=== PATIENT | male | born 1975 | race Caucasian/White ===

== ENCOUNTER 2017-09-22 12:47 | Emergency (ER) | payer OTHER ==
[2017-09-22] MEDS ORDERED: MEPERIDINE HCL 50 MG/ML AMP ONE (13:57)
[2017-09-22] MEDS ORDERED: ONDANSETRON 4 MG (ODT) TAB ONE (13:57)
--- NOTE | 2017-09-22 14:25 | RAD REPORT ---
EXAM DESCRIPTION: CT - Head C Spine Mpr Wo Con - 09/22/2017 1:52 pm CLINICAL HISTORY: Head and neck injury status post fall. Head and neck pain right arm numbness COMPARISON: 2015 TECHNIQUE: Computed axial tomography of the head and cervical spine was obtained. Sagittal and coronal reconstruction was performed. All CT scans are performed using dose optimization technique as appropriate and may include automated exposure control or mA/KV adjustment according to patient size. FINDINGS: An intracranial bleed is not seen. The ventricles are normal in caliber. An extra-axial fl uid collection is not noted.Fluid within the visualized sinuses and mastoids is not seen. Chronic opa cification right maxillary sinus is noted. A cervical fracture is not visualized. No dislocation is noted. Anterior fusion involves C3 and C4. The superior anterior screw lies mostly within the C3-4 disc. The tip enters the inferior cortex of the C3 vertebral body. The inferior screw is well anchored within the C4 vertebral body. A bone plug has been placed. Anterior fusion involves C5 through C7 by anterior plate, screws and bone plugs. The alignment of the cervical spine is satisfactory. IMPRESSION: No acute intracranial abnormality is seen. A cervical fracture is not visualized. Anterior fusion of the cervical spine as described above. If the patient continues to have symptoms to suggest intracranial /spinal cord /spinal canal patholog y then MRI would be recommended
--- NOTE | 2017-09-22 14:40 | ER ---
Nurse's Notes [facility] Name: Lino Samuel Age: 42 yrs Sex: Male : 1975 Arrival Date: 09/22/2017 Time: 12:49 Bed 26 Private MD: out of town, doctor Diagnosis: Neck pain;Headache Presentation: 09/22 13:16 Presenting complaint: Patient states: i took a tumble yesterday evening, tripped and hj fell and hurt my back of the neck, hx of disc replacement; pain /10; reports tingling on my R arm; taking tylenol and lyrica [employer]UT[employer];. Transition of care: patient was not received from another setting of care. Onset of symptoms was September 22, 2017. Risk Assessment: Do you want to hurt yourself or someone else? Patient reports no desire to harm self or others. Initial Sepsis Screen: Does the patient meet any 2 criteria? No. Patient's initial sepsis screen is negative. Does the patient have a suspected source of infection? No. Patient's initial sepsis screen is negative. Care prior to arrival: None. 13:16 Method Of Arrival: Ambulatory 13:16 Acuity: ERICA 4 hj Triage Assessment: 13:19 General: Appears in no apparent distress. uncomfortable, Behavior is calm, cooperative, hj appropriate for age. Pain: Complains of pain in neck. Historical: - Allergies: 13:18 Imitrex (Throat Swelling, Chest Pain); hj 13:18 Ketorolac (Severe Gastritis); hj 13:18 tramadol (Gastritis, Diaphoresis); hj - PMHx: 13:18 GERD; Hypertension; Migraines; hj - PSHx: 13:18 cervical fusion; Cholecystectomy; hj - Immunization history:: Adult Immunizations up to date. - Social history:: Smoking status: Patient uses tobacco products, Patient/guardian denies using alcohol. - Ebola Screening: : Patient negative for fever greater than or equal to 101.5 degrees Fahrenheit, and additional compatible Ebola Virus Disease symptoms Patient denies exposure to infectious person Patient denies travel to an Ebola-affected area in the 21 days before illness onset. Screenin:19 Abuse screen: Denies threats or abuse. Denies injuries from another. Nutritional hj screening: No deficits noted. Tuberculosis screening: No symptoms or risk factors identified. Fall Risk None identified. Assessment: 13:19 Neuro: Level of Consciousness is awake, alert, obeys commands, Oriented to person, hj place, time, situation, Appropriate for age. 13:45 General: Appears uncomfortable, slender, well groomed, well developed, well nourished, tl3 Behavior is calm, cooperative, appropriate for age. Pain: Complains of pain in neck, right shoulder. Neuro: Level of Consciousness is awake, alert, obeys commands, Oriented to person, place, time, situation, Appropriate for age. Cardiovascular: Patient's skin is warm and dry. Respiratory: Airway is patent Respiratory effort is even, unlabored, Respiratory pattern is regular, symmetrical. GI: No signs and/or symptoms were reported involving the gastrointestinal system. : No signs and/or symptoms were reported regarding the genitourinary system. EENT: No signs and/or symptoms were reported regarding the EENT system. Derm: No signs and/or symptoms reported regarding the dermatologic system. Musculoskeletal: Reports pain in neck and right shoulder. Injury Description: was walking his dog when the dog jolted one way and he went falling after him. 15:20 Reassessment: Patient appears in no apparent distress at this time. No changes from tl3 previously documented assessment. Patient and/or family updated on plan of care and expected duration. Pain level reassessed. Patient is alert, oriented x 3, equal unlabored respirations, skin warm/dry/pink. Vital Signs: 13:19 BP 123 / 86; Pulse 65; Resp 18; Temp 97.9(O); Pulse Ox 100% on R/A; Weight 108.86 kg; Height 6 ft. 4 in. (193.04 cm); Pain 9/10; 13:45 BP 111 / 78; Pulse 57; Resp 18; Pulse Ox 97% ; tl3 15:20 BP 130 / 97; Pulse 56; Resp 18; Pulse Ox 100% on R/A; tl3 13:19 Body Mass Index 29.21 (108.86 kg, 193.04 cm) ED Course: 12:49 Patient arrived in ED. mr 12:49 out of town, doctor is Private Physician. mr 13:18 Triage completed. 13:19 Arm band placed on right wrist. 13:19 Patient has correct armband on for positive identification. Bed in low position. Call light in reach. Side rails up X 1. 13:31 Kaden Forman NP is PHCP. pm1 13:31 Petros Aguilera MD is Attending Physician. pm1 13:38 Angela Wilson, LUIS F is Primary Nurse. tl3 13:50 CT completed. Patient tolerated procedure well. Patient moved to CT via stretcher. Patient moved back from CT. 13:53 CT Head C Spine In Process Unspecified. EDMS 15:20 No provider procedures requiring assistance completed. Patient did not have IV access tl3 during this emergency room visit. Administered Medications: 14:14 Drug: Zofran 4 mg Route: PO; tl3 15:21 Follow up: Response: No adverse reaction tl3 14:14 Drug: Demerol 50 mg Route: IM; Site: left gluteus; tl3 15:21 Follow up: Response: No adverse reaction; Pain is decreased tl3 Outcome: 14:39 Discharge ordered by MD. pm1 15:20 Discharged to home ambulatory. tl3 15:20 Condition: stable 15:20 Discharge instructions given to patient, Instructed on discharge instructions, follow up and referral plans. Demonstrated understanding of instructions, follow-up care. 15:22 Patient left the ED. tl3 Signatures: Dispatcher [employer] EDND Magali Zayas Roxanne Cuevas Elder Patterson RN RN hj Marinas, Patrick, NP REPORTING DEVELOPER pm1 Angela Wilson, LUIS F RN tl3
--- NOTE | 2017-09-22 14:40 | EDPHYS ---
Physician Documentation [facility] Name: Lino Samuel Age: 42 yrs Sex: Male : 1975 Arrival Date: 09/22/2017 Time: 12:49 Bed 26 Private MD: out of town, doctor ED Physician Petros Aguilera HPI: 09/22 14:00 This 42 yrs old Male presents to ER via Ambulatory with complaints of Neck pm1 Problem. 14:00 The patient or guardian complains of pain. The symptoms are located at the cervical pm1 spine. Onset: The symptoms/episode began/occurred yesterday. Context: The problem was sustained outdoors, The neck injury/problem resulted from a fall. Associated signs and symptoms: Pertinent positives: headache, Pertinent negatives: fever, numbness, tingling. The pain does not radiate. Modifying factors: The symptoms are alleviated by nothing. the symptoms are aggravated by nothing. The patient has experienced similar episodes in the past, chronically. The patient has not recently seen a physician. Patient was walking his dog and tripped over him. Somersaulted and landed on his neck and shoulders. Patient with headache at the back of his head and neck pain.. Historical: - Allergies: 13:18 Imitrex (Throat Swelling, Chest Pain); hj 13:18 Ketorolac (Severe Gastritis); hj 13:18 tramadol (Gastritis, Diaphoresis); hj - PMHx: 13:18 GERD; Hypertension; Migraines; hj - PSHx: 13:18 cervical fusion; Cholecystectomy; hj - Immunization history:: Adult Immunizations up to date. - Social history:: Smoking status: Patient uses tobacco products, Patient/guardian denies using alcohol. - Ebola Screening: : Patient negative for fever greater than or equal to 101.5 degrees Fahrenheit, and additional compatible Ebola Virus Disease symptoms Patient denies exposure to infectious person Patient denies travel to an Ebola-affected area in the 21 days before illness onset. ROS: 14:00 Constitutional: Negative for fever, chills, and weight loss, Eyes: Negative for injury, pm1 pain, redness, and discharge, ENT: Negative for injury, pain, and discharge, Cardiovascular: Negative for chest pain, palpitations, and edema, Respiratory: Negative for shortness of breath, cough, wheezing, and pleuritic chest pain, Abdomen/GI: Negative for abdominal pain, nausea, vomiting, diarrhea, and constipation, Back: Negative for injury and pain. 14:00 : Negative for injury, bleeding, discharge, and swelling, MS/Extremity: Negative for injury and deformity, Skin: Negative for injury, rash, and discoloration. 14:00 Neck: Positive for of the cervical spine, pain. 14:00 Neuro: Positive for headache, Negative for numbness, seizure activity, tingling. Exam: 14:00 Constitutional: This is a well developed, well nourished patient who is awake, alert, pm1 and in no acute distress. Head/Face: Normocephalic, atraumatic. Eyes: Pupils equal round and reactive to light, extra-ocular motions intact. Lids and lashes normal. Conjunctiva and sclera are non-icteric and not injected. Cornea within normal limits. Periorbital areas with no swelling, redness, or edema. ENT: Nares patent. No nasal discharge, no septal abnormalities noted. Tympanic membranes are normal and external auditory canals are clear. Oropharynx with no redness, swelling, or masses, exudates, or evidence of obstruction, uvula midline. Mucous membranes moist. Chest/axilla: Normal chest wall appearance and motion. Nontender with no deformity. No lesions are appreciated. Cardiovascular: Regular rate and rhythm with a normal S1 and S2. No gallops, murmurs, or rubs. Normal PMI, no JVD. No pulse deficits. Respiratory: Lungs have equal breath sounds bilaterally, clear to auscultation and percussion. No rales, rhonchi or wheezes noted. No increased work of breathing, no retractions or nasal flaring. 14:00 Abdomen/GI: Soft, non-tender, with normal bowel sounds. No distension or tympany. No guarding or rebound. No evidence of tenderness throughout. Back: No spinal tenderness. No costovertebral tenderness. Full range of motion. Skin: Warm, dry with normal turgor. Normal color with no rashes, no lesions, and no evidence of cellulitis. MS/ Extremity: Pulses equal, no cyanosis. Neurovascular intact. Full, normal range of motion. 14:00 Neck: External neck: is normal, C-spine: C-collar placed in ED, vertebral tenderness, that is mild, appreciated at C6 and C7. 14:00 Neuro: Orientation: is normal, Motor: moves all fours, Sensation: is normal, no obvious gross deficits, Gait: is steady, at a normal pace, without difficulty. Vital Signs: 13:19 BP 123 / 86; Pulse 65; Resp 18; Temp 97.9(O); Pulse Ox 100% on R/A; Weight 108.86 kg; hj Height 6 ft. 4 in. (193.04 cm); Pain 9/10; 13:45 BP 111 / 78; Pulse 57; Resp 18; Pulse Ox 97% ; tl3 15:20 BP 130 / 97; Pulse 56; Resp 18; Pulse Ox 100% on R/A; tl3 13:19 Body Mass Index 29.21 (108.86 kg, 193.04 cm) hj MDM: 13:31 Patient medically screened. pm1 14:37 Data reviewed: vital signs. Data interpreted: Pulse oximetry: on room air is 100 %. pm1 Interpretation: normal. 09/22 13:36 Order name: CT Head C Spine; Complete Time: 14:31 pm1 Administered Medications: 14:14 Drug: Zofran 4 mg Route: PO; tl3 15:21 Follow up: Response: No adverse reaction tl3 14:14 Drug: Demerol 50 mg Route: IM; Site: left gluteus; tl3 15:21 Follow up: Response: No adverse reaction; Pain is decreased tl3 Disposition: 17:36 Co-signature as Attending Physician, Petros Aguilera MD. rn Disposition: 09/22/17 14:39 Discharged to Home. Impression: Neck pain, Headache. - Condition is Stable. - Discharge Instructions: Head Injury, Adult, Soft Tissue Injury of the Neck. - Medication Reconciliation Form, Thank You Letter, Prescription Opioid Use form. - Follow up: Emergency Department; When: As needed; Reason: Worsening of condition. Follow up: Private Physician; When: As needed; Reason: Recheck today's complaints, Continuance of care, Re-evaluation by your physician. - Problem is new. - Symptoms have improved. Signatures: Dispatcher [employer] EDMS Petros Aguilera MD MD rn Joaquin, Henry, RN RN hj Marinas, Patrick, [employer] pm1 Angela Wilson RN RN tl3 Corrections: (The following items were deleted from the chart) 14:40 14:39 09/22/2017 14:39 Discharged to Home. Impression: Neck pain. Condition is Stable. pm1 Forms are Medication Reconciliation Form, Thank You Letter, Antibiotic Education, Prescription Opioid Use. Follow up: Emergency Department; When: As needed; Reason: Worsening of condition. Follow up: Private Physician; When: As needed; Reason: Recheck today's complaints, Continuance of care, Re-evaluation by your physician. Problem is new. Symptoms have improved. pm1 15:22 14:40 09/22/2017 14:39 Discharged to Home. Impression: Neck pain; Headache. Condition tl3 is Stable. Forms are Medication Reconciliation Form, Thank You Letter, Antibiotic Education, Prescription Opioid Use. Follow up: Emergency Department; When: As needed; Reason: Worsening of condition. Follow up: Private Physician; When: As needed; Reason: Recheck today's complaints, Continuance of care, Re-evaluation by your physician. Problem is new. Symptoms have improved. pm1
== END 2017-09-22 15:22 | disposition home or self-care (01) ==
LOC: ER 12:47
DX: R51 Headache (principal); W18.09XA Striking against other object with subsequent fall, initial encounter; Y93.K1 Activity, walking an animal; Y92.9 Unspecified place or not applicable; I10 Essential (primary) hypertension; Z88.6 Allergy status to analgesic agent; Z88.8 Allergy status to other drugs, medicaments and biological substances; Z72.0 Tobacco use
CPT/HCPCS: 70450; 72125; 96372; 99284; J2175

== ENCOUNTER 2018-07-22 18:40 | Emergency (ER) | payer OTHER ==
[2018-07-22] MEDS ORDERED: METOCLOPRAMIDE 10 MG/2mL INJ ONE (20:44)
[2018-07-22] MEDS ORDERED: DEXAMETHASONE 10 MG/ML VIAL ONE (20:44)
[2018-07-22] MEDS ORDERED: ONDANSETRON 4 MG/2 ML VIAL ONE (20:45)
[2018-07-22] MEDS ORDERED: DIPHENHYDRAMINE 50 MG/ML VIAL ONE (20:45)
[2018-07-22] MEDS ORDERED: NA CHLORIDE 0.9% 1,000 ML ONE (20:45)
[2018-07-22] MEDS ORDERED: HYDROCODONE/APAP 10/325 TAB ONE (21:47)
--- NOTE | 2018-07-22 22:05 | ER ---
Nurse's Notes [facility] Name: Lino Samuel Age: 43 yrs Sex: Male : 1975 Arrival Date: 07/22/2018 Time: 18:43 Bed 26 Private MD: Diagnosis: Nausea and vomiting;Headache;Chronic neck pain Presentation: 07/22 18:52 Presenting complaint: Patient states: i have severe migraines, and my neck has been tw2 hurting the last 4 days, i have taken my medication i have at the house and i throw it up, i am nauseaous. Transition of care: patient was not received from another setting of care. Onset of symptoms was July 22, 2018. Risk Assessment: Do you want to hurt yourself or someone else? Patient reports no desire to harm self or others. Initial Sepsis Screen: Does the patient meet any 2 criteria? No. Patient's initial sepsis screen is negative. Does the patient have a suspected source of infection? No. Patient's initial sepsis screen is negative. Care prior to arrival: None. 18:52 Method Of Arrival: Ambulatory tw2 18:52 Acuity: ERICA 2 tw2 Triage Assessment: 18:55 Headache History: The patient has had previous headaches and this one is similar to tw2 previous episodes. General: Appears uncomfortable, Behavior is calm, cooperative, appropriate for age. Pain: Complains of pain in base of neck and migraine on the temples and the front of my head. Pain: Pain currently is 8 out of 10 on a pain scale. Pain began 2-3 days ago. Also complains of nausea, photophobia. Neuro: Reports headache. Historical: - Allergies: 18:55 Imitrex (Throat Swelling, Chest Pain); tw2 18:55 Ketorolac (Severe Gastritis); tw2 18:55 tramadol (Gastritis, Diaphoresis); tw2 - Home Meds: 18:55 Percocet 10-650 mg Oral tab 1 tab every 6 hours [Active]; valsartan Oral 1 tab once tw2 daily [Active]; Topamax 50 mg Oral tab 1 tab daily [Active]; Phenergan 25MG Oral 1 tab as needed [Active]; omeprazole 40 mg Oral cpDR 1 cap once daily [Active]; metoprolol tartrate 50 mg Oral tab 1 tab 2 times per day [Active]; Dexilant 60 mg Oral CpDB 1 cap once daily [Active]; amlodipine 10 mg tab 1 tab once daily [Active]; - PMHx: 18:55 GERD; Hypertension; Migraines; tw2 - PSHx: 18:55 cervical fusion; Cholecystectomy; tw2 - Immunization history:: Adult Immunizations Adult Immunizations up to date. - Social history:: Smoking status: Patient uses tobacco products, smokes one-half pack cigarettes per day. - Ebola Screening: : Patient denies travel to an Ebola-affected area in the 21 days before illness onset. Screenin:18 Abuse screen: Denies threats or abuse. Denies injuries from another. Nutritional ca1 screening: No deficits noted. Tuberculosis screening: No symptoms or risk factors identified. Fall Risk None identified. Assessment: 19:14 General: Appears in no apparent distress. comfortable, Behavior is calm, cooperative, ca1 appropriate for age. Pain: Complains of pain in face, scalp and neck Pain currently is 8 out of 10 on a pain scale. Quality of pain is described as throbbing, Pain began 4 days ago Is continuous. Neuro: Level of Consciousness is awake, alert, obeys commands, Oriented to person, place, time, situation, Reports headache in entire since 4 days ago. Pt has Hx of migraines. Cardiovascular: Heart tones S1 S2 present Capillary refill < 3 seconds Patient's skin is warm and dry. Respiratory: Airway is patent Respiratory effort is even, unlabored, Respiratory pattern is regular, symmetrical, Breath sounds are clear bilaterally. GI: Abdomen is round non-distended, Bowel sounds present X 4 quads. Abd is soft and non tender X 4 quads. Reports nausea, vomiting. : No deficits noted. No signs and/or symptoms were reported regarding the genitourinary system. EENT: No deficits noted. No signs and/or symptoms were reported regarding the EENT system. Derm: Skin is intact, is healthy with good turgor, Skin is pink, warm \T\ dry. Musculoskeletal: Circulation, motion, and sensation intact. Capillary refill < 3 seconds, Range of motion: intact in all extremities. 20:15 Reassessment: Patient appears in no apparent distress at this time. Patient and/or ca1 family updated on plan of care and expected duration. Pain level reassessed. Patient is alert, oriented x 3, equal unlabored respirations, skin warm/dry/pink. 21:45 Reassessment: Patient appears in no apparent distress at this time. Patient is alert, ca1 oriented x 3, equal unlabored respirations, skin warm/dry/pink. Patient states feeling better. Vital Signs: 18:53 BP 162 / 102; Pulse 95; Resp 18; Temp 98.0(O); Pulse Ox 100% on R/A; Weight 111.13 kg tw2 (R); Height 6 ft. 4 in. (193.04 cm) (R); Pain 8/10; 20:05 BP 132 / 81; Pulse 67; Resp 17 S; Temp 98.2(O); Pulse Ox 100% on R/A; ca1 21:27 BP 124 / 74; Pulse 62; Resp 18; Temp 98; Pulse Ox 100% on R/A; mg2 22:10 BP 113 / 77; Pulse 67; Resp 17 S; Temp 98(O); Pulse Ox 100% on R/A; ca1 18:53 Body Mass Index 29.82 (111.13 kg, 193.04 cm) tw2 ED Course: 18:43 Patient arrived in ED. mr 18:53 Triage completed. tw2 18:55 Arm band placed on. tw2 19:06 Maria Eugenia Holley, RN is Primary Nurse. ca1 19:18 Patient has correct armband on for positive identification. Placed in gown. Bed in low ca1 position. Call light in reach. Side rails up X 1. Pulse ox on. NIBP on. Warm blanket given. 20:07 Calrence Hairston PA is PHCP. cp 20:07 Clarence Amos MD is Attending Physician. cp 20:20 Inserted saline lock: 20 gauge in right antecubital area, using aseptic technique. mg2 Blood collected. 22:15 No provider procedures requiring assistance completed. IV discontinued, intact, ca1 bleeding controlled, No redness/swelling at site. Pressure dressing applied. Administered Medications: 20:20 Drug: NS 0.9% 1000 ml Route: IV; Rate: 1 bolus; Site: right antecubital; mg2 20:21 Drug: Zofran 4 mg Route: IVP; Site: right antecubital; mg2 20:25 Drug: Benadryl 25 mg Route: IVP; Site: right antecubital; mg2 20:30 Drug: Decadron - Dexamethasone 10 mg Route: IVP; Site: right antecubital; mg2 21:36 Follow up: Response: No adverse reaction mg2 20:35 Drug: Reglan 10 mg Route: IVP; Site: right antecubital; mg2 21:36 Drug: HYDROcodone-acetaminophen 10 mg-325 mg 1 tabs Route: PO; mg2 Outcome: 22:04 Discharge ordered by . cp 22:15 Discharged to home ambulatory. ca1 22:15 Condition: stable 22:15 Discharge instructions given to patient, Instructed on discharge instructions, follow up and referral plans. medication usage, Demonstrated understanding of instructions, follow-up care, medications, Prescriptions given X 2. 22:18 Patient left the ED. ca1 Signatures: Zayas, Heidy mr Clarence Hairston PA PA cp Wise, Tara, RN RN tw2 Davie Tobar RN RN mg2 Maria Eugenia Holley RN RN ca1 Corrections: (The following items were deleted from the chart) 22:18 22:00 BP 113 / 77; Pulse 67bpm; Resp 17bpm; Spontaneous; Pulse Ox 100% RA; Temp 98F ca1 Oral; ca1
--- NOTE | 2018-07-22 22:05 | EDPHYS ---
Physician Documentation [facility] Name: Lino Samuel Age: 43 yrs Sex: Male : 1975 Arrival Date: 07/22/2018 Time: 18:43 Bed 26 Private MD: ED Physician Clarence Amos HPI: 07/22 20:15 This 43 yrs old Male presents to ER via Ambulatory with complaints of cp Headache, Vomiting, Neck Problem. 20:15 The patient complains of pain to the forehead and back of head and base of skull. cp Onset: The symptoms/episode began/occurred 4 day(s) ago. 20:15 Associated signs and symptoms: Pertinent positives: nausea, vomiting, chronic neck pain.cp 20:15 Severity of symptoms: in the emergency department the pain a " 8" out of "10". cp 20:15 Headache History: The patient has had previous headaches and this one is similar to cp previous episodes. 20:15 Patient reports he has been unable to take prescribed Percocet due to nausea and cp vomiting. Historical: - Allergies: 18:55 Imitrex (Throat Swelling, Chest Pain); tw2 18:55 Ketorolac (Severe Gastritis); tw2 18:55 tramadol (Gastritis, Diaphoresis); tw2 - Home Meds: 18:55 Percocet 10-650 mg Oral tab 1 tab every 6 hours [Active]; valsartan Oral 1 tab once tw2 daily [Active]; Topamax 50 mg Oral tab 1 tab daily [Active]; Phenergan 25MG Oral 1 tab as needed [Active]; omeprazole 40 mg Oral cpDR 1 cap once daily [Active]; metoprolol tartrate 50 mg Oral tab 1 tab 2 times per day [Active]; Dexilant 60 mg Oral CpDB 1 cap once daily [Active]; amlodipine 10 mg tab 1 tab once daily [Active]; - PMHx: 18:55 GERD; Hypertension; Migraines; tw2 - PSHx: 18:55 cervical fusion; Cholecystectomy; tw2 - Immunization history:: Adult Immunizations Adult Immunizations up to date. - Social history:: Smoking status: Patient uses tobacco products, smokes one-half pack cigarettes per day. - Ebola Screening: : Patient denies travel to an Ebola-affected area in the 21 days before illness onset. ROS: 20:25 Constitutional: Negative for body aches, chills, fever, poor PO intake. cp 20:25 Eyes: Positive for photophobia, Negative for discharge, redness. cp 20:25 ENT: Negative for drainage from ear(s), ear pain, difficulty swallowing, difficulty handling secretions. 20:25 Neck: Positive for pain with movement, pain at rest. 20:25 Cardiovascular: Negative for chest pain, palpitations. 20:25 Respiratory: Negative for cough, shortness of breath, wheezing. 20:25 Abdomen/GI: Positive for nausea, vomiting, Negative for abdominal pain, diarrhea, constipation. 20:25 : Negative for urinary symptoms. 20:25 Skin: Negative for rash. 20:25 Neuro: Positive for headache, Negative for altered mental status, dizziness, weakness. 20:25 All other systems are negative. Exam: 20:30 Constitutional: The patient appears in no acute distress, alert, awake, cp non-diaphoretic, non-toxic, well developed, well nourished. 20:30 Head/Face: Normocephalic, atraumatic. Eyes: Pupils equal round and reactive to light, cp extra-ocular motions intact. Lids and lashes normal. Conjunctiva and sclera are non-icteric and not injected. Cornea within normal limits. Periorbital areas with no swelling, redness, or edema. ENT: Nares patent. No nasal discharge, no septal abnormalities noted. Tympanic membranes are normal and external auditory canals are clear. Oropharynx with no redness, swelling, or masses, exudates, or evidence of obstruction, uvula midline. Mucous membranes moist. 20:30 Neck: ROM/movement: pain, that is moderate, with any movement, limited range of motion, is not appreciated, nuchal rigidity, is not appreciated. 20:30 Chest/axilla: Inspection: normal, Palpation: is normal, no crepitus, no tenderness. 20:30 Cardiovascular: Rate: normal, Rhythm: regular. 20:30 Respiratory: the patient does not display signs of respiratory distress, Respirations: normal, no use of accessory muscles, no retractions, no splinting, no tachypnea, labored breathing, is not present, Breath sounds: are clear throughout, no decreased breath sounds, no stridor, no wheezing. 20:30 Abdomen/GI: Inspection: abdomen appears normal, Palpation: abdomen is soft and non-tender, in all quadrants. 20:30 Back: pain, is absent, ROM is normal. 20:30 Musculoskeletal/extremity: Exam is negative for decreased range of motion, deformity, injury. 20:30 Skin: no rash present. 20:30 Neuro: Orientation: to person, place \\T\\ time. Mentation: is normal, Cerebellar function: is grossly normal, Motor: moves all fours, strength is normal, Sensation: is normal. Vital Signs: 18:53 BP 162 / 102; Pulse 95; Resp 18; Temp 98.0(O); Pulse Ox 100% on R/A; Weight 111.13 kg tw2 (R); Height 6 ft. 4 in. (193.04 cm) (R); Pain 8/10; 20:05 BP 132 / 81; Pulse 67; Resp 17 S; Temp 98.2(O); Pulse Ox 100% on R/A; ca1 21:27 BP 124 / 74; Pulse 62; Resp 18; Temp 98; Pulse Ox 100% on R/A; mg2 22:10 BP 113 / 77; Pulse 67; Resp 17 S; Temp 98(O); Pulse Ox 100% on R/A; ca1 18:53 Body Mass Index 29.82 (111.13 kg, 193.04 cm) tw2 MDM: 20:07 Patient medically screened. cp 20:30 Differential diagnosis: cluster headache, intracerebral hemorrhage, migraine, cp sinusitis, subarachnoid bleed, subdural hematoma, tension headache. 22:02 ED course: VSS. Patient reports nausea and pain improved. Will discharge to home for cp continued monitoring. 22:03 Data reviewed: vital signs, nurses notes, and as a result, I will discharge patient. cp 22:03 Counseling: I had a detailed discussion with the patient and/or guardian regarding: the cp historical points, exam findings, and any diagnostic results supporting the discharge/admit diagnosis, to return to the emergency department if symptoms worsen or persist or if there are any questions or concerns that arise at home. Response to treatment: the patient's symptoms have markedly improved after treatment. 07/22 20:15 Order name: IV; Complete Time: 20:42 cp 07/22 21:26 Order name: PO challenge; Complete Time: 21:35 cp Administered Medications: 20:20 Drug: NS 0.9% 1000 ml Route: IV; Rate: 1 bolus; Site: right antecubital; mg2 20:21 Drug: Zofran 4 mg Route: IVP; Site: right antecubital; mg2 20:25 Drug: Benadryl 25 mg Route: IVP; Site: right antecubital; mg2 20:30 Drug: Decadron - Dexamethasone 10 mg Route: IVP; Site: right antecubital; mg2 21:36 Follow up: Response: No adverse reaction mg2 20:35 Drug: Reglan 10 mg Route: IVP; Site: right antecubital; mg2 21:36 Drug: HYDROcodone-acetaminophen 10 mg-325 mg 1 tabs Route: PO; mg2 Disposition: 22:30 Chart complete. cp Disposition: 07/22/18 22:04 Discharged to Home. Impression: Nausea and vomiting, Headache, Chronic neck pain. - Condition is Stable. - Discharge Instructions: Chronic Pain, Migraine Headache, Nausea and Vomiting, Adult, Form - Excuse from Work, School, or Physical Activity. - Prescriptions for Zofran 4 mg Oral Tablet - take 1 tablet by ORAL route every 12 hours As needed; 20 tablet. Phenergan 25 mg Rectal Suppository - insert 1 suppository by RECTAL route every 6 hours As needed; 12 suppository. - Medication Reconciliation Form, Thank You Letter, Antibiotic Education, Prescription Opioid Use, Work release form form. - Follow up: Private Physician; When: 2 - 3 days; Reason: Recheck today's complaints. - Problem is chronic. - Symptoms have improved. Addendum: 07/25/2018 09:13 Co-signature as Attending Physician, Clarence Amos MD I agree with the assessment and c cadet plan of care. Signatures: Clarence Amos MD MD cha Page, Corey, PA PA cp Sandhya Whatley RN RN tw2 Davie Tobar RN RN mg2 Maria Eugenia Holley RN RN ca1 Corrections: (The following items were deleted from the chart) 07/22 22:18 22:04 07/22/2018 22:04 Discharged to Home. Impression: Nausea and vomiting; Headache; ca1 Chronic neck pain. Condition is Stable. Forms are Medication Reconciliation Form, Thank You Letter, Antibiotic Education, Prescription Opioid Use. Follow up: Private Physician; When: 2 - 3 days; Reason: Recheck today's complaints. Problem is chronic. Symptoms have improved. cp
== END 2018-07-22 22:18 | disposition home or self-care (01) ==
LOC: ER 18:40
DX: R51 Headache (principal); R11.2 Nausea with vomiting, unspecified; M54.2 Cervicalgia; G89.29 Other chronic pain; K21.9 Gastro-esophageal reflux disease without esophagitis; I10 Essential (primary) hypertension; F17.210 Nicotine dependence, cigarettes, uncomplicated
CPT/HCPCS: 96374; 96375; 99284; J1100; J2405; J2765; J7030

== ENCOUNTER 2018-08-21 22:56 | Emergency (ER) | payer OTHER ==
--- OUTSIDE RECORDS SUMMARY | 2018-08-21 22:59 | XMS REPORT ---
:1975 [facility] Address [address] [place] [address] [address] [place] [address] Care Team Providers Name Role Phone Unavailable Unavailable Unavailable Problems This patient has no known problems. Allergies, Adverse Reactions, Alerts This patient has no known allergies or adverse reactions. Medications This patient has no known medications.
[2018-08-21] MEDS ORDERED: DIAZEPAM 10 MG/2 ML INJ SYRINGE ONE (23:57)
[2018-08-22] MEDS ORDERED: MORPHINE 4 MG/ML SYR ONE (00:01)
--- NOTE | 2018-08-22 01:09 | ER ---
Nurse's Notes [facility] Name: Lino Samuel Age: 43 yrs Sex: Male : 1975 Arrival Date: 08/21/2018 Time: 23:00 Bed 20 Private MD: Diagnosis: Acute on chronic neck pain Presentation: 08/21 23:04 Presenting complaint: Patient states: chronic neck pain that radiates to right arm. 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 Pt states that he has an appointment on September 06 to have stimulator placed. Transition of care: patient was not received from another setting of care. Onset of symptoms was August 21, 2018. Risk Assessment: Do you want to hurt yourself or someone else? Patient reports no desire to harm self or others. Initial Sepsis Screen: Does the patient meet any 2 criteria? No. Patient's initial sepsis screen is negative. Does the patient have a suspected source of infection? No. Patient's initial sepsis screen is negative. Care prior to arrival: None. 23:04 Method Of Arrival: Ambulatory tl2 23:04 Acuity: ERICA 4 tl2 Triage Assessment: 23:09 General: Appears in no apparent distress. uncomfortable, Behavior is calm, cooperative, tl2 appropriate for age. Pain: Complains of pain in neck Pain radiates to right arm. Neuro: Level of Consciousness is awake, alert, obeys commands, Oriented to person, place, time, situation. Historical: - Allergies: 23:09 Imitrex (Throat Swelling, Chest Pain); tl2 23:09 Ketorolac (Severe Gastritis); tl2 23:09 tramadol (Gastritis, Diaphoresis); tl2 - Home Meds: 23:09 metoprolol tartrate 50 mg Oral tab 1 tab 2 times per day [Active]; tl2 damwortkgp-eaaeehygu-ilrwpyrkcwwjmlyacqa oral oral [Active]; Percocet 10-650 mg Oral tab 1 tab every 6 hours [Active]; omeprazole 40 mg Oral cpDR 1 cap once daily [Active]; Dexilant 60 mg Oral CpDB 1 cap once daily [Active]; - PMHx: 23:09 GERD; Hypertension; Migraines; chronic neck pain; tl2 - PSHx: 23:09 neck surgery; Cholecystectomy; Vasectomy; tl2 - Immunization history:: Adult Immunizations up to date. - Social history:: Smoking status: Patient uses tobacco products, smokes one-half pack cigarettes per day. - Ebola Screening: : No symptoms or risks identified at this time. - Family history:: not pertinent. - Hospitalizations: : No recent hospitalization is reported. Screenin:10 Abuse screen: Denies threats or abuse. Nutritional screening: No deficits noted. tl2 Tuberculosis screening: No symptoms or risk factors identified. Fall Risk None identified. Assessment: 08/22 00:19 General: Appears in no apparent distress. uncomfortable, Behavior is calm, cooperative, tl1 appropriate for age. Pain: Complains of pain in neck and C7 and C6 and right arm Pain radiates to right arm Pain currently is 7 out of 10 on a pain scale. Quality of pain is described as burning. Neuro: Level of Consciousness is awake, alert, obeys commands, Oriented to person, place, time, situation. Cardiovascular: Denies chest pain. Respiratory: Airway is patent Trachea midline Respiratory effort is even, unlabored, Breath sounds are clear bilaterally. GI: Abdomen is non-distended, Bowel sounds present X 4 quads. Abd is soft and non tender X 4 quads. : No signs and/or symptoms were reported regarding the genitourinary system. EENT: No signs and/or symptoms were reported regarding the EENT system. Musculoskeletal: Reports pain in neck and right arm. 01:10 Reassessment: Patient and/or family updated on plan of care and expected duration. Pain tl1 level reassessed. Patient is alert, oriented x 3, equal unlabored respirations, skin warm/dry/pink. Patient states feeling better. Patient states symptoms have improved. 01:14 Reassessment: Patient appears in no apparent distress at this time. Patient and/or tl2 family updated on plan of care and expected duration. Pain level reassessed. Patient is alert, oriented x 3, equal unlabored respirations, skin warm/dry/pink. pt verbalized understanding of discharge instructions, need for follow up and prescription usage Patient states feeling better. Vital Signs: 08/21 23:09 BP 170 / 100; Pulse 98; Resp 18; Temp 98.2(O); Pulse Ox 98% on R/A; Weight 111.13 kg; tl2 Height 6 ft. 4 in. (193.04 cm); Pain 7/10; 08/22 00:19 BP 155 / 93; Pulse 73; Resp 17; Pulse Ox 97% on R/A; Pain 5/10; tl1 00:57 BP 146 / 85; Pulse 73; Resp 17; Pulse Ox 97% on R/A; tl1 08/21 23:09 Body Mass Index 29.82 (111.13 kg, 193.04 cm) tl2 ED Course: 08/21 23:00 Patient arrived in ED. ag3 23:07 Triage completed. tl2 23:09 Arm band placed on right wrist. tl2 23:10 Patient has correct armband on for positive identification. Bed in low position. Call tl2 light in reach. Side rails up X 1. 23:11 Stalin Purdy MD is Attending Physician. ny 23:37 Johanny Ferguson, LUIS F is Primary Nurse. tl1 08/22 00:30 CT C Spine In Process Unspecified. EDMS 00:58 No provider procedures requiring assistance completed. Patient did not have IV access tl1 during this emergency room visit. 01:06 Mina Little MD is Referral Physician. wa Administered Medications: 08/21 23:47 CANCELLED (unavailable): morphine 5 mg IM once tl2 23:48 Drug: Valium 5 mg Route: IM; Site: right gluteus; tl2 08/22 00:55 Follow up: Response: No adverse reaction; Marked relief of symptoms; Other; nerve pain tl1 is decreased 08/21 23:48 CANCELLED (wrong route): morphine 4 mg IVP once tl2 23:48 Drug: morphine 4 mg Route: IM; Site: right gluteus; tl2 08/22 00:55 Follow up: Response: No adverse reaction; Pain is unchanged, physician notified tl1 00:56 CANCELLED (Physician Discretion): morphine 4 mg IM once ny 01:01 Drug: [place] (7.5 mg-325 mg) 1 tabs Route: PO; tl1 01:11 Follow up: Response: No adverse reaction; No change in condition; Medication tl1 administered at discharge. Outcome: 01:08 Discharge ordered by . ny 01:14 Discharged to home ambulatory. tl2 01:14 Condition: stable 01:14 Discharge instructions given to patient, Instructed on discharge instructions, follow up and referral plans. medication usage, Demonstrated understanding of instructions, follow-up care, medications, Prescriptions given X 1. 01:15 Patient left the ED. tl2 Signatures: Dispatcher [employer] EDMS Johanny Ferguson RN RN tl1 Angelica Goldsmith RN RN tl2 Stalin Purdy MD MD wa Gomez, Alice ag3
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
[2018-08-22] MEDS ORDERED: HYDROCODONE/APAP 7.5/325 MG TAB ONE (01:15)
--- NOTE | 2018-08-22 10:29 | RAD REPORT ---
EXAM DESCRIPTION: CT - C Spine Wo Con - 08/22/2018 6:15 am CLINICAL HISTORY: Neck pain. radiate R arm COMPARISON: None. TECHNIQUE: CT CERVICAL SPINE WITHOUT IV CONTRAST on 08/21/2018 11:36 PM CDT This exam was performed according to our departmental dose-optimization program, which includes autom ated exposure control, adjustment of the mA and/or kV according to patient size and/or use of iterati ve reconstruction technique. FINDINGS: There is no acute fracture. There is straightening of normal cervical lordosis. Anterior f usion of C3 and C4 as well as C5-C7 was performed. Vertebral body heights are preserved. Soft tissues are unremarkable. IMPRESSION: No acute fracture or subluxation. Electronically signed by: Braden Engle MD 08/22/2018 12:44 AM CDT Due to temporary technical issues with the PACS/Fluency reporting system, reports are being signed by the in house radiologist as a courtesy to ensure prompt reporting. The interpreting radiologist is f ully responsible for the content of the report.
== END 2018-08-22 01:15 | disposition home or self-care (01) ==
LOC: ER 22:56
DX: M54.2 Cervicalgia (principal); I10 Essential (primary) hypertension; K21.9 Gastro-esophageal reflux disease without esophagitis; G43.909 Migraine, unspecified, not intractable, without status migrainosus; Z88.6 Allergy status to analgesic agent; Z88.8 Allergy status to other drugs, medicaments and biological substances
CPT/HCPCS: 72125; 96372; 99283; J3360

== ENCOUNTER 2018-12-22 11:19 | Emergency (ER) | payer OTHER ==
--- NOTE | 2018-12-22 13:03 | ER ---
Nurse's Notes [facility] Name: Lino Samuel Age: 43 yrs Sex: Male : 1975 Arrival Date: 12/22/2018 Time: 11:21 Bed 20 Private MD: Diagnosis: Pain in right shoulder Presentation: 12/22 11:33 Presenting complaint: Patient states: neck pain for years. last night was burning and ch worse. My insurance wont get me a pain simulator. my dr is out of town and they told me to come here. 11:33 Method Of Arrival: Ambulatory 11:35 Transition of care: patient was not received from another setting of care. Onset of ch symptoms was 2014. Risk Assessment: Do you want to hurt yourself or someone else? Patient reports no desire to harm self or others. Initial Sepsis Screen: Does the patient meet any 2 criteria? No. Patient's initial sepsis screen is negative. Does the patient have a suspected source of infection? No. Patient's initial sepsis screen is negative. Care prior to arrival: None. 11:35 Acuity: ERICA 5 ch Triage Assessment: 11:34 General: Appears in no apparent distress. uncomfortable, Behavior is calm, cooperative, ch appropriate for age. Pain: Complains of pain in back of neck and right arm. Historical: - Allergies: 11:34 Imitrex (Throat Swelling, Chest Pain); ch 11:34 Ketorolac (Severe Gastritis); ch 11:34 tramadol (Gastritis, Diaphoresis); ch - PMHx: 11:34 chronic neck pain; GERD; Hypertension; Migraines; ch - PSHx: 11:34 neck surgery; Cholecystectomy; Vasectomy; ch - Immunization history:: Adult Immunizations up to date. - Social history:: Smoking status: Patient/guardian denies using tobacco. - Ebola Screening: : Patient negative for fever greater than or equal to 101.5 degrees Fahrenheit, and additional compatible Ebola Virus Disease symptoms Patient denies exposure to infectious person Patient denies travel to an Ebola-affected area in the 21 days before illness onset No symptoms or risks identified at this time. Screenin:54 Abuse screen: Denies threats or abuse. Denies injuries from another. Nutritional sv screening: No deficits noted. Tuberculosis screening: No symptoms or risk factors identified. Fall Risk None identified. Assessment: 13:17 Reassessment: Patient appears in no apparent distress at this time. Patient is alert, rb1 oriented x 3, equal unlabored respirations, skin warm/dry/pink. Vital Signs: 11:34 BP 123 / 89; Pulse 91; Resp 16; Temp 97.5; Pulse Ox 99% on R/A; Weight 111.13 kg; ch Height 6 ft. 4 in. (193.04 cm); Pain 9/10; 11:34 Body Mass Index 29.82 (111.13 kg, 193.04 cm) ED Course: 11:21 Patient arrived in ED. as 11:34 Arm band placed on left wrist. Patient placed in waiting room. ch 11:36 Triage completed. 12:33 Christina Whaley FNP-C is [facility]. snw 12:33 Barrie Rosado MD is Attending Physician. snw 12:33 Jes Keating, RN is Primary Nurse. sv 12:53 Awaiting ED provider evaluation. sv 12:54 Patient has correct armband on for positive identification. Bed in low position. Call sv light in reach. Administered Medications: 13:17 Drug: predniSONE 40 mg Route: PO; rb1 13:27 Follow up: Response: No adverse reaction sv Outcome: 13:02 Discharge ordered by . snw 13:27 Patient left the ED. kj1 Signatures: Kathleen Willard, RN RN Jes Keating, LUIS F RN Christina Whaley FNP-C FNP-Francisca Quiroz Rebecca, RN RN rb1 Ninoska Lopez kj1
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
[2018-12-22] MEDS ORDERED: predniSONE 20 MG TAB ONE (13:15)
[2018-12-22 13:35] VITALS: BP 123/89; TEMP 97.5; O2SAT 99
== END 2018-12-22 13:27 | disposition home or self-care (01) ==
LOC: ER 11:19
DX: M25.511 Pain in right shoulder (principal); M54.2 Cervicalgia; I10 Essential (primary) hypertension; Z88.5 Allergy status to narcotic agent; Z88.8 Allergy status to other drugs, medicaments and biological substances
CPT/HCPCS: 99282; J7512

== ENCOUNTER 2019-09-03 18:20 | Emergency (ER) | payer OTHER ==
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
--- OUTSIDE RECORDS SUMMARY | 2019-09-03 18:23 | XMS REPORT | Continuity of Care Document ---
:1975 Author Organization [facility] t Address [address] [place] [address] Care Team Providers Name Role Phone Noel Hernandez Attending Clinician Karon Wheat Attending Clinician Problems This patient has no known problems. Allergies, Adverse Reactions, Alerts This patient has no known allergies or adverse reactions. Medications This patient has no known medications. Procedures This patient has no known procedures. Encounters Start End Encounter Admission Attending Care Care Encounter Source Date/Time Date/Time Type Type Clinicians Facility Department ID 2019-08-29 2019-08-29 Emergency Daviskeelycliff [facility] [id number] 18:05:24 19:48:00 Qi Chirinos [id number] [place] [id number] [place] [id number] 2019-04-20 2019-04-20 Emergency Teodoro [facility] [id number] 21:28:16 22:19:00 Alley Chirinos [id number] [place] [id number] [place] [id number] Results This patient has no known results.
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
--- NOTE | 2019-09-03 20:59 | EDPHYS ---
Physician Documentation [facility] Name: Lino Samuel Age: 44 yrs Sex: Male : 1975 Arrival Date: 09/03/2019 Time: 18:24 Bed 10 Private MD: ED Physician Clarence Amos HPI: 09/02 20:51 This 44 yrs old Male presents to ER via Ambulatory with complaints of Arm iram Injury. 20:51 The patient or guardian complains of contusion. The complaints affect the dorsal aspect iram of left forearm and palmar aspect of left forearm. Context: The problem was sustained. Onset: The symptoms/episode began/occurred 5 day(s) ago. Treatment prior to arrival includes: no previous treatment. Modifying factors: The symptoms are alleviated by remaining still, the symptoms are aggravated by movement. Associated signs and symptoms: The patient has no apparent associated signs or symptoms. Severity of symptoms: At their worst the symptoms were mild, in the emergency department the symptoms are unchanged. The patient has not experienced similar symptoms in the past. Historical: - Allergies: 18:37 Imitrex (Throat Swelling, Chest Pain); ss 18:37 Ketorolac (Severe Gastritis); ss 18:37 tramadol (Gastritis, Diaphoresis); ss - PMHx: 18:37 chronic neck pain; GERD; Hypertension; Migraines; ss - PSHx: 18:37 neck surgery; Vasectomy; Cholecystectomy; ss - Immunization history:: Adult Immunizations up to date. - Social history:: Smoking status: Patient reports the use of cigarette tobacco products, smokes one-half pack cigarettes per day, Patient/guardian denies using alcohol, street drugs. - Family history:: not pertinent. ROS: 20:51 Constitutional: Negative for fever, chills, and weight loss, Eyes: Negative for injury, iram pain, redness, and discharge, ENT: Negative for injury, pain, and discharge, Neck: Negative for injury, pain, and swelling, Cardiovascular: Negative for chest pain, palpitations, and edema, Respiratory: Negative for shortness of breath, cough, wheezing, and pleuritic chest pain, Abdomen/GI: Negative for abdominal pain, nausea, vomiting, diarrhea, and constipation, Back: Negative for injury and pain, : Negative for injury, bleeding, discharge, and swelling, Skin: Negative for injury, rash, and discoloration, Neuro: Negative for headache, weakness, numbness, tingling, and seizure, Psych: Negative for depression, anxiety, suicide ideation, homicidal ideation, and hallucinations, Allergy/Immunology: Negative for hives, rash, and allergies, Endocrine: Negative for neck swelling, polydipsia, polyuria, polyphagia, and marked weight changes, Hematologic/Lymphatic: Negative for swollen nodes, abnormal bleeding, and unusual bruising. 20:51 MS/extremity: Positive for decreased range of motion, pain, tenderness. Exam: 20:51 Constitutional: This is a well developed, well nourished patient who is awake, alert, iram and in no acute distress. Head/Face: Normocephalic, atraumatic. Eyes: Pupils equal round and reactive to light, extra-ocular motions intact. Lids and lashes normal. Conjunctiva and sclera are non-icteric and not injected. Cornea within normal limits. Periorbital areas with no swelling, redness, or edema. ENT: Nares patent. No nasal discharge, no septal abnormalities noted. Tympanic membranes are normal and external auditory canals are clear. Oropharynx with no redness, swelling, or masses, exudates, or evidence of obstruction, uvula midline. Mucous membranes moist. Neck: Trachea midline, no thyromegaly or masses palpated, and no cervical lymphadenopathy. Supple, full range of motion without nuchal rigidity, or vertebral point tenderness. No Meningismus. Chest/axilla: Normal chest wall appearance and motion. Nontender with no deformity. No lesions are appreciated. Cardiovascular: Regular rate and rhythm with a normal S1 and S2. No gallops, murmurs, or rubs. Normal PMI, no JVD. No pulse deficits. Respiratory: Lungs have equal breath sounds bilaterally, clear to auscultation and percussion. No rales, rhonchi or wheezes noted. No increased work of breathing, no retractions or nasal flaring. Abdomen/GI: Soft, non-tender, with normal bowel sounds. No distension or tympany. No guarding or rebound. No evidence of tenderness throughout. Back: No spinal tenderness. No costovertebral tenderness. Full range of motion. Male : Normal genitalia with no discharge or lesions. Skin: Warm, dry with normal turgor. Normal color with no rashes, no lesions, and no evidence of cellulitis. Neuro: Awake and alert, GCS 15, oriented to person, place, time, and situation. Cranial nerves II-XII grossly intact. Motor strength 5/5 in all extremities. Sensory grossly intact. Cerebellar exam normal. Normal gait. Psych: Awake, alert, with orientation to person, place and time. Behavior, mood, and affect are within normal limits. 20:51 Musculoskeletal/extremity: Extremities: all appear grossly normal, with no appreciated pain with palpation, ROM: no acute changes, Circulation is intact in all extremities. Sensation intact. Compartment Syndrome exam of affected extremity: is normal. DVT Exam: negative Homans' sign noted on exam, no appreciated bluish discoloration, no erythema, no increased warmth, pain, swelling, tenderness. Vital Signs: 18:35 BP 155 / 108; Pulse 100; Resp 18; Temp 98.8; Pulse Ox 100% ; Pain 8/10; 21:08 BP 148 / 90; Pulse 90; Resp 17; ll1 MDM: 20:26 Patient medically screened. [facility] 20:51 Data reviewed: vital signs, nurses notes, radiologic studies, plain films. [facility] 09/02 18:41 Order name: Forearm Left XRAY snw Administered Medications: No medications were administered Disposition: 09/03/19 20:59 Discharged to Home. Impression: Contusion of left forearm. - Condition is Stable. - Discharge Instructions: Contusion, Contusion, [id number]. - Prescriptions for Ibuprofen 600 mg Oral Tablet - take 1 tablet by ORAL route every 8 hours As needed take with food; 21 tablet. - Work release form, Medication Reconciliation Form, Thank You Letter, Antibiotic Education, Prescription Opioid Use form. - Follow up: Private Physician; When: 2 - 3 days; Reason: Recheck today's complaints, Continuance of care, Re-evaluation by your physician. - Problem is new. - Symptoms have improved. Signatures: Dispatcher [employer] EDClarence Tellez MD MD cha Smirch, Shelby, RN RN Kiana Triplett RN RN ll1 Corrections: (The following items were deleted from the chart) 21:08 20:59 09/03/2019 20:59 Discharged to Home. Impression: Contusion of left forearm. ll1 Condition is Stable. Forms are Medication Reconciliation Form, Thank You Letter, Antibiotic Education, Prescription Opioid Use. Follow up: Private Physician; When: 2 - 3 days; Reason: Recheck today's complaints, Continuance of care, Re-evaluation by your physician. Problem is new. Symptoms have improved. iram
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
[2019-09-03 21:24] VITALS: BP 148/90
[2019-09-03 22:05] VITALS: TEMP 98.8; O2SAT 100
== END 2019-09-03 21:08 | disposition home or self-care (01) ==
LOC: ER 18:20
DX: S50.12XA Contusion of left forearm, initial encounter (principal); W21.03XA Struck by baseball, initial encounter; Y93.9 Activity, unspecified; Y92.9 Unspecified place or not applicable; Z88.5 Allergy status to narcotic agent; Z88.8 Allergy status to other drugs, medicaments and biological substances; F17.210 Nicotine dependence, cigarettes, uncomplicated; I10 Essential (primary) hypertension
CPT/HCPCS: 99283

== ENCOUNTER 2020-03-20 22:07 | Emergency (ER) | payer OTHER ==
--- OUTSIDE RECORDS SUMMARY | 2020-03-20 22:09 | XMS REPORT | Continuity of Care Document ---
:[address] [facility] t Address [address] [place] [address] Care Team Providers Name Role Phone Lamberto Quintero Attending Clinician Doctor Unassigned, Name Attending Clinician Unavailable Lubna DICK, S Attending Clinician Yessenia Esquivel Attending Clinician Rohan QIU, G Attending Clinician Dean DICK Attending Clinician Cordell HERNÁNDEZ Attending Clinician Jason Toribio DO Attending Clinician Noel Hernandez Attending Clinician Karon Wheat Attending Clinician Problems This patient has no known problems. Allergies, Adverse Reactions, Alerts This patient has no known allergies or adverse reactions. Medications This patient has no known medications. Procedures This patient has no known procedures. Encounters Start End Encounter Admission Attending Care Care Encounter Source Date/Time Date/Time Type Type Clinicians Facility Department ID 2020-03-09 2020-03-09 Emergency Bonnie [facility] [id number] 20:23:00 22:51:00 Lynette Chirinos [id number] [place] [id number] [place] [address] [id number] 2020-03-09 2020-03-09 Orders Doctor JESICA [id number] 00:00:00 00:00:00 Only Unassigned, LEYLA [id number] [facility] [id number] 2020-02-14 2020-02-15 Emergency [facility] [id number] 23:22:00 00:54:00 Milena Lamberto Candis [id number] [place] [id number] [place] [id number] 2020-01-28 2020-01-28 Emergency Maegan [facility] [id number] 17:47:00 21:50:00 Yessenia Candis [id number] [place] [id number] [place] [id number] 082020-01-22 2020-01-22 Emergency [facility] [id number] 19:22:00 22:47:00 Amaris G Candis [id number] [place] [id number] [place] [id number] 2020-01-20 2020-01-21 Emergency [facility] [id number] 23:26:00 02:01:00 Elkin Candis [id number] [place] [id number] [place] [id number] 2019-12-30 2019-12-30 Emergency Maegan [facility] [id number] 11:45:00 14:25:00 Yessenia Candis [id number] [place] [id number] [place] [id number] 2019-12-22 2019-12-22 Emergency [facility] [id number] 13:48:00 16:20:00 Elkin Candis [id number] [place] [id number] [place] [id number] 2019-12-22 2019-12-22 Orders Doctor JESICA [id number] 00:00:00 00:00:00 Only Unassigned, LEYLA [id number] [facility] [id number] 2019-11-29 2019-11-29 Emergency Nicole, [facility] [id number] 15:09:00 17:41:00 Lynette Orantes [place] [id number] [place] [id number] [place] [id number] 2019-11-12 2019-11-12 Emergency Landa, [facility] [id number] 20:27:00 23:35:00 Yannaestelle Chirinos [id number] [place] [id number] [place] [id number] [id number] 2019-10-20 2019-10-21 Emergency Catarino, [facility] [id number] 21:49:00 00:48:00 Zena Chirinos [id number] [place] [id number] [place] [id number] 2019-10-20 2019-10-20 Orders Doctor MOONEY [id number] 00:00:00 00:00:00 Only Unassigned, LEYLA [id number] [facility] [id number] 2019-08-29 2019-08-29 Emergency Maria Eugenia, [facility] [id number] 18:05:24 19:48:00 Qi Chirinos [id number] [place] [id number] [place] [id number] 2019-04-20 2019-04-20 Emergency Teodoro, [facility] [id number] 21:28:16 22:19:00 Alley Rendoncali Chirinos [id number] [place] [id number] [place] [id number] [id number] Results This patient has no known results.
--- OUTSIDE RECORDS SUMMARY | 2020-03-20 22:10 | XMS REPORT | Summary of Care ---
:1975 Author Organization [facility] - [facility] Address [address] [place] [address] Care Team Providers Name Role Phone Robert Mendoza Primary Care Provider Reason for Visit Reason Comments Headache migraine x 3 days Auth/Cert Status Reason Specialty Diagnoses / Referred By Referred To Procedures Contact Contact Emergency Medicine Adc Em ergency Dept 132 [facility] [place] [address] Fax: Encounter Details Date Type Department Care Team Description 12/22/2019 Emergency ADC-Emergency Elkin Shelley MD Other chronic pain (Primary Dx); Department 301 [facility] Nonintractable headache, unspecified chr onicity pattern, unspecified headache type 132 [facility] [address] [place], [place] [id number] [place] [address] [phone] Allergies Active Allergy Reactions Severity Noted Date Comments Sumatriptan Succinate Other - See comments 11/13/2014 Chest pain , syncope Ketorolac Tromethamine Other - See comments 11/13/2014 "stabbing pains in the stomach" Tramadol Other - See comments 11/13/2014 Cold sw eats documented as of this encounter (statuses as of 12/22/2019) Medications Medication Sig Dispensed Refills Start Date End Date Status metoprolol succinate XL Take 100 mg by 0 Active 100 mg 24 hr tablet mouth daily. valsartan 40 mg tablet Take 40 mg by 0 Active mouth daily. amLODIPine 10 mg tablet Take 10 mg by 0 Active mouth daily. acetaminophen-codeine Take 1 tablet 20 tablet 0 09/09/2016 Active (TYLENOL-CODEINE #3) by mouth every 300-30 mg tablet 4 (four) hours as needed for Pain (scale 7-10). DEXLANSOPRAZOLE (DEXILANT Take by mouth. 0 Active ORAL) acetaminophen-codeine TK 1 T PO BID 1 06/29/2017 Active 300-60 mg tablet PRN P butalbital-acetaminophen- TK 1 T PO TWICE 0 06/12/19 18 Active caff 50-325-40 mg tablet A DAY PRF MCCANN HYDROcodone-acetaminophen 0 05/25/2017 Active 7.5-325 mg per tablet proMETHazine 25 mg tablet TK 1 T PO Q 6 H 1 06/03/19 18 Active PRF NAUSEA OR VOMITING. LYRICA 150 mg capsule 0 06/09/2017 Active cyclobenzaprine 5 mg Take 1 tablet 9 tablet 0 08/20/2018 Active tabletIndications: Neck by mouth 3 pain, chronic (three) times daily. oxyCODONE-acetaminophen Take 1 tablet 0 Active (PERCOCET) 10-325 mg per by mouth every tablet 6 (six) hours as needed for Pain. diazePAM (VALIUM) 5 mg Take 1 tablet 15 tablet 0 03/06/2019 Active tabletIndications: by mouth 3 Cervicalgia (three) times daily. naproxen 500 mg Take 1 tablet 14 tablet 0 08/29/2019 Active tabletIndications: Pain by mouth every of left forearm 8 (eight) hours as needed for Pain (scale 4-6). documented as of this encounter (statuses as of 12/22/2019) Active Problems No known active problemsdocumented as of this encounter (statuses as of 12/22/2019) Social History Tobacco Use Types Packs/Day Years Used Date Current Every Day Smoker Cigarettes 0.5 18 Smokeless Tobacco: Never Used Alcohol Use Drinks/Week oz/Week Comments No Sex Assigned at Date Recorded Not on file COVID-19 Exposure Response Date Recorded In the last month, have you been in contact with No / Unsure 12/22/2019 1:42 PM CDT someone who was confirmed or suspected to have Coronavirus / COVID-19? 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 Other chronic pain G89.29 338.29 2. Nonintractable headache, unspecified chronicity pattern, unspecified headache type R51.9 784.0 NO LIFE-THREATENING FINDINGS ON TODAY'S EXAM. YOUR PRESCRIPTIONS : Check out [employer] for medication discounts Medication List ASK your doctor about these medications * acetaminophen-codeine 300-30 mg tablet Commonly known as: Tylenol-Codeine #3 Take 1 tablet by mouth every 4 (four) hours as needed for Pain (scale 7-10). * acetaminophen-codeine 300-60 mg tablet Commonly known as: TYLENOL #4 amLODIPine 10 mg tablet Commonly known as: NORVASC mfmxnwuwza-furtazfudjscz-kpxf 50-325-40 mg tablet Commonly known as: ESGIC cyclobenzaprine 5 mg tablet Commonly known as: FLEXERIL Take 1 tablet by mouth 3 (three) times daily. DEXILANT ORAL diazePAM 5 mg tablet Commonly known as: Valium Take 1 tablet by mouth 3 (three) times daily. HYDROcodone-acetaminophen 7.5-325 mg per tablet Commonly known as: NORCO Lyrica 150 mg capsule Generic drug: pregabalin metoprolol succinate XL 100 mg 24 hr tablet Commonly known as: TOPROL XL naproxen 500 mg tablet Commonly known as: NAPROSYN Take 1 tablet by mouth every 8 (eight) hours as needed for Pain (scale 4-6). Percocet 10-325 mg per tablet Generic drug: oxyCODONE-acetaminophen [...] es normal, confusion, baja or pierdas conciencia. MAY FOLLOW-UP WITH A PROVIDER OF YOUR CHOICE, SUCH : 1. A PHYSICIAN OF YOUR CHOICE 2. [facility], . LOCATIONS IN [facility] 3. [facility], [address] [place] [address]; [phone] OR, IF YOU WISH TO FOLLOW-UP WITHIN THE [facility], MAY TRY THESE OPTIONS (CLINIC APPOINTMENTS AVAILABLE ON [id number] BASIS): 1. SCHEDULE AN APPOINTMENT ONLINE AT WWW.[facility] 2. OR CALL THE [facility] ACCESS CENTER AT OR 3. OR CALL YOUR [facility] PHYSICIAN'S OFFICE DIRECTLY IF YOU ARE ALREADY AN ESTABLISHED [facility] PATIENT. [facility] RETURN TO WORK / SCHOOL EXCUSE Lino Samuel WAS SEEN IN THE ER AND DISCHARGED 12/22/2019 TODAY, 4:08 PM & May return to Work / School / Incarceration on X with activity as tolerated indicated below. ___The following limitations apply until pt is seen by Physician and cleared to return to normal activity. _X_ Off for two days and return to activity as tolerated at work or school ___ No Sports ___ No work ___ Do not return until fever free for 24 hours. ___ No school ELKIN SHELLEY Jr., MD [facility] EMERGENCY DEPRTMENT [address] [place] [address] [place] [address] ### The patient may have been given Narcotic pain medications during their stay in the ED that may show up on a Drug Screen. The hospital discharge paper work will identify these medications. AttachmentsThe following attachments cannot be sent through Care Everywhere. Chronic Pain (Latvian)Headache, Unspecified (Latvian)documented in this encounter ED Notes Davie Gomez RN - 12/22/2019 1:46 PM CDTArrives to ED for migraine x 3 days. Reports source of pain comes from neck. 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 Associated symptoms: no abdominal pain, no cough, no dizziness, no fatigue, no fever, no nausea and no vomiting Past Medical History / Immunizations Past Medical History: Diagnosis Date GERD (gastroesophageal reflux disease) HTN (hypertension) Migraine Tetanus received in last 5 years: Unknown Childhood immunizations: Up-to-date Past Surgical History Past Surgical History: Procedure Laterality Date ANTERIOR CERVICAL FUSION Allergies Allergies Allergen Reactions Imitrex [Sumatriptan Succinate] Other - See comments Chest pain , syncope Toradol [Ketorolac Tromethamine] Other - See comments "stabbing pains in the stomach" Tramadol Other - See comments Cold sweats Social History Tobacco Use Current Every Day Smoker; Smoked an average of 0.5 packs/day for 18 years; Smoked: Cigarettes. Smokeless Tobacco: Never used smokeless tobacco. Alcohol Use No. Drug Use No. Review of Systems Review of Systems Constitutional: Negative. Negative for chills, fatigue, fever and unexpected weight change. HENT: Negative. Eyes: Negative. Negative for discharge and itching. Respiratory: Negative. Negative for cough, chest tightness, shortness of breath and wheezing. Cardiovascular: Negative. Negative for chest pain and palpitations. Gastrointestinal: Negative. Negative for abdominal distention, abdominal pain, nausea and vomiting. Genitourinary: Negative. Negative for dysuria, urgency, frequency and flank pain. Musculoskeletal: Negative. Skin: Negative. Negative for color change, pallor and wound. Neurological: Positive for headaches. Negative for dizziness, syncope and light-headedness. Psychiatric/Behavioral: Negative. Negative for agitation and behavioral problems. All other systems reviewed and are negative. Endocrine: Endocrine negative Physical Exam BP (!) 141/104 | Pulse 59 | Temp 37.3 C (99.1 F) (Oral) | Resp 18 | Wt 106.6 kg (235 lb) | SpO2 95% | BMI 28.61 kg/m Physical Exam Vitals signs reviewed. Constitutional: Appearance: He is well-developed. HENT: Head: Normocephalic and atraumatic. Nose: Nose normal. Eyes: Conjunctiva/sclera: Conjunctivae normal. Neck: Musculoskeletal: Normal range of motion and neck supple. Trachea: No tracheal deviation. Cardiovascular: Rate and Rhythm: Normal rate and regular rhythm. Heart sounds: Normal heart sounds. No murmur. No friction rub. Pulmonary: Effort: Pulmonary effort is normal. No respiratory distress. Breath sounds: Normal breath sounds. No stridor. No wheezing or rales. Abdominal: General: Bowel sounds are normal. There is no distension. Palpations: Abdomen is soft. Tenderness: There is no abdominal tenderness. There is no guarding or rebound. Musculoskeletal: Normal range of motion. Skin: General: Skin is warm and dry. Neurological: Mental Status: He is alert and oriented to person, place, and time. Cranial Nerves: No cranial nerve deficit. Sensory: No sensory deficit. Psychiatric: Behavior: Behavior normal. Labs No results found for this or any previous visit (from the past 24 hour(s)). Imaging No results found for this visit on 12/22/19. Orders and Treatments No orders of the defined types were placed in this encounter. Orders Placed This Encounter Medications butorphanol (STADOL) injection 1 mg proMETHazine (PHENERGAN) 12.5 mg in NaCl 0.9% (NS) 50 mL piggyback Procedures See ED Procedure Note Notes & MDM Patient was evaluated for an emergency medical condition related to Headache (migraine x 3 days ) . Differential diagnoses considered by presenting complaints but not limited to: Chronic pain Assessment: Pt given Stadol and Phenergan. Has chronic pain. No acute problems at this time. Will DC to follow up. History, physical exam findings, results of visit, differential diagnosis, medication regimens and plan of future care have been considered. Additional MDM may be found in the ED course. Differential diagnosis considered and final disposition made based on information gathered during evaluation and may not be completely ruled out or specifically listed. Vital signs were rechecked before final disposition. Diagnosis ICD-10-CM ICD-9-CM 1. Other chronic pain G89.29 338.29 2. Nonintractable headache, unspecified chronicity pattern, unspecified headache type R51.9 784.0 Disposition & Follow Up ED Disposition ED Disposition Condition Comment Disch - Home Stable Patient's Medications START taking these medications No medications on file CONTINUE taking these medications which have NOT CHANGED ACETAMINOPHEN-CODEINE (TYLENOL-CODEINE #3) 300-30 MG TABLET Take 1 tablet by mouth every 4 (four) hours as needed for Pain (scale 7-10). ACETAMINOPHEN-CODEINE 300-60 MG TABLET TK 1 T PO BID PRN P AMLODIPINE 10 MG TABLET Take 10 mg by mouth daily. ZBMRHEWPWF-VUHBKPWZLMORI-FOGB 50-325-40 MG TABLET TK 1 T PO TWICE A DAY PRF MCCANN CYCLOBENZAPRINE 5 MG TABLET Take 1 tablet by mouth 3 (three) times daily. DEXLANSOPRAZOLE (DEXILANT ORAL) Take by mouth. DIAZEPAM (VALIUM) 5 MG TABLET Take 1 tablet by mouth 3 (three) times daily. HYDROCODONE-ACETAMINOPHEN 7.5-325 MG PER TABLET LYRICA 150 MG CAPSULE METOPROLOL SUCCINATE XL 100 MG 24 HR TABLET Take 100 mg by mouth daily. NAPROXEN 500 MG TABLET Take 1 tablet by mouth every 8 (eight) hours as needed for Pain (scale 4-6). OXYCODONE-ACETAMINOPHEN (PERCOCET) 10-325 MG PER TABLET Take 1 tablet by mouth every 6 (six) hours as needed for Pain. PROMETHAZINE 25 MG TABLET TK 1 T PO Q 6 H PRF NAUSEA OR VOMITING. VALSARTAN 40 MG TABLET Take 40 mg by mouth daily. START taking Modified Medications as Prescribed No medications on file STOP taking these medications No medications on file Elkin Shelley Jr., MD Clinical Health And Human Performance Professor [facility] Emergency Department documented in this encounter Miscellaneous Notes ED Nurse Note - Angela Daniel RN - 12/22/2019 4:18 PM CDTPt given printed and verbal discharge instructions regarding chronic pain, encouraged hydration, 0 Prescriptions provided Pt verbalized understanding of instructions, pt awake alert oriented, resp reg unlabored, skin w/d, color appropriate for race, moves all ext well,pt encouraged to follow up with PCP. Advised to seek medical attention for new/prolonged/worsening of symptoms, Symptoms improved No adverse reaction to meds given in ER noted upon discharge PIV d'cd, dressing to site, catheter in tact. Awake, alert oriented, resp reg unlabored, skin w/d, pt leaving amb with steady gait, in no apparent distress. documented in this encounter Plan of Treatment Health Maintenance Due Date Last Done Comments PNEUMOCOCCAL 0-64 YEARS COMBINED 1981 SERIES (1 of 3 - PCV13) Depression Screening 1987 DTaP,Tdap,and Td Vaccines (1 - Tdap) 1994 INFLUENZA VACCINE (#1) 2019 05/09/2019, 01/31/2018, 11/27/2008 documented as of this encounter Results Not on filedocumented in this encounter Visit Diagnoses Diagnosis Other chronic pain - Primary Nonintractable headache, unspecified chr onicity pattern, unspecified headache type documented in this encounter Administered Medications Medication Order MAR Action Action Date Dose Rate Site butorphanol (STADOL) injection 1 mg Given 12/22/2019 2:21 PM CDT 1 mg 1 mg, Intravenous, ONCE, 1 dose, Wed12/22/19 at 1515, TUAN proMETHazine (PHENERGAN) 12.5 mg in NaCl Given 12/22/2019 4:45 PM CDT 12.5 mg 0.9% (NS) 50 mL piggyback 12.5 mg, IV Piggyback, ONCE, 1 dose, Wed12/22/19 at 1645, 50 mL documented in this encounter [phone] (Work) documented as of this encounter
--- OUTSIDE RECORDS SUMMARY | 2020-03-20 22:10 | XMS REPORT | Summary of Care ---
:1975 Author Organization [facility] - [facility] Address [address] [place] [address] Care Team Providers Name Role Phone Robert Mendoza Primary Care Provider Reason for Visit Reason Comments MIGRAINE Auth/Cert Status Reason Specialty Diagnoses / Referred By Referred To Procedures Contact Contact Emergency Medicine Adc Em ergency Dept [address] [place] [address] Fax: Encounter Details Date Type Department Care Team Description 12/30/2019 Emergency ADC-Emergency Chayo Issa PAC Intractable migraine Department [address] [facility] [address] without status 132 [place], [place] [address] [address], Drive [phone] unspecified migraine [place] [id number] type (Primary Dx) [phone] Allergies Active Allergy Reactions Severity Noted Date Comments Sumatriptan Succinate Other - See comments 11/13/2014 Chest pain , syncope Ketorolac Tromethamine Other - See comments 11/13/2014 "stabbing pains in the stomach" Tramadol Other - See comments 11/13/2014 Cold sw eats documented as of this encounter (statuses as of 12/30/2019) Medications Medication Sig Dispensed Refills Start Date [...] as of this encounter (statuses as of 12/30/2019) Active Problems No known active problemsdocumented as of this encounter (statuses as of 12/30/2019) Social History Tobacco Use Types Packs/Day Years Used Date Current Every Day Smoker Cigarettes 0.5 18 Smokeless Tobacco: Never Used Alcohol Use Drinks/Week oz/Week Comments No Sex Assigned at Date Recorded Not on file COVID-19 Exposure Response Date Recorded In the last month, have you been in contact with No / Unsure 12/30/2019 11:42 AM CDT someone who was confirmed or suspected to have Coronavirus / COVID-19? documented as of this encounter Last Filed Vital Signs Vital Sign Reading Time Taken Comments Blood Pressure 150/96 12/30/2019 2:00 PM CDT Pulse 53 12/30/2019 2:00 PM CDT Temperature 36.6 C (97.9 F) 12/30/2019 11:48 AM CDT Respiratory Rate 18 12/30/2019 2:00 PM CDT Oxygen Saturation 98% 12/30/2019 2:00 PM CDT Inhaled Oxygen Concentration - - Weight 104.3 kg (230 lb) 12/30/2019 11:48 AM CDT Height 193 cm (6' 4") 12/30/2019 11:48 AM CDT Body Mass Index 28 12/30/2019 11:48 AM CDT documented in this encounter Discharge Instructions AttachmentsThe following attachments cannot be sent through Care Everywhere. Headache, Migraine: Stages and Treatment (Sao Tomean)documented in this encounter ED Notes Angela Daniel RN - 12/30/2019 11:46 AM CDTPatient states he is having a migraine that started Wednesday morning; states his dr started him on an injection for the migraines that is not helping; patient sees his dr on Wednesday and will be having surgery Wednesday for an implant to help with the migraines. documented in this encounter Miscellaneous Notes ED Nurse Note - Angela Daniel RN - 12/30/2019 2:24 PM CDTPt given printed and verbal discharge instructions regarding migraine, encouraged hydration. 0 Prescriptions provided Discussed ibuprofen and to take with food to avoid GI distress. Pt verbalized understanding of instructions, pt awake alert oriented, resp reg unlabored, skin w/d, color appropriate for race, moves all ext well,pt encouraged to follow up with PCP. Advised to seek medical attention for new/prolonged/worsening of symptoms, Symptoms resolved No adverse reaction to meds given in ER noted upon discharge PIV d'cd, dressing to site, catheter in tact. Awake, alert oriented, resp reg unlabored, skin w/d, pt leaving amb with steady gait, in no apparent distress. documented in this encounter Plan of Treatment Health Maintenance Due Date Last Done Comments PNEUMOCOCCAL 0-64 YEARS COMBINED SERIES (1 1981 of 3 - PCV13) Depression Screening 1987 DTaP,Tdap,and Td Vaccines (1 - Tdap) 1994 INFLUENZA VACCINE (#1) 2019 05/09/2019, 11/27/2008 documented as of this encounter Procedures Procedure Name Priority Date/Time Associated Diagnosis Comme nts CONSENT/REFUSAL FOR Routine 12/30/2019 11:41 AM CDT DIAGNOSIS AND TREATMENT documented in this encounter Results Not on filedocumented in this encounter Visit Diagnoses Diagnosis Intractable migraine without status migr ainosus, unspecified migraine type - Primary documented in this encounter Administered Medications Medication Order MAR Action Action Date Dose Rate Site butorphanol (STADOL) injection 1 mg Given 12/30/2019 12:40 PM CDT 1 mg 1 mg, Intravenous, Q3HPRN, Starting 12/30/19 at 1210, Until Discontinued, Routine, Pain Medication Order MAR Action Action Date Dose Rate Site NaCl 0.9% (NS) bolus New Bag 12/30/2019 12:40 PM CDT 1,000 mL 99 9 mL/hr infusion 1,000 mL at 999 mL/hr, 1,000 mL, IV Infusion, ONCE, 1 dose, 12/30/19 at 1315, STAT proMETHazine (PHENERGAN) 12.5 mg in NaCl Given 12/30/2019 12:42 PM CDT 12.5 mg 0.9% (NS) 50 mL piggyback 12.5 mg, IV Piggyback, ONCE, 1 dose, 12/30/19 at 1315, 50 mL documented in this encounter (Work) documented as of this encounter
--- OUTSIDE RECORDS SUMMARY | 2020-03-20 22:10 | XMS REPORT | Summary of Care ---
:[address] [facility] - Health Address [address] [place] [address] Care Team Providers Name Role Phone Robert Mendoza Primary Care Provider Encounter Details Date Type Department Care Team Description 12/22/[address] [facility] Doctor Unassigned, No [address] [facility] [place] [address] [address] [place] [address] Allergies Active Allergy Reactions Severity Noted Date [...] been in contact with No / Unsure 11/29/2019 2:59 PM CDT someone who was confirmed or suspected to have Coronavirus / COVID-19? documented as of this encounter Last Filed Vital Signs Not on filedocumented in this encounter Plan of Treatment Health Maintenance Due Date Last Done Comments PNEUMOCOCCAL 0-64 YEARS COMBINED 1981 SERIES (1 of 3 - PCV13) Depression Screening 1987 DTaP,Tdap,and Td Vaccines (1 - Tdap) 1994 INFLUENZA VACCINE (#1) 2019 05/09/2019, 01/31/2018, 11/27/2008 documented as of this encounter Procedures Procedure Name Priority Date/Time Associated Diagnosis Comme nts CONSENT/REFUSAL FOR Routine 12/22/2019 1:42 PM CDT DIAGNOSIS AND TREATMENT documented in this encounter Results Not on filedocumented in this encounter Insurance Payer Benefit Plan / Group Subscriber ID Effective Dates Phone Address Type [facility] [id number] 2011-Present [facility] [id number] 2018-Present documented as of this encounter
--- OUTSIDE RECORDS SUMMARY | 2020-03-20 22:10 | XMS REPORT | Summary of Care ---
:1975 Author Organization [facility] - Health Address [address] [place] [address] Care Team Providers Name Role Phone Robert Mendoza Primary Care Provider Reason for Visit Reason Comments Headache migraine Auth/Cert Status Reason Specialty Diagnoses / Referred By Referred To Procedures Contact Contact Emergency Medicine Adc Em ergency Dept [address] [facility] [place] [address] Fax: Encounter Details Date Type Department Care Team Description 01/20/2020 - Emergency ADC-Emergency Elkin Shelley MD Migraine without 01/21/[address] [place] [address] status migrainosus, 132 [facility] [address] not intractable, [place] [address] [place] [address] type (Primary Dx) [phone] Allergies Active Allergy Reactions Severity Noted Date Comments Sumatriptan Succinate Other - See comments 11/13/2014 Chest pain , syncope Ketorolac Tromethamine Other - See comments 11/13/2014 "stabbing pains in the stomach" Tramadol Other - See comments 11/13/2014 Cold sw eats documented as of this encounter (statuses as of 01/21/2020) Medications Medication Sig Dispensed Refills Start Date [...] as of this encounter (statuses as of 01/21/2020) Active Problems No known active problemsdocumented as of this encounter (statuses as of 01/21/2020) Social History Tobacco Use Types Packs/Day Years Used Date Current Every Day Smoker Cigarettes 0.5 18 Smokeless Tobacco: Never Used Alcohol Use Drinks/Week oz/Week Comments No Sex Assigned at Date Recorded Not on file COVID-19 Exposure Response Date Recorded In the last month, have you been in contact with No / Unsure 01/20/2020 11:20 PM ASSEMBLER TRACTOR someone who was confirmed or suspected to have Coronavirus / COVID-19? documented as of this encounter Last Filed Vital Signs Vital Sign Reading Time Taken Comments Blood Pressure 154/95 01/21/2020 1:59 AM ASSEMBLER TRACTOR Pulse 68 01/21/2020 1:59 AM ASSEMBLER TRACTOR Temperature 36.9 C (98.5 F) 01/20/2020 11:24 PM ASSEMBLER TRACTOR Respiratory Rate 14 01/21/2020 1:59 AM ASSEMBLER TRACTOR Oxygen Saturation 98% 01/21/2020 1:59 AM ASSEMBLER TRACTOR Inhaled Oxygen Concentration - - Weight 104.3 kg (230 lb) 01/20/2020 11:24 PM ASSEMBLER TRACTOR Height 193 cm (6' 4") 01/20/2020 11:24 PM ASSEMBLER TRACTOR Body Mass Index 28 01/20/2020 11:24 PM ASSEMBLER TRACTOR documented in this encounter Discharge Instructions InstructionsNeElkin gomez MD - 01/21/2020 RETURN FOR ANY QUESTIONS OR CONCERNS Today you were seen by Elkin Shelley Jr., MD You were seen today for Chief Complaint Patient presents with Headache migraine Your ER diagnosis was ICD-10-CM ICD-9-CM 1. Migraine without status migrainosus, not intractable, unspecified migraine type G43.909 346.90 NO LIFE-THREATENING FINDINGS ON TODAY'S EXAM. YOUR PRESCRIPTIONS : Check out [employer] for medication discounts Medication List ASK your doctor about these medications * acetaminophen-codeine 300-30 mg tablet Commonly known as: Tylenol-Codeine #3 Take 1 tablet by mouth every 4 (four) hours as needed for Pain (scale 7-10). * acetaminophen-codeine 300-60 mg tablet Commonly known as: TYLENOL #4 amLODIPine 10 mg tablet Commonly known as: NORVASC ymtzojgtxt-ldagennpdaqcm-ixqo 50-325-40 mg tablet Commonly known as: ESGIC [...] 1. A PHYSICIAN OF YOUR CHOICE 2. [facility], . LOCATIONS IN [facility] 3. [facility], [address] [place] [address]; [phone] OR, IF YOU WISH TO FOLLOW-UP WITHIN THE [facility], MAY TRY THESE OPTIONS (CLINIC APPOINTMENTS AVAILABLE ON BAXE-XS-EWHD BASIS): 1. SCHEDULE AN APPOINTMENT ONLINE AT [email or web address] 2. OR CALL THE [facility] AT OR 3. OR CALL YOUR [facility] PHYSICIAN'S OFFICE DIRECTLY IF YOU ARE ALREADY AN ESTABLISHED [facility] PATIENT. [facility] RETURN TO WORK / SCHOOL EXCUSE Lino Samuel WAS SEEN IN THE ER AND DISCHARGED 01/21/2020 TODAY, 1:27 AM & May return to Work / School [...] ___ No school ELKIN SHELLEY Jr., MD [facility] EMERGENCY DEPRTMENT [address] [place] [address] DR. ENIO TREVINO [id number] ### The patient may have been given Narcotic pain medications during their stay in the ED that may show up on a Drug Screen. The hospital discharge paper work will identify these medications. documented in this encounter ED Notes Kristina Garcias RN - 01/20/2020 11:21 PM CSTCC: Migraine since yesterday, started after physical therapy. Has been having them after therapy each time. 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 PSH:nerve stimulator, fusion, wei, vasectomy, bone graft from right index finger MEDS:Metoprolol, amlodipine, Hydrochlorothiazide, percocet, zofran LMP: na Tetanus: utd Awake, alert, oriented, resp reg unlabored, skin warm & dry, color appropriate for race, moves all ext without difficulty, amb with out assist Appears in no distress MBLER TRACTOR Elkin Shelley MD - 01/20/2020 11:15 PM CST EMERGENCY DEPARTMENT ENCOUNTER [facility] Patient Name: Lino Samuel Date of : 1975 44 year old Exam Room:TR8/TR8 Primary Care Physician: Trent Mendoza Pre- Hospital Patient Escorted by: Family [5] Mode of Arrival: Personal means [1] EMS Treatment Prior to ED Arrival: OPTICAL 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 He states he usually gets career technical counselor on a routine basis. He says yesterday he went in for treatment and approximately 2 hours after his treatment he developed a bitemporal headache. This is his usual headache. He does admit to nausea and vomiting. He presents for evaluation. History provided by: Patient Headache Pain location: R temporal and L temporal Pain severity now: severe. Onset quality: Gradual Duration: 1 day Timing: Constant Progression: Worsening Chronicity: Chronic Similar to prior headaches: yes Context: activity, bright light and loud noise Relieved by: Nothing Worsened by: Nothing Associated symptoms: no abdominal pain, no cough, no dizziness, no fatigue, no fever, no nausea, no neck pain, no numbness, no paresthesias, no seizures, no syncope and no vomiting Past Medical History / Immunizations Past Medical History: Diagnosis Date GERD (gastroesophageal reflux disease) HTN (hypertension) Migraine Tetanus received in last 5 years: Yes Childhood immunizations: Up-to-date Past Surgical History Past [...] and wheezing. Cardiovascular: Negative. Negative for chest pain, palpitations and syncope. Gastrointestinal: Negative. Negative for abdominal distention, abdominal pain, nausea and vomiting. Genitourinary: Negative. Negative for dysuria, urgency, frequency and flank pain. Musculoskeletal: Negative. Negative for neck pain. Skin: Negative. Negative for color change, pallor and wound. Neurological: Positive for headaches. Negative for dizziness, seizures, syncope, light-headedness, numbness and paresthesias. Psychiatric/Behavioral: Negative. Negative for agitation and behavioral problems. All other systems reviewed and are negative. Endocrine: Endocrine negative Physical Exam BP (!) 167/100 | Pulse 73 | Temp 36.9 C (98.5 F) (Oral) | Resp 18 | Ht 1.93 m (6' 4") | Wt 104.3 kg (230 lb) | SpO2 96% | BMI 28.00 kg/m Physical Exam Vitals signs reviewed. Constitutional: [...] No results found for this visit on 01/20/20. Orders and Treatments No orders of the defined types were placed in this encounter. Orders Placed This Encounter Medications proMETHazine (PHENERGAN) 25 mg in NaCl 0.9% (NS) 50 mL piggyback butorphanol (STADOL) injection 1 mg NaCl 0.9% (NS) bolus infusion 1,000 mL butorphanol (STADOL) injection 1 mg Procedures See ED Procedure Note Notes & MDM Patient was evaluated for an emergency medical condition related to Headache (migraine) . Differential diagnoses considered by presenting complaints but not limited to: Migraine Assessment: The patient improved with IVF, Stadol, and Phenergan. Will DC to follow up. History, physical [...] before final disposition. Diagnosis ICD-10-CM ICD-9-CM 1. Migraine without status migrainosus, not intractable, unspecified migraine type G43.909 346.90 Disposition & Follow Up ED Disposition ED [...] TABLET Take 10 mg by mouth daily. [id number]-DIVX 50-325-40 MG TABLET TK 1 T PO [...] on file Elkin Shelley Jr., MD Clinical Refund Clerk [facility] Emergency Department MBLER TRACTOR documented in this encounter Miscellaneous Notes ED Nurse Note - Sandy Balderas RN - 01/21/2020 2:00 AM CSTPt given printed and verbal discharge instructions regarding migraines, encouraged hydration. Pt verbalized understanding of instructions, pt awake alert oriented, resp reg unlabored, skin w/d, color appropriate for race, moves all ext well, pt encouraged to follow up with PCP. Advised to seek medical attention for new/prolonged/worsening of symptoms. Symptoms addressed. No adverse reaction to meds given in ER noted upon discharge. PIV d'cd, dressing to site, catheter intact. Pt leaving amb with steady gait, in no apparent distress. documented in this encounter Plan of Treatment Health Maintenance Due Date Last Done Comments PNEUMOCOCCAL 0-64 YEARS COMBINED SERIES (1 1981 of 3 - PCV13) Depression Screening 1987 DTaP,Tdap,and Td Vaccines (1 - Tdap) 1994 INFLUENZA VACCINE (#1) 2019 05/09/2019, 11/27/2008 documented as of this encounter Results Not on filedocumented in this encounter Visit Diagnoses Diagnosis Migraine without status migrainosus, not intractable, unspecified migraine type - Primary documented in this encounter Administered Medications Medication Order MAR Action Action Date Dose Rate Site butorphanol (STADOL) injection 1 mg Given 01/21/2020 12:45 AM ASSEMBLER TRACTOR 1 mg 1 mg, Intravenous, ONCE, 1 dose, 01/21/20 at 0045, TUAN butorphanol (STADOL) injection 1 mg Given 01/21/2020 2:00 AM ASSEMBLER TRACTOR 1 mg 1 mg, Intravenous, ONCE, 1 dose, 01/21/20 at 0200, TUAN NaCl 0.9% (NS) bolus infusion New Bag 01/21/2020 12:14 AM ASSEMBLER TRACTOR 1,000 mL 999 mL/hr 1,000 mL at 999 mL/hr, 1,000 mL, IV Infusion, ONCE, 1 dose, 01/21/20 at 0045, STAT proMETHazine (PHENERGAN) 25 mg in NaCl 0.9% Given 01/21/2020 12:45 AM ASSEMBLER TRACTOR 25 mg (NS) 50 mL piggyback 25 mg, IV Piggyback, ONCE, 1 dose, 01/21/20 at 0045, 50 mL documented in this encounter (Work) documented as of this encounter
--- OUTSIDE RECORDS SUMMARY | 2020-03-20 22:11 | XMS REPORT | Summary of Care ---
:1975 Author Organization [facility] - Health Address [address] [place] [address] Care Team Providers Name Role Phone Robert Mendoza Primary Care Provider Reason for Visit Reason Comments MIGRAINE Auth/Cert Status Reason Specialty Diagnoses / Referred By Referred To Procedures Contact Contact Emergency Medicine Adc Em ergency Dept [address] [place] [address] Fax: Encounter Details Date Type Department Care Team Description 01/28/2020 Emergency ADC-Emergency Chayo Issa PAC Acute intractable Department 132 [facility] headache, unspecified [address] [place], [place] [address] headache type ([address] [phone] [place]) [place] [address] [phone] Allergies Active Allergy Reactions Severity Noted Date Comments Sumatriptan Succinate Other - See comments 11/13/2014 Chest pain , syncope Ketorolac Tromethamine Other - See comments 11/13/2014 "stabbing pains in the stomach" Tramadol Other - See comments 11/13/2014 Cold sw eats documented as of this encounter (statuses as of 01/28/2020) Medications Medication Sig Dispensed Refills Start End Status Date Date metoprolol Take 100 mg by 0 Acti ve succinate XL 100 mg mouth daily. 24 hr tablet valsartan 40 mg Take 40 mg by 0 Active tablet mouth daily. amLODIPine 10 mg Take 10 mg by 0 Active tablet mouth daily. acetaminophen-codei Take 1 tablet 20 tablet 0 09/10/19 Active ne (TYLENOL-CODEINE by mouth every 17 #3) 300-30 mg 4 (four) hours tablet as needed for Pain (scale 7-10). DEXLANSOPRAZOLE Take by mouth. 0 Active (DEXILANT ORAL) acetaminophen-codei TK 1 T PO BID 1 06/30/19 Active ne 300-60 mg tablet PRN P 18 butalbital-acetamin TK 1 T PO TWICE 0 06/12/19 Active ophen-caff A DAY PRF MCCANN 18 50-325-40 mg tablet HYDROcodone-acetami 0 05/26/19 Active nophen 7.5-325 mg 18 per tablet LYRICA 150 mg 0 06/10/19 Active capsule 18 cyclobenzaprine 5 Take 1 tablet 9 tablet 0 08/21/19 Active mg by mouth 3 19 tabletIndications: (three) times Neck pain, chronic daily. oxyCODONE-acetamino Take 1 tablet 0 Active phen (PERCOCET) by mouth every 10-325 mg per 6 (six) hours tablet as needed for Pain. diazePAM (VALIUM) 5 Take 1 tablet 15 tablet 0 03/06/20 Active mg by mouth 3 19 tabletIndications: (three) times Cervicalgia daily. naproxen 500 mg Take 1 tablet 14 tablet 0 08/29/19 Active tabletIndications: by mouth every 20 Pain of left 8 (eight) hours forearm as needed for Pain (scale 4-6). proMETHazine Insert 1 24 Suppository 0 01/28/20 Ac tive (PHENERGAN) 25 mg Suppository 20 suppositoryIndicati into rectum ons: Acute every 4 (four) intractable hours as needed headache, for Nausea and unspecified Vomiting (N/V). headache type proMETHazine 25 mg TK 1 T PO Q 6 H 1 06/03/1901/27 Discontinued tablet PRF NAUSEA OR 18 020 VOMITING. 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 documented as of this encounter Last Filed Vital Signs Vital Sign Reading Time Taken Comments Blood Pressure 141/96 01/28/2020 9:03 PM DRIVER UTILITY WORKER Pulse 77 01/28/2020 9:03 PM DRIVER UTILITY WORKER Temperature 36.8 C (98.2 F) 01/28/2020 5:50 PM DRIVER UTILITY WORKER Respiratory Rate 18 01/28/2020 9:03 PM DRIVER UTILITY WORKER Oxygen Saturation 98% 01/28/2020 9:03 PM DRIVER UTILITY WORKER Inhaled Oxygen Concentration - - Weight 104.3 kg (230 lb) 01/28/2020 5:50 PM DRIVER UTILITY WORKER Height - - Body Mass Index 30.34 01/22/2020 7:13 PM DRIVER UTILITY WORKER documented in this encounter Discharge Instructions AttachmentsThe following attachments cannot be sent through Care Everywhere. Headache, Migraine, Classic (Argentine)Headache, Rebound (Argentine)documented in this encounter ED Notes Madhuri Huddleston RN - 01/28/2020 5:48 PM CSTPatient reports nausea, vomiting, severe headache, and blurred vision starting Wednesday morning thathas progressively gotten worse. Patient reports he is unable to keep any of his medications down documented in this encounter Miscellaneous Notes ED Nurse Note - Sam Bernal RN - 01/28/2020 9:48 PM CSTPt given printed and verbal discharge instructions regarding headache and visit findings , encouraged hydration, prescriptions escribed and discussed with patient Discussed Tylenol and ibuprofen use for pain/fever. Discussed ibuprofen and to take with food to avoid GI distress. Discussed phenergan side effects and to avoid driving/operating machinery/or engaging in activitiesrequiring alertness while taking. Pt encouraged to follow up with pcp Advised to seek medical attention for new/prolonged/worsening of symptoms. No adverse reaction to meds given in ER noted upon discharge. PIV d'cd, dressing to site, catheter in tact. Pt verbalized understanding of instructions, awake alert oriented, resp reg unlabored, skin w/d, color appropriate for race, moves all ext well, pt leaving amb with steady gait, in no apparent distress, patient driving patient home. ursing Note - Madhuri Huddleston RN - 01/28/2020 6:50 PM CSTReport given to Sari KERNS ER UTILITY WORKER documented in this encounter Plan of Treatment Health Maintenance Due Date Last Done Comments PNEUMOCOCCAL 0-64 YEARS COMBINED SERIES (1 1981 of 3 - PCV13) Depression Screening 1987 DTaP,Tdap,and Td Vaccines (1 - Tdap) 1994 INFLUENZA VACCINE (#1) 2019 05/09/2019, 11/27/2008 documented as of this encounter Procedures Procedure Name Priority Date/Time Associated Diagnosis Comme nts CBC WITH DIFF STAT 01/28/2020 6:23 PM Acute intractable Re sults for this DRIVER UTILITY WORKER headache, procedure are i n unspecified headache the res ults type section. COMP. METABOLIC STAT 01/28/2020 6:23 PM Acute intractable Results for this PANEL (32047) DRIVER UTILITY WORKER headache, procedure are in unspecified headache the res ults type section. MAGNESIUM STAT 01/28/2020 6:23 PM Acute intractable Res ults for this DRIVER UTILITY WORKER headache, procedure are i n unspecified headache the res ults type section. CONSENT/REFUSAL FOR Routine 01/28/2020 5:23 PM DIAGNOSIS AND DRIVER UTILITY WORKER TREATMENT documented in this encounter Results MAGNESIUM (01/28/2020 6:23 PM DRIVER UTILITY WORKER) Pathologist Sig nature MAGNESIUM 2.1 1.7 - 2.4 mg/dL [facility] Specimen Blood - VENOUS Performing Organization Address City/State/Zipcode Phone Number [facility] CLIA: [id number] [place], [place] [id number] LABORATORY [address] COMP. METABOLIC PANEL (72367) (01/28/2020 6:23 PM DRIVER UTILITY WORKER) Pathologist Sig nature NA 139 135 - 145 [facility] mmol/L [facility] K 3.4 (L) 3.5 - 5.0 [facility] mmol/L [facility] CL 103 98 - 108 mmol/L [facility] CO2 TOTAL 25 23 - 31 mmol/L [facility] AGAP 11 2 - 16 [facility] BUN 19 7 - 23 mg/dL [facility] GLUCOSE 127 (H) 70 - 110 mg/dL [facility] CREATININE 0.98 0.60 - 1.25 [facility] mg/dL [facility] TOTAL BILI 0.4 0.1 - 1.1 mg/dL [facility] CALCIUM 9.8 8.6 - 10.6 [facility] mg/dL [facility] T PROTEIN 7.5 6.3 - 8.2 g/dL [facility] ALBUMIN 4.3 3.5 - 5.0 g/dL [facility] ALK PHOS 78 34 - 122 U/L [facility] ALTv 15 5 - 50 U/L [facility] AST(SGOT) 20 13 - 40 U/L [facility] eGFR Calculation 83.1 mL/min/1.73m2 [facility] [place] eGFR Calculation 100.7 mL/min/1.73m2 [facility] ([facility]) [facility] Specimen Blood - VENOUS Narrative Performed At [facility] ([facility] and Staging of Kidney Disease* + + +- + | GFR (mL/min/1.73 m2) | With Kidney Damage | Without Kidney Damage + + +- + | >90 | Stage one | Normal + + +- + | 60-89 | Stage two | Decreased GFR + + +- + | 30-59 | Stage three | Stage three + + +- + | 15-29 | Stage four | Stage four + + +- + | <15 (or dialysis) | Stage five | Stage five + + +- + *Each stage assumes the associated GFR level has been in effect for at least three months. Stages 1 to 5, with or without kidney disease, indicate chronic kidney disease. Notes: Determination of stages one and two (with eGFR >59mL/min/1.73 m2) requires estimation of kidney damage for at least three months as defined by structural or functional abnormalities of the kidney, manifested by either: Pathological abnormalities or Markers of kidney damage (including abnormalities in the composition of the blood or urine or abnormalities in imaging tests). Performing Organization Address City/State/Zipcode Phone Number [facility] CLIA: [id number] [place] [address] CBC WITH DIFF (01/28/2020 6:23 PM DRIVER UTILITY WORKER) [facility] WBC 9.85 4.20 - 10.70 [facility] 10*3/L [facility] RBC 4.88 4.26 - 5.52 [facility] 10*6/L [facility] HGB 14.3 12.2 - 16.4 g/dL [facility] HCT 43.6 38.4 - 49.3 % [facility] MCV 89.3 81.7 - 95.6 fL [facility] MCH 29.3 26.1 - 32.7 pg [facility] MCHC 32.8 31.2 - 35.0 g/dL [facility] RDW-SD 42.4 38.5 - 51.6 fL [facility] RDW-CV 13.0 12.1 - 15.4 % [facility] PLT 326 150 - 328 [facility] 10*3/L [facility] MPV 10.6 9.8 - 13.0 fL [facility] NRBC/100 WBC 0.0 0.0 - 10.0 /100 [facility] WBCs [facility] NRBC x10^3 <0.01 10*3/L [facility] GRAN MAT (NEUT) % 55.6 % [facility] IMM GRAN % 0.40 % [facility] LYMPH % 32.5 % [facility] MONO % 8.5 % [facility] EOS % 2.7 % [facility] BASO % 0.3 % [facility] GRAN MAT x10^3(ANC) 5.47 1.99 - 6.95 [facility] 10*3/uL HOSPITAL LABORATORY IMM GRAN x10^3 0.04 0.00 - 0.06 [facility] 10*3/uL HOSPITAL LABORATORY LYMPH x10^3 3.20 1.09 - 3.23 [facility] 10*3/uL HOSPITAL LABORATORY MONO x10^3 0.84 0.36 - 1.02 [facility] 10*3/uL HOSPITAL LABORATORY EOS x10^3 0.27 0.06 - 0.53 [facility] 10*3/uL [facility] BASO x10^3 0.03 0.01 - 0.09 [facility] 10*3/[facility] LABORATORY Specimen Blood - VENOUS Performing Organization Address City/State/Zipcode Phone Number [facility] CLIA: [id number] [place] [address] documented in this encounter Visit Diagnoses Diagnosis Acute intractable headache, unspecified headache type - Primary documented in this encounter Administered Medications Medication Order MAR Action Action Date Dose Rate Site butorphanol (STADOL) injection 1 mg Given 01/28/2020 9:14 PM DRIVER UTILITY WORKER 1 mg 1 mg, Intravenous, Q3HPRN, Starting 01/28/20 at 2105, Until Discontinued, Routine, Pain Medication Order MAR Action Action Date Dose Rate Site butorphanol (STADOL) injection 1 mg Given 01/28/2020 6:24 PM DRIVER UTILITY WORKER 1 mg 1 mg, Intravenous, ONCE, 1 dose, 01/28/20 at 1930, Routine diphenhydrAMINE (BENADRYL) injection 25 mg Given 01/28/2020 6:24 PM DRIVER UTILITY WORKER 25 mg 25 mg, Slow IV Push, ONCE, 1 dose, 01/28/20 at 1915, STAT KCL (KLOR-CON M20) tablet 40 mEq Given 01/28/2020 8:04 PM DRIVER UTILITY WORKER 40 mEq 40 mEq, Oral, ONCE, 1 dose, 01/28/20 at 2100, Routine magnesium sulfate 4 mEq/mL (50 %) injection 8 Given 9:00 PM DRIVER UTILITY WORKER 8 mEq mEq 8 mEq (1 g), IV Piggyback, ONCE, 1 dose, 01/28/20 at 2100, STAT metoclopramide HCl (REGLAN) injection 10 mg Given 01/28/2020 6:24 PM DRIVER UTILITY WORKER 10 mg 10 mg, Slow IV Push, ONCE, 1 dose, 01/28/20 at 1915, TUAN NaCl 0.9% (NS) bolus infusion New Bag 01/28/2020 6:24 PM DRIVER UTILITY WORKER 1,000 mL 999 mL/hr 1,000 mL at 999 mL/hr, 1,000 mL, IV Infusion, ONCE, 1 dose, 01/28/20 at 1915, STAT proMETHazine (PHENERGAN) 12.5 mg in NaCl Given 01/28/2020 7:50 PM DRIVER UTILITY WORKER 12.5 mg 0.9% (NS) 50 mL piggyback 12.5 mg, IV Piggyback, ONCE, 1 dose, 01/28/20 at 2100, 50 mL documented in this encounter [phone] [id number] (Work) documented as of this encounter
--- OUTSIDE RECORDS SUMMARY | 2020-03-20 22:11 | XMS REPORT | Summary of Care ---
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 Nausea; [address] [facility] [address] [facility] Chronic pa in syndrome; Drive [id number] Neuropathy; [place] [address] [place], [place] 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; [phone] Elevated blood pressure reading in offic e with diagnosis of hypertension [phone] Allergies Active Allergy Reactions Severity Noted Date Comments Sumatriptan Succinate Other - See comments 11/13/2014 Chest pain , syncope Ketorolac Tromethamine Other - See comments 11/13/2014 "stabbing pains in the stomach" Tramadol Other - See comments 11/13/2014 Cold sw eats documented as of this encounter (statuses as of 01/22/2020) Medications Medication Sig Dispensed Refills Start Date [...] as of this encounter (statuses as of 01/22/2020) Active Problems No known active problemsdocumented as of this encounter (statuses as of 01/22/2020) Social History Tobacco Use Types Packs/Day Years Used Date Current Every Day Smoker Cigarettes 0.5 18 Smokeless Tobacco: Never Used Alcohol Use Drinks/Week oz/Week Comments No Sex Assigned at Date Recorded Not on file COVID-19 Exposure Response Date Recorded In the last month, have you been in contact with No / Unsure 01/22/2020 7:08 PM MINE EXPERT someone who was confirmed or suspected to have Coronavirus / COVID-19? documented as of this encounter Last Filed Vital Signs Vital Sign Reading Time Taken Comments Blood Pressure 154/96 01/22/2020 10:00 PM MINE EXPERT Pulse 48 01/22/2020 10:00 PM MINE EXPERT Temperature 36.8 C (98.2 F) 01/22/2020 7:13 PM MINE EXPERT Respiratory Rate 18 01/22/2020 10:00 PM MINE EXPERT Oxygen Saturation 99% 01/22/2020 10:00 PM MINE EXPERT Inhaled Oxygen Concentration - - Weight 104.3 kg (230 lb) 01/22/2020 7:13 PM MINE EXPERT Height 185.4 cm (6' 1") 01/22/2020 7:13 PM MINE EXPERT Body Mass Index 30.34 01/22/2020 7:13 PM MINE EXPERT documented in this encounter Discharge Instructions Amaris Dempsey NP - 01/22/2020Diagnosis Chronic pain Cephalgia Hypertension Prescription for zofran ODT Talk to your physician regarding the discontinuance or change to the PT to abolish the trigger for your headache documented in this encounter ED Notes Kalina Donnelly RN - 01/22/2020 7:11 PM CSTPatient seen in this ED for headache 2 days ago. States after his stay headache was tolerable. Yesterday the pain progressively Became worse. He has been compliant with prescriptions provided. documented in this encounter Miscellaneous Notes ED Nurse Note - Audra Bloom RN - 01/22/2020 10:45 PM CSTPt given printed and verbal discharge instructions regarding headache, nausea, and elevated blood pressure reading in office with diagnosis of HTN, encouraged hydration, Prescriptions e-scribed to the pharmacy on file. Pt verbalized understanding of instructions, pt awake alert oriented, resp reg unlabored, skin w/d, color appropriate for race, moves all ext well,pt encouraged to follow up with pcp Advised to seek medical attention for new/prolonged/worsening of symptoms, Symptoms were addressed. No adverse reaction to meds given in ER noted upon discharge PIV d'cd, dressing to site, catheter in tact. Awake, alert oriented, resp reg unlabored, skin w/d, pt leaving amb with steady gait, in no apparent distress, EXPERT documented in this encounter Plan of Treatment Health Maintenance Due Date Last Done Comments PNEUMOCOCCAL 0-64 YEARS COMBINED SERIES (1 1981 of 3 - PCV13) Depression Screening 1987 DTaP,Tdap,and Td Vaccines (1 - Tdap) 1994 INFLUENZA VACCINE (#1) 2019 05/09/2019, 11/27/2008 documented as of this encounter Procedures Procedure Name Priority Date/Time Associated Diagnosis Comme nts NOTICE OF PRIVACY Routine 01/22/2020 7:10 PM MINE EXPERT PRACTICES CONSENT/REFUSAL FOR Routine 01/22/2020 7:09 PM MINE EXPERT DIAGNOSIS AND TREATMENT documented in this encounter Results Not on filedocumented in this encounter Visit Diagnoses Diagnosis Other complicated headache syndrome - Pr imary Nausea Nausea alone Chronic pain syndrome Neuropathy Mononeuritis of unspecified site 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 project 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 prescription opiate use Elevated blood pressure reading in offic e with diagnosis of hypertension documented in this encounter Administered Medications Medication Order MAR Action Action Date Dose Rate Site butorphanol (STADOL) injection 1 mg Given 01/22/2020 10:10 PM MINE EXPERT 1 mg 1 mg, Intravenous, Q3HPRN, Starting 01/22/20 at 1929, Until Discontinued, Routine, Pain Given 01/22/2020 7:45 PM MINE EXPERT 1 mg butorphanol (STADOL) injection 1 mg 1 mg, Intravenous, ONCE, 1 dose, Wed01/22/20 at 2315, Routine Medication Order MAR Action Action Date Dose Rate Site NaCl 0.9% (NS) IV infusion New Bag 01/22/2020 7:48 PM MINE EXPERT 1,000 m L 500 mL/hr 1,000 mL at 500 mL/hr, Intravenous, ONCE, 1 dose, 01/22/20 at 2030, TUAN proMETHazine (PHENERGAN) 25 mg in NaCl 0.9% Given 01/22/2020 8:30 PM MINE EXPERT 25 mg (NS) 50 mL piggyback 25 mg, IV Piggyback, ONCE, 1 dose, 01/22/20 at 2030, 50 mL documented in this encounter [id number] (Home) URIEL MCLEOD [phone] (Work) documented as of this encounter
--- OUTSIDE RECORDS SUMMARY | 2020-03-20 22:12 | XMS REPORT | Summary of Care ---
:1975 Author Organization [facility] - Health Address [address] [place] [address] Care Team Providers Name Role Phone Robert Mendoza Primary Care Provider Encounter Details Date Type Department Care Team Description 03/09/2020 Orders Only [facility] Doctor Unassigned, No [address] [facility] [place] [address] [address] [place] [address] Allergies Active Allergy Reactions Severity Noted Date Comments Sumatriptan Succinate Other - See comments 11/13/2014 Chest pain , syncope Ketorolac Tromethamine Other - See comments 11/13/2014 "stabbing pains in the stomach" Tramadol Other - See comments 11/13/2014 Cold sw eats documented as of this encounter (statuses as of 03/09/2020) Medications Medication Sig Dispensed Refills Start Date End Date Status metoprolol succinate Take 100 mg by 0 Active XL 100 mg 24 hr mouth daily. tablet valsartan 40 mg Take 40 mg by 0 Active tablet mouth daily. amLODIPine 10 mg Take 10 mg by 0 Active tablet mouth daily. acetaminophen-codein Take 1 tablet by 20 tablet 0 09/09/2016 Active e (TYLENOL-CODEINE mouth every 4 #3) 300-30 mg tablet (four) hours as needed for Pain (scale 7-10). DEXLANSOPRAZOLE Take by mouth. 0 Active (DEXILANT ORAL) acetaminophen-codein TK 1 T PO BID PRN 1 06/29/2017 Active e 300-60 mg tablet P butalbital-acetamino TK 1 T PO TWICE A 0 06/11/2017 Active phen-caff 50-325-40 DAY PRF MCCANN mg tablet HYDROcodone-acetamin 0 05/25/2017 Active ophen 7.5-325 mg per tablet LYRICA 150 mg 0 06/09/2017 Activ e capsule cyclobenzaprine 5 mg Take 1 tablet by 9 tablet 0 08/20/2018 Active tabletIndications: mouth 3 (three) Neck pain, chronic times daily. oxyCODONE-acetaminop Take 1 tablet by 0 Active hen (PERCOCET) mouth every 6 10-325 mg per tablet (six) hours as needed for Pain. diazePAM (VALIUM) 5 Take 1 tablet by 15 tablet 0 03/06/2019 Active mg mouth 3 (three) tabletIndications: times daily. Cervicalgia naproxen 500 mg Take 1 tablet by 14 tablet 0 08/29/2019 Active tabletIndications: mouth every 8 Pain of left forearm (eight) hours as needed for Pain (scale 4-6). proMETHazine Insert 1 24 Suppository 0 01/28/2020 A ctive (PHENERGAN) 25 mg Suppository into suppositoryIndicatio rectum every 4 ns: Acute (four) hours as intractable needed for Nausea headache, and Vomiting unspecified headache (N/V). type proMETHazine Insert 1 20 Suppository 0 02/15/2020 A ctive (PHENERGAN) 25 mg Suppository into suppositoryIndicatio rectum every 6 ns: Nausea (six) hours as needed for Nausea and Vomiting (N/V), N/V unresponsive to Ondansetron or N/V unresponsive to oral antiemetics. documented as of this encounter (statuses as of 03/09/2020) Active Problems No known active problemsdocumented as of this encounter (statuses as of 03/09/2020) Social History Tobacco Use Types Packs/Day Years Used Date Current Every Day Smoker Cigarettes 0.5 18 Smokeless Tobacco: Never Used Alcohol Use Drinks/Week oz/Week Comments No Sex Assigned at Date Recorded Not on file COVID-19 Exposure Response Date Recorded In the last month, have you been in contact with No / Unsure 02/14/2020 11:16 PM DIGITAL MARKETING APPRENTICE someone who was confirmed or suspected to [...] Associated Diagnosis Comme nts CONSENT/REFUSAL FOR Routine 03/09/2020 6:37 PM DIGITAL MARKETING APPRENTICE DIAGNOSIS AND TREATMENT documented in this encounter Results Not on filedocumented in this encounter Insurance Payer Benefit Plan / Group Subscriber ID Effective Dates Phone Address Type [place] [id number] 2011-Present [place] [id number] 2018-Present documented as of this encounter
--- OUTSIDE RECORDS SUMMARY | 2020-03-20 22:12 | XMS REPORT | Summary of Care ---
:1975 Author Organization [facility] - Health Address [address] [place] [address] Care Team Providers Name Role Phone Robert Mendoza Primary Care Provider Reason for Visit Reason Comments MIGRAINE Auth/Cert Status Reason Specialty Diagnoses / Referred By Referred To Procedures Contact Contact Emergency Medicine Adc Em ergency Dept [address] [place] [address] Fax: Encounter Details Date Type Department Care Team Description 03/09/2020 Emergency ADC-Emergency Lynette Nicole PAC Migraine without Department [address] status migrainosus, [address] [place], [place] [address] [address]ractable, Drive [phone] unspecified migraine [place] [id number] type (Primary Dx) [phone] Allergies Active Allergy Reactions Severity Noted Date [...] Ondansetron or N/V unresponsive to oral antiemetics. proMETHazine 25 mg Insert 1 20 Suppository 0 03/09/2020 Active suppositoryIndicatio Suppository into ns: Migraine without rectum every 4 status migrainosus, (four) hours as not intractable, needed for Nausea unspecified migraine and Vomiting type (N/V). documented as of this encounter (statuses as [...] been in contact with No / Unsure 03/09/2020 6:49 PM MANAGER VIDEO someone who was confirmed or suspected to have Coronavirus / COVID-19? documented as of this encounter Last Filed Vital Signs Vital Sign Reading Time Taken Comments Blood Pressure 157/104 03/09/2020 10:00 PM MANAGER VIDEO Pulse 56 03/09/2020 10:00 PM MANAGER VIDEO Temperature 36.8 C (98.3 F) 03/09/2020 6:51 PM MANAGER VIDEO Respiratory Rate 20 03/09/2020 10:00 PM MANAGER VIDEO Oxygen Saturation 97% 03/09/2020 10:00 PM MANAGER VIDEO Inhaled Oxygen Concentration - - Weight 106.6 kg (235 lb) 03/09/2020 6:51 PM MANAGER VIDEO Height - - Body Mass Index 28.61 02/14/2020 11:20 PM MANAGER VIDEO documented in this encounter Discharge Instructions InstructionsLynette Nicole, PAC - 03/09/2020DIAGNOSIS 1. Migraine headache NO LIFE-THREATENING FINDINGS ON TODAY'S EXAM. PROCEDURES IN THE ER TODAY: none MEDICATIONS ADMINISTERED IN THE ER TODAY: Stadol 1mg IV Zofran 4mg IV IV fluids YOUR PRESCRIPTIONS AND DNOL-[id number] MEDICATION RECOMMENDATIONS: Promethazine suppositories SPECIAL CARE INSTRUCTIONS: Take medicine as instructed by your specialist to manage your migraines. Use suppositories for nausea as needed. Stay hydrated as much as possible. Follow up with your specialist for further management of your symptoms. Return to the ER if you develop symptoms that are not normal such as fever greater than 100.4, visual loss, weakness to your extremities that is not normal, slurred speech or if you start vomiting again and cannot control it with your medication. FOLLOW-UP RECOMMENDATIONS: RECOMMEND FOLLOW-UP WITH A PRIMARY CARE PROVIDER OR SPECIALIST IN 2-5 DAYS, ESPECIALLY IF NO IMPROVEMENT IN SYMPTOMS. TO FOLLOW-UP WITHIN THE [facility], TRY THESE OPTIONS (CLINIC APPOINTMENTS AVAILABLE ON [id number] BASIS): 1. SCHEDULE AN APPOINTMENT ONLINE AT [email or web address] 2. OR CALL THE [facility] AT OR 3. OR CALL YOUR [facility] PHYSICIAN'S OFFICE DIRECTLY IF YOU ARE ALREADY AN ESTABLISHED [facility] PATIENT. OR, YOU MAY FOLLOW-UP WITH A PROVIDER OF YOUR CHOICE, SUCH : 1. A PHYSICIAN OF YOUR CHOICE 2. [facility], . LOCATIONS IN [facility] 3. [facility], [address], [place]; [phone] RETURN TO ER FOR WORSENING OF SYMPTOMS. AttachmentsThe following attachments cannot be sent through Care Everywhere. Headaches,Migraines and Cluster ([place])documented in this encounter ED Notes Madhuri Huddleston RN - 03/09/2020 6:49 PM CSTPatient report to the ER for c/o of migraines for three days with vomiting. Patient reports that he has a history of migraines but has not been able to keep his prescribed medications down. GER VIDEO documented in this encounter Miscellaneous Notes ED Nurse Note - Kristina Garcias RN - 03/09/2020 10:49 PM CSTPt given printed and verbal discharge instructions regarding migraine, encouraged hydration, Prescriptions provided: Phenergan suppository Discussed ibuprofen and to take with food to avoid GI distress. Discussed phenergan side affects and to avoid driving/operating machinery/or engaging in activities requiring alertness while taking. Pt verbalized understanding of instructions, pt awake [...] with steady gait, in no apparent distress, GER VIDEO documented in this encounter Plan of Treatment [...] Site butorphanol (STADOL) injection 1 mg Given 03/09/2020 9:13 PM MANAGER VIDEO 1 mg 1 mg, IV Push, ONCE, 1 dose, 03/09/20 at 2200, Routine NaCl 0.9% (NS) bolus infusion New Bag 03/09/2020 9:13 PM MANAGER VIDEO 1,000 mL 999 mL/hr 1,000 mL at 999 mL/hr, 1,000 mL, IV Infusion, ONCE, 1 dose, 03/09/20 at 2200, STAT ondansetron (ZOFRAN (PF)) injection 4 mg Given 03/09/2020 9:13 PM MANAGER VIDEO 4 mg 4 mg, Slow IV Push, ONCE, 1 dose, 03/09/20 at 2200, TUAN documented in this encounter [phone] (Work) documented as of this encounter
--- OUTSIDE RECORDS SUMMARY | 2020-03-20 22:12 | XMS REPORT | Summary of Care ---
:[address] [facility] - [facility] Address [address] [place] [id number] Care Team Providers Name Role Phone Robert Mendoza Primary Care Provider Reason for Referral Radiology Services (STAT) Status Reason Specialty Diagnoses / Referred By Referred To Procedures Contact Contact New Request Diagnostic Diagnoses Headache disorder Milena Calvo Radiology Procedures XR CHEST 1 IRMA Orantes MD [address] [phone] Reason for Visit Reason Comments Headache chronic Rib Pain Auth/Cert Status Reason Specialty Diagnoses / Referred By Referred To Procedures Contact Contact Emergency Medicine [facility] [address] [place] [address] Fax: Encounter Details Date Type Department Care Team Description 02/14/2020 - Emergency [facility]-Emergency Milena Calvo, Headache disorder (Primary Dx); 02/15/2020 Department Injury of chest wall, initial encounter; [address] [place] [address] [address] [phone] Allergies Active Allergy Reactions Severity Noted Date Comments Sumatriptan Succinate Other - See comments 11/13/2014 Chest pain , syncope Ketorolac Tromethamine Other - See comments 11/13/2014 "stabbing pains in the stomach" Tramadol Other - See comments 11/13/2014 Cold sw eats documented as of this encounter (statuses as of 02/15/2020) Medications Medication Sig Dispensed Refills Start Date [...] as of this encounter (statuses as of 02/15/2020) Active Problems No known active problemsdocumented as of this encounter (statuses as of 02/15/2020) Social History Tobacco Use Types Packs/Day Years Used Date Current Every Day Smoker Cigarettes 0.5 18 Smokeless Tobacco: Never Used Alcohol Use Drinks/Week oz/Week Comments No Sex Assigned at Date Recorded Not on file COVID-19 Exposure Response Date Recorded In the last month, have you been in contact with No / Unsure 02/14/2020 11:16 PM SOFTWARE ANALYST someone who was confirmed or suspected to have Coronavirus / COVID-19? documented as of this encounter Last Filed Vital Signs Vital Sign Reading Time Taken Comments Blood Pressure 145/98 02/14/2020 11:20 PM SOFTWARE ANALYST Pulse 80 02/14/2020 11:20 PM SOFTWARE ANALYST Temperature 36.7 C (98.1 F) 02/14/2020 11:20 PM SOFTWARE ANALYST Respiratory Rate 16 02/14/2020 11:20 PM SOFTWARE ANALYST Oxygen Saturation 98% 02/14/2020 11:20 PM SOFTWARE ANALYST Inhaled Oxygen Concentration - - Weight 104.3 kg (230 lb) 02/14/2020 11:20 PM SOFTWARE ANALYST Height 193 cm (6' 4") 02/14/2020 11:20 PM SOFTWARE ANALYST Body Mass Index 28 02/14/2020 11:20 PM SOFTWARE ANALYST documented in this encounter Discharge Instructions Milena Chang MD - 02/15/2020 DIAGNOSIS Diagnoses that have been ruled out: None Diagnoses that are still under consideration: None Final diagnoses: Headache disorder Injury of chest wall, initial encounter NO LIFE-THREATENING FINDINGS ON TODAY'S EXAM. PROCEDURES IN THE ER TODAY: Orders Placed This Encounter Procedures XR CHEST 1 VW MEDICATIONS ADMINISTERED IN THE ER TODAY AND DISCHARGE MEDICATIONS: Orders Placed This Encounter Medications proMETHazine (PHENERGAN) injection 25 mg uabdzmlvfc-lttnjaepsznjn-mmil (ESGIC) 50-325-40 mg tablet 2 tablet FOLLOW-UP RECOMMENDATIONS: RECOMMEND FOLLOW-UP WITH YOUR PRIMARY CARE PROVIDER OR WITH DR METCALF, NEUROLOGY SPECIALIST [facility] TO FURTHER MANAGE YOUR HEADACHE DISORDER, ESPECIALLY IF NO IMPROVEMENT IN SYMPTOMS. MAY FOLLOW-UP WITH A PROVIDER OF YOUR CHOICE, SUCH : 1. A PHYSICIAN OF YOUR CHOICE 2. [facility], . LOCATIONS IN [facility] 3. [facility], [address], [place]; [phone] OR, IF YOU WISH TO FOLLOW-UP WITHIN THE [facility], MAY TRY THESE OPTIONS (CLINIC APPOINTMENTS AVAILABLE ON [id number]-[id number] BASIS): 1. SCHEDULE AN APPOINTMENT ONLINE AT [facility] 2. OR CALL THE [facility] ACCESS CENTER AT OR 3. OR CALL YOUR [facility] PHYSICIAN'S OFFICE DIRECTLY IF YOU ARE ALREADY AN ESTABLISHED [facility] PATIENT. RETURN TO ER FOR WORSENING OF SYMPTOMS documented in this encounter ED Notes Odette Shoemaker RN - 02/14/2020 11:16 PM CSTCC: Patient has chronic migraines, started 2 days ago, he is out of phenergan suppositories that hetakes prior to taking his regular migraine meds. He also states he was playing with his son on and felt a pop in his left rib, it is painful with range of motion and deep breaths. PMHx: Migraines, GERD, spondylitis, HTN PSH: stimulator implant, cervical spine fusions MEDS: metoprolol, amalodapine, HCTZ, Dexilant, phenergan, zofran, Awake, alert, oriented, resp reg unlabored, skin warm and dry, color appropriate for race, moves allext without difficulty, amb with no assistance Appears in no distress Milena Hayward MD - 02/14/2020 11:[address] 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 MAINTAINER treatment: None TELEGRAPH EQUIPMENT MAINTAINER treatment comments: vomited zofran Travel and Exposure Screening: Symptoms Does patient have any of these symptoms?: (not recorded) Exposure Screening Has patient had contact with someone with a communicable disease in the last month?: (not recorded) Diseases exposed to:: (not recorded) Is Patient ?: (not recorded) Exposure Date: (not recorded) Chief Complaint: Chief Complaint Patient presents with Headache chronic Rib Pain History of Present Illness: Lino Samuel is a 44 year old male who presented to the ED for evaluation of MCCANN X 2 days. Pt reports N/V associated with the MCCANN. Pt report that Zofran ODT not effective to control the nausea and patient ran out of rectal suppositories. Pt reports that he may have sustained left rib injury during play with is son 6 days ago. Pt has pain with deep breathing. Current MCCANN same in quality and character as his usual migrainous episodes. Pt usually takes Percocet 10 mg at home for his MCCANN written by Dr Riggs. Also reports Demerol usually workds better for his Headache. Pt had a nerve stimulator inserted last month for pain control (chronic neck pain). Pt reports photophobia, phonophobia with his MCCANN, which is characteristic of his migraine History provided by: Patient and medical records manager copy used: No Headache Pain location: Generalized Radiates to: Does not radiate Onset quality: Gradual Duration: 2 days Timing: Constant Progression: Unchanged Chronicity: Recurrent Similar to prior headaches: yes Context: bright light and loud noise Relieved by: Nothing Worsened by: Sound Ineffective treatments: Acetaminophen and resting in a darkened room Associated symptoms: nausea, photophobia and vomiting Associated symptoms: no back pain, no congestion, no cough, no dizziness, no focal weakness, no lossof balance, no myalgias, no near-syncope, no neck stiffness, no numbness, no paresthesias, no seizures, no sinus pressure, no sore throat, no swollen glands, no syncope, no tingling, no URI, no visual change and no weakness Past Medical History/Immunizations: Past Medical History: Diagnosis Date GERD (gastroesophageal reflux disease) HTN (hypertension) Migraine Tetanus received in last 5 years: Yes Childhood immunizations: Up-to-date Allergies: Allergies Allergen Reactions Imitrex [Sumatriptan Succinate] Other - See comments Chest pain , syncope Toradol [Ketorolac Tromethamine] Other - See comments "stabbing pains in the stomach" Tramadol Other - See comments Cold sweats Past Social History: Tobacco Use Current Every Day Smoker; Smoked an average of 0.5 packs/day for 18 years; Smoked: Cigarettes. Smokeless Tobacco: Never used smokeless tobacco. Alcohol Use No. Drug Use No. Past Surgical History: Past Surgical History: Procedure Laterality Date ANTERIOR CERVICAL FUSION 2016 2016:C3&C4, 2017:C5-C7 NERVE STIMULATOR INSERTION Review of Systems: Review of Systems Constitutional: Negative. Negative for activity change, appetite change, chills and diaphoresis. HENT: Negative. Negative for congestion, sinus pressure and sore throat. Eyes: Positive for photophobia. Respiratory: Negative. Negative for cough. Breasts: Negative. Cardiovascular: Negative. Negative for syncope and near-syncope. Gastrointestinal: Positive for nausea and vomiting. Genitourinary: Negative. Musculoskeletal: Negative. Negative for back pain, myalgias and neck stiffness. Skin: Negative. Neurological: Positive for headaches. Negative for dizziness, focal weakness, seizures, weakness, numbness, paresthesias and loss of balance. Psychiatric/Behavioral: Negative. Endocrine: Endocrine negative Physical Exam: ED Triage Vitals [02/14/20 2320] Weight 104.3 kg (230 lb) Actual or estimated Estimated by patient/family report Height 1.93 m (6' 4") BP (!) 145/98 Pulse 80 Resp 16 Temp 36.7 C (98.1 F) Temp source Oral SpO2 98 % Measured on Room air Physical Exam Vitals signs and nursing note reviewed. Constitutional: General: He is not in acute distress. Appearance: Normal appearance. He is well-developed. He is not ill-appearing, toxic-appearing or diaphoretic. HENT: Head: Normocephalic and atraumatic. Nose: Nose normal. No congestion or rhinorrhea. Mouth/Throat: Mouth: Mucous membranes are moist. Pharynx: No oropharyngeal exudate or posterior oropharyngeal erythema. Eyes: General: No scleral icterus. Right eye: No discharge. Left eye: No discharge. Conjunctiva/sclera: Conjunctivae normal. Pupils: Pupils are equal, round, and reactive to light. Neck: Musculoskeletal: Normal range of motion and neck supple. No neck rigidity or muscular tenderness. Cardiovascular: Rate and Rhythm: Normal rate and regular rhythm. Pulses: Normal pulses. Heart sounds: Normal heart sounds. No murmur. Pulmonary: Effort: Pulmonary effort is normal. No respiratory distress. Breath sounds: Normal breath sounds. No stridor. No wheezing, rhonchi or rales. Chest: Chest wall: No tenderness. Abdominal: General: Bowel sounds are normal. There is no distension. Palpations: Abdomen is soft. There is no mass. Tenderness: There is no abdominal tenderness. There is no right CVA tenderness, left CVA tenderness, guarding or rebound. Hernia: No hernia is present. Musculoskeletal: Normal range of motion. General: No swelling, tenderness, deformity or signs of injury. Right lower leg: No edema. Left lower leg: No edema. Skin: General: Skin is warm and dry. Capillary Refill: Capillary refill takes less than 2 seconds. Coloration: Skin is not jaundiced or pale. Findings: No bruising, erythema or lesion. Neurological: General: No focal deficit present. Mental Status: He is alert and oriented to person, place, and time. Cranial Nerves: No cranial nerve deficit. Sensory: No sensory deficit. Motor: No weakness. Coordination: Coordination normal. Gait: Gait normal. Deep Tendon Reflexes: Reflexes normal. Psychiatric: Mood and Affect: Mood normal. Behavior: Behavior normal. Thought Content: Thought content normal. Judgment: Judgment normal. Radiology: Hospital Encounter on 02/14/20 XR CHEST 1 VW Narrative EXAM: XR CHEST 1 VW HISTORY: "Chest all Pain ith ?? Rib Fx" TECHNIQUE: AP view of the chest COMPARISON: 11/29/2019 FINDINGS: The lungs are clear without focal consolidation. A linear catheter tubing over the left hemithorax is external to patient. No pleural effusion or pneumothorax is identified. The heart size is normal. No acute bony abnormality. A lower ACDF is partly visualized. Impression No rib fracture identified within the limitations of a one view chest radiograph. Follow-up with a dedicated rib series can be obtained if clinical concerns persists. No acute cardiopulmonary process. Preliminary Report Dictated by Resident: Raul Robertson Lab Results (24h): No results found for this or any previous visit (from the past 24 hour(s)). Orders and Treatments: Orders Placed This Encounter Procedures XR CHEST 1 VW Orders Placed This Encounter Medications proMETHazine (PHENERGAN) injection 25 mg iitsjkcguw-fmavidknffanr-criy (ESGIC) 50-325-40 mg tablet 2 tablet proMETHazine (PHENERGAN) 25 mg suppository ED COURSE MDM: Coding Scoring Tools: No data recorded Diagnosis/Impression: ICD-10-CM ICD-9-CM 1. Headache disorder R51.9 784.0 2. Injury of chest wall, initial encounter S29.9XXA 959.11 3. Nausea R11.0 787.02 Disposition/Condition: ED Disposition ED Disposition Condition Comment Disch - Home Stable Discharge Medications: Patient's Medications START taking these medications PROMETHAZINE (PHENERGAN) 25 MG SUPPOSITORY Insert 1 Suppository into rectum every 6 (six) hours as needed for Nausea and Vomiting (N/V), N/V unresponsive to Ondansetron or N/V unresponsive to oral antiemetics. CONTINUE taking these medications which have NOT CHANGED ACETAMINOPHEN-CODEINE (TYLENOL-CODEINE #3) 300-30 MG TABLET Take 1 tablet by mouth every 4 (four) hours as needed for Pain (scale 7-10). ACETAMINOPHEN-CODEINE 300-60 MG TABLET TK 1 T PO BID PRN P AMLODIPINE 10 MG TABLET Take 10 mg by mouth daily. CJZUHYUFTS-RYUPSCDLLBWUQ-IRFC 50-325-40 MG TABLET TK 1 T PO [...] (six) hours as needed for Pain. PROMETHAZINE (PHENERGAN) 25 MG SUPPOSITORY Insert 1 Suppository into rectum every 4 (four) hoursas needed for Nausea and Vomiting (N/V). VALSARTAN 40 MG TABLET Take 40 mg by mouth daily. START taking Modified Medications as Prescribed No medications on file STOP taking these medications No medications on file Follow-up: Contact information for follow-up Trent Mendoza Specialty: FM-FAMILY MEDICINE Relationship: PCP - General Gene[address] [facility] [id number] Electronically signed by: Milena Calvo MD 02/14/2020 11:34 PM WARE ANALYST documented in this encounter Miscellaneous Notes ED Nurse Note - Odette Shoemaker RN - 02/15/2020 12:53 AM CSTPt given printed and verbal discharge instructions regarding headache disorder, rib pain, encouragedhydration, Prescriptions provided phenergan Discussed ibuprofen and to take with food to avoid GI distress. Pt verbalized understanding of instructions, pt awake alert oriented, resp reg unlabored, skin w/d, color appropriate for race, moves all ext well,pt encouraged to follow up with pcp and or neurologist Advised to seek medical attention for new/prolonged/worsening of symptoms, Symptoms imporved No adverse reaction to meds given in ER noted upon discharge Awake, alert oriented, resp reg unlabored, skin w/d, pt leaving amb with steady gait, in no apparent distress, WARE ANALYST documented in this encounter Plan of Treatment Name Type Priority Associated Diagnoses Date/Ti me XR CHEST 1 VW IMAGING STAT Headache disorder 0 12:04 AM SOFTWARE ANALYST Health Maintenance Due Date Last Done Comments PNEUMOCOCCAL 0-64 YEARS COMBINED SERIES (1 1981 of 3 - PCV13) Depression Screening 1987 DTaP,Tdap,and Td Vaccines (1 - Tdap) 1994 INFLUENZA VACCINE (#1) 2019 05/09/2019, 11/27/2008 documented as of this encounter Procedures Procedure Name Priority Date/Time Associated Diagnosis Comme nts XR CHEST 1 VW STAT 02/15/2020 12:04 AM SOFTWARE ANALYST Headache disorde r Procedure Note - [facility], Radia nt Results Inft User - 02/15/2020 12:32 AM SOFTWARE ANALYST EXAM: XR CHEST 1 VW HISTORY: "Chest all Pain ith ?? Rib Fx" TECHNIQUE: AP view of the ch est COMPARISON: 11/29/2019 FINDINGS: The lungs are clear without focal consolidation. A linear catheter tubing over the left hemithorax is external to patient. No pleural effusion or pneum othorax is identified. The heart size is normal. No acute bony abnormality. A lower ACDF is partly visualized. IMPRESSION No rib fracture identified w ithin the limitations of a one view chest radiograph. Follow-up with a dedicated rib series can be obtained if clinical concerns persists. No acute cardiopulmonary pro cess. Preliminary Report Dictated by Resident: Raul Robertson CONSENT/REFUSAL FOR DIAGNOSIS AND TREATMENT Routine 02/14/2020 11:09 PM SOFTWARE ANALYST documented in this encounter Results Not on filedocumented in this encounter Visit Diagnoses Diagnosis Headache disorder - Primary Headache Injury of chest wall, initial encounter Nausea Nausea alone documented in this encounter Administered Medications Medication Order MAR Action Action Date Dose Rate Site swrmsdtlbx-svebrpaehqjvs-dcka Given 02/15/2020 12:14 AM SOFTWARE ANALYST 2 ta blets (ESGIC) 50-325-40 mg tablet 2 tablet 2 tablet, Oral, ONCE, 1 dose, Delores 02/15/20 at 0100, Routine proMETHazine (PHENERGAN) Given 02/15/2020 12:14 AM SOFTWARE ANALYST 25 mg Right Deltoid-IM injection 25 mg 25 mg, Intramuscular, ONCE, 1 dose, Delores 02/15/20 at 0100, TUAN documented in this encounter [phone] (Work) documented as of this encounter
[2020-03-20] MEDS ORDERED: DIAZEPAM 10 MG/2 ML INJ SYRINGE ONE (23:28)
[2020-03-20] MEDS ORDERED: MEPERIDINE HCL 25 MG/ML SYR ONE (23:28)
[2020-03-20] MEDS ORDERED: ONDANSETRON 4 MG/2 ML VIAL ONE (23:28)
[2020-03-20] MEDS ORDERED: NA CHLORIDE 0.9% 1,000 ML ONE (23:28)
--- NOTE | 2020-03-21 00:51 | ER ---
Nurse's Notes [facility] Name: Lino Samuel Age: 44 yrs Sex: Male : 1975 Arrival Date: 03/20/2020 Time: 22:11 Bed 16 Private MD: Diagnosis: Headache;Cervicalgia-chronic Presentation: 03/20 22:16 Acuity: ERICA 3 sg 22:48 Chief complaint: Patient states: My neck is sore and causing me some discomfort, Im sg also having a migraine. Coronavirus screen: Client denies travel out of the [place] in the last 14 days. headache, Client presents with at least one sign or symptom that may indicate coronavirus-19. Standard/surgical mask placed on the client. Provider contacted for isolation considerations. Ebola Screen: Patient negative for fever greater than or equal to 101.5 degrees Fahrenheit, and additional compatible Ebola Virus Disease symptoms Patient denies exposure to infectious person. Patient denies travel to an Ebola-affected area in the 21 days before illness onset. No symptoms or risks identified at this time. Acute neurological deficit: none identified. Initial Sepsis Screen: Does the patient meet any 2 criteria? No. Patient's initial sepsis screen is negative. Does the patient have a suspected source of infection? No. Patient's initial sepsis screen is negative. Risk Assessment: Do you want to hurt yourself or someone else? Patient reports no desire to harm self or others. Onset of symptoms was March 19, 2020. Care prior to arrival: None. Transition of care: patient was not received from another setting of care. 22:48 Method Of Arrival: Ambulatory sg 22:49 Note please note the patient states a history of chronic neck pain as well as having sg Migraines. Historical: - Allergies: 22:16 Imitrex (Throat Swelling, Chest Pain); sg 22:16 tramadol (Gastritis, Diaphoresis); sg 22:16 Ketorolac (Severe Gastritis); sg - Home Meds: 23:15 amlodipine 10 mg tab 1 tab once daily [Active]; rr5 ucrrjojjcl-ulfixsbnz-fcdzmrgdqoyhkngozus Oral [Active]; Dexilant 60 mg Oral CpDB 1 cap once daily [Active]; metoprolol tartrate 50 mg Oral tab 1 tab 2 times per day [Active]; omeprazole 40 mg Oral cpDR 1 cap once daily [Active]; Percocet 10-650 mg Oral tab 1 tab every 6 hours [Active]; - PMHx: 22:16 chronic neck pain; GERD; Hypertension; Migraines; sg - PSHx: 22:16 neck surgery; Vasectomy; Cholecystectomy; sg - Immunization history:: Adult Immunizations not up to date. - Social history:: Smoking status: Patient reports the use of cigarette tobacco products. Screenin:20 Abuse screen: Denies threats or abuse. Denies injuries from another. Nutritional rr5 screening: No deficits noted. Tuberculosis screening: No symptoms or risk factors identified. Fall Risk IV access (20 points). Total Marquis Fall Scale indicates No Risk (0-24 pts). Assessment: 23:00 General: Appears in no apparent distress. uncomfortable, Behavior is calm, cooperative, rr5 appropriate for age. 23:00 Pain: Complains of pain in head Pain radiates to scalp and neck Pain currently is 9 out rr5 of 10 on a pain scale. Quality of pain is described as aching, Pain began gradually, Is intermittent. Neuro: Level of Consciousness is awake, alert, obeys commands, Oriented to person, place, time, situation, Reports headache. Cardiovascular: Capillary refill < 3 seconds Patient's skin is warm and dry. Respiratory: Airway is patent Respiratory effort is even, unlabored, Respiratory pattern is regular, symmetrical. GI: Reports nausea, vomiting. : No signs and/or symptoms were reported regarding the genitourinary system. EENT: No signs and/or symptoms were reported regarding the EENT system. Derm: Skin is intact, is healthy with good turgor, Skin temperature is warm. Musculoskeletal: 03/21 00:00 Reassessment: Patient appears in no apparent distress at this time. Patient is alert, rr5 oriented x 3, equal unlabored respirations, skin warm/dry/pink. Patient states symptoms have improved. 01:15 Reassessment: Patient appears in no apparent distress at this time. Patient is alert, rr5 oriented x 3, equal unlabored respirations, skin warm/dry/pink. discharge instruction given and explained without complaints Patient states feeling better. Patient states symptoms have improved. Vital Signs: 03/20 22:48 BP 192 / 119; Pulse 80; Resp 17; Temp 98.2; Pulse Ox 100% ; Weight 106.59 kg; Height 6 rr5 ft. 4 in. (193.04 cm); Pain 9/10; 23:30 BP 165 / 106; Pulse 75; Resp 19; Pulse Ox 99% ; rr5 03/21 00:30 BP 169 / 101; Pulse 77; Resp 15; Pulse Ox 98% ; Pain 8/10; rr5 01:10 BP 150 / 95; Pulse 70; Resp 16; Pulse Ox 98% ; Pain 6/10; rr5 03/20 22:48 Body Mass Index 28.60 (106.59 kg, 193.04 cm) rr5 ED Course: 03/20 22:11 Patient arrived in ED. cl3 22:15 Arm band placed on. sg 22:16 Triage completed. sg 22:44 Clarence Hairston PA is PHCP. cp 22:44 Clarence Amos MD is Attending Physician. cp 22:48 Luis Figueredo RN is Primary Nurse. rr5 23:15 Inserted saline lock: 20 gauge in left antecubital area, using aseptic technique. rr5 23:30 Patient has correct armband on for positive identification. Bed in low position. Call rr5 light in reach. Side rails up X2. Pulse ox on. NIBP on. 23:42 Door closed. Lights dimmed. Warm blanket given. rr5 03/21 00:12 No provider procedures requiring assistance completed. rr5 01:19 IV discontinued, intact, bleeding controlled, No redness/swelling at site. Pressure rr5 dressing applied. Administered Medications: 03/20 23:15 Drug: NS 0.9% 1000 ml Route: IV; Rate: 1 bolus; Site: left antecubital; rr5 03/21 01:33 Follow up: Response: No adverse reaction; IV Status: Completed infusion; IV Intake: rr5 1000ml 03/20 23:15 Drug: Zofran (Ondansetron) 4 mg Route: IVP; Site: left antecubital; rr5 03/21 00:15 Follow up: Response: No adverse reaction; Nausea is decreased rr5 03/20 23:17 Drug: Demerol 25 mg {Note: rass 0.} Route: IVP; Site: left antecubital; rr5 03/21 00:15 Follow up: Response: No adverse reaction; Pain is decreased; RASS: Alert and Calm (0) rr5 03/20 23:20 Drug: Diazepam 2 mg Route: IVP; Site: left antecubital; rr5 03/21 00:15 Follow up: Response: No adverse reaction; Pain is decreased; RASS: Alert and Calm (0) rr5 00:40 Drug: Hydrocodone-Acetaminophen (7.5 mg-325 mg) 1 tabs {Note: rass 0.} Route: PO; rr5 01:15 Follow up: Response: No adverse reaction; Pain is decreased; RASS: Alert and Calm (0) rr5 00:41 Drug: Reglan 10 mg Route: IVP; Site: left antecubital; rr5 01:15 Follow up: Response: No adverse reaction; Pain is decreased; Nausea is decreased rr5 00:43 Drug: Dexamethasone 10 mg Route: IVP; Site: left antecubital; rr5 01:15 Follow up: Response: No adverse reaction rr5 Intake: 01:33 IV: 1000ml; Total: 1000ml. rr5 Outcome: 00:50 Discharge ordered by MD. cp 01:19 Discharged to home ambulatory. rr5 01:19 Condition: stable rr5 01:19 Discharge instructions given to patient, Instructed on discharge instructions, follow up and referral plans. medication usage, Demonstrated understanding of instructions, follow-up care, medications, Prescriptions given X 1. 01:20 Patient left the ED. rr5 Signatures: Tj Buckley, RN RN sg Clarence Hairston PA PA cp Roque, Raymond, RN RN rr5 Alexander Sanchez cl3
--- NOTE | 2020-03-21 00:51 | EDPHYS ---
Physician Documentation [facility] Name: Lino Samuel Age: 44 yrs Sex: Male : 1975 Arrival Date: 03/20/2020 Time: 22:11 Bed 16 Private MD: Clarence Franz HPI: 03/20 23:10 This 44 yrs old Male presents to ER via Ambulatory with complaints of cp Migraine, Neck Problem. 23:10 The patient or guardian complains of pain, that is chronic, tenderness, stiffness. The cp patient complains of pain to the left side of the back of head, left occipital area, left base of the skull, right side of the back of head, right occipital area and right base of the skull. Associated signs and symptoms: Pertinent positives: nausea, neck stiffness, Pertinent negatives: fever, vomiting, weakness. Headache History: The patient has had previous headaches and this one is similar to previous episodes. Historical: - Allergies: 22:16 Imitrex (Throat Swelling, Chest Pain); sg 22:16 tramadol (Gastritis, Diaphoresis); sg 22:16 Ketorolac (Severe Gastritis); sg - Home Meds: 23:15 amlodipine 10 mg tab 1 tab once daily [Active]; rr5 tcidgygdud-hoicvsqeq-reoamrgojnetslhhlub Oral [Active]; Dexilant 60 mg Oral CpDB 1 cap once daily [Active]; metoprolol tartrate 50 mg Oral tab 1 tab 2 times per day [Active]; omeprazole 40 mg Oral cpDR 1 cap once daily [Active]; Percocet 10-650 mg Oral tab 1 tab every 6 hours [Active]; - PMHx: 22:16 chronic neck pain; GERD; Hypertension; Migraines; sg - PSHx: 22:16 neck surgery; Vasectomy; Cholecystectomy; sg - Immunization history:: Adult Immunizations not up to date. - Social history:: Smoking status: Patient reports the use of cigarette tobacco products. ROS: 23:15 Constitutional: Negative for body aches, chills, fever, poor PO intake. cp 23:15 Eyes: Negative for injury, pain, redness, and discharge. cp Exam: 23:27 Constitutional: The patient appears in no acute distress, alert, awake, cp non-diaphoretic, non-toxic, well developed, well nourished, uncomfortable. 23:27 Head/Face: Normocephalic, atraumatic. cp 23:27 Eyes: Periorbital structures: appear normal, Pupils: equal, round, and reactive to light and accomodation, Extraocular movements: intact throughout, Conjunctiva: normal, no exudate, no injection, Sclera: no appreciated abnormality, Lids and lashes: appear normal, bilaterally. 23:27 ENT: External ear(s): are unremarkable, Nose: is normal, Posterior pharynx: Airway: no evidence of obstruction, patent. 23:27 Neck: ROM/movement: pain, that is moderate, with extension, with flexion, limited range of motion, is not appreciated, nuchal rigidity, is not appreciated. 23:27 Chest/axilla: Inspection: normal, Palpation: is normal, no crepitus, no tenderness. 23:27 Cardiovascular: Rate: normal, Rhythm: regular. 23:27 Respiratory: the patient does not display signs of respiratory distress, Respirations: normal, no use of accessory muscles, no retractions, labored breathing, is not present, Breath sounds: are clear throughout, no decreased breath sounds. 23:27 Abdomen/GI: Inspection: abdomen appears normal, Palpation: abdomen is soft and non-tender, in all quadrants. 23:27 Neuro: Orientation: to person, place \T\ time. Mentation: is normal, Cerebellar function: is grossly normal, Motor: moves all fours, strength is normal, Sensation: is normal. Vital Signs: 22:48 BP 192 / 119; Pulse 80; Resp 17; Temp 98.2; Pulse Ox 100% ; Weight 106.59 kg; Height 6 rr5 ft. 4 in. (193.04 cm); Pain 9/10; 23:30 BP 165 / 106; Pulse 75; Resp 19; Pulse Ox 99% ; rr5 03/21 00:30 BP 169 / 101; Pulse 77; Resp 15; Pulse Ox 98% ; Pain 8/10; rr5 01:10 BP 150 / 95; Pulse 70; Resp 16; Pulse Ox 98% ; Pain 6/10; rr5 03/20 22:48 Body Mass Index 28.60 (106.59 kg, 193.04 cm) rr5 MDM: 03/20 22:45 Patient medically screened. cp 23:41 ED course: Review of [place] prescription monitor website shows narcotic score of 522, cp sedative score of 370 and overdose risk score of 580. 03/21 00:50 Data reviewed: vital signs, nurses notes, and as a result, I will discharge patient. 00:50 Counseling: I had a detailed discussion with the patient and/or guardian regarding: the cp historical points, exam findings, and any diagnostic results supporting the discharge/admit diagnosis, the need for outpatient follow up, for definitive care, a painter mirror, to return to the emergency department if symptoms worsen or persist or if there are any questions or concerns that arise at home. Response to treatment: the patient's symptoms have markedly improved after treatment, and as a result, I will discharge patient. 03/20 23:02 Order name: IV; Complete Time: 23:40 cp Administered Medications: 03/20 23:15 Drug: NS 0.9% 1000 ml Route: IV; Rate: 1 bolus; Site: left antecubital; rr5 03/21 01:33 Follow up: Response: No adverse reaction; IV Status: Completed infusion; IV Intake: rr5 1000ml 03/20 23:15 Drug: Zofran (Ondansetron) 4 mg Route: IVP; Site: left antecubital; rr5 03/21 00:15 Follow up: Response: No adverse reaction; Nausea is decreased rr5 03/20 23:17 Drug: Demerol 25 mg {Note: rass 0.} Route: IVP; Site: left antecubital; rr5 03/21 00:15 Follow up: Response: No adverse reaction; Pain is decreased; RASS: Alert and Calm (0) rr5 03/20 23:20 Drug: Diazepam 2 mg Route: IVP; Site: left antecubital; rr5 03/21 00:15 Follow up: Response: No adverse reaction; Pain is decreased; RASS: Alert and Calm (0) rr5 00:40 Drug: Hydrocodone-Acetaminophen (7.5 mg-325 mg) 1 tabs {Note: rass 0.} Route: PO; rr5 01:15 Follow up: Response: No adverse reaction; Pain is decreased; RASS: Alert and Calm (0) rr5 00:41 Drug: Reglan 10 mg Route: IVP; Site: left antecubital; rr5 01:15 Follow up: Response: No adverse reaction; Pain is decreased; Nausea is decreased rr5 00:43 Drug: Dexamethasone 10 mg Route: IVP; Site: left antecubital; rr5 01:15 Follow up: Response: No adverse reaction rr5 Disposition: 05:38 Co-signature as Attending Physician, Clarence Amos MD I agree with the assessment and [facility] plan of care. Disposition: 03/21/20 00:50 Discharged to Home. Impression: Headache, Cervicalgia - chronic. - Condition is Stable. - Discharge Instructions: Migraine Headache. - Prescriptions for Cyclobenzaprine 10 mg Oral Tablet - take 1 tablet by ORAL route every 8 hours As needed; 15 tablet. - Medication Reconciliation Form, Thank You Letter, Antibiotic Education, Prescription Opioid Use form. - Follow up: Private Physician; When: 1 - 2 days; Reason: Recheck today's complaints. - Problem is chronic. - Symptoms have improved. Signatures: Tj Buckley RN Clarence Perez MD MD cha Page, Corey, PA PA cp Roque, Raymond RN RN rr5 Corrections: (The following items were deleted from the chart) 01:20 00:50 03/21/2020 00:50 Discharged to Home. Impression: Headache; Cervicalgia - chronic. rr5 Condition is Stable. Forms are Medication Reconciliation Form, Thank You Letter, Antibiotic Education, Prescription Opioid Use. Follow up: Private Physician; When: 1 - 2 days; Reason: Recheck today's complaints. Problem is chronic. Symptoms have improved. cp
[2020-03-21] MEDS ORDERED: HYDROCODONE/APAP 7.5/325 MG TAB ONE (00:55)
[2020-03-21] MEDS ORDERED: METOCLOPRAMIDE 10 MG/2mL INJ ONE (00:55)
[2020-03-21] MEDS ORDERED: dexAMETHasone 10 MG/ML VIAL ONE (00:55)
[2020-03-21 02:01] VITALS: TEMP 98.2
[2020-03-21 02:02] VITALS: BP 165/106; O2SAT 99
== END 2020-03-21 01:20 | disposition home or self-care (01) ==
LOC: ER 22:07
DX: R51.9 Headache, unspecified (principal); I10 Essential (primary) hypertension; K21.9 Gastro-esophageal reflux disease without esophagitis; Z72.0 Tobacco use; Z88.5 Allergy status to narcotic agent; Z88.8 Allergy status to other drugs, medicaments and biological substances
CPT/HCPCS: 96361; 96375; 96374; 99284; J2765; J3360; J1100; J2175; J7030; J2405

== ENCOUNTER 2020-05-17 00:46 | Emergency (ER) | payer OTHER ==
--- OUTSIDE RECORDS SUMMARY | 2020-05-17 00:48 | XMS REPORT | Continuity of Care Document ---
:1975 Author Organization [facility] t Address [address] [place] [address] Care Team Providers Name Role Phone Peng HERNÁNDEZ, B Attending Clinician Yessenia Esquivel Attending Clinician Bonnie PAC, S Attending Clinician Doctor Unassigned, Name Attending Clinician Unavailable Lubna DICK, S Attending Clinician Rohan QIU, G Attending Clinician Dean DICK Attending Clinician Cordell HERNÁNDEZ Attending Clinician Catarino JACOBS J Attending Clinician Maria Eugenia HRENÁNDEZ, Noel Attending Clinician Karon Wheat Attending Clinician Problems This patient has no known problems. Allergies, Adverse Reactions, Alerts This patient has no known allergies or adverse reactions. Medications This patient has no known medications. Procedures This patient has no known procedures. Encounters Start End Encounter Admission Attending Care Care Encounter Source Date/Time Date/Time Type Type Clinicians Facility Department ID 2020-05-08 2020-05-08 Emergency Peng [facility] [[email or web address]] [id number] 20:57:00 21:46:00 Maged Chirinos [id number] [place] [id number] [place] [id number] 2020-04-16 2020 Emergency Chayo Issa [facility] [[email or web address]] [id number] 21:21:00 01:05:00 Yessenia Chirinos [id number] [place] [id number] [place] [id number] 2020-03-09 2020-03-[address] [facility] [id number] 20:23:00 22:51:00 Lynetteyamileth Chirinos [id number] [place] [id number] [place] [id number] 2020-03-09 2020-03-09 Orders Doctor JESICA [id number] 00:00:00 00:00:00 Only Unassigned, LEYLA [id number] [place] [facility] [id number] 2020-02-14 2020-02-15 Emergency [facility] [id number] 23:22:00 00:54:00 Milena Chirinos [id number] [place] [id number] [place] [id number] 2020-01-28 2020-01-28 Emergency Chayo Issa [facility] [[email or web address]] [id number] 17:47:00 21:50:00 Yessenia Chirinos [id number] [place] [id number] [place] [id number] 2020-01-22 2020-01-22 Emergency [facility] [id number] 19:22:00 22:47:00 Amaris Chirinos [id number] [place] [id number] [place] [id number] 2020-01-20 2020-01-21 Emergency Moran, [facility] [[email or web address]] [id number] 23:26:00 02:01:00 Elkin Chirinos [id number] [place] [id number] [place] [id number] 2019-12-30 2019-12-30 Emergency Chayo Issa [facility] [[email or web address]] [id number] 11:45:00 14:25:00 Yessenia Chirinos [id number] [place] [id number] [place] [id number] 2019-12-22 2019-12-22 Emergency Moran, [facility] [[email or web address]] [id number] 13:48:00 16:20:00 Elkin [place] [id number] [place] [id number] [place] [id number] 2019-12-22 2019-12-22 Orders Doctor MOONEY [id number] 00:00:00 00:00:00 Only Unassigned, LEYLA [id number] [place] [facility] [id number] 2019-11-29 2019-11-29 Emergency Nicole, [facility] [[email or web address]] [id number] 15:09:00 17:41:00 Lynette [place] [id number] [place] [id number] [place] [id number] 2019-11-12 2019-11-12 Emergency Landa, [facility] [[email or web address]] [id number] 20:27:00 23:35:00 Yanna [place] [id number] [place] [id number] [place] [id number] 2019-10-20 2019-10-21 Emergency Catarino, [facility] [[email or web address]] [id number] 21:49:00 00:48:00 Zena Chirinos [id number] [place] [id number] [place] [id number] [id number] 2019-10-20 2019-10-20 Orders Doctor MOONEY [id number] 00:00:00 00:00:00 Only Unassigned, LEYLA [id number] [place] [facility] [id number] [id number] 2019-08-29 2019-08-29 Emergency Maria Eugenia, [facility] [email or web address]] [id number] 18:05:24 19:48:00 Qi Chirinos [id number] [place] [id number] [place] [id number] 2019-04-20 2019-04-20 Emergency Teodoro, [facility] [[email or web address]] [id number] 21:28:16 22:19:00 Alley Chirinos [id number] [place] [id number] [place] [id number] [id number] Results This patient has no known results.
[2020-05-17] MEDS ORDERED: DIAZEPAM 5 MG TABLET ONE (02:05)
[2020-05-17] MEDS ORDERED: HYDROMORPHONE HCL 1 MG/ML INJ ONE ×2 (02:06→03:16)
[2020-05-17] MEDS ORDERED: dexAMETHasone 10 MG/ML VIAL ONE (02:06)
[2020-05-17] MEDS ORDERED: ONDANSETRON 4 MG/2 ML VIAL ONE (02:06)
[2020-05-17 02:15] LABS: Absolute Lymphocytes (CBC) 3.6 K/uL (0.7-4.9); Basophils % 0.6 % (0-1.3); Hematocrit 43.8 % (39.6-49.0); Lymphocytes % 32.5 % (15.3-44.8); MPV 8.7 fL (7.6-11.3)
[2020-05-17 02:34] LABS: Albumin 3.7 g/dL (3.4-5.0); Bilirubin Total 0.2 mg/dL (0.2-1.0); Potassium 3.2 mmol/L (3.5-5.1); Protein, Total 7.5 g/dL (6.4-8.2)
--- NOTE | 2020-05-17 03:01 | ER ---
Nurse's Notes [facility] Name: Lino Samuel Age: 45 yrs Sex: Male : 1975 Arrival Date: 05/17/2020 Time: 00:50 Bed 2 Private MD: Diagnosis: Other chronic pain-neck;Hypokalemia Presentation: 05/17 01:17 Chief complaint: Patient states: he has had a severe migraine and neck pain x 3 days pt bb has had multiple surgeries to neck for ruptured discs ran out of pain medicine and is not able to sleep has appt with provider tomorrow. Coronavirus screen: At this time, the client does not indicate any symptoms associated with coronavirus-19. Ebola Screen: No symptoms or risks identified at this time. Initial Sepsis Screen: Does the patient meet any 2 criteria? No. Patient's initial sepsis screen is negative. Does the patient have a suspected source of infection? No. Patient's initial sepsis screen is negative. Risk Assessment: Do you want to hurt yourself or someone else? Patient reports no desire to harm self or others. Onset of symptoms was May 13, 2020. 01:17 Method Of Arrival: Ambulatory 01:17 Acuity: ERICA 3 bb Triage Assessment: 01:22 General: Appears uncomfortable, Behavior is cooperative. Pain: Complains of pain in bb head and neck Pain currently is 8 out of 10 on a pain scale. Neuro: Level of Consciousness is awake, alert, obeys commands, Oriented to person, place, time, situation. Cardiovascular: No deficits noted. Respiratory: Respiratory effort is even, unlabored, Respiratory pattern is regular. GI: Reports nausea. Derm: Skin is pink, warm \T\ dry. Musculoskeletal: Circulation, motion, and sensation intact. Reports pain in neck and head. Historical: - Allergies: 01:22 Imitrex (Throat Swelling, Chest Pain); bb :22 Ketorolac (Severe Gastritis); bb :22 tramadol (Gastritis, Diaphoresis); bb - Home Meds: 01:22 Percocet 5-325 mg oral tab 1 tab every 4-6 hours [Active]; metoprolol tartrate 50 mg bb Oral tab 1 tab 2 times per day [Active]; amlodipine 10 mg tab 1 tab once daily [Active]; hydrochlorothiazide 25 mg Oral tab 1 tab once daily [Active]; Dexilant 60 mg Oral CpDB 1 cap once daily [Active]; Xtampza ER 9 mg oral CSpT 1 cap every 12 hours [Active]; - PMHx: 01:22 chronic neck pain; GERD; Hypertension; Migraines; bb - PSHx: 01:22 neck surgery; Vasectomy; Cholecystectomy; bone graft to right arm; bb 01:25 nerve stimulator; bb - Immunization history:: Adult Immunizations up to date. - Social history:: Smoking status: Patient reports the use of cigarette tobacco products, smokes one-half pack cigarettes per day, Patient/guardian denies using alcohol, street drugs. - Family history:: not pertinent. Screenin:39 Abuse screen: Denies threats or abuse. Denies injuries from another. Nutritional mg2 screening: No deficits noted. Tuberculosis screening: No symptoms or risk factors identified. Fall Risk IV access (20 points). Assessment: 01:38 General: Appears in no apparent distress. comfortable, Behavior is calm, cooperative. mg2 Pain: Complains of pain in head and right shoulder and neck. Neuro: Level of Consciousness is awake, alert, obeys commands, Oriented to person, place, time, situation. Neuro: Reports headache. Cardiovascular: Capillary refill < 3 seconds Patient's skin is warm and dry. Respiratory: Airway is patent Respiratory effort is even, unlabored, Respiratory pattern is regular, symmetrical. GI: No signs and/or symptoms were reported involving the gastrointestinal system. : No signs and/or symptoms were reported regarding the genitourinary system. EENT: No signs and/or symptoms were reported regarding the EENT system. Derm: Skin is intact, is healthy with good turgor, Skin is pink, warm \T\ dry. normal. Musculoskeletal: Circulation, motion, and sensation intact. Capillary refill < 3 seconds. 03:28 Reassessment: Patient appears in no apparent distress at this time. Patient and/or mg2 family updated on plan of care and expected duration. Pain level reassessed. Patient is alert, oriented x 3, equal unlabored respirations, skin warm/dry/pink. 03:33 Reassessment: Patient states feeling better. Patient states symptoms have improved. mg2 Vital Signs: 01:17 BP 130 / 105; Pulse 105; Resp 18 S; Temp 98.5(O); Pulse Ox 97% on R/A; Weight 106.59 kg bb (R); Height 6 ft. 4 in. (193.04 cm) (R); Pain 8/10; 03:27 BP 122 / 83; Pulse 90; Resp 18; Pulse Ox 100% on R/A; mg2 01:17 Body Mass Index 28.60 (106.59 kg, 193.04 cm) bb ED Course: 00:50 Patient arrived in ED. cl3 01:20 Triage completed. bb 01:22 Arm band placed on Patient placed in an exam room, on a stretcher, on pulse oximetry. bb 01:30 Davie Tobar, LUIS F is Primary Nurse. mg2 01:35 Clarence Amos MD is Attending Physician. iram 01:38 No provider procedures requiring assistance completed. Inserted saline lock: 20 gauge mg2 in left antecubital area, using aseptic technique. Blood collected. 01:39 Patient has correct armband on for positive identification. mg2 03:33 IV discontinued, intact, bleeding controlled, No redness/swelling at site. Pressure mg2 dressing applied. Administered Medications: 01:49 Drug: Valium 5 mg Route: PO; wh 03:28 Follow up: Response: No adverse reaction mg2 01:51 Drug: Dilaudid 1 mg Route: IVP; Site: left antecubital; wh 03:28 Follow up: Response: No adverse reaction mg2 01:53 Drug: Zofran (Ondansetron) 4 mg Route: IVP; Site: left antecubital; wh 03:28 Follow up: Response: No adverse reaction mg2 01:55 Drug: Decadron - Dexamethasone 10 mg Route: IVP; Site: left antecubital; wh 03:28 Follow up: Response: No adverse reaction mg2 03:03 Drug: NS 0.9% 500 ml Route: IV; Rate: bolus; Site: left antecubital; mg2 03:34 Follow up: IV Status: Completed infusion; IV Intake: 500ml mg2 03:05 Drug: Dilaudid 1 mg Route: IVP; Site: left antecubital; mg2 03:34 Follow up: Response: No adverse reaction mg2 03:27 Drug: Potassium Effervescent Tablet 25 mEq Route: PO; mg2 03:28 Follow up: Response: No adverse reaction; Medication administered at discharge. mg2 Intake: 03:34 IV: 500ml; Total: 500ml. mg2 Outcome: 03:00 Discharge ordered by . iram 03:33 Discharged to home ambulatory. mg2 03:33 Condition: stable 03:33 Discharge instructions given to patient, Instructed on discharge instructions, follow up and referral plans. medication usage, Demonstrated understanding of instructions, follow-up care, medications, Prescriptions given X 3. 03:34 Patient left the ED. mg2 Signatures: Clarence Amos MD MD cha Ballard, Brenda, RN RN Jono Parrish RN RN Davie Tobar RN RN mg2 Alexander Sanchez cl3
--- NOTE | 2020-05-17 03:01 | EDPHYS ---
Physician Documentation [facility] Name: Lino Samuel Age: 45 yrs Sex: Male : 1975 Arrival Date: 05/17/2020 Time: 00:50 Bed 2 Private MD: MELISSA Physician Clarence Amos HPI: 05/17 01:43 This 45 yrs old Male presents to ER via Ambulatory with complaints of Neck iram Problem, Migraine. 01:43 The patient or guardian complains of decreased range of motion. The symptoms are iram located on the back of neck. Onset: The symptoms/episode began/occurred 3 day(s) ago. Context: The problem was sustained at home, The neck injury/problem resulted from from unknown cause. Associated signs and symptoms: The patient has no apparent associated signs or symptoms. The pain does not radiate. Modifying factors: The symptoms are alleviated by remaining still. Severity of symptoms: At their worst the symptoms were mild, moderate, in the emergency department the symptoms are unchanged. The patient has not experienced similar symptoms in the past. Historical: - Allergies: 01:22 Imitrex (Throat Swelling, Chest Pain); bb 01:22 Ketorolac (Severe Gastritis); bb 01:22 tramadol (Gastritis, Diaphoresis); bb - Home Meds: 01:22 Percocet 5-325 mg oral tab 1 tab every 4-6 hours [Active]; metoprolol tartrate 50 mg bb Oral tab 1 tab 2 times per day [Active]; amlodipine 10 mg tab 1 tab once daily [Active]; hydrochlorothiazide 25 mg Oral tab 1 tab once daily [Active]; Dexilant 60 mg Oral CpDB 1 cap once daily [Active]; Xtampza ER 9 mg oral CSpT 1 cap every 12 hours [Active]; - PMHx: 01:22 chronic neck pain; GERD; Hypertension; Migraines; bb - PSHx: 01:22 neck surgery; Vasectomy; Cholecystectomy; bone graft to right arm; bb 01:25 nerve stimulator; bb - Immunization history:: Adult Immunizations up to date. - Social history:: Smoking status: Patient reports the use of cigarette tobacco products, smokes one-half pack cigarettes per day, Patient/guardian denies using alcohol, street drugs. - Family history:: not pertinent. ROS: 01:43 Constitutional: Negative for fever, chills, and weight loss, Eyes: Negative for injury, iram pain, redness, and discharge, ENT: Negative for injury, pain, and discharge, Cardiovascular: Negative for chest pain, palpitations, and edema, Respiratory: Negative for shortness of breath, cough, wheezing, and pleuritic chest pain, Abdomen/GI: Negative for abdominal pain, nausea, vomiting, diarrhea, and constipation, Back: Negative for injury and pain, : Negative for injury, bleeding, discharge, and swelling, MS/Extremity: Negative for injury and deformity, Skin: Negative for injury, rash, and discoloration, Neuro: Negative for headache, weakness, numbness, tingling, and seizure, Psych: Negative for depression, anxiety, suicide ideation, homicidal ideation, and hallucinations, Allergy/Immunology: Negative for hives, rash, and allergies, Endocrine: Negative for neck swelling, polydipsia, polyuria, polyphagia, and marked weight changes, Hematologic/Lymphatic: Negative for swollen nodes, abnormal bleeding, and unusual bruising. 01:43 Neck: Positive for pain at rest, tenderness. Exam: 01:43 Constitutional: This is a well developed, well nourished patient who is awake, alert, iram and in no acute distress. Head/Face: Normocephalic, atraumatic. Eyes: Pupils equal round and reactive to light, extra-ocular motions intact. Lids and lashes normal. Conjunctiva and sclera are non-icteric and not injected. Cornea within normal limits. Periorbital areas with no swelling, redness, or edema. ENT: Nares patent. No nasal discharge, no septal abnormalities noted. Tympanic membranes are normal and external auditory canals are clear. Oropharynx with no redness, swelling, or masses, exudates, or evidence of obstruction, uvula midline. Mucous membranes moist. Chest/axilla: Normal chest wall appearance and motion. Nontender with no deformity. No lesions are appreciated. Cardiovascular: Regular rate and rhythm with a normal S1 and S2. No gallops, murmurs, or rubs. Normal PMI, no JVD. No pulse deficits. Respiratory: Lungs have equal breath sounds bilaterally, clear to auscultation and percussion. No rales, rhonchi or wheezes noted. No increased work of breathing, no retractions or nasal flaring. Abdomen/GI: Soft, non-tender, with normal bowel sounds. No distension or tympany. No guarding or rebound. No evidence of tenderness throughout. Back: No spinal tenderness. No costovertebral tenderness. Full range of motion. Male : Normal genitalia with no discharge or lesions. Skin: Warm, dry with normal turgor. Normal color with no rashes, no lesions, and no evidence of cellulitis. MS/ Extremity: Pulses equal, no cyanosis. Neurovascular intact. Full, normal range of motion. Neuro: Awake and alert, GCS 15, oriented to person, place, time, and situation. Cranial nerves II-XII grossly intact. Motor strength 5/5 in all extremities. Sensory grossly intact. Cerebellar exam normal. Normal gait. Psych: Awake, alert, with orientation to person, place and time. Behavior, mood, and affect are within normal limits. 01:43 Neck: External neck: is normal, C-spine: no acute changes, Thyroid: appears normal, Trachea: is midline with no obvious abnormalities, ROM/movement: is normal, no acute changes, limited range of motion, that is mild. Vital Signs: 01:17 BP 130 / 105; Pulse 105; Resp 18 S; Temp 98.5(O); Pulse Ox 97% on R/A; Weight 106.59 kg bb (R); Height 6 ft. 4 in. (193.04 cm) (R); Pain 8/10; 03:27 BP 122 / 83; Pulse 90; Resp 18; Pulse Ox 100% on R/A; mg2 01:17 Body Mass Index 28.60 (106.59 kg, 193.04 cm) bb MDM: 01:35 Patient medically screened. iram 01:43 Differential diagnosis: Cervical Disc Herniation cervical strain, Degenerative Disc iram Disease. Data reviewed: vital signs, nurses notes, lab test result(s). Data interpreted: lunchroom monitor: not applicable for this patient encounter. rate is 105 beats/min, rhythm is regular, Pulse oximetry: on 105L(s) per nasal canula. Counseling: I had a detailed discussion with the patient and/or guardian regarding: the historical points, exam findings, and any diagnostic results supporting the discharge/admit diagnosis, lab results, the need for outpatient follow up, for definitive care, a painter barrel. 05/17 01:43 Order name: CBC with Diff; Complete Time: 02:55 iram 05/17 01:43 Order name: Comprehensive Metabolic Panel; Complete Time: :55 iram Administered Medications: 01:49 Drug: Valium 5 mg Route: PO; 03:28 Follow up: Response: No adverse reaction mg2 01:51 Drug: Dilaudid 1 mg Route: IVP; Site: left antecubital; wh 03:28 Follow up: Response: No adverse reaction mg2 01:53 Drug: Zofran (Ondansetron) 4 mg Route: IVP; Site: left antecubital; wh 03:28 Follow up: Response: No adverse reaction mg2 01:55 Drug: Decadron - Dexamethasone 10 mg Route: IVP; Site: left antecubital; wh 03:28 Follow up: Response: No adverse reaction mg2 03:03 Drug: NS 0.9% 500 ml Route: IV; Rate: bolus; Site: left antecubital; mg2 03:34 Follow up: IV Status: Completed infusion; IV Intake: 500ml mg2 03:05 Drug: Dilaudid 1 mg Route: IVP; Site: left antecubital; mg2 03:34 Follow up: Response: No adverse reaction mg2 03:27 Drug: Potassium Effervescent Tablet 25 mEq Route: PO; mg2 03:28 Follow up: Response: No adverse reaction; Medication administered at discharge. mg2 Disposition: 05/17/20 03:00 Discharged to Home. Impression: Other chronic pain - neck, Hypokalemia. - Condition is Stable. - Discharge Instructions: Chronic Pain, Potassium Content of Foods, Pain Medicine Instructions, Pain Medicine Instructions, [id number], Hypokalemia. - Prescriptions for Tylenol- Codeine #3 300-30 mg Oral Tablet - take 2 tablets by ORAL route every 4-6 hours As needed; 15 tablet. Medrol (Pro) 4 mg Oral Tablets, Dose Pack - take 1 tablet by ORAL route as directed - follow package instructions; 1 packet. Valium 5 mg Oral Tablet - take 1 tablet by ORAL route every 8 hours As needed; 6 tablet. - Medication Reconciliation Form, Thank You Letter, Antibiotic Education, Prescription Opioid Use form. - Follow up: Private Physician; When: Today; Reason: Recheck today's complaints, Continuance of care, Re-evaluation by your physician. - Problem is new. - Symptoms have improved. Signatures: Dispatcher [employer] [facility] Clarence Amos MD MD cha Ballard, Brenda, RN RN bb Jono White, LUIS F RN Davie Tobar RN RN mg2 Corrections: (The following items were deleted from the chart) 03:34 03:00 05/17/2020 03:00 Discharged to Home. Impression: Other chronic pain - neck; mg2 Hypokalemia. Condition is Stable. Discharge Instructions: Chronic Pain, Pain Medicine Instructions, Pain Medicine Instructions, [id number], Potassium Content of Foods, Hypokalemia. Prescriptions for Tylenol-Codeine #3 300-30 mg Oral Tablet - take 2 tablets by ORAL route every 4-6 hours As needed; 15 tablet, Medrol (Pro) 4 mg Oral Tablets, Dose Pack - take 1 tablet by ORAL route as directed - follow package instructions; 1 packet, Valium 5 mg Oral Tablet - take 1 tablet by ORAL route every 8 hours As needed; 6 tablet. and Forms are Medication Reconciliation Form, Thank You Letter, Antibiotic Education, Prescription Opioid Use. Follow up: Private Physician; When: Today; Reason: Recheck today's complaints, Continuance of care, Re-evaluation by your physician. Problem is new. Symptoms have improved. iram
[2020-05-17] MEDS ORDERED: NA CHLORIDE 0.9% 500 ML ONE (03:16)
[2020-05-17] MEDS ORDERED: POTASSIUM 25 MEQ EFFERV TAB ONE (03:42)
[2020-05-17 04:14] VITALS: TEMP 98.5
[2020-05-17 04:15] VITALS: BP 122/83; O2SAT 100
== END 2020-05-17 03:34 | disposition home or self-care (01) ==
LOC: ER 00:46
DX: G89.29 Other chronic pain (principal); E87.6 Hypokalemia; I10 Essential (primary) hypertension; F17.210 Nicotine dependence, cigarettes, uncomplicated; Z88.5 Allergy status to narcotic agent; Z88.6 Allergy status to analgesic agent; Z88.8 Allergy status to other drugs, medicaments and biological substances
CPT/HCPCS: 96361; 85025; 36415; 80053; 96375; 96374; 99284; J1100; J1170 ×2; J7040; J2405

== ENCOUNTER 2020-06-08 20:42 | Emergency (ER) | payer OTHER ==
--- OUTSIDE RECORDS SUMMARY | 2020-06-08 20:45 | XMS REPORT | Continuity of Care Document ---
:1975 Author Organization [facility] t Address [address] [place] [address] Care Team Providers Name Role Phone Peng HERNÁNDEZ, B Attending Clinician Yessenia Esquivel Attending Clinician Bonnie PAC, S Attending Clinician Doctor Unassigned, Name Attending Clinician Unavailable Lubna DICK, S Attending Clinician Rohan QIU, G Attending Clinician Dean DICK Attending Clinician Cordell HERNÁNDEZ Attending Clinician Catarino JACOBS J Attending Clinician Maria Eugenia HERNÁNDEZ, Noel Attending Clinician Karon Wheat Attending Clinician Problems This patient has no known problems. Allergies, Adverse Reactions, Alerts This patient has no known allergies or adverse reactions. Medications This patient has no known medications. Procedures This patient has no known procedures. Encounters Start End Encounter Admission Attending Care Care Encounter Source Date/Time Date/Time Type Type Clinicians Facility Department ID 2020-05-08 2020-05-08 Emergency Peng [facility] [id number] 20:57:00 21:46:00 Maged Chirinos [id number] [place] [id number] [place] [id number] 2020-04-16 2020 Emergency Chayo Issa [facility] [id number] 21:21:00 01:05:00 Yessenia Chirinos [id number] [place] [id number] [place] [id number] 2020-03-09 2020-03-09 Emergency [facility] [id number] 20:23:00 22:51:00 Lynetteyamileth Chirinos [id number] [place] [id number] [place] [id number] 2020-03-09 2020-03-09 Orders Doctor JESICA [id number] 00:00:00 00:00:00 Only Unassigned, LEYLA [id number] [place] [facility] [id number] 2020-02-14 2020-02-15 Emergency [facility] [id number] 23:22:00 00:54:00 Milena Chirinos [id number] [place] [id number] [place] [id number] 2020-01-28 2020-01-28 Emergency Chayo Issa [facility] [id number] 17:47:00 21:50:00 Yessenia Chirinos [id number] [place] [id number] [place] [id number] [id number] 2020-01-22 2020-01-22 Emergency [facility] [id number] 19:22:00 22:47:00 Amaris Chirinos [id number] [place] [id number] [place] [id number] 2020-01-20 2020-01-21 Emergency Moran, [facility] [id number] 23:26:00 02:01:00 Elkin Chirinos [id number] [place] [id number] [place] [id number] 2019-12-30 2019-12-30 Emergency Chayo Issa [facility] [id number] 11:45:00 14:25:00 Yessenia Chirinos [id number] [place] [id number] [place] [id number] [id number] 2019-12-22 2019-12-22 Emergency Moran, [facility] [id number] 13:48:00 16:20:00 Elkin [place] [id number] [place] [id number] [place] [id number] [id number] 2019-12-22 2019-12-22 Orders Doctor MOONEY [id number] 00:00:00 00:00:00 Only Unassigned, LEYLA [id number] [place] [facility] [id number] [id number] 2019-11-29 2019-11-29 Emergency Nicole, [facility] [id number] 15:09:00 17:41:00 Lynette [place] [id number] [place] [id number] [place] [id number] [id number] 2019-11-12 2019-11-12 Emergency Landa, [facility] [id number] 20:27:00 23:35:00 Yanna [place] [id number] [place] [id number] [place] [id number] [id number] 2019-10-20 2019-10-21 Emergency Catarino, [facility] [id number] 21:49:00 00:48:00 Zena Chirinos [id number] [place] [id number] [place] [id number] 2019-10-20 2019-10-20 Orders Doctor MOONEY [id number] 00:00:00 00:00:00 Only Unassigned, LEYLA [id number] [place] [facility] [id number] [id number] 2019-08-29 2019-08-29 Emergency Maria Eugenia, [facility] [id number] 18:05:24 19:48:00 Qi Chirinos [id number] [place] [id number] [place] [id number] 2019-04-20 2019-04-20 Emergency Teodoro, [facility] [id number] 21:28:16 22:19:00 Alley Chirinos [id number] [place] [id number] [place] [id number] [id number] Results This patient has no known results.
[2020-06-08] MEDS ORDERED: METOCLOPRAMIDE 10 MG/2mL INJ ONE (22:33)
[2020-06-08] MEDS ORDERED: HYDROMORPHONE HCL 1 MG/ML INJ ONE (22:33)
[2020-06-08] MEDS ORDERED: dexAMETHasone 10 MG/ML VIAL ONE (22:33)
[2020-06-08] MEDS ORDERED: DIPHENHYDRAMINE 50 MG/ML VIAL ONE (22:33)
[2020-06-08] MEDS ORDERED: NA CHLORIDE 0.9% 1,000 ML ONE (22:34)
[2020-06-09] MEDS ORDERED: HYDROMORPHONE HCL 1 MG/ML INJ ONE (00:49)
[2020-06-09] MEDS ORDERED: NA CHLORIDE 0.9% 1,000 ML ONE (00:57)
--- NOTE | 2020-06-09 01:47 | EDPHYS ---
Physician Documentation [facility] Name: Lino Samuel Age: 45 yrs Sex: Male : 1975 Arrival Date: 06/08/2020 Time: 20:43 Bed 25 Private MD: ED Physician Pablo Eugene HPI: 06/08 22:45 This 45 yrs old Male presents to ER via Ambulatory with complaints of mh7 Nausea/Vomiting, Neck Problem. 22:46 The patient complains of pain to the forehead. The patient describes the headache as mh7 throbbing. Onset: The symptoms/episode began/occurred yesterday. Associated signs and symptoms: Pertinent positives: nausea, Photophobia vomiting, neck pain, states chronic, Pertinent negatives: altered mental status, dizziness, fever, malaise, neck stiffness, paresthesias, rash, sinus congestion, sinus tenderness, vision changes, vision loss, weakness, vertigo. Severity of symptoms: At its worst the pain was moderate, last night, in the emergency department the pain is unchanged. Headache History: The patient has had previous headaches and this one is similar to previous episodes. The symptoms are alleviated by nothing. the symptoms are aggravated by lights, noise, stress. The patient has experienced similar episodes in the past, multiple times, 3-5 times/week. Historical: - Allergies: 20:51 tramadol (Gastritis, Diaphoresis); ll1 20:51 Ketorolac (Severe Gastritis); ll1 20:51 Imitrex (Throat Swelling, Chest Pain); ll1 - PMHx: 20:51 chronic neck pain; GERD; Hypertension; Migraines; ll1 - PSHx: 20:51 nerve stimulator; bone graft to right arm; neck surgery; Vasectomy; Cholecystectomy; ll1 - Immunization history:: Flu vaccine is up to date. - Social history:: Smoking status: Patient reports the use of cigarette tobacco products, smokes one-half pack cigarettes per day. ROS: 23:00 Constitutional: Negative for fever, chills, and weight loss, Eyes: Negative for injury, mh7 pain, redness, and discharge, ENT: Negative for injury, pain, and discharge, Cardiovascular: Negative for chest pain, palpitations, and edema, Respiratory: Negative for shortness of breath, cough, wheezing, and pleuritic chest pain, Abdomen/GI: Negative for abdominal pain, nausea, vomiting, diarrhea, and constipation, Back: Negative for injury and pain, : Negative for injury, bleeding, discharge, and swelling, MS/Extremity: Negative for injury and deformity, Skin: Negative for injury, rash, and discoloration. 23:00 Psych: Negative for depression, anxiety, suicide ideation, homicidal ideation, and hallucinations, Allergy/Immunology: Negative for hives, rash, and allergies, Endocrine: Negative for neck swelling, polydipsia, polyuria, polyphagia, and marked weight changes, Hematologic/Lymphatic: Negative for swollen nodes, abnormal bleeding, and unusual bruising. 23:00 Neuro: Negative for altered mental status, dizziness, gait disturbance, hearing loss, loss of consciousness, numbness, seizure activity, speech changes, syncope, near syncope, tingling, tinnitus, tremor, visual changes, weakness. Exam: 23:00 Constitutional: This is a well developed, well nourished patient who is awake, alert, mh7 and in no acute distress. Head/Face: Normocephalic, atraumatic. Eyes: Pupils equal round and reactive to light, extra-ocular motions intact. Lids and lashes normal. Conjunctiva and sclera are non-icteric and not injected. Cornea within normal limits. Periorbital areas with no swelling, redness, or edema. ENT: Nares patent. No nasal discharge, no septal abnormalities noted. Tympanic membranes are normal and external auditory canals are clear. Oropharynx with no redness, swelling, or masses, exudates, or evidence of obstruction, uvula midline. Mucous membranes moist. 23:00 Chest/axilla: Normal chest wall appearance and motion. Nontender with no deformity. No lesions are appreciated. Cardiovascular: Regular rate and rhythm with a normal S1 and S2. No gallops, murmurs, or rubs. Normal PMI, no JVD. No pulse deficits. Respiratory: Lungs have equal breath sounds bilaterally, clear to auscultation and percussion. No rales, rhonchi or wheezes noted. No increased work of breathing, no retractions or nasal flaring. Abdomen/GI: Soft, non-tender, with normal bowel sounds. No distension or tympany. No guarding or rebound. No evidence of tenderness throughout. Back: No spinal tenderness. No costovertebral tenderness. Full range of motion. Skin: Warm, dry with normal turgor. Normal color with no rashes, no lesions, and no evidence of cellulitis. MS/ Extremity: Pulses equal, no cyanosis. Neurovascular intact. Full, normal range of motion. Neuro: Awake and alert, GCS 15, oriented to person, place, time, and situation. Cranial nerves II-XII grossly intact. Motor strength 5/5 in all extremities. Sensory grossly intact. Cerebellar exam normal. Normal gait. Psych: Awake, alert, with orientation to person, place and time. Behavior, mood, and affect are within normal limits. 23:00 Neck: External neck: tenderness, that is mild, of the left trapezius, C-spine: appears grossly normal, no vertebral tenderness, no crepitus, Thyroid: appears normal, Trachea: is midline with no obvious abnormalities, ROM/movement: is normal, is supple, Lymph nodes: no appreciated lymphadenopathy. Vital Signs: 20:49 BP 157 / 108; Pulse 96; Resp 18; Temp 98.9; Pulse Ox 96% ; Weight 106.59 kg; Height 6 ll1 ft. 4 in. (193.04 cm); Pain 8/10; 22:00 BP 150 / 96; Pulse 62; Resp 14 S; Pulse Ox 94% on R/A; bb 22:59 BP 141 / 97; Pulse 84; Resp 14 S; Pulse Ox 93% on R/A; bb 23:52 BP 137 / 101; Pulse 78; Resp 14 S; Pulse Ox 94% on R/A; Pain 6/10; bb 06/09 00:46 BP 159 / 106; Pulse 59; Resp 14 S; Temp 98.7(O); Pulse Ox 96% on R/A; Pain 4/10; bb 02:06 BP 147 / 93; Pulse 63; Resp 16 S; Temp 98.6(O); Pulse Ox 94% on R/A; Pain 2/10; bb 06/08 20:49 Body Mass Index 28.60 (106.59 kg, 193.04 cm) ll1 [place] Coma Score: 01:44 Eye Response: spontaneous(4). Verbal Response: oriented(5). Motor Response: obeys [facility] commands(6). Total: 15. MDM: 01:44 Differential diagnosis: cluster headache, migraine, tension headache. Data reviewed: mh7 vital signs, nurses notes, old medical records. Data interpreted: Pulse oximetry: on room air is 96 %. Interpretation: normal. Counseling: I had a detailed discussion with the patient and/or guardian regarding: the historical points, exam findings, and any diagnostic results supporting the discharge/admit diagnosis, the presence of at least one elevated blood pressure reading (>120/80) during this emergency department visit, the need for outpatient follow up, a neurologist, to return to the emergency department if symptoms worsen or persist or if there are any questions or concerns that arise at home. Response to treatment: the patient's symptoms have resolved after treatment, the patient's blood pressure is in an acceptable range, mental status has returned to baseline, the patient no longer shows bradycardia, the patient is not short of breath, the patient is not tachycardic, the patient's pain is gone, the patient's temperature has normalized, the patient is now symptom free, patient is well hydrated. 01:46 Patient medically screened. [facility] 01:47 ED course: B/P 135/94, well appearing, NAD, VSS, no focal neurological deficits. mh7 Tolerating PO intake. States that he is ready to go home.. Administered Medications: 06/08 22:20 Drug: NS 0.9% 1000 ml Route: IV; Rate: 1000 ml; Site: left antecubital; bb 23:11 Follow up: IV Status: Completed infusion; IV Intake: 1000ml bb 22:20 Drug: Reglan 10 mg Route: IVP; Site: left antecubital; bb 23:11 Follow up: Response: Nausea is decreased bb 22:22 Drug: Dilaudid (HYDROmorphone) 1 mg Route: IVP; Site: left antecubital; bb 23:11 Follow up: Response: No adverse reaction; No change in condition; RASS: Drowsy (-1) bb 22:25 Drug: Decadron - Dexamethasone 10 mg Route: IVP; Site: left antecubital; bb 23:11 Follow up: Response: No adverse reaction bb 22:26 Drug: Benadryl (diphenhydrAMINE) 50 mg Route: IVP; Site: left antecubital; bb 23:11 Follow up: Response: No adverse reaction 06/09 00:37 Drug: NS 0.9% 1000 ml Route: IV; Rate: 1000 ml; Site: left antecubital; bb 01:38 Follow up: IV Status: Completed infusion; IV Intake: 1000ml bb 00:37 Drug: Dilaudid (HYDROmorphone) 1 mg {Note: RASS 0.} Route: IVP; Site: left antecubital; bb 00:47 Follow up: Response: Pain is decreased bb 00:47 Follow up: Response: RASS: Drowsy (-1) bb Disposition: 06/09/20 01:46 Discharged to Home. Impression: Migraine. - Condition is Stable. - Discharge Instructions: Migraine Headache, Xyqb-yc-Cnez. - Prescriptions for Zofran ODT 4 mg Oral tablet,disintegrating - place 1 tablet by TRANSLINGUAL route every 8 hours As needed; 6 tablet. - Medication Reconciliation Form, Thank You Letter, Antibiotic Education, Prescription Opioid Use form. - Follow up: Private Physician; When: 1 - 2 days; Reason: Worsening of condition, Recheck today's complaints, Continuance of care, Re-evaluation by your physician. Follow up: Mina Little MD; When: 1 - 2 days; Reason: Worsening of condition, Recheck today's complaints. - Problem is an acute exacerbation. - Symptoms have improved. Signatures: Emily Preciado RN RN Kiana Wilson RN RN ll1 Pablo Eugene MD MD mh7 Corrections: (The following items were deleted from the chart) 02:07 01:46 06/09/2020 01:46 Discharged to Home. Impression: Migraine. Condition is Stable. bb Forms are Medication Reconciliation Form, Thank You Letter, Antibiotic Education, Prescription Opioid Use. Follow up: Private Physician; When: 1 - 2 days; Reason: Worsening of condition, Recheck today's complaints, Continuance of care, Re-evaluation by your physician. Follow up: Mina Little; When: 1 - 2 days; Reason: Worsening of condition, Recheck today's complaints. Problem is an acute exacerbation. Symptoms have improved. mh7
--- NOTE | 2020-06-09 01:47 | ER ---
Nurse's Notes [facility] Name: Lino Samuel Age: 45 yrs Sex: Male : 1975 Arrival Date: 06/08/2020 Time: 20:43 Bed 25 Private MD: Diagnosis: Migraine Presentation: 06/08 20:49 Chief complaint: Patient states: MCCANN and neck pain for 1 days. + N/V. Can't keep his ll1 migraine med down today. No fever. Coronavirus screen: Client denies travel out of the [place] in the last 14 days. At this time, the client does not indicate any symptoms associated with coronavirus-19. Ebola Screen: Patient denies travel to an Ebola-affected area in the 21 days before illness onset. Initial Sepsis Screen: Does the patient meet any 2 criteria? HR > 90 bpm. No. Patient's initial sepsis screen is negative. Does the patient have a suspected source of infection? Yes: S/S of meningitis or endocarditis. Risk Assessment: Do you want to hurt yourself or someone else? Patient reports no desire to harm self or others. Onset of symptoms was June 08, 2020. 20:49 Method Of Arrival: Ambulatory ll1 20:49 Acuity: ERICA 3 ll1 Historical: - Allergies: 20:51 tramadol (Gastritis, Diaphoresis); ll1 20:51 Ketorolac (Severe Gastritis); ll1 20:51 Imitrex (Throat Swelling, Chest Pain); ll1 - PMHx: 20:51 chronic neck pain; GERD; Hypertension; Migraines; ll1 - PSHx: 20:51 nerve stimulator; bone graft to right arm; neck surgery; Vasectomy; Cholecystectomy; ll1 - Immunization history:: Flu vaccine is up to date. - Social history:: Smoking status: Patient reports the use of cigarette tobacco products, smokes one-half pack cigarettes per day. Screenin:24 Abuse screen: Denies threats or abuse. Nutritional screening: No deficits noted. bb Tuberculosis screening: No symptoms or risk factors identified. Fall Risk None identified. Assessment: 21:24 General: Appears in no apparent distress. uncomfortable, Behavior is calm, cooperative. bb Pain: Complains of pain in head radiating into neck Pain currently is 8 out of 10 on a pain scale. Neuro: Level of Consciousness is awake, alert, obeys commands, Oriented to person, place, time, situation. Cardiovascular: No deficits noted. Respiratory: Respiratory effort is even, unlabored, Respiratory pattern is regular, Breath sounds are clear bilaterally. GI: Abdomen is non-distended, Bowel sounds present X 4 quads. Abd is soft and non tender X 4 quads. Reports vomiting. Derm: Skin is pink, warm \T\ dry. Musculoskeletal: Circulation, motion, and sensation intact. 22:30 Reassessment: Patient is alert, oriented x 3, equal unlabored respirations, skin bb warm/dry/pink. room darkened and pt given blanket for comfort. 23:10 Reassessment: Patient and/or family updated on plan of care and expected duration. Pain bb level reassessed. pt states nausea is improving but headache is still there. 23:52 Reassessment: Patient and/or family updated on plan of care and expected duration. Pain bb level reassessed. Patient is alert, oriented x 3, equal unlabored respirations, skin warm/dry/pink. pt states nausea is gone and pain has improved now 08/22. 06/09 00:45 Reassessment: Patient is alert, oriented x 3, equal unlabored respirations, skin bb warm/dry/pink. Patient states feeling better. Patient states symptoms have improved. 02:05 Reassessment: Patient is alert, oriented x 3, equal unlabored respirations, skin bb warm/dry/pink. pt verbalized understanding of and agrees to plan of care discharge instructions given pt ambulated with steady gait to exit Patient states feeling better. Patient states symptoms have improved. Vital Signs: 06/08 20:49 BP 157 / 108; Pulse 96; Resp 18; Temp 98.9; Pulse Ox 96% ; Weight 106.59 kg; Height 6 ll1 ft. 4 in. (193.04 cm); Pain 8/10; 22:00 BP 150 / 96; Pulse 62; Resp 14 S; Pulse Ox 94% on R/A; bb 22:59 BP 141 / 97; Pulse 84; Resp 14 S; Pulse Ox 93% on R/A; bb 23:52 BP 137 / 101; Pulse 78; Resp 14 S; Pulse Ox 94% on R/A; Pain 6/10; bb 06/09 00:46 BP 159 / 106; Pulse 59; Resp 14 S; Temp 98.7(O); Pulse Ox 96% on R/A; Pain 4/10; bb 02:06 BP 147 / 93; Pulse 63; Resp 16 S; Temp 98.6(O); Pulse Ox 94% on R/A; Pain 2/10; bb 06/08 20:49 Body Mass Index 28.60 (106.59 kg, 193.04 cm) ll1 [place] Coma Score: 01:44 Eye Response: spontaneous(4). Verbal Response: oriented(5). Motor Response: obeys 7 commands(6). Total: 15. ED Course: 06/08 20:43 Patient arrived in ED. cl3 20:50 Triage completed. ll1 20:52 Arm band placed on. ll1 21:24 Patient has correct armband on for positive identification. Call light in reach. Side bb rails up X 1. 21:26 Pablo Eugene MD is Attending Physician. 7 22:15 Inserted saline lock: 20 gauge in left antecubital area, using aseptic technique. bb 22:54 Emily Preciado, LUIS F is Primary Nurse. bb 06/09 01:45 Mina Little MD is Referral Physician. [facility] 02:06 No provider procedures requiring assistance completed. IV discontinued, intact, bb bleeding controlled, No redness/swelling at site. Pressure dressing applied. Administered Medications: 06/08 22:20 Drug: NS 0.9% 1000 ml Route: IV; Rate: 1000 ml; Site: left antecubital; bb 23:11 Follow up: IV Status: Completed infusion; IV Intake: 1000ml bb 22:20 Drug: Reglan 10 mg Route: IVP; Site: left antecubital; bb 23:11 Follow up: Response: Nausea is decreased bb 22:22 Drug: Dilaudid (HYDROmorphone) 1 mg Route: IVP; Site: left antecubital; bb 23:11 Follow up: Response: No adverse reaction; No change in condition; RASS: Drowsy (-1) bb 22:25 Drug: Decadron - Dexamethasone 10 mg Route: IVP; Site: left antecubital; bb 23:11 Follow up: Response: No adverse reaction bb 22:26 Drug: Benadryl (diphenhydrAMINE) 50 mg Route: IVP; Site: left antecubital; bb 23:11 Follow up: Response: No adverse reaction bb 06/09 00:37 Drug: NS 0.9% 1000 ml Route: IV; Rate: 1000 ml; Site: left antecubital; bb 01:38 Follow up: IV Status: Completed infusion; IV Intake: 1000ml bb 00:37 Drug: Dilaudid (HYDROmorphone) 1 mg {Note: RASS 0.} Route: IVP; Site: left antecubital; bb 00:47 Follow up: Response: Pain is decreased bb 00:47 Follow up: Response: RASS: Drowsy (-1) bb Intake: 06/08 23:11 IV: 1000ml; Total: 1000ml. bb 06/09 01:38 IV: 1000ml; Total: 2000ml. bb Outcome: 01:46 Discharge ordered by MD. becerril 02:06 Discharged to home ambulatory. bb 02:06 Condition: stable 02:06 Discharge instructions given to patient, Instructed on discharge instructions, follow up and referral plans. medication usage, Demonstrated understanding of instructions, follow-up care, medications, Prescriptions given X 1. 02:07 Patient left the ED. bb Signatures: Emily Preciado RN RN Alexander Wilson cl3 Kiana Sanchez RN RN ll1 Pablo Eugene MD MD mh7
[2020-06-09 05:59] VITALS: BP 147/93; TEMP 98.6; O2SAT 94
== END 2020-06-09 02:07 | disposition home or self-care (01) ==
LOC: ER 20:42
DX: G43.909 Migraine, unspecified, not intractable, without status migrainosus (principal); I10 Essential (primary) hypertension; F17.210 Nicotine dependence, cigarettes, uncomplicated; Z88.5 Allergy status to narcotic agent; Z88.8 Allergy status to other drugs, medicaments and biological substances
CPT/HCPCS: 96361; 96375; 96374; 99283; J2765; J1200; J1100; J1170 ×2; J7030 ×2

== ENCOUNTER 2020-07-09 04:54 | Emergency (ER) | payer OTHER ==
--- OUTSIDE RECORDS SUMMARY | 2020-07-09 04:57 | XMS REPORT | Continuity of Care Document ---
:1975 Author Organization [facility] t Address [address] [place] [address] Care Team Providers Name Role Phone Singer JACOBS Attending Clinician Lubna DICK S Attending Clinician Peng HERNÁNDEZ B Attending Clinician Yessenia Esquivel Attending Clinician Bonnie BAHENA, S Attending Clinician Doctor Unassigned, Name Attending Clinician Unavailable Jaycee Mardigal NP Attending Clinician Dean DICK Attending Clinician Cordell [...] Date/Time Type Type Clinicians Facility Department ID 2020-07-02 2020-07-02 Emergency , [facility] [id number] 19:35:00 22:12:00 Lisandro Chirinos [id number] [place] [id number] [place] [id number] [id number] 2020-06-10 2020-06-10 Emergency Pending sale to [facility] [id number] 01:29:00 03:55:00 Milena [place] [id number] [place] [id number] [place] [id number] 2020-05-08 2020-05-08 Emergency Peng, [facility] [id number] 20:57:00 21:46:00 Maged [place] [id number] [place] [id number] [place] [id number] 2020-04-[address] [facility] [id number] 21:21:00 01:05:00 Yessenia [place] [id number] [place] [id number] [place] [id number] [id number] 2020-03-09 2020-03-09 [id number] 20:23:00 22:51:00 Lynette Chirinos [id number] [place] [id number] [place] [address] [id number] 2020-03-09 2020-03-09 Orders Doctor JESICA [id number] 00:00:00 00:00:00 Only Unassigned, LEYLA [id number] [place] [facility] [id number] 2020-02-14 2020-02-15 Emergency Pending sale to [facility] [id number] 23:22:00 00:54:00 Milena Chirinos [id number] [place] [id number] [place] [address] [id number] 2020-01-28 2020-01-[address] [facility] [id number] 17:47:00 21:50:00 Yessenia Chirinos [id number] [place] [id number] [place] [id number] 2020-01-22 2020-01-22 Emergency Rohan, [facility] [id number] 19:22:00 22:47:00 Amaris [place] [id number] [place] [id number] [place] [id number] 2020-01-20 2020-01-21 Emergency Dean, [facility] [id number] 23:26:00 02:01:00 Elkin Chirinos [id number] [place] [id number] [place] [id number] 2019-12-30 2019-12-[address] [facility] [id number] 11:45:00 14:25:00 Yessenia Chirinos [id number] [place] [id number] [place] [id number] [id number] 2019-12-22 2019-12-22 Emergency Dean, [facility] [id number] 13:48:00 16:20:00 Elkin Chirinos [id number] [place] [id number] [place] [id number] [id number] 2019-12-22 2019-12-22 Orders Doctor JESICA [id number] 00:00:00 00:00:00 Only Unassigned, LEYLA [id number] [place] [facility] [id number] 2019-11-29 2019-11-[address] [facility] [id number] 15:09:00 17:41:00 Lynette [place] [id number] [place] [id number] [place] [id number] [id number] 2019-11-12 2019-11-12 Emergency Landa, [facility] [id number] 20:27:00 23:35:00 Yanna Chirinos [id number] [place] [id number] [place] [id number] [id number] 2019-10-20 2019-10-21 Emergency Catarino, [facility] [id number] 21:49:00 00:48:00 Zena Gomez Candis [id number] [place] [id number] [place] [id number] [id number] 2019-10-20 2019-10-20 Orders Doctor JESICA [id number] 00:00:00 00:00:00 Only Unassigned, LEYLA [id number] [place] [facility] [id number] [id number] 2019-08-29 2019-08-29 Emergency Maria Eugenia, [facility] [id number] 18:05:24 19:48:00 Qi Chirinos [id number] [place] [id number] [place] [id number] [id number] 2019-04-20 2019-04-20 Emergency Teodoro, [facility] [id number] 21:28:16 22:19:00 Alley Brantley [place] [id number] [place] [id number] [place] [id number] [id number] Results This patient has no known results.
[2020-07-09] MEDS ORDERED: NA CHLORIDE 0.9% 1,000 ML ONE (05:36)
[2020-07-09] MEDS ORDERED: MEPERIDINE HCL 50 MG/ML ONE ×2 (05:36→06:53)
[2020-07-09] MEDS ORDERED: dexAMETHasone 10 MG/ML VIAL ONE (05:36)
[2020-07-09] MEDS ORDERED: PROMETHAZINE INJ 25 MG/ML AMP ONE (05:36)
[2020-07-09] MEDS ORDERED: HYDROMORPHONE HCL 1 MG/ML INJ ONE (06:18)
--- NOTE | 2020-07-09 06:21 | ER ---
Nurse's Notes [facility] Name: Lino Samuel Age: 45 yrs Sex: Male : 1975 Arrival Date: 07/09/2020 Time: 04:57 Bed 20 Private MD: Diagnosis: Migraine Presentation: 07/09 05:08 Chief complaint: Patient states: migraine for 2 days unable to sleep and I threw up rr5 everything. denies fever, cough, colds. Coronavirus screen: Client denies travel out of the [place] in the last 14 days. At this time, the client does not indicate any symptoms associated with coronavirus-19. Ebola Screen: Patient negative for fever greater than or equal to 101.5 degrees Fahrenheit, and additional compatible Ebola Virus Disease symptoms Patient denies exposure to infectious person. Patient denies travel to an Ebola-affected area in the 21 days before illness onset. Initial Sepsis Screen: Does the patient meet any 2 criteria? No. Patient's initial sepsis screen is negative. Does the patient have a suspected source of infection? No. Patient's initial sepsis screen is negative. Risk Assessment: Do you want to hurt yourself or someone else? Patient reports no desire to harm self or others. Onset of symptoms was July 09, 2020. 05:08 Method Of Arrival: Ambulatory rr5 05:08 Acuity: ERICA 3 rr5 Triage Assessment: 05:08 Pain: Also complains of nausea. rr5 05:08 Headache History: The patient has had previous headaches and this one is more severe rr5 than previous episodes. Historical: - Allergies: 05:13 Imitrex (Throat Swelling, Chest Pain); rr5 05:13 Ketorolac (Severe Gastritis); rr5 05:13 tramadol (Gastritis, Diaphoresis); rr5 - Home Meds: 05:13 amlodipine 10 mg tab 1 tab once daily [Active]; Dexilant 60 mg Oral CpDB 1 cap once rr5 daily [Active]; hydrochlorothiazide 25 mg Oral tab 1 tab once daily [Active]; metoprolol tartrate 50 mg Oral tab 1 tab 2 times per day [Active]; Percocet 5-325 mg Oral tab 1 tab every 4-6 hours [Active]; Xtampza ER 9 mg Oral CSpT 1 cap every 12 hours [Active]; - PMHx: 05:13 chronic neck pain; GERD; Hypertension; Migraines; rr5 - PSHx: 05:13 Cholecystectomy; spine surgery; Vasectomy; nerve stimulator implant; rr5 - Immunization history:: Adult Immunizations up to date. - Social history:: Smoking status: Patient reports the use of cigarette tobacco products, smokes one-half pack cigarettes per day, Patient/guardian denies using alcohol, street drugs. - Family history:: not pertinent. - Hospitalizations: : No recent hospitalization is reported. Screenin:13 Abuse screen: Denies threats or abuse. Denies injuries from another. Nutritional rr5 screening: No deficits noted. Tuberculosis screening: No symptoms or risk factors identified. Fall Risk IV access (20 points). Total Marquis Fall Scale indicates No Risk (0-24 pts). Assessment: 05:14 General: Appears in no apparent distress. uncomfortable, Behavior is calm, cooperative, rr5 appropriate for age. Pain: Complains of pain in right yazdanism and left yazdanism Pain radiates to top of head, left frontal area, left side of the back of head, left occipital area, left base of the skull, right frontal area, right side of the back of head, right occipital area and right base of the skull Pain currently is 8 out of 10 on a pain scale. Quality of pain is described as aching, Pain began gradually, Is intermittent. Neuro: Level of Consciousness is awake, alert, obeys commands, Oriented to person, place, time, situation, Reports headache. Cardiovascular: Capillary refill < 3 seconds Patient's skin is warm and dry. Respiratory: Airway is patent Respiratory effort is even, unlabored, Respiratory pattern is regular, symmetrical. GI: Reports nausea, vomiting. : No signs and/or symptoms were reported regarding the genitourinary system. EENT: No signs and/or symptoms were reported regarding the EENT system. Derm: Skin temperature is warm. Musculoskeletal: Capillary refill < 3 seconds. 06:00 Reassessment: Patient appears in no apparent distress at this time. nausea improved but rr5 for the pain it is still hurting as stated by the patient, ED provider aware with order made and carried out. 06:50 Reassessment: Patient appears in no apparent distress at this time. Patient is alert, rr5 oriented x 3, equal unlabored respirations, skin warm/dry/pink. discharge instruction given and explained without complaints made Patient states symptoms have improved. Vital Signs: 05:08 BP 141 / 97; Pulse 81; Resp 17; Temp 98.1; Pulse Ox 100% ; Weight 106.59 kg; Height 6 rr5 ft. 4 in. (193.04 cm); Pain 8/10; 06:00 BP 139 / 98; Pulse 75; Resp 19; Pulse Ox 99% ; Pain 8/10; rr5 06:50 BP 131 / 70; Pulse 70; Resp 16; Pulse Ox 98% ; rr5 05:08 Body Mass Index 28.60 (106.59 kg, 193.04 cm) rr5 [place] Coma Score: 06:15 Eye Response: spontaneous(4). Verbal Response: oriented(5). Motor Response: obeys rn commands(6). Total: 15. ED Course: 04:57 Patient arrived in ED. ag3 05:01 Luis Figueredo, RN is Primary Nurse. rr5 05:01 Petros Aguilera MD is Attending Physician. rn 05:11 Triage completed. rr5 05:13 Arm band placed on right wrist. rr5 05:13 Patient has correct armband on for positive identification. Bed in low position. Call rr5 light in reach. Pulse ox on. NIBP on. 05:22 Inserted saline lock: 20 gauge in right antecubital area, using aseptic technique. ds4 06:51 No provider procedures requiring assistance completed. IV discontinued, intact, rr5 bleeding controlled, No redness/swelling at site. Pressure dressing applied. Administered Medications: 05:20 Drug: Phenergan (promethazine) 25 mg Route: IVP; Site: right antecubital; rr5 06:20 Follow up: Response: No adverse reaction; Nausea is decreased rr5 05:20 Drug: NS 0.9% 1000 ml Route: IV; Rate: 1000 ml; Site: right antecubital; rr5 06:25 Follow up: Response: No adverse reaction; IV Status: Completed infusion; IV Intake: rr5 1000ml 05:22 Drug: Decadron - Dexamethasone 10 mg Route: IVP; Site: right antecubital; rr5 06:20 Follow up: Response: No adverse reaction rr5 05:24 Drug: Demerol (meperidine) 50 mg {Note: rass 0.} Route: IVP; Site: right antecubital; rr5 06:20 Follow up: Response: No adverse reaction; Pain is unchanged, physician notified rr5 06:02 Drug: Dilaudid (HYDROmorphone) 1 mg {Note: rass 0.} Route: IVP; Site: right antecubital;rr5 06:35 Follow up: Response: No adverse reaction; Pain is unchanged, physician notified; RASS: rr5 Alert and Calm (0) 06:35 Drug: Demerol (meperidine) 50 mg {Note: rass 0.} Route: IVP; Site: right antecubital; rr5 06:49 Follow up: Response: Medication administered at discharge. rr5 06:49 Follow up: Response: RASS: Alert and Calm (0) rr5 Intake: 06:25 IV: 1000ml; Total: 1000ml. rr5 Outcome: 06:21 Discharge ordered by MD. rn 06:51 Discharged to home ambulatory. rr5 06:51 Condition: stable 06:51 Discharge instructions given to patient, Instructed on discharge instructions, follow up and referral plans. medication usage, Demonstrated understanding of instructions, follow-up care, medications, Prescriptions given X 1. 06:51 Patient left the ED. rr5 Signatures: Petros Aguilera MD MD rn Swanson, Donovan ds4 Carolina Campo3 Luis Figueredo RN RN rr5
--- NOTE | 2020-07-09 06:21 | EDPHYS ---
Physician Documentation [facility] Name: Lino Samuel Age: 45 yrs Sex: Male : 1975 Arrival Date: 07/09/2020 Time: 04:57 Bed 20 Private MD: ED Physician Petros Aguilera HPI: 07/09 05:14 This 45 yrs old Male presents to ER via Ambulatory with complaints of rn Headache. 05:14 The patient complains of pain to the top of head and forehead. The patient describes rn the headache as aching. Onset: The symptoms/episode began/occurred 2 day(s) ago. Associated signs and symptoms: Pertinent positives: nausea, vomiting, Pertinent negatives: altered mental status, fever, neck stiffness, vision loss, vertigo. Severity of symptoms: At its worst the pain was moderate, "similar to past headaches". Headache History: The patient has had previous headaches and this one is similar to previous episodes. The symptoms are alleviated by nothing. the symptoms are aggravated by lights. The patient has experienced similar episodes in the past. The patient has not recently seen a physician. Reports identical to previous migraines, no new symptoms, reports ran out of phenergan suppositories. No fever. . Historical: - Allergies: 05:13 Imitrex (Throat Swelling, Chest Pain); rr5 05:13 Ketorolac (Severe Gastritis); rr5 05:13 tramadol (Gastritis, Diaphoresis); rr5 - Home Meds: 05:13 amlodipine 10 mg tab 1 tab once daily [Active]; Dexilant 60 mg Oral CpDB 1 cap once rr5 daily [Active]; hydrochlorothiazide 25 mg Oral tab 1 tab once daily [Active]; metoprolol tartrate 50 mg Oral tab 1 tab 2 times per day [Active]; Percocet 5-325 mg Oral tab 1 tab every 4-6 hours [Active]; Xtampza ER 9 mg Oral CSpT 1 cap every 12 hours [Active]; - PMHx: 05:13 chronic neck pain; GERD; Hypertension; Migraines; rr5 - PSHx: 05:13 Cholecystectomy; spine surgery; Vasectomy; nerve stimulator implant; rr5 - Immunization history:: Adult Immunizations up to date. - Social history:: Smoking status: Patient reports the use of cigarette tobacco products, smokes one-half pack cigarettes per day, Patient/guardian denies using alcohol, street drugs. - Family history:: not pertinent. - Hospitalizations: : No recent hospitalization is reported. ROS: 05:14 Constitutional: Negative for fever, chills, and weight loss, Eyes: Negative for injury, rn pain, redness, and discharge, Neck: Negative for injury, pain, and swelling, Cardiovascular: Negative for chest pain, palpitations, and edema, Respiratory: Negative for shortness of breath, cough, wheezing, and pleuritic chest pain, Abdomen/GI: Negative for abdominal pain, diarrhea, and constipation, Back: Negative for injury and pain, MS/Extremity: Negative for injury and deformity, Skin: Negative for injury, rash, and discoloration, Neuro: Negative for weakness, numbness, tingling, and seizure Exam: 05:14 Constitutional: This is a well developed, well nourished patient who is awake, alert, rn and in no acute distress. Ambulatory to room without difficulty. Head/Face: Normocephalic, atraumatic. Eyes: Periorbital areas with no swelling, redness, or edema. Cardiovascular: Regular rate and rhythm. No pulse deficits. Respiratory: No increased work of breathing, no retractions or nasal flaring. Abdomen/GI: Soft, non-tender Skin: Warm, dry MS/ Extremity: Pulses equal, no cyanosis. Neuro: Awake and alert, GCS 15, oriented to person, place, time, and situation. Cranial nerves II-XII grossly intact. Motor strength 5/5 in all extremities. Sensory grossly intact. Cerebellar exam normal. Normal gait. Vital Signs: 05:08 BP 141 / 97; Pulse 81; Resp 17; Temp 98.1; Pulse Ox 100% ; Weight 106.59 kg; Height 6 rr5 ft. 4 in. (193.04 cm); Pain 8/10; 06:00 BP 139 / 98; Pulse 75; Resp 19; Pulse Ox 99% ; Pain 8/10; rr5 06:50 BP 131 / 70; Pulse 70; Resp 16; Pulse Ox 98% ; rr5 05:08 Body Mass Index 28.60 (106.59 kg, 193.04 cm) rr5 [place] Coma Score: 06:15 Eye Response: spontaneous(4). Verbal Response: oriented(5). Motor Response: obeys rn commands(6). Total: 15. MDM: 05:01 Patient medically screened. rn 06:15 Differential diagnosis: migraine. Data reviewed: vital signs, nurses notes, old medical rn records, and as a result, I will discharge patient. Counseling: I had a detailed discussion with the patient and/or guardian regarding: the historical points, exam findings, and any diagnostic results supporting the discharge/admit diagnosis, the need for outpatient follow up, to return to the emergency department if symptoms worsen or persist or if there are any questions or concerns that arise at home. Special discussion: I discussed with the patient/guardian in detail that at this point there is no indication for admission to the hospital. It is understood, however, that if the symptoms persist or worsen the patient needs to return immediately for re-evaluation. 07/09 05:12 Order name: IV Start; Complete Time: 05:22 rn Administered Medications: 05:20 Drug: Phenergan (promethazine) 25 mg Route: IVP; Site: right antecubital; rr5 06:20 Follow up: Response: No adverse reaction; Nausea is decreased rr5 05:20 Drug: NS 0.9% 1000 ml Route: IV; Rate: 1000 ml; Site: right antecubital; rr5 06:25 Follow up: Response: No adverse reaction; IV Status: Completed infusion; IV Intake: rr5 1000ml 05:22 Drug: Decadron - Dexamethasone 10 mg Route: IVP; Site: right antecubital; rr5 06:20 Follow up: Response: No adverse reaction rr5 05:24 Drug: Demerol (meperidine) 50 mg {Note: rass 0.} Route: IVP; Site: right antecubital; rr5 06:20 Follow up: Response: No adverse reaction; Pain is unchanged, physician notified rr5 06:02 Drug: Dilaudid (HYDROmorphone) 1 mg {Note: rass 0.} Route: IVP; Site: right antecubital;rr5 06:35 Follow up: Response: No adverse reaction; Pain is unchanged, physician notified; RASS: rr5 Alert and Calm (0) 06:35 Drug: Demerol (meperidine) 50 mg {Note: rass 0.} Route: IVP; Site: right antecubital; rr5 06:49 Follow up: Response: Medication administered at discharge. rr5 06:49 Follow up: Response: RASS: Alert and Calm (0) rr5 Disposition: 07/09/20 06:21 Discharged to Home. Impression: Migraine. - Condition is Stable. - Discharge Instructions: Migraine Headache. - Prescriptions for Phenergan 25 mg Rectal Suppository - insert 1 suppository by RECTAL route every 6 hours As needed; 12 suppository. - Medication Reconciliation Form, Thank You Letter, Antibiotic Education, Prescription Opioid Use form. - Follow up: Private Physician; When: As needed; Reason: Recheck today's complaints, Re-evaluation by your physician. - Problem is new. - Symptoms have improved. Signatures: Petros Aguilera MD MD rn Roque, Raymond, RN RN rr5 Corrections: (The following items were deleted from the chart) 06:51 06:21 07/09/2020 06:21 Discharged to Home. Impression: Migraine. Condition is Stable. rr5 Discharge Instructions: Migraine Headache. Prescriptions for Phenergan 25 mg Rectal Suppository - insert 1 suppository by RECTAL route every 6 hours As needed; 12 suppository. and Forms are Medication Reconciliation Form, Thank You Letter, Antibiotic Education, Prescription Opioid Use. Follow up: Private Physician; When: As needed; Reason: Recheck today's complaints, Re-evaluation by your physician. Problem is new. Symptoms have improved. rn
[2020-07-09 07:06] VITALS: TEMP 98.1
[2020-07-09 07:07] VITALS: BP 131/70; O2SAT 98
== END 2020-07-09 06:51 | disposition home or self-care (01) ==
LOC: ER 04:54
DX: G43.909 Migraine, unspecified, not intractable, without status migrainosus (principal); F17.210 Nicotine dependence, cigarettes, uncomplicated; K21.9 Gastro-esophageal reflux disease without esophagitis; I10 Essential (primary) hypertension; G89.29 Other chronic pain; M54.2 Cervicalgia
CPT/HCPCS: 96361; 96375; 96374; 99284; J2550; J1100; J2175 ×2; J1170; J7030

== ENCOUNTER 2020-07-20 19:50 | Emergency (ER) | payer OTHER ==
--- OUTSIDE RECORDS SUMMARY | 2020-07-20 19:53 | XMS REPORT | Continuity of Care Document ---
:1975 Author Organization [facility] t Address [address] [place] [address] Care Team Providers Name Role Phone Bonnie BAHENA S Attending Clinician Singer JACOBS Attending Clinician Lubna DICK S Attending Clinician López Stovall Attending Clinician Yessenia Esquivel Attending Clinician Doctor Unassigned, Name Attending Clinician Unavailable Rohan QIU, G Attending Clinician Dean DICK [...] Date/Time Type Type Clinicians Facility Department ID 2020-07-17 2020-07-18 Emergency Bonnie, [facility] [id number] 22:52:00 00:59:00 Lynette Chirinos [id number] [place] [id number] [place] [id number] [id number] 2020-07-02 2020-07-02 Emergency , [facility] [id number] 19:35:00 22:12:00 Lisandro Chirinos [id number] [place] [id number] [place] [id number] [id number] 2020-06-10 2020-06-10 Emergency Yaimaniia, [facility] [id number] 01:29:00 03:55:00 Milena Chirinos [id number] [place] [id number] [place] [id number] [id number] 2020-05-08 2020-05-08 [facility] [id number] 20:57:00 21:46:00 Magedtristan [place] [id number] [place] [id number] [place] [id number] [id number] 2020-04-16 2020 Emergency Chayo Issa [facility] [id number] 21:21:00 01:05:00 Yessenia Chirinos [id number] [place] [id number] [place] [id number] [id number] 2020-03-09 2020-03-09 [facility] [id number] 20:23:00 22:51:00 Lynette Chirinos [id number] [place] [id number] [place] [id number] [id number] 2020-03-09 2020-03-09 Orders Doctor MOONEY [id number] 00:00:00 00:00:00 Only Unassigned, [place]YLA [id number] [place] [facility] [id number] 2020-02-14 2020-02-15 Emergency Yariia, [facility] [id number] 23:22:00 00:54:00 Milena Chirinos [id number] [place] [id number] [place] [id number] [id number] 2020-01-28 2020-01-28 Emergency Chayo Issa [facility] [id number] 17:47:00 21:50:00 Yessenia Chirinos [id number] [place] [id number] [place] [id number] [id number] 2020-01-22 2020-01-22 [facility] [id number] 19:22:00 22:47:00 Amaris Chirinos [id number] [place] [id number] [place] [id number] [id number] 2020-01-20 2020-01-21 [facility] [id number] 23:26:00 02:01:00 Elkin Chirinos [id number] [place] [id number] [place] [id number] [id number] 2019-12-30 2019-12-30 Emergency Chayo Issa [facility] [id number] 11:45:00 14:25:00 Yessenia Chirinos [id number] [place] [id number] [place] [id number] [id number] 2019-12-22 2019-12-22 [facility] [id number] 13:48:00 16:20:00 Elkin Chirinos [id number] [place] [id number] [place] [id number] [id number] 2019-12-22 2019-12-22 Orders Doctor JESICA [id number] 00:00:00 00:00:00 Only Unassigned, LEYLA [id number] [place] [facility] [id number] [id number] 2019-11-29 2019-11-29 [facility] [id number] 15:09:00 17:41:00 Lynette Chirinos [id number] [place] [id number] [place] [id number] [id number] 2019-11-12 2019-11-12 Emergency Landa, [facility] [id number] 20:27:00 23:35:00 Yanna Chirinos [id number] [place] [id number] [place] [id number] [id number] 2019-10-20 2019-10-21 Emergency Catarino, [facility] [id number] 21:49:00 00:48:00 Zena Gomez Candis [id number] [place] [id number] [place] [id number] [id number] 2019-10-20 2019-10-20 Orders Doctor JESICA [id number] 00:00:00 00:00:00 Only Unassigned, [place]YLA [id number] [place] [facility] [id number] [id number] 2019-08-29 2019-08-29 Emergency Ibkeelyunle, [facility] [id number] 18:05:24 19:48:00 Qi Chirinos [id number] [place] [id number] [place] [id number] [id number] 2019-04-20 2019-04-20 Emergency Teodoro, [facility] [id number] 21:28:16 22:19:00 Alley Chirinos [id number] [place] [id number] [place] [id number] 084 Results This patient has no known results.
[2020-07-20] MEDS ORDERED: METOCLOPRAMIDE 10 MG/2mL INJ ONE ×2 (22:21→22:23)
[2020-07-20] MEDS ORDERED: dexAMETHasone 10 MG/ML VIAL ONE (22:22)
[2020-07-20] MEDS ORDERED: MEPERIDINE HCL 25 MG/ML SYR ONE ×2 (22:22→23:17)
[2020-07-20] MEDS ORDERED: NA CHLORIDE 0.9% 1,000 ML ONE (22:22)
[2020-07-20] MEDS ORDERED: DIPHENHYDRAMINE 50 MG/ML VIAL ONE (22:23)
--- NOTE | 2020-07-20 23:16 | EDPHYS ---
Physician Documentation [facility] Name: Lino Samuel Age: 45 yrs Sex: Male : 1975 Arrival Date: 07/20/2020 Time: 19:53 Bed 16 Private MD: ED Physician Ethan Johnson HPI: 07/20 23:15 This 45 yrs old Male presents to ER via Ambulatory with complaints of kb Headache, Vomiting, Neck Pain, >24Hrs Old. 23:15 The patient complains of pain to the top of head. The patient describes the headache as kb constant, throbbing. Onset: The symptoms/episode began/occurred 3 day(s) ago. Associated signs and symptoms: Pertinent positives: nausea, Photophobia vomiting. Severity of symptoms: At its worst the pain was moderate, in the emergency department the pain is unchanged. Headache History: The patient has had previous headaches and this one is similar to previous episodes. The symptoms are alleviated by nothing. the symptoms are aggravated by lights, noise. The patient has experienced similar episodes in the past. The patient has not recently seen a physician. Pt states he started having this migraine 3 days ago. States he has been unable to tolerate his normal medication. Historical: - Allergies: 21:02 Imitrex (Throat Swelling, Chest Pain); lp1 21:02 Ketorolac (Severe Gastritis); lp1 21:02 tramadol (Gastritis, Diaphoresis); lp1 - Home Meds: 21:02 amlodipine 10 mg tab 1 tab once daily [Active]; Dexilant 60 mg Oral CpDB 1 cap once lp1 daily [Active]; hydrochlorothiazide 25 mg Oral tab 1 tab once daily [Active]; metoprolol tartrate 50 mg Oral tab 1 tab 2 times per day [Active]; Xtampza ER 9 mg Oral CSpT 1 cap every 12 hours [Active]; Percocet 5-325 mg Oral tab 1 tab every 4-6 hours [Active]; - PMHx: 21:02 chronic neck pain; GERD; Hypertension; Migraines; lp1 - Immunization history:: Adult Immunizations up to date. - Social history:: Smoking status: Patient reports the use of cigarette tobacco products, smokes one-half pack cigarettes per day. ROS: 23:14 Constitutional: Negative for fever, chills, and weight loss. kb 23:14 Abdomen/GI: Positive for nausea and vomiting, Negative for abdominal pain. 23:14 Neuro: Positive for headache. 23:14 All other systems are negative. Exam: 23:14 Constitutional: This is a well developed, well nourished patient who is awake, alert, kb and in no acute distress. Head/Face: Normocephalic, atraumatic. Eyes: Pupils equal round and reactive to light, extra-ocular motions intact. Lids and lashes normal. Conjunctiva and sclera are non-icteric and not injected. Cornea within normal limits. Periorbital areas with no swelling, redness, or edema. Cardiovascular: Regular rate and rhythm with a normal S1 and S2. No gallops, murmurs, or rubs. No pulse deficits. Respiratory: Respirations even and unlabored. No increased work of breathing, no retractions or nasal flaring. Abdomen/GI: Soft, non-tender. No distention Skin: Warm, dry with normal turgor. Normal color. MS/ Extremity: Pulses equal, no cyanosis. Neurovascular intact. Full, normal range of motion. Neuro: Awake and alert, GCS 15, oriented to person, place, time, and situation. Moves all extremities. Normal gait. Psych: Awake, alert, with orientation to person, place and time. Behavior, mood, and affect are within normal limits. Vital Signs: 21:02 BP 123 / 82; Pulse 64; Resp 18; Temp 97.9(TE); Pulse Ox 99% on R/A; Weight 104.33 kg lp1 (R); Height 6 ft. 4 in. (193.04 cm); Pain 9/10; 23:00 BP 111 / 78; Pulse 58; Resp 16; Pulse Ox 97% on R/A; Pain 6/10; lp1 21:02 Body Mass Index 28.00 (104.33 kg, 193.04 cm) lp1 Chase Coma Score: 23:13 Eye Response: spontaneous(4). Verbal Response: oriented(5). Motor Response: obeys kb commands(6). Total: 15. MDM: 21:31 Patient medically screened. kb 23:13 Data reviewed: vital signs, nurses notes. Data interpreted: Pulse oximetry: on room air kb is 97 %. Interpretation: normal. Counseling: I had a detailed discussion with the patient and/or guardian regarding: the historical points, exam findings, and any diagnostic results supporting the discharge/admit diagnosis, the need for outpatient follow up, a neurologist, to return to the emergency department if symptoms worsen or persist or if there are any questions or concerns that arise at home. Administered Medications: 21:00 Drug: Reglan (metoCLOPramide) 20 mg Route: IVP; Site: right antecubital; bb 23:03 Follow up: Response: Marked relief of symptoms lp1 22:06 Drug: NS 0.9% 1000 ml Route: IV; Rate: 1000 ml; Site: right antecubital; bb 23:02 Follow up: IV Status: Completed infusion; IV Intake: 1000ml lp1 22:10 Drug: Decadron - Dexamethasone 10 mg Route: IVP; Site: right antecubital; bb 23:03 Follow up: Response: No adverse reaction lp1 22:15 Drug: Benadryl (diphenhydrAMINE) 12.5 mg Route: IVP; Site: right antecubital; bb 23:03 Follow up: Response: No adverse reaction lp1 22:15 Drug: Demerol (meperidine) 25 mg {Note: RASS 0.} Route: IVP; Site: right antecubital; bb 23:04 Follow up: Response: Pain is decreased lp1 23:03 Drug: Demerol (meperidine) 25 mg Route: IVP; Site: right antecubital; lp1 23:30 Follow up: Response: Marked relief of symptoms; Pain is decreased lp1 Disposition: 07/20/20 23:16 Discharged to Home. Impression: Migraine. - Condition is Stable. - Discharge Instructions: Migraine Headache, [id number]. - Medication Reconciliation Form, Thank You Letter, Antibiotic Education, Prescription Opioid Use form. - Follow up: Emergency Department; When: As needed; Reason: Worsening of condition. Follow up: Private Physician; When: 2 - 3 days; Reason: Recheck today's complaints, Continuance of care, Re-evaluation by your physician. Addendum: 08/06/2020 05:11 Co-signature as Attending Physician, Ethan Johnson MD I agree with the assessment and t w4 plan of care. Signatures: Mildred Lopez, MACHINE SIZER-C MACHINE SIZER-Jetb Emily Preciado, RN RN bb Amber Whitley RN RN lp1 Ethan Johnson MD MD tw4 Corrections: (The following items were deleted from the chart) 07/20 23:37 23:16 07/20/2020 23:16 Discharged to Home. Impression: Migraine. Condition is Stable. lp1 Forms are Medication Reconciliation Form, Thank You Letter, Antibiotic Education, Prescription Opioid Use. Follow up: Emergency Department; When: As needed; Reason: Worsening of condition. Follow up: Private Physician; When: 2 - 3 days; Reason: Recheck today's complaints, Continuance of care, Re-evaluation by your physician. kb
--- NOTE | 2020-07-20 23:16 | ER ---
Nurse's Notes [facility] Name: Lino Samuel Age: 45 yrs Sex: Male : 1975 Arrival Date: 07/20/2020 Time: 19:53 Bed 16 Private MD: Diagnosis: Migraine Presentation: 07/20 21:00 Chief complaint: Patient states: Severe migraine, reports nausea x 3 days, unable to lp1 take home meds to help with migraines; reports similar symptom with previous migraines; light sensitivity, sound sensitivity, unable to tolerate PO meds. Coronavirus screen: Client denies travel out of the [place] in the last 14 days. At this time, the client does not indicate any symptoms associated with coronavirus-19. Ebola Screen: No symptoms or risks identified at this time. Risk Assessment: Do you want to hurt yourself or someone else? Patient reports no desire to harm self or others. Onset of symptoms was July 17, 2020. 21:00 Method Of Arrival: Ambulatory lp1 21:00 Acuity: ERICA 3 lp1 21:02 Initial Sepsis Screen: Does the patient meet any 2 criteria? No. Patient's initial lp1 sepsis screen is negative. Does the patient have a suspected source of infection? No. Patient's initial sepsis screen is negative. Historical: - Allergies: 21:02 Imitrex (Throat Swelling, Chest Pain); lp1 21:02 Ketorolac (Severe Gastritis); lp1 21:02 tramadol (Gastritis, Diaphoresis); lp1 - Home Meds: 21:02 amlodipine 10 mg tab 1 tab once daily [Active]; Dexilant 60 mg Oral CpDB 1 cap once lp1 daily [Active]; hydrochlorothiazide 25 mg Oral tab 1 tab once daily [Active]; metoprolol tartrate 50 mg Oral tab 1 tab 2 times per day [Active]; Xtampza ER 9 mg Oral CSpT 1 cap every 12 hours [Active]; Percocet 5-325 mg Oral tab 1 tab every 4-6 hours [Active]; - PMHx: 21:02 chronic neck pain; GERD; Hypertension; Migraines; lp1 - Immunization history:: Adult Immunizations up to date. - Social history:: Smoking status: Patient reports the use of cigarette tobacco products, smokes one-half pack cigarettes per day. Screenin:44 Abuse screen: Denies threats or abuse. Nutritional screening: No deficits noted. bb Tuberculosis screening: No symptoms or risk factors identified. Fall Risk None identified. Assessment: 21:44 General: Appears in no apparent distress. uncomfortable, Behavior is calm, cooperative. bb Pain: Complains of pain in headache Pain currently is 9 out of 10 on a pain scale. Neuro: Level of Consciousness is awake, alert, obeys commands, Oriented to person, place, time, situation. Cardiovascular: Capillary refill < 3 seconds Patient's skin is warm and dry. Respiratory: Airway is patent Respiratory effort is even, unlabored, Respiratory pattern is regular. GI: Reports vomiting. Derm: Skin is pink, warm \T\ dry. Musculoskeletal: Circulation, motion, and sensation intact. 22:50 Reassessment: Provider verbal order for Demerol 25mg IV now; Patient reports head pain lp1 decreased 6/10 on pain scale; nausea resolved Patient states feeling better. 23:30 Reassessment: Patient is alert, oriented x 3, equal unlabored respirations, skin lp1 warm/dry/pink. Patient states feeling better. Patient states symptoms have improved. Vital Signs: 21:02 BP 123 / 82; Pulse 64; Resp 18; Temp 97.9(TE); Pulse Ox 99% on R/A; Weight 104.33 kg lp1 (R); Height 6 ft. 4 in. (193.04 cm); Pain 9/10; 23:00 BP 111 / 78; Pulse 58; Resp 16; Pulse Ox 97% on R/A; Pain 6/10; lp1 21:02 Body Mass Index 28.00 (104.33 kg, 193.04 cm) lp1 Chase Coma Score: 23:13 Eye Response: spontaneous(4). Verbal Response: oriented(5). Motor Response: obeys kb commands(6). Total: 15. ED Course: 19:53 Patient arrived in ED. cf2 21:01 Triage completed. lp1 21:01 Arm band placed on right wrist. lp1 21:19 Mildred [facility]C [facility]. kb 21:19 Ethan Johnson MD is Attending Physician. kb 21:44 Patient has correct armband on for positive identification. Bed in low position. Call bb light in reach. Side rails up X 1. Pulse ox on. NIBP on. Warm blanket given. 21:44 Inserted saline lock: 20 gauge in right antecubital area, using aseptic technique. bb 22:09 Amber Whitley, RN is Primary Nurse. lp1 23:30 No provider procedures requiring assistance completed. IV discontinued, No lp1 redness/swelling at site. Pressure dressing applied. Administered Medications: 21:00 Drug: Reglan (metoCLOPramide) 20 mg Route: IVP; Site: right antecubital; bb 23:03 Follow up: Response: Marked relief of symptoms lp1 22:06 Drug: NS 0.9% 1000 ml Route: IV; Rate: 1000 ml; Site: right antecubital; bb 23:02 Follow up: IV Status: Completed infusion; IV Intake: 1000ml lp1 22:10 Drug: Decadron - Dexamethasone 10 mg Route: IVP; Site: right antecubital; bb 23:03 Follow up: Response: No adverse reaction lp1 22:15 Drug: Benadryl (diphenhydrAMINE) 12.5 mg Route: IVP; Site: right antecubital; bb 23:03 Follow up: Response: No adverse reaction lp1 22:15 Drug: Demerol (meperidine) 25 mg {Note: RASS 0.} Route: IVP; Site: right antecubital; bb 23:04 Follow up: Response: Pain is decreased lp1 23:03 Drug: Demerol (meperidine) 25 mg Route: IVP; Site: right antecubital; lp1 23:30 Follow up: Response: Marked relief of symptoms; Pain is decreased lp1 Intake: 23:02 IV: 1000ml; Total: 1000ml. lp1 Outcome: 23:16 Discharge ordered by MD. vidal 23:30 Discharged to home ambulatory, with friend. lp1 23:30 Condition: good 23:30 Discharge instructions given to patient, Instructed on discharge instructions, follow up and referral plans. Demonstrated understanding of instructions, follow-up care. 23:37 Patient left the ED. lp1 Signatures: Mildred Lopez, THANHC BETTY-Emily Brandt RN RN bb Amber Whitley, LUISF RN lp1 Christiano Gonzalez cf2 Corrections: (The following items were deleted from the chart) 21:05 21:00 Chief complaint: Patient states: Severe migraine, reports nausea x 3 days, unable lp1 to take home meds to help with migraines; reports similar symptom with previous migraines lp1 23:58 No provider procedures requiring assistance completed. lp1 lp1 23:58 IV discontinued, No redness/swelling at site. Pressure dressing applied, lp1 lp1
[2020-07-21 03:46] VITALS: TEMP 97.9
[2020-07-21 03:47] VITALS: BP 111/78; O2SAT 97
== END 2020-07-20 23:37 | disposition home or self-care (01) ==
LOC: ER 19:50
DX: G43.909 Migraine, unspecified, not intractable, without status migrainosus (principal); F17.210 Nicotine dependence, cigarettes, uncomplicated; K21.9 Gastro-esophageal reflux disease without esophagitis; I10 Essential (primary) hypertension; M54.2 Cervicalgia; G89.29 Other chronic pain
CPT/HCPCS: 96361; 96375; 96374; 99283; J2765 ×2; J1200; J1100; J2175 ×2; J7030

== ENCOUNTER 2020-07-25 01:35 | Emergency (ER) | payer OTHER ==
--- OUTSIDE RECORDS SUMMARY | 2020-07-25 01:37 | XMS REPORT | Continuity of Care Document ---
:1975 Author Organization [facility] t Address [address] [place] [address] Care Team Providers Name Role Phone Lubna DICK, S Attending Clinician Bonnie BAHENA, S Attending Clinician Singer JACOBS Attending Clinician López Stovall Attending Clinician Yessenia [...] Date/Time Type Type Clinicians Facility Department ID 2020-07-21 2020-07-22 Emergency Yarimo, [facility] [id number] 23:32:00 02:30:00 Milena [place] [id number] [place] [id number] [place] [id number] 2020-07-17 2020-07-18 Emergency Nicole, [facility] [id number] 22:52:00 00:59:00 Lynette Orantes [place] [id number] [place] [id number] [place] [id number] 2020-07-02 2020-07-02 Emergency Jim, [facility] [id number] 19:35:00 22:12:00 Lisandro [place] [id number] [place] [id number] [place] [id number] 2020-06-10 2020-06-10 Emergency [facility] [id number] 01:29:00 03:55:00 Milena [place] [id number] [place] [id number] [place] [id number] 2020-05-08 2020-05-08 Emergency Peng, [facility] [id number] 20:57:00 21:46:00 Magedtristan [place] [id number] [place] [id number] [place] [id number] 2020-04-16 2020 Emergency Maegan, Chayo [facility] [id number] 21:21:00 01:05:00 Yessenia [place] [id number] [place] [id number] [place] [id number] 2020-03-09 2020-03-09 Emergency Bonnie, [facility] [id number] 20:23:00 22:51:00 Lynette Orantes [place] [id number] [place] [id number] [place] [address] [id number] 2020-03-09 2020-03-09 Orders Doctor JESICA [id number] 00:00:00 00:00:00 Only Unassigned, LEYLA [id number] [place] [facility] 4.2.7.2.686 [id number] 2020-02-14 2020-02-15 Emergency [facility] [id number] 23:22:00 00:54:00 Milena Chirinos [id number] [place] [id number] [place] [address] [id number] 2020-01-28 2020-01-28 Emergency Chayo Issa [facility] [id number] 17:47:00 21:50:00 Yessenia Candis [id number] [place] [id number] [place] [address] [id number] 2020-01-22 2020-01-22 Emergency [facility] [id number] 19:22:00 22:47:00 Amaris G [place] [id number] [place] [id number] [place] [address] [id number] 2020-01-20 2020-01-21 [facility] [id number] 23:26:00 02:01:00 Eklin [place] [id number] [place] [id number] [place] [address] [id number] 2019-12-30 2019-12-30 Emergency Maegan Chayo [facility] [id number] 11:45:00 14:25:00 Yessenia [place] [id number] [place] [id number] [place] [address] [id number] 2019-12-22 2019-12-22 [facility] [id number] 13:48:00 16:20:00 Elkin [place] [id number] [place] [id number] [place] [address] [id number] 2019-12-22 2019-12-22 Orders Doctor JESICA [id number] 00:00:00 00:00:00 Only Unassigned, LEYLA 350.1.13.10 [place] [facility] 4.2.7.2.686 [id number] 2019-11-29 2019-11-29 Emergency Nicole, [facility] [id number] 15:09:00 17:41:00 Lynette Orantes [place] [id number] [place] [id number] [place] [id number] 2019-11-12 2019-11-12 Emergency Landa, [facility] [id number] 20:27:00 23:35:00 Yanna [place] [id number] [place] [id number] [place] [id number] [id number] 2019-10-20 2019-10-21 Emergency Catarino, [facility] [id number] 21:49:00 00:48:00 Zena Chirinos 350.1.13.10 [place] [id number] [place] [id number] 2019-10-20 2019-10-20 Orders Doctor MOONEY [id number] 00:00:00 00:00:00 Only Unassigned, LEYLA 350.1.13.10 [place] [facility] 4.2.7.2.686 [id number] 2019-08-29 2019-08-29 Emergency Luis Felipeunearline, [facility] [id number] 18:05:24 19:48:00 Qi Chirinos [id number] [place] [id number] [place] [id number] [id number] 2019-04-20 2019-04-20 Emergency Teodoro, [facility] [id number] 21:28:16 22:19:00 Alley Brantley [place] [id number] [place] [id number] [place] [phone] [id number] Results This patient has no known results.
[2020-07-25] MEDS ORDERED: PROMETHAZINE INJ 25 MG/ML AMP ONE (02:37)
[2020-07-25] MEDS ORDERED: NA CHLORIDE 0.9% 1,000 ML ONE (02:37)
[2020-07-25] MEDS ORDERED: dexAMETHasone 10 MG/ML VIAL ONE (02:37)
[2020-07-25] MEDS ORDERED: MEPERIDINE HCL 50 MG/ML ONE ×2 (02:37→03:22)
--- NOTE | 2020-07-25 03:16 | ER ---
Nurse's Notes [facility] Name: Lino Samuel Age: 45 yrs Sex: Male : 1975 Arrival Date: 07/25/2020 Time: 01:38 Bed 30 Private MD: Diagnosis: Migraine Presentation: 07/25 02:11 Chief complaint: Patient states: he is having an ongoing migraine for 7 days now was bb seen here during that time period and felt better but then it came back again he is unable to hold down his medication because of vomiting. Coronavirus screen: At this time, the client does not indicate any symptoms associated with coronavirus-19. Ebola Screen: No symptoms or risks identified at this time. Initial Sepsis Screen: Does the patient meet any 2 criteria? No. Patient's initial sepsis screen is negative. Does the patient have a suspected source of infection? No. Patient's initial sepsis screen is negative. Risk Assessment: Do you want to hurt yourself or someone else? Patient reports no desire to harm self or others. Onset of symptoms is unknown. 02:11 Method Of Arrival: Ambulatory bb 02:11 Acuity: ERICA 4 bb Triage Assessment: 02:14 Headache History: The patient has had previous headaches. bb 02:32 General: Appears in no apparent distress. Behavior is calm, cooperative. Pain: Pain ak2 currently is 6 out of 10 on a pain scale. Pain: Pain began 1 day ago. Also complains of nausea. Neuro: No deficits noted. Historical: - Allergies: 02:14 Imitrex (Throat Swelling, Chest Pain); bb 02:14 Ketorolac (Severe Gastritis); bb 02:14 tramadol (Gastritis, Diaphoresis); bb - Home Meds: 02:14 amlodipine 10 mg tab 1 tab once daily [Active]; hydrochlorothiazide 25 mg Oral tab 1 bb tab once daily [Active]; metoprolol tartrate 50 mg Oral tab 1 tab 2 times per day [Active]; Percocet 5-325 mg Oral tab 1 tab every 4-6 hours [Active]; Xtampza ER 9 mg Oral CSpT 1 cap every 12 hours [Active]; Dexilant 60 mg Oral CpDB 1 cap once daily [Active]; - PMHx: 02:14 chronic neck pain; GERD; Hypertension; Migraines; bb - Immunization history:: Adult Immunizations up to date. - Social history:: Smoking status: Patient reports the use of cigarette tobacco products, smokes one-half pack cigarettes per day, Patient/guardian denies using alcohol, street drugs. - Family history:: not pertinent. - Hospitalizations: : No recent hospitalization is reported. Screenin:31 Abuse screen: Denies threats or abuse. Denies injuries from another. Nutritional ak2 screening: No deficits noted. Tuberculosis screening: No symptoms or risk factors identified. Fall Risk None identified. Assessment: 03:31 Reassessment: Patient is alert, oriented x 3, equal unlabored respirations, skin bb warm/dry/pink. pt verbalized understanding of and agrees to plan of care discharge instructions given pt ambulated with steady gait to exit Patient states feeling better. Vital Signs: 02:11 BP 115 / 91; Pulse 91; Resp 18 S; Temp 98.2(O); Pulse Ox 98% on R/A; Weight 104.33 kg bb (R); Height 6 ft. 4 in. (193.04 cm) (R); Pain 9/10; 02:54 BP 125 / 82; Pulse 85; Resp 18; Pulse Ox 97% ; ak2 02:11 Body Mass Index 28.00 (104.33 kg, 193.04 cm) bb [place] Coma Score: 02:58 Eye Response: spontaneous(4). Verbal Response: oriented(5). Motor Response: obeys rn commands(6). Total: 15. ED Course: 01:38 Patient arrived in ED. bp1 01:41 Petros Aguilera MD is Attending Physician. rn 02:13 Triage completed. bb 02:14 Arm band placed on Patient placed in an exam room, on a stretcher, on pulse oximetry. bb 02:15 Donis Mendez is Primary Nurse. ak2 02:31 No apparent distress. ak2 02:31 Patient has correct armband on for positive identification. ak2 02:31 No provider procedures requiring assistance completed. Inserted saline lock: 20 gauge. ak2 03:15 Ephraim Saeed MD is Referral Physician. rn 03:34 IV discontinued, intact, bleeding controlled, No redness/swelling at site. Pressure bb dressing applied. Administered Medications: 02:24 Drug: Demerol (meperidine) 50 mg Route: IVP; Site: right antecubital; ak2 03:33 Follow up: Response: No adverse reaction; RASS: Alert and Calm (0) bb 02:24 Drug: Phenergan (promethazine) 25 mg Route: IVP; Site: right antecubital; ak2 03:33 Follow up: Response: No adverse reaction bb 02:25 Drug: NS 0.9% 1000 ml Route: IV; Rate: 1000 ml; Site: right antecubital; ak2 03:32 Follow up: IV Status: Completed infusion; IV Intake: 1000ml bb 02:25 Drug: Decadron - Dexamethasone 10 mg Route: IVP; Site: right antecubital; ak2 03:32 Follow up: Response: No adverse reaction bb 03:06 Drug: Demerol (meperidine) 50 mg Route: IVP; Site: right antecubital; ak2 03:33 Follow up: Response: No adverse reaction; RASS: Alert and Calm (0) bb Intake: 03:32 IV: 1000ml; Total: 1000ml. bb Outcome: 03:15 Discharge ordered by . rn 03:33 Discharged to home ambulatory. bb 03:33 Condition: stable 03:33 Discharge instructions given to patient, Instructed on discharge instructions, follow up and referral plans. medication usage, Demonstrated understanding of instructions, follow-up care, medications, Prescriptions given X 1. 03:34 Patient left the ED. bb Signatures: Emily Preciado RN RN bb Nieto, Roman, MD MD rn [place], Brittany bp1 [place], Anthony ak2
--- NOTE | 2020-07-25 03:16 | EDPHYS ---
Physician Documentation [facility] Name: Lino Samuel Age: 45 yrs Sex: Male : 1975 Arrival Date: 07/25/2020 Time: 01:38 Bed 30 Private MD: ED Physician Petros Aguilera HPI: 07/25 02:06 This 45 yrs old Male presents to ER via Unassigned with complaints of rn Headache, Nausea/Vomiting. 02:06 The patient complains of pain to the top of head and forehead. The patient describes rn the headache as aching. Onset: The symptoms/episode began/occurred at an unknown time. Associated signs and symptoms: Pertinent negatives: altered mental status, fever, neck stiffness, vision loss, vertigo. Severity of symptoms: At its worst the pain was moderate, "similar to past headaches", in the emergency department the pain is unchanged. Headache History: The patient has had previous headaches and this one is similar to previous episodes. The symptoms are alleviated by nothing. the symptoms are aggravated by lights, noise. The patient has experienced similar episodes in the past. The patient has been recently seen at the [facility] Emergency Department. Reports "another bad migraine". Meds not helping at home, no change from previous migraines, + nausea, no focal weakness/numbness. No syncope. No trauma.. Historical: - Allergies: 02:14 Imitrex (Throat Swelling, Chest Pain); bb 02:14 Ketorolac (Severe Gastritis); bb 02:14 tramadol (Gastritis, Diaphoresis); bb - Home Meds: 02:14 amlodipine 10 mg tab 1 tab once daily [Active]; hydrochlorothiazide 25 mg Oral tab 1 bb tab once daily [Active]; metoprolol tartrate 50 mg Oral tab 1 tab 2 times per day [Active]; Percocet 5-325 mg Oral tab 1 tab every 4-6 hours [Active]; Xtampza ER 9 mg Oral CSpT 1 cap every 12 hours [Active]; Dexilant 60 mg Oral CpDB 1 cap once daily [Active]; - PMHx: 02:14 chronic neck pain; GERD; Hypertension; Migraines; bb - Immunization history:: Adult Immunizations up to date. - Social history:: Smoking status: Patient reports the use of cigarette tobacco products, smokes one-half pack cigarettes per day, Patient/guardian denies using alcohol, street drugs. - Family history:: not pertinent. - Hospitalizations: : No recent hospitalization is reported. ROS: 02:06 Constitutional: Negative for fever, chills, and weight loss, Eyes: Negative for injury, rn pain, redness, and discharge, Neck: Negative for injury, pain, and swelling, Cardiovascular: Negative for chest pain, palpitations, and edema, Respiratory: Negative for shortness of breath, cough, wheezing, and pleuritic chest pain, Abdomen/GI: Negative for abdominal pain, diarrhea, and constipation, Back: Negative for injury and pain, MS/Extremity: Negative for injury and deformity, Skin: Negative for injury, rash, and discoloration, Neuro: Negative for weakness, numbness, tingling, and seizure. Exam: 02:06 Constitutional: This is a well developed, well nourished patient who is awake, alert, rn and in no acute distress. Ambulatory to room without difficulty or assistance. Head/Face: Normocephalic, atraumatic. Eyes: Pupils equal round and reactive to light, extra-ocular motions intact. Neck: No Meningismus. Cardiovascular: Regular rate and rhythm. No pulse deficits. Respiratory: No increased work of breathing, no retractions or nasal flaring. Abdomen/GI: soft, non-tender Skin: Warm, dry MS/ Extremity: Pulses equal, no cyanosis. Neuro: Awake and alert, GCS 15, oriented to person, place, time, and situation. Cranial nerves II-XII grossly intact. Motor strength 5/5 in all extremities. Sensory grossly intact. Cerebellar exam normal. Normal gait. Vital Signs: 02:11 BP 115 / 91; Pulse 91; Resp 18 S; Temp 98.2(O); Pulse Ox 98% on R/A; Weight 104.33 kg bb (R); Height 6 ft. 4 in. (193.04 cm) (R); Pain 9/10; 02:54 BP 125 / 82; Pulse 85; Resp 18; Pulse Ox 97% ; ak2 02:11 Body Mass Index 28.00 (104.33 kg, 193.04 cm) bb Chase Coma Score: 02:58 Eye Response: spontaneous(4). Verbal Response: oriented(5). Motor Response: obeys rn commands(6). Total: 15. MDM: 01:41 Patient medically screened. rn 02:58 Differential diagnosis: hypertensive headache, migraine, tension headache, vasomotor rn headache. Data reviewed: vital signs, nurses notes, old medical records, and as a result, I will discharge patient. Counseling: I had a detailed discussion with the patient and/or guardian regarding: the historical points, exam findings, and any diagnostic results supporting the discharge/admit diagnosis, the need for outpatient follow up, to return to the emergency department if symptoms worsen or persist or if there are any questions or concerns that arise at home. Response to treatment: the patient's symptoms have mildly improved after treatment. ED course: Pt states mildly improved pain, nausea has greatly improved, will medicate for pain again. Urged to f/u with neurology given increase in migraines and requiring more frequent visits to ER for migraine treatment. . 07/25 02:12 Order name: IV Start; Complete Time: 02:25 rn Administered Medications: 02:24 Drug: Demerol (meperidine) 50 mg Route: IVP; Site: right antecubital; ak2 03:33 Follow up: Response: No adverse reaction; RASS: Alert and Calm (0) bb 02:24 Drug: Phenergan (promethazine) 25 mg Route: IVP; Site: right antecubital; ak2 03:33 Follow up: Response: No adverse reaction bb 02:25 Drug: NS 0.9% 1000 ml Route: IV; Rate: 1000 ml; Site: right antecubital; ak2 03:32 Follow up: IV Status: Completed infusion; IV Intake: 1000ml bb 02:25 Drug: Decadron - Dexamethasone 10 mg Route: IVP; Site: right antecubital; ak2 03:32 Follow up: Response: No adverse reaction bb 03:06 Drug: Demerol (meperidine) 50 mg Route: IVP; Site: right antecubital; ak2 03:33 Follow up: Response: No adverse reaction; RASS: Alert and Calm (0) bb Disposition: 07/25/20 03:15 Discharged to Home. Impression: Migraine. - Condition is Stable. - Discharge Instructions: Migraine Headache. - Prescriptions for Phenergan 25 mg Rectal Suppository - insert 1 suppository by RECTAL route every 6 hours As needed; 12 suppository. - Medication Reconciliation Form, Thank You Letter, Antibiotic Education, Prescription Opioid Use form. - Follow up: Ephraim Saeed MD; When: As needed; Reason: Recheck today's complaints, Re-evaluation by your physician. - Problem is an acute exacerbation. - Symptoms have improved. Signatures: Emily Preciado RN RN Petros Chawla MD MD rn [place], Anthony ak2 Corrections: (The following items were deleted from the chart) 02:12 02:06 Constitutional: This is a well developed, well nourished patient who is awake, rn alert, and in no acute distress. Ambulatory to room without difficulty or assistance. Head/Face: Normocephalic, atraumatic. Eyes: Pupils equal round and reactive to light, extra-ocular motions intact. Neck: No Meningismus. Cardiovascular: Regular rate and rhythm. No pulse deficits. Respiratory: No increased work of breathing, no retractions or nasal flaring. Abdomen/GI: soft, non-tender Skin: Warm, dry MS/ Extremity: Pulses equal, no cyanosis. Neuro: Awake and alert, GCS 15, oriented to person, place, time, and situation. Cranial nerves II-XII grossly intact. Motor strength 5/5 in all extremities. Sensory grossly intact. Cerebellar exam normal. Normal gait. rn 03:34 03:15 07/25/2020 03:15 Discharged to Home. Impression: Migraine. Condition is Stable. bb Forms are Medication Reconciliation Form, Thank You Letter, Antibiotic Education, Prescription Opioid Use. Follow up: Ephraim Saeed; When: As needed; Reason: Recheck today's complaints, Re-evaluation by your physician. Problem is an acute exacerbation. Symptoms have improved. rn
[2020-07-25 03:48] VITALS: BP 125/82; O2SAT 97
[2020-07-25 03:49] VITALS: TEMP 98.2
== END 2020-07-25 03:34 | disposition home or self-care (01) ==
LOC: ER 01:35
DX: G43.909 Migraine, unspecified, not intractable, without status migrainosus (principal); I10 Essential (primary) hypertension; K21.9 Gastro-esophageal reflux disease without esophagitis; Z88.5 Allergy status to narcotic agent; Z88.6 Allergy status to analgesic agent; Z88.8 Allergy status to other drugs, medicaments and biological substances
CPT/HCPCS: 96361; 96375; 96374; 99284; J2550; J1100; J2175 ×2; J7030

== ENCOUNTER 2020-07-27 21:56 | Emergency (ER) | payer OTHER ==
--- OUTSIDE RECORDS SUMMARY | 2020-07-27 21:59 | XMS REPORT | Continuity of Care Document ---
:1975 Author Organization [facility] t Address [address] [place] [address] Care Team Providers Name Role Phone Jason Toribio DO Attending Clinician Lubna DICK, S Attending Clinician Bonnie BAHENA, S Attending Clinician Singer JACOBS Attending Clinician López Stovall Attending Clinician Yessenia Esquivel Attending Clinician Doctor Unassigned, Name Attending Clinician Unavailable Rohan QIU, G Attending Clinician Dean DICK Attending Clinician Cordell HERNÁNDEZ Attending Clinician Noel Hernandez Attending Clinician Karon Wheat Attending Clinician Problems This patient has no known problems. Allergies, Adverse Reactions, Alerts This patient has no known allergies or adverse reactions. Medications This patient has no known medications. Procedures This patient has no known procedures. Encounters Start End Encounter Admission Attending Care Care Encounter Source Date/Time Date/Time Type Type Clinicians Facility Department ID 2020-07-25 2020-07-25 Emergency Catarino, [facility] [id number] 20:26:00 23:14:00 Zena Jason Chirinos [id number] [place] [id number] [place] [id number] 2020-07-21 2020-07-22 Emergency [facility], [facility] [id number] 23:32:00 02:30:00 Chevymorenita Chirinos [id number] [place] [id number] [place] [id number] 2020-07-17 2020-07-18 Emergency Nicole, [facility] [id number] 22:52:00 00:59:00 Lynette [place] [id number] [place] [id number] [place] [id number] 2020-07-02 2020-07-02 Emergency , [facility] [id number] 19:35:00 22:12:00 Lisandro Chirinos [id number] [place] [id number] [place] [id number] [id number] 2020-06-10 2020-06-10 Emergency [facility], [facility] [id number] 01:29:00 03:55:00 Milena Chirinos [id number] [place] [id number] [place] [id number] 2020-05-08 2020-05-08 Emergency Peng, [facility] [id number] 20:57:00 21:46:00 Maged Chirinos [id number] [place] [id number] [place] [id number] 2020-04-16 2020 Emergency Chayo Issa [facility] [id number] 21:21:00 01:05:00 Yessenia Chirinos [id number] [place] [id number] [place] [id number] [id number] 2020-03-09 2020-03-09 Emergency Nicole, [facility] [id number] 20:23:00 22:51:00 Lynette Orantes Candis [id number] [place] [id number] [place] [id number] 2020-03-09 2020-03-09 Orders Doctor JESICA [id number] 00:00:00 00:00:00 Only Unassigned, LEYLA [id number] [place] [facility] 4.2.7.2.686 [id number] 2020-02-14 2020-02-15 Emergency [facility], [facility] [id number] 23:22:00 00:54:00 Chevymarissavalentín Lamberto [place] [id number] [place] [id number] [place] [id number] 2020-01-28 2020-01-28 Emergency Chayo Issa [facility] [id number] 17:47:00 21:50:00 Yessenia Chirinos [id number] [place] [id number] [place] [id number] 2020-01-22 2020-01-22 [facility] [id number] 19:22:00 22:47:00 Amaris Champion [place] [id number] [place] [id number] [place] [id number] 2020-01-20 2020-01-[address] [facility] [id number] 23:26:00 02:01:00 Elkin Chirinos [id number] [place] [id number] [place] [id number] 2019-12-30 2019-12-30 Emergency Chayo Issa [facility] [id number] 11:45:00 14:25:00 Yessenia Chirinos [id number] [place] [id number] [place] [id number] [id number] 2019-12-22 2019-12-22 Emergency Moran, [facility] [id number] 13:48:00 16:20:00 Elkinarmani Chirinos [id number] [place] [id number] [place] [address] [id number] 2019-12-22 2019-12-22 Orders Doctor MOONEY [id number] 00:00:00 00:00:00 Only Unassigned, LEYLA [id number] [facility] 4.2.7.2.686 [id number] 2019-11-29 2019-11-29 Emergency Bonnie, [facility] [id number] 15:09:00 17:41:00 Lynette Lamberto Chirinos [id number] [place] [id number] [place] [id number] 2019-11-12 2019-11-12 Emergency Cordell, [facility] [id number] 20:27:00 23:35:00 Yanna Chirinos [id number] [place] [id number] [place] [id number] 2019-10-20 2019-10-21 Emergency Catarino, [facility] [id number] 21:49:00 00:48:00 Zena Chirinos [id number] [place] [id number] [place] [id number] 2019-10-20 2019-10-20 Orders Doctor MOONEY [id number] 00:00:00 00:00:00 Only Unassigned, LEYLA [id number] [facility] 4.2.7.2.686 [id number] 2019-08-29 2019-08-29 Emergency Luis Felipeunearline, [facility] [id number] 18:05:24 19:48:00 Qi Chirinos [id number] [place] [id number] [place] [id number] 2019-04-20 2019-04-20 Emergency Teodoro, [facility] [id number] 21:28:16 22:19:00 Alley Chirinos [id number] [place] [id number] [place] [id number] [id number] Results This patient has no known results.
[2020-07-27] MEDS ORDERED: METOCLOPRAMIDE 10 MG/2mL INJ ONE (23:58)
[2020-07-27] MEDS ORDERED: DIPHENHYDRAMINE 50 MG/ML VIAL ONE (23:58)
[2020-07-27] MEDS ORDERED: dexAMETHasone 10 MG/ML VIAL ONE (23:59)
[2020-07-27] MEDS ORDERED: NA CHLORIDE 0.9% 1,000 ML ONE (23:59)
[2020-07-27] MEDS ORDERED: HYDROMORPHONE HCL 1 MG/ML INJ ONE (23:59)
[2020-07-28] MEDS ORDERED: NA CHLORIDE 0.9% 1,000 ML ONE (01:11)
[2020-07-28] MEDS ORDERED: HYDROMORPHONE HCL 1 MG/ML INJ ONE (01:11)
--- NOTE | 2020-07-28 01:18 | ER ---
Nurse's Notes [facility] Name: Lino Samuel Age: 45 yrs Sex: Male : 1975 Arrival Date: 07/27/2020 Time: 22:33 Bed 23 Private MD: Diagnosis: Headache Presentation: 07/27 23:23 Coronavirus screen: At this time, the client does not indicate any symptoms associated iw with coronavirus-19. Ebola Screen: Patient negative for fever greater than or equal to 101.5 degrees Fahrenheit, and additional compatible Ebola Virus Disease symptoms Patient denies exposure to infectious person. Patient denies travel to an Ebola-affected area in the 21 days before illness onset. No symptoms or risks identified at this time. Initial Sepsis Screen: Does the patient meet any 2 criteria? No. Patient's initial sepsis screen is negative. Does the patient have a suspected source of infection? No. Patient's initial sepsis screen is negative. Risk Assessment: Do you want to hurt yourself or someone else? Patient reports no desire to harm self or others. Onset of symptoms was July 23, 2020. 23:23 Method Of Arrival: Ambulatory iw 23:23 Acuity: ERICA 3 iw 07/28 01:41 Chief complaint: Patient states: pt reports migraine with N/V x3 days, sympoms seem to bb3 be getting worse. pt also reports blurry vision and seeing "auras". 01:41 Method Of Arrival: Ambulatory bb3 Historical: - Immunization history:: Adult Immunizations up to date, Client reports having NOT received the Covid vaccine. - Social history:: Smoking status: Patient reports the use of cigarette tobacco products, smokes one-half pack cigarettes per day, Patient uses caffeine, Patient/guardian denies using alcohol, street drugs, IV drugs. Screenin:31 Nutritional screening: No deficits noted. Tuberculosis screening: No symptoms or risk bb3 factors identified. Fall Risk None identified. 01:41 Abuse screen: Denies threats or abuse. bb3 Assessment: 07/27 23:00 General: Appears distressed, uncomfortable, well groomed, Behavior is calm, bb3 cooperative, appropriate for age, Smells of Reports blurry vision and "auras", "sounds like a freight train rumbling in my ears" Denies fever. Pain: Complains of pain in base of the skull, left yazidism and right yazidism Pain currently is 9 out of 10 on a pain scale. Quality of pain is described as sharp, throbbing, Pain began 2-3 days ago. Neuro: Level of Consciousness is awake, alert, obeys commands, Oriented to person, place, time, Appropriate for age Gait is steady, Speech is normal. Respiratory: Airway is patent Respiratory effort is even, unlabored, Respiratory pattern is regular, symmetrical. GI: Abdomen is flat, non-distended, Reports nausea, vomiting. EENT: Derm: Skin is intact, is healthy with good turgor, Skin is dry, Skin is pink, warm \\T\\ dry. normal, Skin temperature is warm. 23:09 EENT: Reports blurred vision in outer aspect of conjuctiva of right eye, iris of right bb3 eye, inner aspect of conjuctiva of right eye, outer aspect of conjuctiva of left eye, iris of left eye and inner aspect of conjunctiva of left eye since 3 days Denies nasal congestion, nasal discharge, difficulty swallowing. 07/28 00:45 Reassessment: Patient appears in no apparent distress at this time. Patient and/or bb3 family updated on plan of care and expected duration. Pain level reassessed. Patient is alert, oriented x 3, equal unlabored respirations, skin warm/dry/pink. Patient states feeling better. Patient states symptoms have improved. 00:50 Reassessment: Verbal order from Provider for Dilaudid 1mg IV now, NS 1L bolus IV now. lp1 Vital Signs: 07/27 23:08 BP 135 / 89; Pulse 56; Resp 19; Temp 98.4; Pulse Ox 100% ; Weight 104.33 kg; Pain 9/10; bb3 23:08 Height 6 ft. 4 in. (193.04 cm); bb3 07/28 00:44 BP 122 / 82; Pulse 49; Resp 17; Pulse Ox 98% ; Pain 7/10; bb3 01:31 BP 130 / 90; Pulse 56; Resp 18; Pulse Ox 100% ; Pain 2/10; bb3 Nahma Coma Score: 01:16 Eye Response: spontaneous(4). Verbal Response: oriented(5). Motor Response: obeys mh7 commands(6). Total: 15. ED Course: 07/27 22:33 Patient arrived in ED. es 22:57 Pablo Eugene MD is Attending Physician. 7 23:23 Triage completed. iw 23:23 Arm band placed on. iw 23:53 Inserted saline lock: 20 gauge in right antecubital area, using aseptic technique. bb3 23:57 Bed in low position. Call light in reach. Noise minimized. Lights dimmed. bb3 07/28 01:17 Ephraim Saeed MD is Referral Physician. mh7 01:31 No apparent distress. Resting quietly. bb3 01:31 IV discontinued, intact, bleeding controlled, Pressure dressing applied. bb3 01:41 No provider procedures requiring assistance completed. bb3 Administered Medications: Discontinued: NS 0.9% 1000 ml IV at 1000 ml once 07/27 23:45 Drug: NS 0.9% 1000 ml Route: IV; Rate: 1000 ml; Site: right antecubital; 3 07/28 00:43 Follow up: IV Status: Completed infusion; IV Intake: 1000ml [facility] 07/27 23:45 Drug: Benadryl (diphenhydrAMINE) 50 mg Route: IVP; Site: right antecubital; 3 07/28 00:43 Follow up: Response: No adverse reaction 3 07/27 23:47 Drug: Reglan (metoCLOPramide) 10 mg Route: IVP; Site: right antecubital; 3 07/28 00:43 Follow up: Response: No adverse reaction; Nausea is decreased 3 07/27 23:50 Drug: Dilaudid (HYDROmorphone) 1 mg Route: IVP; Site: right antecubital; 3 07/28 00:42 Follow up: Response: No adverse reaction; Pain is decreased 3 07/27 23:52 Drug: Decadron - Dexamethasone 10 mg Route: IVP; Site: right antecubital; 3 07/28 00:43 Follow up: Response: No adverse reaction bb3 00:56 Drug: Dilaudid (HYDROmorphone) 1 mg Route: IVP; Site: right antecubital; bb3 01:39 Follow up: Response: No adverse reaction; Pain is decreased bb3 00:56 Drug: NS 0.9% 1000 ml Route: IV; Rate: 1000 ml; Site: right antecubital; bb3 00:57 Not Given (Duplicate Order): Dilaudid (HYDROmorphone) 1 mg IVP once; RASS on ADMIN: bb3 Combtv4, Very Agttd3, Agttd2, Rstlss1, AlertClm0, Drwsy-1, Lt Sdtn-2, Mod Sdtn-3, Dp Sdtn-4, UnArsble-5 00:57 Not Given (Duplicate Order): NS 0.9% 1000 ml IV at 1000 ml once bb3 Intake: 00:43 IV: 1000ml; Total: 1000ml. bb3 Outcome: 01:18 Discharge ordered by . Tono 01:31 Discharged to home ambulatory. bb3 01:31 Condition: good 01:31 Discharge instructions given to patient, Instructed on discharge instructions, follow up and referral plans. medication usage, Demonstrated understanding of Prescriptions given X 1. 01:43 Patient left the ED. bb3 Signatures: Lainey Thurman Irene, RN RN iw Amber Whitley RN RN lp1 Charisse Delvalle bb3 Pablo Eugene MD MD 7
--- NOTE | 2020-07-28 01:18 | EDPHYS ---
Physician Documentation [facility] Name: Lino Samuel Age: 45 yrs Sex: Male : 1975 Arrival Date: 07/27/2020 Time: 22:33 Bed 23 Private MD: ED Physician Pablo Eugene HPI: 07/27 23:19 This 45 yrs old Male presents to ER via Unassigned with complaints of mh7 migraine headache x 3 days. 23:19 The patient complains of pain to the top of head. The patient describes the headache as mh7 intermittent, throbbing. Onset: The symptoms/episode began/occurred 3 day(s) ago. Associated signs and symptoms: Pertinent positives: nausea, Photophobia vomiting, Pertinent negatives: altered mental status, dizziness, fever, malaise, neck stiffness, paresthesias, rash, sinus congestion, sinus tenderness, vision changes, vision loss, weakness, vertigo. Severity of symptoms: At its worst the pain was moderate, last night, in the emergency department the pain is unchanged. Headache History: The patient has had previous headaches and this one is similar to previous episodes. The symptoms are alleviated by nothing. the symptoms are aggravated by lights, noise, stress. The patient has experienced similar episodes in the past, chronically. Historical: - Immunization history:: Adult Immunizations up to date, Client reports having NOT received the Covid vaccine. - Social history:: Smoking status: Patient reports the use of cigarette tobacco products, smokes one-half pack cigarettes per day, Patient uses caffeine, Patient/guardian denies using alcohol, street drugs, IV drugs. ROS: 23:19 Constitutional: Negative for fever, chills, and weight loss, Eyes: Negative for injury, mh7 pain, redness, and discharge, ENT: Negative for injury, pain, and discharge, Neck: Negative for injury, pain, and swelling, Cardiovascular: Negative for chest pain, palpitations, and edema, Respiratory: Negative for shortness of breath, cough, wheezing, and pleuritic chest pain. 23:19 Back: Negative for injury and pain, : Negative for injury, bleeding, discharge, and swelling, MS/Extremity: Negative for injury and deformity, Skin: Negative for injury, rash, and discoloration, Psych: Negative for depression, anxiety, suicide ideation, homicidal ideation, and hallucinations, Allergy/Immunology: Negative for hives, rash, and allergies, Endocrine: Negative for neck swelling, polydipsia, polyuria, polyphagia, and marked weight changes, Hematologic/Lymphatic: Negative for swollen nodes, abnormal bleeding, and unusual bruising. 23:19 Abdomen/GI: Negative for abdominal pain, diarrhea, constipation, abdominal cramps, abdominal distension, anorexia, dysphagia, hematemesis, black/tarry stool, rectal pain, rectal bleeding, bowel incontinence, flatulence. Exam: 23:19 Head/Face: Normocephalic, atraumatic. Eyes: Pupils equal round and reactive to light, mh7 extra-ocular motions intact. Lids and lashes normal. Conjunctiva and sclera are non-icteric and not injected. Cornea within normal limits. Periorbital areas with no swelling, redness, or edema. Neck: Trachea midline, no thyromegaly or masses palpated, and no cervical lymphadenopathy. Supple, full range of motion without nuchal rigidity, or vertebral point tenderness. No Meningismus. Chest/axilla: Normal chest wall appearance and motion. Nontender with no deformity. No lesions are appreciated. Cardiovascular: Regular rate and rhythm with a normal S1 and S2. No gallops, murmurs, or rubs. Normal PMI, no JVD. No pulse deficits. Respiratory: Lungs have equal breath sounds bilaterally, clear to auscultation and percussion. No rales, rhonchi or wheezes noted. No increased work of breathing, no retractions or nasal flaring. Abdomen/GI: Soft, non-tender, with normal bowel sounds. No distension or tympany. No guarding or rebound. No evidence of tenderness throughout. Back: No spinal tenderness. No costovertebral tenderness. Full range of motion. Skin: Warm, dry with normal turgor. Normal color with no rashes, no lesions, and no evidence of cellulitis. MS/ Extremity: Pulses equal, no cyanosis. Neurovascular intact. Full, normal range of motion. Neuro: Awake and alert, GCS 15, oriented to person, place, time, and situation. Cranial nerves II-XII grossly intact. Motor strength 5/5 in all extremities. Sensory grossly intact. Cerebellar exam normal. Normal gait. Psych: Awake, alert, with orientation to person, place and time. Behavior, mood, and affect are within normal limits. 23:19 Constitutional: The patient appears in no acute distress, alert, awake, uncomfortable. Vital Signs: 23:08 BP 135 / 89; Pulse 56; Resp 19; Temp 98.4; Pulse Ox 100% ; Weight 104.33 kg; Pain 9/10; bb3 23:08 Height 6 ft. 4 in. (193.04 cm); 3 07/28 00:44 BP 122 / 82; Pulse 49; Resp 17; Pulse Ox 98% ; Pain 7/10; bb3 01:31 BP 130 / 90; Pulse 56; Resp 18; Pulse Ox 100% ; Pain 2/10; bb3 Chase Coma Score: 01:16 Eye Response: spontaneous(4). Verbal Response: oriented(5). Motor Response: obeys [facility] commands(6). Total: 15. MDM: 01:16 Differential diagnosis: cluster headache, migraine, tension headache. Data reviewed: [facility] vital signs, nurses notes, old medical records. Data interpreted: Pulse oximetry: on room air is 98 %. Interpretation: normal. Counseling: I had a detailed discussion with the patient and/or guardian regarding: the historical points, exam findings, and any diagnostic results supporting the discharge/admit diagnosis, the need for outpatient follow up, a neurologist, to return to the emergency department if symptoms worsen or persist or if there are any questions or concerns that arise at home. Response to treatment: the patient's symptoms have markedly improved after treatment. 01:18 Patient medically screened. [facility] 07/27 23:18 Order name: Saline Lock; Complete Time: 23:41 [facility] Administered Medications: Discontinued: NS 0.9% 1000 ml IV at 1000 ml once 07/27 23:45 Drug: NS 0.9% 1000 ml Route: IV; Rate: 1000 ml; Site: right antecubital; [facility] 07/28 00:43 Follow up: IV Status: Completed infusion; IV Intake: 1000ml [facility] 07/27 23:45 Drug: Benadryl (diphenhydrAMINE) 50 mg Route: IVP; Site: right antecubital; [facility] 07/28 00:43 Follow up: Response: No adverse reaction [facility] 07/27 23:47 Drug: Reglan (metoCLOPramide) 10 mg Route: IVP; Site: right antecubital; [facility] 07/28 00:43 Follow up: Response: No adverse reaction; Nausea is decreased bb3 07/27 23:50 Drug: Dilaudid (HYDROmorphone) 1 mg Route: IVP; Site: right antecubital; bb3 07/28 00:42 Follow up: Response: No adverse reaction; Pain is decreased 3 07/27 23:52 Drug: Decadron - Dexamethasone 10 mg Route: IVP; Site: right antecubital; bb3 07/28 00:43 Follow up: Response: No adverse reaction bb3 00:56 Drug: Dilaudid (HYDROmorphone) 1 mg Route: IVP; Site: right antecubital; bb3 01:39 Follow up: Response: No adverse reaction; Pain is decreased bb3 00:56 Drug: NS 0.9% 1000 ml Route: IV; Rate: 1000 ml; Site: right antecubital; bb3 00:57 Not Given (Duplicate Order): Dilaudid (HYDROmorphone) 1 mg IVP once; RASS on ADMIN: bb3 Combtv4, Very Agttd3, Agttd2, Rstlss1, AlertClm0, Drwsy-1, Lt Sdtn-2, Mod Sdtn-3, Dp Sdtn-4, UnArsble-5 00:57 Not Given (Duplicate Order): NS 0.9% 1000 ml IV at 1000 ml once bb3 Disposition: 07/28/20 01:18 Discharged to Home. Impression: Headache. - Condition is Stable. - Discharge Instructions: Migraine Headache, Chne-xl-Omff. - Prescriptions for Zofran ODT 4 mg Oral tablet,disintegrating - place 1 tablet by TRANSLINGUAL route every 8 hours As needed; 10 tablet. - Medication Reconciliation Form, Thank You Letter, Antibiotic Education, Prescription Opioid Use form. - Follow up: Private Physician; When: 1 - 2 days; Reason: Worsening of condition, Recheck today's complaints, Continuance of care, Re-evaluation by your physician. Follow up: Ephraim Saeed MD; When: 1 - 2 days; Reason: Worsening of condition, Recheck today's complaints, Continuance of care, Re-evaluation by your physician. - Problem is an acute exacerbation. - Symptoms have improved. Signatures: Amber Whitley RN RN lp1 Charisse Delvalle bb3 Pablo Eugene MD MD mh7 Corrections: (The following items were deleted from the chart) 01:43 01:18 07/28/2020 01:18 Discharged to Home. Impression: Headache. Condition is Stable. bb3 Forms are Medication Reconciliation Form, Thank You Letter, Antibiotic Education, Prescription Opioid Use. Follow up: Private Physician; When: 1 - 2 days; Reason: Worsening of condition, Recheck today's complaints, Continuance of care, Re-evaluation by your physician. Follow up: Ephraim Saeed; When: 1 - 2 days; Reason: Worsening of condition, Recheck today's complaints, Continuance of care, Re-evaluation by your physician. Problem is an acute exacerbation. Symptoms have improved. mh7
[2020-07-28 02:00] VITALS: TEMP 98.4
[2020-07-28 02:02] VITALS: BP 130/90; O2SAT 100
== END 2020-07-28 01:43 | disposition home or self-care (01) ==
LOC: ER 21:56
DX: R51.9 Headache, unspecified (principal); F17.210 Nicotine dependence, cigarettes, uncomplicated
CPT/HCPCS: 96361; 96375; 96374; 99283; J2765; J1200; J1100; J1170 ×2; J7030 ×2

== ENCOUNTER 2020-07-28 18:11 | Emergency (ER) | payer OTHER ==
--- OUTSIDE RECORDS SUMMARY | 2020-07-28 18:14 | XMS REPORT | Continuity of Care Document ---
:1975 Author Organization [facility] t Address [address] [place] [address] Care Team Providers Name Role Phone Jason [...] Facility Department ID 2020-07-25 2020-07-25 Emergency Catarino, [facility] [id number] 20:26:00 23:14:00 Zena Jason Chirinos [id number] [place] [id number] [place] [id number] [id number] 2020-07-21 2020-07-22 Emergency [facility], [facility] [id number] 23:32:00 02:30:00 Chevymorenita Chirinos [id number] [place] [id number] [place] [id number] [id number] 2020-07-17 2020-07-18 Emergency Nicole, [facility] [id number] 22:52:00 00:59:00 Lynetet [place] [id number] [place] [id number] [place] [phone] [id number] 2020-07-02 2020-07-02 Emergency , [facility] [id number] 19:35:00 22:12:00 Lisandro Chirinos [id number] [place] [id number] [place] [id number] [id number] 2020-06-10 2020-06-10 Emergency [facility], [facility] [id number] 01:29:00 03:55:00 Milena Chirinos [id number] [place] [id number] [place] [id number] [id number] 2020-05-08 2020-05-08 Emergency Peng, [facility] [id number] 20:57:00 21:46:00 Maged Chirinos [id number] [place] [id number] [place] [phone] [id number] 2020-04-16 2020 Emergency Chayo Issa [facility] [id number] 21:21:00 01:05:00 Yessenia Chirinos [id number] [place] [id number] [place] [phone] [id number] 2020-03-09 2020-03-09 Emergency Nicole, [facility] [id number] 20:23:00 22:51:00 Lynette Orantes Candis [id number] [place] [id number] [place] [id number] 2020-03-09 2020-03-09 Orders Doctor JESICA [id number] 00:00:00 00:00:00 Only Unassigned, LEYLA [id number] [facility] 4.2.7.2.686 [id number] 2020-02-14 2020-02-15 Emergency [facility], [facility] [id number] 23:22:00 00:54:00 Chevymarissavalentín Lamberto Candis [id number] [place] [id number] [place] [id number] [id number] 2020-01-28 2020-01-28 Emergency Chayo Issa [facility] [id number] 17:47:00 21:50:00 Yessenia Chirinos [id number] [place] [id number] [place] [id number] [id number] 2020-01-22 2020-01-22 Emergency [facility] [id number] 19:22:00 22:47:00 Amaris Champion Candis [id number] [place] [id number] [place] [id number] [id number] 2020-01-20 2020-01-21 Emergency [facility] [id number] 23:26:00 02:01:00 Elkin Chirinos [id number] [place] [id number] [place] [id number] 084 2019-12-30 2019-12-30 Emergency Chayo Issa [facility] [id number] 11:45:00 14:25:00 Yessenia Chirinos [id number] [place] [id number] [place] [id number] [id number] 2019-12-22 2019-12-22 Emergency Moran, [facility] [id number] 13:48:00 16:20:00 Elkinarmani Chirinos [id number] [place] [id number] [place] [address] [phone] [id number] 2019-12-22 2019-12-22 Orders Doctor MOONEY [id number] 00:00:00 00:00:00 Only Unassigned, LEYLA [id number] [facility] 4.2.7.2.686 [id number] 2019-11-29 2019-11-29 Emergency Bonnie, [facility] [id number] 15:09:00 17:41:00 Lynette Lamberto Chirinos [id number] [place] [id number] [place] [id number] [id number] 2019-11-12 2019-11-12 Emergency Cordell, [facility] [id number] 20:27:00 23:35:00 Yanna Chirinos [id number] [place] [id number] [place] [id number] [id number] 2019-10-20 2019-10-21 Emergency Catarino, [facility] 1.2.840.114 [id number] 21:49:00 00:48:00 Zena Chirinos [id number] [place] [id number] [place] [id number] [id number] 2019-10-20 2019-10-20 Orders Doctor MOONEY [id number] 00:00:00 00:00:00 Only Unassigned, LEYLA [id number] [facility] 4.2.7.2.686 [id number] 2019-08-29 2019-08-29 Emergency Luis Felipeunearline, [facility] 1.2.840.114 [id number] 18:05:24 19:48:00 Qi Chirinos [id number] [place] [id number] [place] [phone] [id number] 2019-04-20 2019-04-20 Emergency Teodoro, [facility] [id number] 21:28:16 22:19:00 Alley Chirinos 350.1.13.10 [place] [id number] [place] [id number] [id number] Results This patient has no known results.
[2020-07-28] MEDS ORDERED: METOCLOPRAMIDE 10 MG/2mL INJ ONE (21:50)
[2020-07-28] MEDS ORDERED: NA CHLORIDE 0.9% 0 ML ONE (21:51)
[2020-07-28] MEDS ORDERED: MEPERIDINE HCL 25 MG/ML SYR ONE (21:51)
[2020-07-28] MEDS ORDERED: DIPHENHYDRAMINE 50 MG/ML VIAL ONE (21:51)
[2020-07-28] MEDS ORDERED: ONDANSETRON 4 MG/2 ML VIAL ONE (23:13)
[2020-07-28] MEDS ORDERED: HYDROMORPHONE HCL 1 MG/ML INJ ONE (23:13)
--- NOTE | 2020-07-29 00:01 | EDPHYS ---
Physician Documentation [facility] Name: Lino Samuel Age: 45 yrs Sex: Male : 1975 Arrival Date: 07/28/2020 Time: 18:55 Bed 26 Private MD: ED Physician Warren Aguilar HPI: 07/28 21:39 This 45 yrs old Male presents to ER via Ambulatory with complaints of pm1 Headache, Vomiting. 21:39 The patient complains of pain to the forehead, left frontal area, left side of the back pm1 of head, left occipital area, left base of the skull, right frontal area, right side of the back of head, right occipital area and right base of the skull. The patient describes the headache as aching, constant. Onset: The symptoms/episode began/occurred 4 day(s) ago. Associated signs and symptoms: Pertinent positives: nausea, vomiting. Severity of symptoms: in the emergency department the pain is actually worse. Headache History: The patient has had previous headaches and this one is similar to previous episodes. The symptoms are alleviated by Darkened room, typically with his migraine medications but he is not able to keep them down with his nausea and vomiting. The patient has experienced similar episodes in the past, multiple times. The patient has been recently seen at the [facility] Emergency Department, yesterday, for similar complaints was given a prescription for pain medications, was given a prescription for an antiemetic. Historical: - Allergies: 19:41 Imitrex; ca1 19:41 Toradol; ca1 19:41 tramadol; ca1 - PMHx: 19:41 Migraines; Hypertension; Gastric Reflux; ca1 - PSHx: 19:41 Fusion discs neck; stimulator implant; Vasectomy; Cholecystectomy; ca1 - Immunization history:: Client reports having NOT received the Covid vaccine. Flu vaccine is up to date. - Social history:: Smoking status: Patient reports the use of cigarette tobacco products, smokes one-half pack cigarettes per day. ROS: 21:39 Constitutional: Negative for fever, chills, and weight loss, Eyes: Negative for injury, pm1 pain, redness, and discharge, ENT: Negative for injury, pain, and discharge, Neck: Negative for injury, pain, and swelling, Cardiovascular: Negative for chest pain, palpitations, and edema, Respiratory: Negative for shortness of breath, cough, wheezing, and pleuritic chest pain. 21:39 Back: Negative for injury and pain, : Negative for injury, bleeding, discharge, and swelling, MS/Extremity: Negative for injury and deformity, Skin: Negative for injury, rash, and discoloration. 21:39 Abdomen/GI: Positive for nausea and vomiting, Negative for abdominal pain, diarrhea. 21:39 Neuro: Positive for headache, Negative for numbness, tingling, weakness. Exam: 21:39 Constitutional: This is a well developed, well nourished patient who is awake, alert, pm1 and in no acute distress. Head/Face: Normocephalic, atraumatic. Eyes: Pupils equal round and reactive to light, extra-ocular motions intact. Lids and lashes normal. Conjunctiva and sclera are non-icteric and not injected. Cornea within normal limits. Periorbital areas with no swelling, redness, or edema. ENT: Nares patent. No nasal discharge, no septal abnormalities noted. Tympanic membranes are normal and external auditory canals are clear. Oropharynx with no redness, swelling, or masses, exudates, or evidence of obstruction, uvula midline. Mucous membranes moist. Neck: Trachea midline, no thyromegaly or masses palpated, and no cervical lymphadenopathy. Supple, full range of motion without nuchal rigidity, or vertebral point tenderness. No Meningismus. 21:39 Skin: Warm, dry with normal turgor. Normal color with no rashes, no lesions, and no evidence of cellulitis. MS/ Extremity: Pulses equal, no cyanosis. Neurovascular intact. Full, normal range of motion. 21:39 Cardiovascular: Exam negative for acute changes, Rate: normal, Rhythm: regular, Pulses: no pulse deficits are appreciated. 21:39 Respiratory: Exam negative for acute changes, respiratory distress, shortness of breath. 21:39 Abdomen/GI: Exam negative for acute changes, Inspection: abdomen appears normal, Palpation: abdomen is soft and non-tender, in all quadrants. 21:39 Neuro: Exam negative for acute changes, Orientation: is normal, Mentation: is normal, Cranial nerves: CN II- XII are normal as tested, Motor: is normal, moves all fours. Vital Signs: 19:37 BP 165 / 91; Pulse 71; Resp 16 S; Temp 97.1(TE); Pulse Ox 99% on R/A; Weight 104.33 kg ca1 (R); Height 6 ft. 4 in. (193.04 cm) (R); Pain 9/10; 20:45 BP 142 / 94; Pulse 57; Resp 19; Pulse Ox 100% on R/A; zb 21:56 BP 145 / 80; Pulse 57; Resp 16; Pulse Ox 99% on R/A; zb 07/29 00:09 BP 151 / 89; Pulse 55; Resp 16; Pulse Ox 100% on R/A; zb 07/28 19:37 Body Mass Index 28.00 (104.33 kg, 193.04 cm) ca1 MDM: 07/28 21:25 Patient medically screened. pm1 23:59 Data reviewed: vital signs. Data interpreted: Pulse oximetry: on room air is 99 %. pm1 Interpretation: normal. Counseling: I had a detailed discussion with the patient and/or guardian regarding: the historical points, exam findings, and any diagnostic results supporting the discharge/admit diagnosis, the need for outpatient follow up, a neurologist, to return to the emergency department if symptoms worsen or persist or if there are any questions or concerns that arise at home. 07/28 21:28 Order name: IV Saline Lock; Complete Time: 21:54 pm1 Administered Medications: 21:46 Drug: Reglan (metoCLOPramide) 10 mg Route: IVP; Site: right antecubital; zb 22:00 Follow up: Response: No adverse reaction; No change in condition zb 21:46 Drug: Demerol (meperidine) 25 mg {Note: RASS 0.} Route: IVP; Site: right antecubital; zb 22:00 Follow up: Response: No adverse reaction; Pain is unchanged, physician notified; RASS: zb Alert and Calm (0) 21:46 Drug: Benadryl (diphenhydrAMINE) 25 mg Route: IVP; Site: right antecubital; zb 22:00 Follow up: Response: No adverse reaction; No change in condition zb 23:08 Drug: Dilaudid (HYDROmorphone) 1 mg {Note: RASS 0.} Route: IVP; Site: right antecubital;zb 23:30 Follow up: Response: No adverse reaction; Pain is decreased; RASS: Alert and Calm (0) zb 23:08 Drug: Zofran (Ondansetron) 4 mg Route: IVP; Site: right antecubital; zb 23:30 Follow up: Response: No adverse reaction; Nausea is decreased zb 07/29 00:07 Drug: Dilaudid (HYDROmorphone) 1 mg {Note: RASS 0.} Route: IVP; Site: right antecubital;zb 00:15 Follow up: Response: Medication administered at discharge. zb Disposition: 06:12 Co-signature as Attending Physician, Warren Aguilar MD. pkl Disposition: 07/29/20 00:00 Discharged to Home. Impression: Headache. - Condition is Stable. - Discharge Instructions: General Headache Without Cause. - Prescriptions for Phenergan 25 mg Rectal Suppository - insert 1 suppository by RECTAL route every 6 hours As needed; 12 suppository. - Medication Reconciliation Form, Thank You Letter, Antibiotic Education, Prescription Opioid Use form. - Follow up: Emergency Department; When: As needed; Reason: Worsening of condition. Follow up: Private Physician; When: 2 - 3 days; Reason: Recheck today's complaints, Continuance of care, Re-evaluation by your physician. - Problem is new. - Symptoms have improved. Signatures: Warren Aguilar MD MD pkl Kaden Forman NP [employer]PER[employer] pm1 Maria Eugenia Holley RN RN ca1 Brown, Zipporah, RN RN zb Corrections: (The following items were deleted from the chart) 00:16 00:00 07/29/2020 00:00 Discharged to Home. Impression: Headache. Condition is Stable. zb Forms are Medication Reconciliation Form, Thank You Letter, Antibiotic Education, Prescription Opioid Use. Follow up: Emergency Department; When: As needed; Reason: Worsening of condition. Follow up: Private Physician; When: 2 - 3 days; Reason: Recheck today's complaints, Continuance of care, Re-evaluation by your physician. Problem is new. Symptoms have improved. pm1
--- NOTE | 2020-07-29 00:01 | ER ---
Nurse's Notes [facility] Name: Lino Samuel Age: 45 yrs Sex: Male : 1975 Arrival Date: 07/28/2020 Time: 18:55 Bed 26 Private MD: Diagnosis: Headache Presentation: 07/28 19:37 Chief complaint: Patient states: Was here for the exact same thing last night. I went ca1 home and I felt fine. I woke up this morning, and I have migraines again, N/V. Coronavirus screen: Client denies travel out of the [place] in the last 14 days. headache, nausea, vomiting. Client presents with at least one sign or symptom that may indicate coronavirus-19. Standard/surgical mask placed on the client. Provider contacted for isolation considerations. Ebola Screen: Patient negative for fever greater than or equal to 101.5 degrees Fahrenheit, and additional compatible Ebola Virus Disease symptoms Patient denies exposure to infectious person. Patient denies travel to an Ebola-affected area in the 21 days before illness onset. No symptoms or risks identified at this time. Initial Sepsis Screen: Does the patient meet any 2 criteria? No. Patient's initial sepsis screen is negative. Does the patient have a suspected source of infection? No. Patient's initial sepsis screen is negative. Risk Assessment: Do you want to hurt yourself or someone else? Patient reports no desire to harm self or others. Onset of symptoms was July 28, 2020. 19:37 Method Of Arrival: Ambulatory ca1 19:37 Acuity: ERICA 3 ca1 Triage Assessment: 07/29 00:16 Pain: Also complains of nausea. zb 00:16 Headache History: The patient has had previous headaches and this one is similar to zb previous episodes. 00:16 Pain: Pain began 2-3 days ago. zb Historical: - Allergies: 07/28 19:41 Imitrex; ca1 19:41 Toradol; ca1 19:41 tramadol; ca1 - PMHx: 19:41 Migraines; Hypertension; Gastric Reflux; ca1 - PSHx: 19:41 Fusion discs neck; stimulator implant; Vasectomy; Cholecystectomy; ca1 - Immunization history:: Client reports having NOT received the Covid vaccine. Flu vaccine is up to date. - Social history:: Smoking status: Patient reports the use of cigarette tobacco products, smokes one-half pack cigarettes per day. Screenin/17 00:15 Abuse screen: Denies threats or abuse. Denies injuries from another. Nutritional zb screening: No deficits noted. Tuberculosis screening: No symptoms or risk factors identified. Fall Risk None identified. Assessment: 07/28 21:55 General: Appears uncomfortable, Behavior is calm, cooperative, appropriate for age. zb Pain: Complains of pain in forehead and right base of the skull Pain currently is 9 out of 10 on a pain scale. Quality of pain is described as sharp. Neuro: Level of Consciousness is awake, alert, obeys commands, Oriented to person, place, time, situation, Reports headache frontal area, occipital area. Cardiovascular: No deficits noted. Respiratory: No deficits noted. GI: Reports nausea, vomiting. : No deficits noted. Derm: Skin is intact, is healthy with good turgor, Skin is dry. Musculoskeletal: Circulation, motion, and sensation intact. Range of motion: intact in all extremities. 22:30 Reassessment: Patient appears in no apparent distress at this time. Patient and/or zb family updated on plan of care and expected duration. Pain level reassessed. Patient is alert, oriented x 3, equal unlabored respirations, skin warm/dry/pink. notified ECP of pt c/o pain. medications ordered. 23:23 Reassessment: Patient appears in no apparent distress at this time. Patient and/or zb family updated on plan of care and expected duration. Pain level reassessed. Patient is alert, oriented x 3, equal unlabored respirations, skin warm/dry/pink. lights dimmed. patient waiting for mediation to kick in. 07/29 00:00 Reassessment: Patient appears in no apparent distress at this time. notified ecp zb patient rates pain 6/10. additional pain medication order. 00:11 Reassessment: notified ECP that patient is requesting diazepam. zb Vital Signs: 07/28 19:37 BP 165 / 91; Pulse 71; Resp 16 S; Temp 97.1(TE); Pulse Ox 99% on R/A; Weight 104.33 kg ca1 (R); Height 6 ft. 4 in. (193.04 cm) (R); Pain 9/10; 20:45 BP 142 / 94; Pulse 57; Resp 19; Pulse Ox 100% on R/A; zb 21:56 BP 145 / 80; Pulse 57; Resp 16; Pulse Ox 99% on R/A; zb 07/29 00:09 BP 151 / 89; Pulse 55; Resp 16; Pulse Ox 100% on R/A; zb 07/28 19:37 Body Mass Index 28.00 (104.33 kg, 193.04 cm) ca1 ED Course: 07/28 18:55 Patient arrived in ED. as 19:39 Triage completed. ca1 19:41 Arm band placed on right wrist. ca1 20:59 Kaden Forman NP is PHCP. pm1 20:59 Warren Aguilar MD is Attending Physician. pm1 21:34 Krissy Fonseca RN is Primary Nurse. zb 21:54 Inserted saline lock: 20 gauge in right antecubital area, using aseptic technique. zb Blood collected. 07/29 00:16 Patient has correct armband on for positive identification. Door closed. Noise zb minimized. Warm blanket given. 00:16 No provider procedures requiring assistance completed. IV discontinued, intact, zb bleeding controlled, No redness/swelling at site. Pressure dressing applied. Administered Medications: 07/28 21:46 Drug: Reglan (metoCLOPramide) 10 mg Route: IVP; Site: right antecubital; zb 22:00 Follow up: Response: No adverse reaction; No change in condition zb 21:46 Drug: Demerol (meperidine) 25 mg {Note: RASS 0.} Route: IVP; Site: right antecubital; zb 22:00 Follow up: Response: No adverse reaction; Pain is unchanged, physician notified; RASS: zb Alert and Calm (0) 21:46 Drug: Benadryl (diphenhydrAMINE) 25 mg Route: IVP; Site: right antecubital; zb 22:00 Follow up: Response: No adverse reaction; No change in condition zb 23:08 Drug: Dilaudid (HYDROmorphone) 1 mg {Note: RASS 0.} Route: IVP; Site: right antecubital;zb 23:30 Follow up: Response: No adverse reaction; Pain is decreased; RASS: Alert and Calm (0) zb 23:08 Drug: Zofran (Ondansetron) 4 mg Route: IVP; Site: right antecubital; zb 23:30 Follow up: Response: No adverse reaction; Nausea is decreased zb 07/29 00:07 Drug: Dilaudid (HYDROmorphone) 1 mg {Note: RASS 0.} Route: IVP; Site: right antecubital;zb 00:15 Follow up: Response: Medication administered at discharge. zb Outcome: 00:00 Discharge ordered by MD. pm1 00:16 Discharged to home ambulatory. zb 00:16 Condition: stable 00:16 Discharge instructions given to patient, Instructed on discharge instructions, follow up and referral plans. medication usage, Demonstrated understanding of instructions, follow-up care, medications, Prescriptions given X 1. 00:16 Patient left the ED. zb Signatures: Francisca Bloom Patrick, NP [employer] pm1 Maria Eugenia Holley RN RN ca1 Brown, Zipporah, RN RN zb Corrections: (The following items were deleted from the chart) 07/28 21:58 21:30 BP 142 / 94; Pulse 57bpm; Resp 19bpm; Pulse Ox 100% RA; zb zb
[2020-07-29] MEDS ORDERED: HYDROMORPHONE HCL 1 MG/ML INJ ONE (00:25)
[2020-07-29 00:45] VITALS: TEMP 97.1
[2020-07-29 00:49] VITALS: BP 151/89; O2SAT 100
== END 2020-07-29 00:16 | disposition home or self-care (01) ==
LOC: ER 18:11
DX: R51.9 Headache, unspecified (principal); R11.2 Nausea with vomiting, unspecified; I10 Essential (primary) hypertension; F17.210 Nicotine dependence, cigarettes, uncomplicated
CPT/HCPCS: 96375; 96374; 99284; J2765; J1200; J2175; J1170 ×2; J2405; J7030

== ENCOUNTER 2020-07-30 14:30 | Emergency (ER) | payer OTHER ==
--- OUTSIDE RECORDS SUMMARY | 2020-07-30 14:32 | XMS REPORT | Continuity of Care Document ---
:1975 Author Organization [facility] t Address [address] [place] [address] Care Team Providers Name Role Phone Yessenia Esquivel Attending Clinician Jason Toribio DO Attending Clinician [place]na DICK S Attending Clinician Lamberto Quintero Attending Clinician Singer JACOBS Attending Clinician López Stovall Attending Clinician Doctor Unassigned, Name Attending Clinician Unavailable Jaycee Madrigal NP Attending Clinician Dean DICK Attending Clinician [...] Date/Time Type Type Clinicians Facility Department ID 2020-07-29 2020-07-30 Emergency Chayo Issa [facility] [id number] 22:02:00 01:32:00 Yessenia Candis [id number] [place] [id number] [place] [id number] [id number] 2020-07-25 2020-07-25 Emergency Catarino, [facility] [id number] 20:26:00 23:14:00 Zena Jason Chirinos [id number] [place] [id number] [place] [id number] [id number] 2020-07-21 2020-07-22 Emergency [facility], [facility] [id number] 23:32:00 02:30:00 Milena Johns[place] [id number] [place] [id number] [place] [id number] 2020-07-17 2020-07-18 Emergency Nicole, [facility] [id number] 22:52:00 00:59:00 Lynette Chirinos [id number] [place] [id number] [place] [id number] [id number] 2020-07-02 2020-07-02 Emergency Jim, [facility] [id number] 19:35:00 22:12:00 Lisandro Chirinos [id number] [place] [id number] [place] [id number] [id number] 2020-06-10 2020-06-10 Emergency Yarisd, [facility] [id number] 01:29:00 03:55:00 Milena Chirinos [id number] [place] [id number] [place] [id number] [id number] 2020-05-08 2020-05-08 Emergency Peng, [facility] [id number] 20:57:00 21:46:00 Maged Chirinos [id number] [place] [id number] [place] [id number] 2020-04-16 2020 Emergency Chayo Issa [facility] [id number] 21:21:00 01:05:00 Yessenia Chirinos [id number] [place] [id number] [place] [id number] 2020-03-09 2020-03-09 Emergency [facility] [id number] 20:23:00 22:51:00 Lynette Orantes Candis [id number] [place] [id number] [place] [id number] [id number] 2020-03-09 2020-03-09 Orders Doctor JESICA [id number] 00:00:00 00:00:00 Only Unassigned, LEYLA [id number] [facility] 4.2.7.2.686 [id number] 2020-02-14 2020-02-15 Emergency [facility] [id number] 23:22:00 00:54:00 Milena Orantes [place] [id number] [place] [id number] [place] [id number] 2020-01-28 2020-01-28 Emergency Chayo Issa [facility] [id number] 17:47:00 21:50:00 Yessenia Chirinos [id number] [place] 4.2.7.2.686 [place] [id number] [id number] 2020-01-22 2020-01-22 Emergency [facility] [id number] 19:22:00 22:47:00 Amaris Chirinos [id number] [place] 4.2.7.2.686 [place] [id number] 2020-01-20 2020-01-21 Emergency [facility] [id number] 23:26:00 02:01:00 Elkin Chirinos [id number] [place] [id number] [place] [id number] 082019-12-30 2019-12-30 Emergency Chayo Issa [facility] [id number] 11:45:00 14:25:00 Yessenia Candis [id number] [place] [id number] [place] [id number] [id number] 2019-12-22 2019-12-22 Emergency Dean, [facility] [id number] 13:48:00 16:20:00 Elkin Candis [id number] [place] 4.2.7.2.686 [place] [id number] 2019-12-22 2019-12-22 Orders Doctor JESICA [id number] 00:00:00 00:00:00 Only Unassigned, LEYLA 350.1.13.10 [facility] 4.2.7.2.686 [id number] 2019-11-29 2019-11-29 Emergency Bonnie, [facility] [id number] 15:09:00 17:41:00 Lynette Orantes Candis [id number] [place] [id number] [place] [id number] [id number] 2019-11-12 2019-11-12 Emergency Cordell, [facility] 1.2.840.114 [id number] 20:27:00 23:35:00 Yanna Candis 350.1.13.10 [place] 4.2.7.2.686 [place] [id number] [id number] 2019-10-20 2019-10-21 [facility] 1.2[facility]840[facility]114 [id number] 21:49:00 00:48:00 Zena Chirinos [id number] [place] 4.2.7.2.686 [place] [id number] [id number] 2019-10-20 2019-10-20 Orders Doctor MOONEY [id number] 00:00:00 00:00:00 Only Unassigned, LEYLA 350.1.13.10 [facility] 4.2.7.2.686 [id number] 2019-08-29 2019-08-29 Emergency [address]840.114 [id number] 18:05:24 19:48:00 Qi Chirinos [id number] [place] 4.2.7.2.686 [place] [id number] [id number] 2019-04-20 2019-04-20 [place] [id number] 21:28:16 22:19:00 Alley Chirinos [id number] [place] 4.2.7.2.686 [place] [id number] [id number] Results This patient has no known results.
[2020-07-30] MEDS ORDERED: DIPHENHYDRAMINE 50 MG/ML VIAL ONE (18:49)
[2020-07-30] MEDS ORDERED: METOCLOPRAMIDE 10 MG/2mL INJ ONE (18:49)
[2020-07-30] MEDS ORDERED: NA CHLORIDE 0.9% 500 ML ONE (18:51)
[2020-07-30] MEDS ORDERED: dexAMETHasone 10 MG/ML VIAL ONE (18:52)
[2020-07-30] MEDS ORDERED: DIAZEPAM 10 MG/2 ML INJ SYRINGE ONE (18:52)
--- NOTE | 2020-07-30 19:36 | ER ---
Nurse's Notes [facility] Name: Lino Samuel Age: 45 yrs Sex: Male : 1975 Arrival Date: 07/30/2020 Time: 14:33 Bed 13 Private MD: Diagnosis: Migraine Presentation: 07/30 14:55 Chief complaint: Patient states: MCCANN, N/V x 9 days, denies dizziness, reports hx of jl7 migraines. Coronavirus screen: Client denies travel out of the [place] in the last 14 days. headache, nausea, vomiting. Client presents with at least one sign or symptom that may indicate coronavirus-19. Standard/surgical mask placed on the client. Provider contacted for isolation considerations. Ebola Screen: No symptoms or risks identified at this time. Initial Sepsis Screen: Does the patient meet any 2 criteria? No. Patient's initial sepsis screen is negative. Does the patient have a suspected source of infection? No. Patient's initial sepsis screen is negative. Risk Assessment: Do you want to hurt yourself or someone else? Patient reports no desire to harm self or others. Onset of symptoms was July 21, 2020. 14:55 Method Of Arrival: Ambulatory [facility] 14:55 Acuity: ERICA 3 jl7 Triage Assessment: 14:58 Headache History: The patient has had previous headaches and this one is similar to jl7 previous episodes. 20:15 Pain: Pain began 9 days ago Also complains of no other associated symptoms. 8 Historical: - Allergies: 14:58 Imitrex; jl7 14:58 tramadol; jl7 14:58 Toradol; jl7 - Home Meds: 18:58 Metoprolol Tartrate Oral [Active]; amlodipine oral [Active]; Hydrochlorothiazide Oral vg1 [Active]; - PMHx: 14:58 Gastric Reflux; Hypertension; Migraines; jl7 - PSHx: 14:58 Fusion discs neck; stimulator implant; Vasectomy; Cholecystectomy; jl7 - Immunization history:: Adult Immunizations unknown. - Social history:: Smoking status: Patient reports the use of cigarette tobacco products, smokes one-half pack cigarettes per day. Screenin:56 Abuse screen: Denies threats or abuse. Nutritional screening: No deficits noted. vg1 Tuberculosis screening: No symptoms or risk factors identified. Fall Risk No fall in past 12 months (0 pts). No secondary diagnosis (0 pts). IV access (20 points). Ambulatory Aid- None/Bed Rest/Nurse Assist (0 pts). Gait- Normal/Bed Rest/Wheelchair (0 pts) Mental Status- Oriented to own ability (0 pts). Total Marquis Fall Scale indicates No Risk (0-24 pts). Assessment: 18:50 General: Appears in no apparent distress. comfortable, Behavior is calm, cooperative. vg1 Pain: Complains of pain in neck and head Pain currently is 9 out of 10 on a pain scale. Noted to be grimacing. Neuro: Level of Consciousness is awake, alert, obeys commands, Oriented to person, place, time, situation, Reports headache. Cardiovascular: Patient's skin is warm and dry. Respiratory: Airway is patent Respiratory effort is even, unlabored. GI: Abdomen is flat, non-distended, Reports nausea, vomiting. : No signs and/or symptoms were reported regarding the genitourinary system. EENT: No signs and/or symptoms were reported regarding the EENT system. Derm: Skin is intact, Skin is pink, warm \T\ dry. Musculoskeletal: Circulation, motion, and sensation intact. Vital Signs: 14:55 BP 141 / 105; Pulse 77; Resp 17; Temp 98.5(O); Pulse Ox 99% on R/A; Weight 104.33 kg jl7 (R); Height 6 ft. 4 in. (193.04 cm); Pain 8/10; 18:56 BP 166 / 100; Pulse 67; Resp 16; Pulse Ox 100% on R/A; vg1 20:12 BP 159 / 90; Pulse 61; Resp 16; Pulse Ox 100% on R/A; jm8 14:55 Body Mass Index 28.00 (104.33 kg, 193.04 cm) jl7 ED Course: 14:33 Patient arrived in ED. am2 14:57 Triage completed. jl7 14:58 Arm band placed on right wrist. 7 18:06 Lanre Soriano PA is PHCP. [facility] 18:06 Petros Aguilera MD is Attending Physician. [facility] 18:20 Inserted saline lock: 20 gauge in right antecubital area, using aseptic technique. vg1 ,using aseptic technique. completed by LUIS F Adamson. 18:23 Morgan, Elisabeth, RN is Primary Nurse. vg1 18:57 Patient has correct armband on for positive identification. Bed in low position. Call vg1 light in reach. Side rails up X 1. 20:13 No provider procedures requiring assistance completed. [facility] 20:17 IV discontinued, intact, bleeding controlled. jm8 Administered Medications: 18:54 Drug: diphenhydrAMINE 25 mg Route: IVP; Site: right antecubital; ld1 20:18 Follow up: Response: No adverse reaction 8 18:54 Drug: Valium (diazepam) 5 mg Route: IVP; Site: right antecubital; ld1 20:18 Follow up: Response: No adverse reaction [facility] 18:54 Drug: Decadron - Dexamethasone 10 mg Route: IVP; Site: right antecubital; ld1 20:18 Follow up: Response: No adverse reaction jm8 18:55 Drug: NS 0.9% 500 ml Route: IV; Rate: bolus; Site: right antecubital; ld1 20:19 Follow up: IV Status: Completed infusion 8 18:55 Drug: Reglan (metoCLOPramide) 20 mg Route: IVP; Site: right antecubital; ld1 20:18 Follow up: Response: No adverse reaction [facility] Outcome: 19:35 Discharge ordered by MD. te 20:16 Discharged to home ambulatory. [facility] 20:16 Condition: good 20:16 Discharge instructions given to patient, Instructed on discharge instructions, follow up and referral plans. medication usage, Demonstrated understanding of instructions, follow-up care, medications. 20:17 Patient left the ED. [facility] Signatures: Lanre Soriano PA PA jmm Leal, Jahala RN RN karina7 Rachel Canales amElisabeth Peters, RN RN vg1 Sari Sewell RN RN ld1 Chente Brand RN RN jm8 Corrections: (The following items were deleted from the chart) 20:16 20:15 Pain: Pain began 30 min ago. Also complains of no other associated symptoms. Josué Josué
--- NOTE | 2020-07-30 19:36 | EDPHYS ---
Physician Documentation [facility] Name: Lino Samuel Age: 45 yrs Sex: Male : 1975 Arrival Date: 07/30/2020 Time: 14:33 Bed 13 Private MD: ED Physician Petros Aguilera HPI: 07/30 18:21 This 45 yrs old Male presents to ER via Ambulatory with complaints of jmm Headache, Nausea/Vomiting. 18:21 The patient complains of pain to the left frontal area, left side of the back of head, jmm left temporal area, left occipital area and left base of the skull. Onset: The symptoms/episode began/occurred gradually, 9 day(s) ago. Associated signs and symptoms: Pertinent positives: vomiting. The symptoms are alleviated by nothing. the symptoms are aggravated by lights. The patient has experienced similar episodes in the past, chronically. Historical: - Allergies: 14:58 Imitrex; jl7 14:58 tramadol; jl7 14:58 Toradol; jl7 - Home Meds: 18:58 Metoprolol Tartrate Oral [Active]; amlodipine oral [Active]; Hydrochlorothiazide Oral vg1 [Active]; - PMHx: 14:58 Gastric Reflux; Hypertension; Migraines; jl7 - PSHx: 14:58 Fusion discs neck; stimulator implant; Vasectomy; Cholecystectomy; jl7 - Immunization history:: Adult Immunizations unknown. - Social history:: Smoking status: Patient reports the use of cigarette tobacco products, smokes one-half pack cigarettes per day. ROS: 18:21 Constitutional: Negative for fever, chills, and weight loss, Cardiovascular: Negative jmm for chest pain, palpitations, and edema, Respiratory: Negative for shortness of breath, cough, wheezing, and pleuritic chest pain. 18:21 Abdomen/GI: Positive for vomiting. 18:21 All other systems are negative. Exam: 18:21 Head/Face: atraumatic. Eyes: EOMI, no conjunctival erythema appreciated ENT: Moist jmm Mucus Membranes Neck: Trachea midline, Supple Chest/axilla: Normal chest wall appearance and motion. Cardiovascular: Regular rate and rhythm. No edema appreciated Respiratory: Normal respirations, no respiratory distress appreciated Abdomen/GI: Non distended, soft Back: Normal ROM Skin: General appearance color normal MS/ Extremity: Moves all extremities, no obvious deformities appreciated, no edema noted to the lower extremities Neuro: Awake and alert, normal gait Psych: Behavior is normal, Mood is normal, Patient is cooperative and pleasant 18:21 Constitutional: The patient appears alert, awake, uncomfortable. Vital Signs: 14:55 BP 141 / 105; Pulse 77; Resp 17; Temp 98.5(O); Pulse Ox 99% on R/A; Weight 104.33 kg jl7 (R); Height 6 ft. 4 in. (193.04 cm); Pain 8/10; 18:56 BP 166 / 100; Pulse 67; Resp 16; Pulse Ox 100% on R/A; vg1 20:12 BP 159 / 90; Pulse 61; Resp 16; Pulse Ox 100% on R/A; jm8 14:55 Body Mass Index 28.00 (104.33 kg, 193.04 cm) jl7 MDM: 18:21 Patient medically screened. [facility] 19:34 Data reviewed: vital signs, nurses notes. Counseling: I had a detailed discussion with dyana the patient and/or guardian regarding: the historical points, exam findings, and any diagnostic results supporting the discharge/admit diagnosis, the need for outpatient follow up, to return to the emergency department if symptoms worsen or persist or if there are any questions or concerns that arise at home. ED course: Pain decreased in the neck. Continues to have migraine pain. Advised to follow up with pcp/neuro. I discussed non narcotic care. Patient agrees with the plan of care. . 18 18:23 Order name: Saline Lock; Complete Time: 18:28 [facility] Administered Medications: 18:54 Drug: diphenhydrAMINE 25 mg Route: IVP; Site: right antecubital; ld1 20:18 Follow up: Response: No adverse reaction [facility] 18:54 Drug: Valium (diazepam) 5 mg Route: IVP; Site: right antecubital; ld1 20:18 Follow up: Response: No adverse reaction [facility] 18:54 Drug: Decadron - Dexamethasone 10 mg Route: IVP; Site: right antecubital; ld1 20:18 Follow up: Response: No adverse reaction [facility] 18:55 Drug: NS 0.9% 500 ml Route: IV; Rate: bolus; Site: right antecubital; ld1 20:19 Follow up: IV Status: Completed infusion [facility] 18:55 Drug: Reglan (metoCLOPramide) 20 mg Route: IVP; Site: right antecubital; ld1 20:18 Follow up: Response: No adverse reaction jm8 Disposition: 07/31 07:47 Co-signature as Attending Physician, Petros Aguilera MD. rn Disposition: 07/30/20 19:35 Discharged to Home. Impression: Migraine. - Condition is Stable. - Discharge Instructions: Migraine Headache. - Prescriptions for promethazine 25 mg Rectal suppository - insert 1 suppository by RECTAL route 2 times per day; 20 suppository. orphenadrine citrate 100 mg Oral Tablet Sustained Release - take 1 tablet by ORAL route 2 times per day As needed; 20 tablet. - Medication Reconciliation Form, Thank You Letter, Antibiotic Education, Prescription Opioid Use form. - Follow up: Private Physician; When: 2 - 3 days; Reason: Recheck today's complaints, Continuance of care, Re-evaluation by your physician. Signatures: Lanre Soriano PA PA [facility] Petros Aguilera MD MD rn Leal, Jahala RN RN jl7 Elisabeth Mora RN RN vg1 Sari Sewell RN RN ld1 Chente Barnd, RN RN jm8 Corrections: (The following items were deleted from the chart) 07/30 20:17 19:35 07/30/2020 19:35 Discharged to Home. Impression: Migraine. Condition is Stable. jm Forms are Medication Reconciliation Form, Thank You Letter, Antibiotic Education, Prescription Opioid Use. Follow up: Private Physician; When: 2 - 3 days; Reason: Recheck today's complaints, Continuance of care, Re-evaluation by your physician. [facility]
[2020-07-30 20:57] VITALS: TEMP 98.5
[2020-07-30 20:58] VITALS: O2SAT 100
[2020-07-30 21:00] VITALS: BP 159/90
== END 2020-07-30 20:17 | disposition home or self-care (01) ==
LOC: ER 14:30
DX: G43.909 Migraine, unspecified, not intractable, without status migrainosus (principal); I10 Essential (primary) hypertension; F17.210 Nicotine dependence, cigarettes, uncomplicated; Z88.5 Allergy status to narcotic agent; Z88.8 Allergy status to other drugs, medicaments and biological substances
CPT/HCPCS: J2765; J1200; J3360; J1100; J7040; 96361; 96374; 96375; 99283

== ENCOUNTER 2021-06-09 00:50 | Emergency (ER) | payer OTHER ==
--- OUTSIDE RECORDS SUMMARY | 2021-06-09 00:54 | XMS REPORT | Continuity of Care Document ---
:1975 Author Organization [facility] t Address [address] [place] [address] Care Team Providers Name Role Phone Robert Mendoza Primary Care Physician Kaylyn DICK, L Attending Clinician Yessenia Esquivel Attending Clinician Jason Toribio DO Attending Clinician Lubna DICK, S Attending Clinician Lamberto Quintero Attending Clinician Singer JACOBS Attending Clinician Peng HERNÁNDEZ, López Attending Clinician Doctor Unassigned, Name Attending Clinician Unavailable CHENCHO_Maicol Attending Clinician Unavailable Rohan QIU, G Attending Clinician Dean DICK Attending Clinician Cordell HERNÁNDEZ Attending Clinician Maria Eugenia HERNÁNDEZ, F Attending Clinician Karon Wheat Attending Clinician CHENCHO_Maicol Admitting Clinician Unavailable Payers Payer Name Policy Type Policy Number Effective Date Expiration Date Lamberto CHAVEZ [facility] [id number] 2011 [facility] 00:00:00 REGION Problems Condition Condition Condition Status Onset Resolution Last Treating Co mments Source Name Details Category Date Date Treatment Clinician Date No known No known Disease Unive rs active active ity of problems problems [facility] Allergies, Adverse Reactions, Alerts Allergy Allergy Status Severity Reaction(s) Onset Inactive Treating Comm ents Source Name Type Date Date Clinician Sumatrip Propensi Active Other - See Chest U nivers lees ty to comments 11-13 pain , ity of Succinat adverse 00:00: syncope [place] e reaction 00 Medical Branch Ketorola Propensi Active Other - See "stabbin g Univers c ty to comments 11-13 pains in ity of T[place] adverse 00:00: the [place] reaction 00 stomach" Medica l s [place] Tramadol Propensi Active Other - See Cold U nivers ty to comments 11-13 sweats ity of adverse 00:00: [place] reaction 00 Medical [facility] Social History Social Habit Start Date Stop Date Quantity Comments Source History of tobacco Cigarette Smoker University of use [facility] Alcohol intake 2021-02-13 2021-02-13 Current [facility] 00:00:00 00:00:00 non-drinker of [facility] alcohol Branch (finding) Cigarettes smoked 2017-02-23 2017-02-23 Univers ity of current (pack per 00:00:00 00:00:00 ) - Reported Branch Cigarette 2017-02-23 2017-02-23 University of pack-years 00:00:00 00:00:00 [facility] Tobacco use and 2017-02-23 2017-02-23 Never used Universit y of exposure 00:00:00 00:00:00 [facility] Sex Ass[birth year] Universit y of 00:00:00 00:00:00 [facility] Smoking Status Start Date Stop Date Source Current every day smoker 2017-02-23 00:00:00 Uni versity of [facility] Medications Ordered Filled Start Stop Current Ordering Indication Dosage Frequency Signature Comments Components Source Medication Medication Date Date Medication? Clinician (SIG) Name Name clindamycin 2020-03 Yes 300mg Take 300 U nivers 300 mg 2-02 mg by ity of capsule 11:03: mouth 4 [place] 41 (four) Medical times Branch daily. Takes 2 capsules in morning and 2 capsules in evening. levoFLOXaci 2020-03 Yes [id number] 750mg Take 1 Univers n 2-02 9108 tablet by ity of (LEVAQUIN) 00:00: mouth [place] 750 mg 00 every 24 Medical tablet (twenty-fo Branch ur) hours. proMETHazin Yes [id number] 25mg Insert 1 Univers e 25 mg 9-19 Supp[place] of suppository 00:00[place] 00 rectum Medical every 4 Branch (four) hours as needed for Nausea and Vomiting (N/V). oxyCODONE-a 2019-03 Yes 1{tbl} Take 1 Un kevon cetaminophe 1-09 tablet by ity of n 19:19: mouth [place] (PERCOCET) 04 every 6 Medica l 10-325 mg (six) Branch per tablet hours as needed for Pain. naproxen Yes [id number] 500mg Take 1 Univers 500 mg 6-16 9109 tablet by ity of tablet 00:00: mouth [place] 00 every 8 Medical (eight) Branch hours as needed for Pain (scale 4-6). diazePAM 2018-03 Yes [id number] 5mg Take 1 Uni vers (VALIUM) 5 2-23 tablet by ity of mg tablet 00:00: mouth 3 [place] 00 (three) Medical times Branch daily. metoprolol 2018-03 Yes 100mg Take 100 Un kevon succinate 0-13 mg by ity of XL 100 mg 03:53: mouth [place] 24 hr 57 daily. Medical tablet Branch valsartan 2018-03 Yes 40mg Take 40 mg Un kevon 40 mg 0-13 by mouth ity of tablet 03:53: daily. [place] [address] Medical Branch amLODIPine 2018-03 Yes 10mg Take 10 mg U nivers 10 mg 0-13 by mouth ity of tablet 03:53: daily. [place] [address] Medical Branch DEXLANSOPRA 2018-03 Yes Take by Un kevon ZOLE 0-13 mouth. ity of (DEXILANT 03:53: [place] ORAL) 57 Medical Branch cyclobenzap Yes [id number] 5mg Take 1 Univers rine 5 mg 6-08 07 tablet by ity o f tablet 00:00: mouth 3 [place] 00 (three) Medical times Branch daily. acetaminoph Yes TK 1 T PO U nivers en-codeine 4-17 BID PRN P ity of 300-60 mg 00:00: [place] tablet 00 Medical Branch butalbital- 2017-0 Yes TK 1 T PO U nivers acetaminoph 3-30 TWICE A ity o f en-caff 00:00: DAY PRF MCCANN [place] 50-325-40 00 Medical mg tablet Branch LYRICA 150 0 Yes Univers mg capsule 3-28 ity of 00:00: [place] 00 Medical Branch HYDROcodone 0 Yes Univer s -acetaminop 3-13 ity of hen 7.5-325 00:00: [place] mg per 00 Medical tablet Branch acetaminoph 0 Yes 1{tbl} Take 1 Un kevon en-codeine 6-28 tablet by ity of (TYLENOL-CO 00:00: mouth [place] DEINE #3) 00 every 4 Medical 300-30 mg (four) Branch tablet hours as needed for Pain (scale 7-10). Vital Signs Vital Name Observation Time Observation Value Comments Source Systolic blood 2021-02-13 17:01:00 132 mm[Hg] [facility] Diastolic blood 2021-02-13 17:01:00 88 mm[facility]Hg[facility] Heart rate 2021-02-13 17:01:00 62 /min [facility] Body height 2021-02-13 17:01:00 193 cm [facility] Body weight 2021-02-13 17:01:00 114.352 kg [facility] BMI 2021-02-13 17:01:00 30.69 kg/m2 [facility] Procedures This patient has no known procedures. Encounters Start End Encounter Admission Attending Care Care Encounter Source Date/Time Date/Time Type Type Clinicians Facility Department ID 2021-02-13 2021-02-13 Office CHEN Patiño [id number] [facility] 10:51:39 11:30:28 Visit Jeremy AUGUSTE [id number] it y jc STEEN [id number] Marty as FITZ?BLEA [phone] Me padmini AGOSTO [address] [place] [address] MEDICAL OFFICE BUILDING 2020-07-29 2020-07-30 Emergency Chayo Issa [facility] [id number] 22:02:00 01:32:00 Yessenia Candis [id number] [place] [id number] [place] [id number] 2020-07-25 2020-07-25 Emergency Catarino, [facility] [id number] 20:26:00 23:14:00 Zena Steen [id number] [place] [id number] [place] [id number] 2020-07-21 2020-07-22 Emergency Yariok, [facility] [id number] 23:32:00 02:30:00 Milena Steen [id number] [place] [id number] [place] [id number] 2020-07-17 2020-07-18 Emergency Nicole, [facility] [id number] 22:52:00 00:59:00 Lynette Steen [id number] [place] [id number] [place] [id number] 2020-07-02 2020-07-02 Emergency , [facility] [id number] 19:35:00 22:12:00 Lisandro Steen [id number] [place] [id number] [place] [id number] 2020-06-10 2020-06-10 Emergency Yarima, [facility] [id number] 01:29:00 03:55:00 Milena Steen [id number] [place] [id number] [place] [id number] 2020-05-08 2020-05-08 Emergency Peng, [facility] [id number] 20:57:00 21:46:00 Maged Steen 350.1.13.10 [place] [id number] [place] [id number] 2020-04-16 2020 Emergency Chayo Issa [facility] [id number] 21:21:00 01:05:00 Yessenia Steen [id number] [place] 4.2.7.2.686 [place] [id number] 2020-03-09 2020-03-09 Emergency [facility] [id number] 20:23:00 22:51:00 Lynette Orantes Candsi [id number] [place] [id number] [place] [id number] 2020-03-09 2020-03-09 Orders Doctor JESICA [id number] 00:00:00 00:00:00 Only Unassigned, LEYLA 350.1.13.10 [place] [facility] 4.2.7.2.686 [id number] 2020-02-14 2020-02-15 Emergency [facility] [id number] 23:22:00 00:54:00 Milena Steen 350.1.13.10 [place] 4.2.7.2.686 [place] [id number] 2020-01-31 2020-01-31 [facility]patient [id number] [place] 02:19:00 02:19:00 [facility] 2020-01-28 2020-01-28 Emergency Chayo Issa [facility] [id number] 17:47:00 21:50:00 Yessenia Steen 350.1.13.10 [place] 4.2.7.2.686 [place] [id number] 2020-01-22 2020-01-22 Emergency [facility] [id number] 19:22:00 22:47:00 Amaris Steen 350.1.13.10 [place] 4.2.7.2.686 [place] [id number] 082020-01-20 2020-01-21 Emergency Moran, [facility] [id number] 23:26:00 02:01:00 Elkin Steen 350.1.13.10 [place] 4.2.7.2.686 [place] [id number] 2019-12-30 2019-12-30 Emergency Chayo Issa [facility] [id number] 11:45:00 14:25:00 Yessenia Steen 350.1.13.10 [place] 4.2.7.2.686 [place] [id number] 2019-12-22 2019-12-22 Emergency Moran, [facility] [id number] 13:48:00 16:20:00 Elkin Steen 350.1.13.10 [place] 4.2.7.2.686 [place] [id number] 2019-12-22 2019-12-22 Orders Doctor MOONEY [id number] 00:00:00 00:00:00 Only Unassigned, LEYLA 350.1.13.10 [place] [facility] 4.2.7.2.686 [id number] 2019-11-29 2019-11-29 Emergency Bonnie, [facility] [id number] 15:09:00 17:41:00 Lynette Steen 350.1.13.10 [place] 4.2.7.2.686 [place] [id number] 2019-11-12 2019-11-12 Emergency Cordell, [facility] [id number] 20:27:00 23:35:00 Yanna Steen 350.1.13.10 [place] 4.2.7.2.686 [place] [id number] 2019-10-20 2019-10-21 Emergency Catarino [facility] [id number] 21:49:00 00:48:00 Zena Steen 350.1.13.10 [place] 4.2.7.2.686 [place] [id number] 2019-10-20 2019-10-20 Orders Doctor MOONEY [id number] 00:00:00 00:00:00 Only Unassigned, LEYLA 350.1.13.10 [place] [facility] 4.2.7.2.686 [id number] 2019-08-29 2019-08-29 [facility] [id number] 18:05:24 19:48:00 Qi Steen 350.1.13.10 [place] 4.2.7.2.686 [place] [id number] 2019-08-11 2019-08-11 Outpatient [facility] [id number] [place] 09:48:00 09:48:00 9 Medical Group 2019-04-20 2019-04-20 [facility] [id number] 21:28:16 22:19:00 Alley Brantley Candis 350.1.13.10 [place] 4.2.7.2.686 [place] [id number] Results This patient has no known results.
[2021-06-09] MEDS ORDERED: HYDROCODONE/APAP 10/325 TAB ONE (01:13)
[2021-06-09] MEDS ORDERED: IBUPROFEN 400 MG TAB ONE (01:14)
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
[2021-06-09 02:46] VITALS: BP 135/84; TEMP 97.9; O2SAT 97
--- NOTE | 2021-06-09 11:31 | RAD REPORT ---
EXAM DESCRIPTION: RAD - Wrist Right 3 View - 06/09/2021 1:50 am CLINICAL HISTORY: 46 years Male PAIN. Wrist Right 3 View TECHNIQUE: Three views of the right wrist and three views of the right hand are provided. COMPARISON: No prior exams provided for comparison. FINDINGS: There is an acute, mildly comminuted, intra-articular fracture at the base of the right fi fth metacarpal with overlying soft tissue swelling. No dislocation. No other acute fracture in the right hand or wrist. Suspected ossified intra-articular bodies in the distal radioulnar joint. No aggressive osseous lesion. IMPRESSION: Acute, mildly comminuted, intra-articular fracture at the base of the right fifth metaca rpal without dislocation. No other acute findings in the right hand or wrist. Suspected ossified intra-articular bodies in the distal radioulnar joint. Electronically signed by: Dee Dee Sanders MD 06/09/2021 1:57 AM CDT Due to temporary technical issues with the PACS/Fluency reporting system, reports are being signed by the in house radiologist without review as a courtesy to ensure prompt reporting. The interpreting r adiologist is fully responsible for the content of the report.
--- NOTE | 2021-06-09 11:34 | RAD REPORT ---
EXAM DESCRIPTION: RAD - Hand Right 3 View - 06/09/2021 1:50 am CLINICAL HISTORY: 46 years Male PAIN. Wrist Right 3 View TECHNIQUE: Three views of the right wrist and three views of the right hand are provided. COMPARISON: No prior exams provided for comparison. FINDINGS: There is an acute, mildly comminuted, intra-articular fracture at the base of the right fi fth metacarpal with overlying soft tissue swelling. No dislocation. No other acute fracture in the right hand or wrist. Suspected ossified intra-articular bodies in the distal radioulnar joint. No aggressive osseous lesion. IMPRESSION: Acute, mildly comminuted, intra-articular fracture at the base of the right fifth metaca rpal without dislocation. No other acute findings in the right hand or wrist. Suspected ossified intra-articular bodies in the distal radioulnar joint. Electronically signed by: Dee Dee Sanders MD 06/09/2021 1:57 AM CDT Due to temporary technical issues with the PACS/Fluency reporting system, reports are being signed by the in house radiologist without review as a courtesy to ensure prompt reporting. The interpreting r adiologist is fully responsible for the content of the report.
== END 2021-06-09 02:39 | disposition home or self-care (01) ==
LOC: ER 00:50
PROC: 2W3CX1Z Immobilization of Right Lower Arm using Splint (ICD-10-PCS; principal; 2021-06-09)
DX: S62.316A Displaced fracture of base of fifth metacarpal bone, right hand, initial encounter for closed fracture (principal); W22.8XXA Striking against or struck by other objects, initial encounter; I10 Essential (primary) hypertension; K21.9 Gastro-esophageal reflux disease without esophagitis; F17.210 Nicotine dependence, cigarettes, uncomplicated; Z88.5 Allergy status to narcotic agent; Z88.8 Allergy status to other drugs, medicaments and biological substances
CPT/HCPCS: 99284

== ENCOUNTER 2021-11-14 01:44 | Emergency (ER) | payer OTHER ==
--- OUTSIDE RECORDS SUMMARY | 2021-11-14 01:49 | XMS REPORT | Continuity of Care Document ---
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 2021-10-09 Orders Doctor JESICA 1.2.840.114 [id number] Univers 00:00:00 00:00:00 Only Unassigned, LEYLA 350.1.13.10 ity of [facility] 4.2.7.2.686 Marty as [phone] [address] 2021-09-26 2021-09-26 Outpatient AMBREEN_FAR MADELMI [facility] [id number] [place] 04:24:00 04:24:00 HANA [facility]15 [facility] 2021-07-21 2021-07-21 Outpatient R YAQUELIN [facility] [id number] Univers 14:15:00 14:15:00 SCAR [facility] 2021-07-03 2021-07-03 Patient Doctor [facility] 1.2.840.114 [id number] Univers 00:00:00 00:00:00 Secure Msg Unassigned, HEALTH 350.1.13.10 ity of [place] [facility] 4.2.7.2.686 Marty as FITZ?BLEA [phone] Ca padmini [address] MEDICAL OFFICE BUILDING 2021-07-02 2021-07-02 Outpatient R [facility] [id number] Univers 19:00:00 19:00:00 [id number] [facility] 2021-07-02 2021-07-02 Outpatient R EFREN [facility] [id number] Univers 19:00:00 19:00:00 TAYLOR [facility] 2021-07-02 2021-07-02 [facility] [id number] Univers 00:00:00 00:00:00 Jennifer L SPECIALTY [id number] ity of [facility] 4.2.7.2.686 [facility] AT [phone] Ca padmini TAO [address] [facility] 2021-07-02 2021-07-02 [facility] 1.2.840.114 [id number] Univers 00:00:00 00:00:00 Scar S HEALTH 350.1.13.10 it y of [place] 4.2.7.2.686 Marty as FITZ?BLEA [phone] Ca padmini AGOSTO [address] [place] [address] OFFICE [facility] 2021-06-30 2021-06-30 Outpatient [facility] [id number] Univers 14:26:57 23:59:[address] [facility] 2021-06-30 2021-06-30 Office [facility] 1.2.840.114 [id number] Univers 13:30:00 13:45:00 Visit [facility] 350.1.13.10 it y of [place] 4.2.7.2.686 Marty as FITZ?BLEA [phone] Ca padmini AGOSTO [address] [place] [address] OFFICE [facility] 2020-07-29 2020-07-30 Emergency Maegan, Chayo [facility] 1.2.840.114 [id number] 22:02:00 01:32:00 Yessenia Chirinos 350.1.13.10 [place] 4.2.7.2.686 [place] [id number] 2020-07-25 2020-07-25 Emergency [facility] 1.2.840.114 [id number] 20:26:00 23:14:00 Zena Chirinos 350.1.13.10 [place] 4.2.7.2.686 [place] [id number] 2020-07-21 2020-07-22 Emergency [facility] [id number] 23:32:00 02:30:00 Milena Chirinos 350.1.13.10 [place] 4.2.7.2.686 [place] [id number] 2020-07-17 2020-07-18 Emergency Nicole, [facility] [id number] 22:52:00 00:59:00 Lynette Chirinos 350.1.13.10 [place] 4.2.7.2.686 [place] [address] [id number] 2020-07-02 2020-07-02 Emergency Jim, [facility] [id number] 19:35:00 22:12:00 Lisandro Candis 350.1.13.10 [place] 4.2.7.2.686 [place] [address] [id number] 2020-06-10 2020-06-10 Emergency Michellimaniadam, [facility] [id number] 01:29:00 03:55:00 Milena Chirinos 350.1.13.10 [place] 4.2.7.2.686 [place] [address] [id number] 2020-05-08 2020-05-08 Emergency Peng, [facility] 1.2.840.114 [id number] 20:57:00 21:46:00 Maged Chirinos 350.1.13.10 [place] 4.2.7.2.686 [place] [address] [id number] 2020-04-16 2020 Emergency Chayo Issa [facility] 1.2.840.114 [id number] 21:21:00 01:05:00 Yessenia Chirinos 350.1.13.10 [place] 4.2.7.2.686 [place] [address] [id number] 2020-03-09 2020-03-09 Emergency Nicole, [facility] [id number] 20:23:00 22:51:00 Lynette [place] 350.1.13.10 [place] 4.2.7.2.686 [place] [address] [id number] [id number] 2020-03-09 2020-03-09 Orders Doctor JESICA 1.2.840.114 [id number] 00:00:00 00:00:00 Only Unassigned, LEYLA 350.1.13.10 [place] [facility] 4.2.7.2.686 [id number] 2020-02-14 2020-02-15 Emergency [facility], [facility] [id number] 23:22:00 00:54:00 Milena Chirinos 350.1.13.10 [place] 4.2.7.2.686 [place] [id number] 2020-01-31 2020-01-31 Outpatient CHENCHO_Maicol [facility] [id number] [place] 02:19:00 02:19:00 [facility] 2020-01-28 2020-01-28 Emergency Chayo Issa [facility] 1.2.840.114 [id number] 17:47:00 21:50:00 Yessenia Chirinos 350.1.13.10 [place] 4.2.7.2.686 [place] [id number] 2020-01-22 2020-01-22 Emergency [facility] [id number] 19:22:00 22:47:00 Amaris Chirinos 350.1.13.10 [place] 4.2.7.2.686 [place] [id number] 2020-01-20 2020-01-21 [facility] [id number] 23:26:00 02:01:00 Elkin Chirinos 350.1.13.10 [place] 4.2.7.2.686 [place] [id number] 2019-12-30 2019-12-30 Emergency Chayo Issa [facility] 1.2.840.114 [id number] 11:45:00 14:25:00 Yessenia Chirinos 350.1.13.10 [place] 4.2.7.2.686 [place] [id number] 2019-12-22 2019-12-22 Emergency [facility] [id number] 13:48:00 16:20:00 Elkin Chirinos 350.1.13.10 [place] 4.2.7.2.686 [place] [id number] 2019-12-22 2019-12-22 [facility] Doctor JESICA 1.2.840.114 [id number] 00:00:00 00:00:00 Only Unassigned, LEYLA 350.1.13.10 [place] [facility] 4.2.7.2.686 [id number] 2019-11-29 2019-11-29 Emergency Nicole, [facility] [id number] 15:09:00 17:41:00 Lynette Chirinos 350.1.13.10 [place] 4.2.7.2.686 [place] [id number] 2019-11-12 2019-11-12 Emergency Landa, [facility] 1.2.840.114 [id number] 20:27:00 23:35:00 Yanna Chirinos 350.1.13.10 [place] 4.2.7.2.686 [place] [id number] [id number] 2019-10-20 2019-10-21 Emergency Catarino, [facility] 1.2.840.114 [id number] 21:49:00 00:48:00 Zena Chirinos 350.1.13.10 [place] 4.2.7.2.686 [place] [id number] 2019-10-20 2019-10-20 Orders Doctor JESICA 1.2.840.114 [id number] 00:00:00 00:00:00 Only Unassigned, LEYLA 350.1.13.10 [facility] 4.2.7.2.686 [id number] 2019-08-29 2019-08-29 Emergency Maria Eugenia, [facility] 1.2.840.114 [id number] 18:05:24 19:48:00 Qi Chirinos 350.1.13.10 [place] 4.2.7.2.686 [place] [id number] 2019-08-11 2019-08-11 Outpatient CHENCHO_L [facility] [id number] [place] 09:48:00 09:48:00 [facility] 2019-04-20 2019-04-20 Emergency Chateja, [facility] 1.2.840.114 [id number] 21:28:16 22:19:00 Alley Chirinos 350.1.13.10 [place] 4.2.7.2.686 [place] [id number] Results This patient has no known results.
[2021-11-14] MEDS ORDERED: HYDROCODONE/APAP 7.5/325 MG TAB ONE (02:48)
[2021-11-14] MEDS ORDERED: DIAZEPAM 5 MG TABLET ONE (03:29)
[2021-11-14] MEDS ORDERED: IBUPROFEN 400 MG TAB ONE (03:29)
--- NOTE | 2021-11-14 03:34 | ER ---
Nurse's Notes [facility] Name: Lino Samuel Age: 46 yrs Sex: Male : 1975 Arrival Date: 11/14/2021 Time: 01:46 Bed 19 Private MD: Diagnosis: Fall on same level, unspecified;Pain in left shoulder;Solitary pulmonary nodule- 4 MM RIGHT UPPER LOBE Presentation: 11/14 01:53 Chief complaint: Patient states: "I fell in the bathtub. I hit my shoulder and my neck, tw5 ever since then I have a really bad migraine. I can hardly lift my shoulder without it screaming in pain.". Coronavirus screen: Vaccine status: Patient reports being unvaccinated. Ebola Screen: Patient negative for fever greater than or equal to 101.5 degrees Fahrenheit, and additional compatible Ebola Virus Disease symptoms Patient denies exposure to infectious person. Patient denies travel to an Ebola-affected area in the 21 days before illness onset. Initial Sepsis Screen: Does the patient meet any 2 criteria? HR > 90 bpm. Does the patient have a suspected source of infection? No. Patient's initial sepsis screen is negative. Risk Assessment: Do you want to hurt yourself or someone else? Patient reports no desire to harm self or others. Onset of symptoms was November 13, 2021 at 19:30. 01:53 Method Of Arrival: Ambulatory tw 01:53 Acuity: ERICA 3 tw5 Triage Assessment: 01:55 General: Appears uncomfortable, Behavior is calm, cooperative, appropriate for age. tw5 Pain: Complains of pain in posterior cervical area, left trapezius and left scapular area Pain currently is 8 out of 10 on a pain scale. Historical: - Allergies: 01:55 tramadol; tw 01:55 Imitrex; tw5 01:55 Toradol; tw5 - PMHx: 01:55 Gastric Reflux; Hypertension; Migraines; tw5 - Immunization history:: Flu vaccine is up to date. - Social history:: Smoking status: Patient reports the use of cigarette tobacco products, smokes one-half pack cigarettes per day. - Family history:: not pertinent. Screenin:30 Abuse screen: Denies threats or abuse. Denies injuries from another. Nutritional lg3 screening: No deficits noted. Tuberculosis screening: No symptoms or risk factors identified. Fall Risk Fall in past 12 months (25 points). Total Marquis Fall Scale indicates Low Risk Score (25-44 pts). Fall prevention measures have been instituted. Frequent Obs/Assesments occuring As available Patient and Family Educated on Fall Prevention Program and strategies. Assessment: 02:30 General: Appears in no apparent distress. uncomfortable, Behavior is calm, cooperative. lg3 Pain: Complains of pain in left scapular area and left trapezius and posterior cervical area Pain currently is 8 out of 10 on a pain scale. Noted to be resistant to movement. Neuro: No deficits noted. Level of Consciousness is awake, alert, obeys commands, Oriented to person, place, time, situation, Commutator V Ring Assembler are equal bilaterally Gait is steady, Speech is normal. Cardiovascular: No deficits noted. Denies chest pain, shortness of breath, Capillary refill < 3 seconds Clubbing of nail beds is absent JVD is absent Patient's skin is warm and dry. Respiratory: No deficits noted. Airway is patent Trachea midline Respiratory effort is even, unlabored, Respiratory pattern is regular, symmetrical, Breath sounds are clear bilaterally. GI: No deficits noted. No signs and/or symptoms were reported involving the gastrointestinal system. Abdomen is round non-distended, Bowel sounds present X 4 quads. Abd is soft and non tender X 4 quads. : No deficits noted. No signs and/or symptoms were reported regarding the genitourinary system. EENT: No deficits noted. No signs and/or symptoms were reported regarding the EENT system. Derm: No deficits noted. No signs and/or symptoms reported regarding the dermatologic system. Skin is intact, is healthy with good turgor, Skin is dry, Skin is normal, Skin temperature is warm. Musculoskeletal: Circulation, motion, and sensation intact. Range of motion: intact in left shoulder Reports pain in left scapular area and left trapezius and posterior cervical area. 03:59 Reassessment: Patient appears in no apparent distress at this time. No changes from lg3 previously documented assessment. Patient and/or family updated on plan of care and expected duration. Pain level reassessed. Patient is alert, oriented x 3, equal unlabored respirations, skin warm/dry/pink. Patient states feeling better. Patient states symptoms have improved. Vital Signs: 01:53 BP 140 / 101; Pulse 109; Resp 18; Temp 98.4; Pulse Ox 100% on R/A; Weight 106.59 kg; tw5 Height 6 ft. 4 in. (193.04 cm); Pain 8/10; 02:30 BP 126 / 95; Pulse 89; Resp 18 S; Pulse Ox 100% on R/A; lg3 03:59 BP 127 / 94; Pulse 90; Resp 17 S; Pulse Ox 99% on R/A; lg3 01:53 Body Mass Index 28.60 (106.59 kg, 193.04 cm) tw5 ED Course: 01:46 Patient arrived in ED. ja2 01:55 Triage completed. tw5 01:55 Arm band placed on right wrist. tw5 02:11 Clarence Amos MD is Attending Physician. iram 02:16 Letitia Cali, LUIS F is Primary Nurse. lg3 02:30 Patient has correct armband on for positive identification. Placed in gown. Bed in low lg3 position. Call light in reach. Side rails up X 1. Client placed on continuous cardiac and pulse oximetry monitoring. NIBP monitoring applied. color television console monitor on. Door closed. Noise minimized. Warm blanket given. 02:58 CT Head C Spine In Process Unspecified. EDMS 02:58 CT Chest Wo Con In Process Unspecified. EDMS 03:27 XRAY Shoulder LEFT 2 view In Process Unspecified. EDMS 03:32 Tj Mendez MD is Referral Physician. iram 03:33 Roger Messer MD is Referral Physician. iram 04:06 No provider procedures requiring assistance completed. Patient did not have IV access lg3 during this emergency room visit. Administered Medications: 02:40 Drug: [place] (HYDROcodone-acetaminophen) (7.5 mg-325 mg) 1 tabs Route: PO; lg3 03:22 Follow up: Response: No adverse reaction; Pain is unchanged, physician notified lg3 03:21 Drug: Motrin (ibuprofen) 800 mg Route: PO; lg3 04:00 Follow up: Response: No adverse reaction lg3 03:22 Drug: Valium (diazepam) 10 mg Route: PO; lg3 04:00 Follow up: Response: No adverse reaction; Marked relief of symptoms lg3 Medication: 04:06 VIS not applicable for this client. lg3 Outcome: 03:33 Discharge ordered by . iram 04:06 Discharged to home ambulatory. lg3 04:06 Condition: stable 04:06 Discharge instructions given to patient, Instructed on discharge instructions, follow up and referral plans. medication usage, Demonstrated understanding of instructions, follow-up care, medications, Prescriptions given X 3. 04:06 Patient left the ED. lg3 Signatures: Dispatcher [employer] EDClarence Tellez MD MD cha Gibson, Lacie, RN RN lg3 Odette Duvall Tiffany tw5
--- NOTE | 2021-11-14 03:34 | EDPHYS ---
Physician Documentation [facility] Name: Lino Samuel Age: 46 yrs Sex: Male : 1975 Arrival Date: 11/14/2021 Time: 01:46 Bed 19 Private MD: MELISSA Physician Clarence Amos HPI: 11/14 03:16 This 46 yrs old Male presents to ER via Ambulatory with complaints of Neck iram Pain, <24hrs Old, Arm Pain, Headache. 03:16 The patient or guardian complains of decreased range of motion, an injury, pain. The iram symptoms are located diffusely. Onset: The symptoms/episode began/occurred just prior to arrival. Context: The problem was sustained at home. Associated signs and symptoms: Pertinent positives: headache. The pain does not radiate. Modifying factors: The symptoms are alleviated by remaining still, the symptoms are aggravated by movement, pressure. Severity of symptoms: At their worst the symptoms were mild, moderate, in the emergency department the symptoms are unchanged. The patient has not experienced similar symptoms in the past. Historical: - Allergies: 01:55 tramadol; tw5 01:55 Imitrex; tw5 01:55 Toradol; tw5 - PMHx: 01:55 Gastric Reflux; Hypertension; Migraines; tw - Immunization history:: Flu vaccine is up to date. - Social history:: Smoking status: Patient reports the use of cigarette tobacco products, smokes one-half pack cigarettes per day. - Family history:: not pertinent. ROS: 03:16 Constitutional: Negative for fever, chills, and weight loss, Eyes: Negative for injury, iram pain, redness, and discharge, ENT: Negative for injury, pain, and discharge, Cardiovascular: Negative for chest pain, palpitations, and edema, Respiratory: Negative for shortness of breath, cough, wheezing, and pleuritic chest pain, Abdomen/GI: Negative for abdominal pain, nausea, vomiting, diarrhea, and constipation, Back: Negative for injury and pain, : Negative for injury, bleeding, discharge, and swelling, Skin: Negative for injury, rash, and discoloration, Neuro: Negative for headache, weakness, numbness, tingling, and seizure. 03:16 Neck: Positive for pain with movement, pain at rest, stiffness. 03:16 Respiratory: Negative for cough, shortness of breath. 03:16 Abdomen/GI: Negative for abdominal pain, nausea and vomiting. 03:16 MS/extremity: Positive for decreased range of motion, pain, tenderness, of the anterior aspect of left shoulder, left bicep, posterior aspect of left shoulder and left tricep. Exam: 03:16 Constitutional: This is a well developed, well nourished patient who is awake, alert, iram and in no acute distress. Head/Face: Normocephalic, atraumatic. Eyes: Pupils equal round and reactive to light, extra-ocular motions intact. Lids and lashes normal. Conjunctiva and sclera are non-icteric and not injected. Cornea within normal limits. Periorbital areas with no swelling, redness, or edema. ENT: Nares patent. No nasal discharge, no septal abnormalities noted. Tympanic membranes are normal and external auditory canals are clear. Oropharynx with no redness, swelling, or masses, exudates, or evidence of obstruction, uvula midline. Mucous membranes moist. Neck: Trachea midline, no thyromegaly or masses palpated, and no cervical lymphadenopathy. Supple, full range of motion without nuchal rigidity, or vertebral point tenderness. No Meningismus. Chest/axilla: Normal chest wall appearance and motion. Nontender with no deformity. No lesions are appreciated. Cardiovascular: Regular rate and rhythm with a normal S1 and S2. No gallops, murmurs, or rubs. Normal PMI, no JVD. No pulse deficits. Respiratory: Lungs have equal breath sounds bilaterally, clear to auscultation and percussion. No rales, rhonchi or wheezes noted. No increased work of breathing, no retractions or nasal flaring. Abdomen/GI: Soft, non-tender, with normal bowel sounds. No distension or tympany. No guarding or rebound. No evidence of tenderness throughout. Male : Normal genitalia with no discharge or lesions. Skin: Warm, dry with normal turgor. Normal color with no rashes, no lesions, and no evidence of cellulitis. Psych: Awake, alert, with orientation to person, place and time. Behavior, mood, and affect are within normal limits. 03:16 Back: pain, that is mild, that is moderate, ROM is normal, normal spinal alignment noted, CVA tenderness, is absent, vertebral tenderness, is not appreciated, muscle spasm, is not present. Vital Signs: 01:53 BP 140 / 101; Pulse 109; Resp 18; Temp 98.4; Pulse Ox 100% on R/A; Weight 106.59 kg; tw5 Height 6 ft. 4 in. (193.04 cm); Pain 8/10; 02:30 BP 126 / 95; Pulse 89; Resp 18 S; Pulse Ox 100% on R/A; lg3 03:59 BP 127 / 94; Pulse 90; Resp 17 S; Pulse Ox 99% on R/A; lg3 01:53 Body Mass Index 28.60 (106.59 kg, 193.04 cm) tw5 MDM: 02:11 Patient medically screened. iram 03:23 Differential diagnosis: C-Spine Fracture Cervical Disc Herniation cervical strain, iram Degenerative Disc Disease fracture, Neck Contusion Osteoarthritis Simple Wedge Fracture Spinal Cord Compression torticollis, Whiplash Injury. Data reviewed: vital signs, nurses notes, radiologic studies, CT scan, plain films. Data interpreted: Pulse oximetry: on room air is 100 %. Test interpretation: by ED physician or midlevel provider: plain radiologic studies. Counseling: I had a detailed discussion with the patient and/or guardian regarding: the historical points, exam findings, and any diagnostic results supporting the discharge/admit diagnosis, lab results, radiology results, the need for outpatient follow up, for definitive care, a family practitioner. 11/14 02:28 Order name: CT Head C Spine lg3 11/14 02:37 Order name: CT Chest Wo Con tw5 11/14 02:46 Order name: XRAY Shoulder LEFT 2 view lg3 Administered Medications: 02:40 Drug: [place] (HYDROcodone-acetaminophen) (7.5 mg-325 mg) 1 tabs Route: PO; lg3 03:22 Follow up: Response: No adverse reaction; Pain is unchanged, physician notified lg3 03:21 Drug: Motrin (ibuprofen) 800 mg Route: PO; lg3 04:00 Follow up: Response: No adverse reaction lg3 03:22 Drug: Valium (diazepam) 10 mg Route: PO; lg3 04:00 Follow up: Response: No adverse reaction; Marked relief of symptoms lg3 Disposition Summary: 11/14/21 03:33 Discharge Ordered Location: Home iram Problem: new iram Symptoms: have improved iram Condition: Stable iram Diagnosis - Fall on same level, unspecified iram - Pain in left shoulder iram - Solitary pulmonary nodule - 4 MM RIGHT UPPER LOBE iram Followup: iram - With: Private Physician - When: 2 - 3 days - Reason: Recheck today's complaints, Continuance of care, Re-evaluation by your physician Followup: iram - With: - When: 2 - 3 days - Reason: Recheck today's complaints, Re-evaluation by your physician Followup: iram - With: Roger Messer MD - When: 5 - 6 days - Reason: Recheck today's complaints, Re-evaluation by your physician Discharge Instructions: - Discharge Summary Sheet iram - Joint Pain iram - Musculoskeletal Pain iram - Shoulder Pain iram - Shoulder Pain, [id number] [facility] Forms: - Medication Reconciliation Form iram - Thank You Letter iram - Antibiotic Education iram - Prescription Opioid Use [facility] Prescriptions: - Diclofenac Sodium 75 mg Oral tablet,delayed release (DR/EC) - take 1 tablet by ORAL route 2 times per day; 20 tablet; Refills: 0, Product [facility] Selection Permitted - Cyclobenzaprine 5 mg Oral Tablet - take 1 tablet by ORAL route 3 times per day As needed; 15 tablet; Refills: 0, [facility] Product Selection Permitted - Tylenol-Codeine #3 300 mg-30 mg Oral - take 2 tablet by ORAL route every 6 hours; 20 tablet; Refills: 0, Product [facility] Selection Permitted Signatures: Dispatcher [employer] Clarence Alcaraz MD MD cha Gibson, Lacie, LUIS F RN lg3 [place], Erma tw5
[2021-11-14 05:01] VITALS: TEMP 98.4
[2021-11-14 05:22] VITALS: BP 127/94; O2SAT 99
--- NOTE | 2021-11-14 11:56 | RAD REPORT ---
EXAM DESCRIPTION: CT - Head C Spine Mpr Wo Con - 11/14/2021 4:18 am CLINICAL HISTORY: 46 years, Male, fall COMPARISON: None FINDINGS: Multiple transaxial tomograms of the brain were obtained from the base of the skull to the vertex without contrast. 2-D multiplanar reformats and the coronal and sagittal plane were performed and reviewed. Subsequently multiple axial CT images through the cervical spine were obtained at 2 mm slice thicknes s at 2 mm interval reconstruction. In addition 2-D multiplanar reformats and the sagittal coronal delaney ne were performed and reviewed. This exam was performed according to our departmental dose-optimization protocol, which includes auto mated exposure control, adjustment of the mA and/or kV according to patient size and/or use of iterat mg reconstruction technique. CT head: Brain parenchyma as well as the hester and white matter differentiation demonstrate to be unre markable. There is no midline shift and/or mass effect. There is no evidence for acute hemorrhage. Th ere is no focal areas of hypodensities. Lateral ventricles and cisterns displace normal appearance. No intra or extra axial fluid collections were seen. The calvarium is intact with no evidence for fracture. The visualized portions of the paranasal sinuses and orbits demonstrate to be clear. CT C-spine: Noted is the presence of anterior fixation device with oblique screws at C3/C4. Anterior plate fixation device with intervertebral disc bone grafting/fusion is identified at C5-C7. The align ment, vertebral body heights, and disc spaces are normal. There is no evidence of fracture or sublu xation. There is a posterior osteophyte complex at C3/C4. The spinal canal demonstrate no evidence fo r significant stenosis. Neural foramina demonstrate to be unremarkable. The uncovertebral joints demo nstrate to be normal. There is no prevertebral soft tissue swelling. There is a epidural neurostimula tor at the level of C4/C5. Sagittal coronal reformatted images demonstrate no subluxation or bony abn ormalities. IMPRESSION: No evidence for acute intracranial hemorrhage. No evidence for fracture or subluxation of the cervical spine. Anterior fixation device with oblique screws at C3/C4 and anterior plate fixation device with interve rtebral disc bone grafting/fusion at C5-C7. Electronically signed by: Mika Kurtz MD 11/14/2021 3:28 AM CDT Due to temporary technical issues with the PACS/Fluency reporting system, reports are being signed by the in house radiologists without review as a courtesy to insure prompt reporting. The interpreting radiologist is fully responsible for the content of the report.
--- NOTE | 2021-11-14 12:05 | RAD REPORT ---
EXAM DESCRIPTION: CT - Thorax Wo Saurabh - 11/14/2021 4:17 am CLINICAL HISTORY: 46 years, Male, Chest trauma, blunt COMPARISON: None FINDINGS: Multiple transaxial tomograms of the chest were obtained from the lung apices through the adrenal glands, utilizing 5 mm slice thickness at 5 mm interval reconstruction without the administra tion of IV contrast. Multiplanar reformats in the sagittal and coronal plane were generated and reviewed. This exam was performed according to our departmental dose-optimization protocol, which includes auto mated exposure control, adjustment of the mA and/or kV according to patient size and/or use of iterat mg reconstruction technique. The lungs parenchyma demonstrate there is a semisolid pulmonary nodule anterior segment right upper l obe measuring 4 mm on image 32. There is minimal subsegmental atelectatic changes inferior finger seg ment and posterior segment of the left lower lobe. No significant masses and/or consolidations are id entified. The trachea mainstem bronchus demonstrate to be normal. There is no significant pleural and/or perica rdial effusions. The thoracic aorta demonstrate to be within normal limits. The heart is not enlarged. There are no si gnificant coronary artery calcifications. Noted is presence of a dual-lead left posterior paraspinal muscle/soft tissue most likely corresponding to a neurostimulator perhaps entering into the cervical spine. There is no significant mediastinal and/or hilar lymphadenopathy. The axillary regions demonstrate to be clear. The bone windows demonstrate to be within normal limits. Visualized portions of the clavicles, sekou l heads and bilateral scapula demonstrate to be within normal limits. Benign appearing sclerotic lesi on within the right and left humeral head could correspond to most likely a bone island. The thoracic spine demonstrate to be within normal limits with no evidence for significant compression deformitie s. Very minimal anterior spondylosis mid thoracic spine. The sternum and bilateral ribs demonstrate n o evidence for fracture. Incidentally is noted the presence of a plate fixation device C6-C7. Grossly the unopacified portions of the upper abdomen demonstrate status post cholecystectomy. IMPRESSION: No evidence for acute traumatic injury to the chest. 4 mm right part-solid pulmonary nodule within the upper lobe. No routine follow-up imaging is recomme nded per Fleischner Society Guidelines. Status post cholecystectomy. Neurostimulator wire posterior left paraspinal aspect. Electronically signed by: Mika Kurtz MD 11/14/2021 3:18 AM CDT Due to temporary technical issues with the PACS/Fluency reporting system, reports are being signed by the in house radiologists without review as a courtesy to insure prompt reporting. The interpreting radiologist is fully responsible for the content of the report.
--- NOTE | 2021-11-14 12:19 | RAD REPORT ---
EXAM DESCRIPTION: RAD - Shoulder Left 2 View - 11/14/2021 3:26 am CLINICAL HISTORY: The patient is 46 years old and is Male; fall TECHNIQUE: Two or more views of the left shoulder. COMPARISON: No relevant prior studies available. FINDINGS: BONES/JOINTS: Glenohumeral joint appears intact, with no fracture, subluxation, or dislo cation. SOFT TISSUES: Unremarkable. PLEURAL SPACE: Visualized left hemithorax appears well-aerated and clear. No pneumothorax. TUBES, LINES AND DEVICES: Partially visualized inferior cervical spine ACDF changes and stimulator wires noted. IMPRESSION No acute abnormality of the left shoulder. Electronically signed by: Chicho Lane MD 11/14/2021 3:51 AM CDT Due to temporary technical issues with the PACS/Fluency reporting system, reports are being signed by the in house radiologists without review as a courtesy to insure prompt reporting. The interpreting radiologist is fully responsible for the content of the report.
== END 2021-11-14 04:06 | disposition home or self-care (01) ==
LOC: ER 01:44
DX: M25.512 Pain in left shoulder (principal); R51.9 Headache, unspecified; M54.2 Cervicalgia; R91.1 Solitary pulmonary nodule; W18.30XA Fall on same level, unspecified, initial encounter; I10 Essential (primary) hypertension; F17.210 Nicotine dependence, cigarettes, uncomplicated; Z88.5 Allergy status to narcotic agent
CPT/HCPCS: 70450; 71250; 72125; 99284

== ENCOUNTER 2022-01-01 08:59 | Emergency (ER) | payer OTHER ==
--- OUTSIDE RECORDS SUMMARY | 2022-01-01 09:04 | XMS REPORT | Continuity of Care Document ---
:1975 Author Organization [facility] t Address [address] [place] [address] [address]. [address] [place] [address] Care Team Providers Name Role Phone Stalin Combs Primary Care Physician JENNIFER BURRELL Attending Clinician Unavailable Doctor Unassigned, [place] Attending Clinician Unavailable AMBREEN_FARLADARIUSA Attending Clinician Unavailable FOG_A_Provider Attending Clinician Unavailable SCAR JAMISON Attending Clinician Unavailable TAYLOR SCHWARTZ Attending Clinician Unavailable Jennifer Burrell MD Attending Clinician Scar Merritt Attending Clinician Only, Adc Test Attending Clinician Unavailable Julianne Quintero Attending Clinician JULIANNE MILLER Attending Clinician Unavailable Chayo Esquivel Attending Clinician Chayo RIVAS Attending Clinician Unavailable Zena Flores DO Attending Clinician ZENA FLORES Attending Clinician Unavailable Osman Calvo MD Attending Clinician OSMAN CALVO Attending Clinician Unavailable Lisandro Jim DO Attending Clinician Peng GALLEGOP, Maged Dawn Attending Clinician MAGED LAMAR Attending Clinician Unavailable CHENCHO_Maicol Attending Clinician Unavailable Christiano QIU, Amaris Champion Attending Clinician AMARIS ALVARADO Attending Clinician Unavailable Jj Moran MD Attending Clinician JJ MORAN Attending Clinician Unavailable Centeno [employer], Kwaku Attending Clinician KWAKU CENTENO Attending Clinician Unavailable Ibikunearline [employer], Qi F Attending Clinician Teodoro [employer], Alley Brantley Attending Clinician JENNIFER BURRELL Admitting Clinician Unavailable AMBREEN_FARHANA Admitting Clinician Unavailable FOG_A_Provider Admitting Clinician Unavailable Jennifer Burrell MD Admitting Clinician LARON Admitting Clinician Unavailable Payers Payer Name Policy Type Policy Number Effective Date Expiration Date S alisson [facility] [id number] 2020 00:00:00 [facility] [id number] [facility] () [facility] [id number] 2011 [facility] 00:00:00 REGION Problems Condition Condition Condition Status [...] encounter encounter ally from request for surgery [id number] Allergies, Adverse Reactions, Alerts Allergy Allergy Status [...] Univ ers INGREDI 11-13 ity of 00:00: [place] 00 [facility] Social History Social Habit Start Date Stop Date Quantity Comments Source History of tobacco Cigarette Smoker University of use [facility] Exposure to 2021-06-22 2021-07-02 Not sure University SARS-CoV-2 (event) 00:00:00 18:40:00 [facility] Alcohol intake 2021-06-30 2021-06-30 Current University of 00:00:00 00:00:00 non-drinker of [facility] alcohol [place] (finding) Cigarettes smoked 2017-02-23 2017-02-23 Univers ity of current (pack per 00:00:00 00:00:00 [facility] ) - Reported Branch Cigarette 2017-02-23 2017-02-23 University of pack-years 00:00:00 00:00:00 [facility] Tobacco use and 2017-02-23 2017-02-23 Smokeless Universit y of exposure 00:00:00 00:00:00 tobacco non-user [facility] Sex Ass[birth year] Universit y of 00:00:00 00:00:00 [facility] Smoking Status Start Date Stop Date Source Smokes tobacco daily 2017-02-23 00:00:00 Univers ity of [facility] Medications Ordered Filled Start Stop Current Ordering Indication Dosage Frequency Signature Comments Components Source Medication Medication Date Date Medication? Clinician (SIG) Name Name acetaminoph Yes Tylenol Uni vers en 06 ity of (TYLENOL) 02:05: [place] 325 mg [...] AND EVENING triamcinolo Yes triamcinol Univers ne 06-18 one ity of acetonide 02:05: acetonide [place] as 0.1 % 00 0.1 % Medical ointment topical Branch ointment APPLY A THIN LAYER TO THE AFFECTED AREA(S) BY TOPICAL ROUTE 2 TIMES PER DAY acetaminoph Yes Tylenol Uni vers en 06 ity of (TYLENOL) 02:05: [place] 325 mg Cap 00 Medical Branch clotrimazol Yes clotrimazo Univers e 1 % 06-18 le 1 % ity of topical 02:05: topical [place] cream 00 cream Medical APPLY TO Branch THE AFFECTED AND SURROUNDIN G AREAS OF SKIN BY TOPICAL ROUTE 2 TIMES PER DAY IN THE MORNING AND EVENING triamcinolo Yes triamcinol [facility] ne 06-18 one ity of acetonide 02:05: acetonide [place] as 0.1 % 00 0.1 % Medical ointment topical Branch ointment APPLY A THIN LAYER TO THE AFFECTED AREA(S) BY TOPICAL ROUTE 2 TIMES PER DAY metoprolol Yes 100mg Take 100 Un kevon succinate 4-04 mg by ity of XL 100 mg 14:22: mouth [place] 24 hr 24 daily. Medical tablet Branch [...] hr 24 daily. Medical tablet Branch valsartan 0 Yes 40mg Take 40 mg Un kevon 40 mg 4-04 by mouth ity of tablet 14:22: daily. [place] [address] Medical Branch amLODIPine 2021-0 Yes 10mg Take 10 mg U nivers 10 mg 4-04 by mouth ity of tablet 14:22: daily. Medical Branch DEXLANSOPRA 0 Yes Take by [...] by ity of capsule 14:22: mouth 4 [place] 24 (four) Medical times Branch daily. Takes 2 capsules in morning and 2 capsules in evening. metoprolol 2021-0 Yes 100mg Take 100 Un [place] succinate 4-04 mg by ity of XL 100 mg 14:22: mouth [place] 24 hr 24 daily. Medical tablet Branch valsartan 0 Yes 40mg Take 40 mg Un kevon 40 mg 4-04 by mouth ity of tablet 14:22: daily. [place] [address] Medical Branch amLODIPine 2021-0 Yes 10mg Take 10 mg U nivers 10 mg 4-04 by mouth ity of tablet 14:22: daily. [place] [address] Medical Branch DEXLANSOPRA 0 Yes Take by Uni vers ZOLE 4-04 mouth. ity of (DEXILANT 14:22: [place] ORAL) 24 Medical Branch oxyCODONE-a 0 Yes 1{tbl} Take 1 Un kevon cetaminophe [...] morning and 2 capsules in evening. metoprolol 0 Yes 100mg Take 100 Un [place]von succinate 4-04 mg by ity of XL 100 mg 14:22: mouth [place] 24 hr 24 daily. Medical tablet Branch valsartan 0 Yes 40mg Take 40 mg Un kevon 40 mg 4-04 by mouth ity of tablet 14:22: daily. [place] [address] Medical Branch amLODIPine 0 Yes 10mg Take 10 mg U nivers 10 mg 4-04 by mouth ity of tablet 14:22: daily. [place] [address] Medical Branch DEXLANSOPRA Yes Take by Uni vers ZOLE 4-04 mouth. ity of (DEXILANT 14:22: [place] ORAL) 24 Medical Branch oxyCODONE-a Yes 1{tbl} Take 1 Un kevon cetaminophe 4-04 tablet by ity of n 14:22: mouth [place] (PERCOCET) 24 every 6 Medica l 10-325 mg (six) Branch per tablet hours as needed for Pain. clindamycin 0 Yes 300mg Take 300 U nivers 300 mg 4-04 mg by ity of capsule 14:22: mouth 4 [place] 24 (four) Medical times Branch daily. Takes 2 capsules in morning and 2 capsules in evening. metoprolol 2021-0 Yes 100mg Take 100 Un kevon succinate 4-04 mg by ity of XL 100 mg 14:22: mouth [place] 24 hr 24 daily. Medical tablet Branch valsartan 0 Yes 40mg Take 40 mg Un kevon 40 mg 4-04 by mouth ity of tablet 14:22: daily. [place] [address] Medical Branch amLODIPine 0 Yes 10mg Take 10 mg U nivers 10 mg 4-04 by mouth ity of tablet 14:22: daily. [place] [address] Medical Branch DEXLANSOPRA 2022-0 Yes Take by Uni vers ZOLE 4-04 [...] % 3-09 ity of cream 00:00: [place] [facility] triamcinolo Yes Univer s ne 0.025 % 3-09 ity of cream 00:00: Medical Branch triamcinolo Yes Univer s ne 0.025 % 3-09 ity of cream 00:00: [place] 00 Medical Branch triamcinolo Yes Univer s ne 0.025 % 3-09 ity of cream 00:00: [place] 00 Medical Branch triamcinolo Yes Univer s ne 0.025 % 3-09 ity of cream 00:00: [place] 00 Medical Branch adalimumab Yes Univers (TAI RUIZ, 2-04 ity of PEN) 40 00:00: [place] mg/0.4 mL 00 Medical injection Branch clobetasoL Yes Univers 0.05 % 2-04 ity of cream 00:00: [place] Medical [facility] triamcinolo Yes Univer s ne 0.025 % 2-04 ity of cream 00:00: [place] 00 Medical Branch adalimumab 2021-0 Yes Univers (SARA,CF, 2-04 ity of PEN) 40 00:00: [place] mg/0.4 mL 00 Medical injection Branch clobetasoL Yes Univers 0.05 % 2-04 ity of cream 00:00: 00 Medical Branch triamcinolo Yes Univer s ne 0.025 % 2-04 ity of cream 00:00: [place] 00 Medical Branch adalimumab 2-0 Yes Univers (HUMIRA,CF, 2-04 ity of PEN) 40 00:00: [place] mg/0.4 mL 00 Medical injection Branch clobetasoL 2-0 Yes Univers 0.05 % 2-04 ity of cream 00:00: 00 Medical Branch triamcinolo 2-0 Yes Univer s ne 0.025 % 2-04 ity of cream 00:00: 00 Medical Branch adalimumab 2-0 Yes Univers (HUMIRA,CF, 2-04 ity of PEN) 40 00:00: [place] mg/0.4 mL 00 Medical injection Branch clobetasoL 2021-0 Yes Univers 0.05 % 2-04 ity of cream 00:00: [place] 00 Medical Branch triamcinolo 2021-0 Yes Univer s ne 0.025 % 2-04 ity of cream 00:00: [place] 00 Medical Branch adalimumab 2-0 Yes Univers (HUMIRA,CF, 2-04 ity of PEN) 40 00:00: [place] mg/0.4 mL 00 Medical injection Branch clobetasoL 2021-0 Yes Univers 0.05 % 2-04 ity of cream 00:00: [place] Medical Branch triamcinolo 2021-0 Yes Univer s ne 0.025 % 2-04 ity of cream 00:00: [place] 00 Medical Branch amitriptyli 2020- Yes Univer s ne 25 mg 2-07 ity of tablet 00:00: [place] 00 Medical Branch amitriptyli 2020-1 Yes Univer s ne 25 mg 2-07 ity of tablet 00:00: [place] 00 Medical Branch amitriptyli 2020-1 Yes Univer s ne 25 mg 2-07 ity of tablet 00:00: [place] 00 Medical Branch amitriptyli 2020-1 Yes Univer s ne 25 mg 2-07 ity of tablet 00:00: [place] 00 Medical Branch amitriptyli 2020- Yes Univer s ne 25 mg 2-07 ity of tablet 00:00: [place] 00 Medical Branch levoFLOXaci 2020- Yes [id number] 750mg Take 1 Univers n 2- 9108 tablet by ity of (LEVAQUIN) 00:00: mouth [place] 750 mg 00 every 24 Medical tablet (twenty-fo Branch ur) hours. levoFLOXaci 2020-03 Yes [id number] 750mg Take 1 Univers n 2-02 9108 tablet by ity of (LEVAQUIN) 00:00: mouth [place] 750 mg 00 every 24 Medical tablet (twenty-fo Branch ur) hours. levoFLOXaci 2020-03 Yes [id number] 750mg Take 1 Univers n 2-02 9108 tablet by ity of (LEVAQUIN) 00:00: mouth [place] 750 mg 00 every 24 Medical tablet (twenty-fo Branch ur) hours. levoFLOXaci 2020-03 Yes [id number] 750mg Take 1 Univers n 2-02 9108 tablet by ity of (LEVAQUIN) 00:00: mouth [place] 750 mg 00 every 24 Medical tablet (twenty-fo Branch ur) hours. levoFLOXaci 2020-03 Yes [id number] 750mg Take 1 Univers n 2- 9108 tablet by ity of (LEVAQUIN) 00:00: mouth [place] 750 mg 00 every 24 Medical tablet (twenty- Branch ur) hours. ondansetron 0 Yes Univer s 4 mg 9-25 ity of disintegrat 00:00: [place] ing tablet 00 Medical Branch ondansetron 0 Yes Univer s 4 mg 9-25 ity of disintegrat 00:00: [place] ing tablet 00 Medical Branch ondansetron 2020-0 Yes Univer s 4 mg 9-25 ity of disintegrat 00:00: [place] ing tablet 00 Medical Branch ondansetron 2020-0 Yes Univer s 4 mg 9-25 ity of disintegrat 00:00: [place] ing tablet 00 Medical Branch ondansetron 2020-0 Yes Univer s 4 mg 9-25 ity of disintegrat 00:00: [place] ing tablet 00 Medical Branch proMETHazin 2020-0 Yes [id number] 25mg Insert 1 Univers e 25 mg 9-19 Suppositor ity of suppository 00:00: [place] 00 rectum Medical every 4 Branch (four) hours as needed for Nausea and Vomiting (N/V). proMETHazin 2020-0 Yes [id number] 25mg Insert 1 Univers e 25 mg 9-19 Suppositor ity of suppository 00:00: [place] 00 rectum Medical every 4 Branch (four) hours as needed for Nausea and Vomiting (N/V). proMETHazin Yes [id number] 25mg Insert 1 Univers e 25 mg 9-19 Suppositor ity of suppository 00:00: [place] into [place] 00 rectum Medical every 4 Branch (four) hours as needed for Nausea and Vomiting (N/V). proMETHazin 0 Yes [id number] 25mg Insert 1 Univers e 25 mg 9-19 Suppositor ity of suppository 00:00: [facility] Medical every 4 Branch (four) hours as needed for Nausea and Vomiting (N/V). proMETHazin Yes [id number] 25mg Insert 1 Univers e 25 mg 9-19 Suppositor ity of suppository 00:00: [facility] Medical every 4 Branch (four) hours as needed for Nausea and Vomiting (N/V). hydroCHLORO Yes Univer s thiazide 25 6-28 ity of mg tablet 00:00: [address] methocarbam 0 Yes Univer s oL 500 mg 6-28 ity of tablet 00:00: [address] hydroCHLORO 0 Yes Univer s thiazide 25 6-28 ity of mg tablet 00:00: [place] [facility] methocarbam 0 Yes Univer s oL 500 mg 6-28 ity of tablet 00:00: [place] [facility] hydroCHLORO 2020-0 Yes Univer s thiazide 25 6-28 ity of mg tablet 00:00: [place] [facility] methocarbam 0 Yes Univer s oL 500 mg 6-28 ity of tablet 00:00: [place] [facility] hydroCHLORO 2020-0 Yes Univer s thiazide 25 6-28 ity of mg tablet 00:00: [place] [facility] methocarbam 2020-0 Yes Univer s oL 500 mg 6-28 ity of tablet 00:00: [address] hydroCHLORO 2020-0 Yes Univer s thiazide 25 6-28 ity of mg tablet 00:00: [address] methocarbam 2020-0 Yes Univer s oL 500 mg 6-28 ity of tablet 00:00: [address] gabapentin 2020-0 Yes Univers 300 mg 5-26 ity of capsule 00:00: 00 Medical Branch gabapentin 2020-0 Yes Univers 300 mg 5-26 ity of capsule 00:00: Medical Branch gabapentin 2020-0 Yes Univers 300 mg 5-26 ity of capsule 00:00: Medical Branch gabapentin 2020-0 Yes Univers 300 mg 5-26 ity of capsule 00:00: Medical Branch gabapentin 2020-0 Yes Univers 300 mg 5-26 ity of capsule 00:00: Medical Branch orphenadrin 2020-0 Yes Univer s e 100 mg SR 5-19 ity of tablet 00:00: Medical Branch orphenadrin 2020-0 Yes Univer s e 100 mg SR 5-19 ity of tablet 00:00: Medical Branch orphenadrin 2020-0 Yes Univer s e 100 mg SR 5-19 ity of tablet 00:00: Medical Branch orphenadrin 2020-0 Yes Univer s e 100 mg SR 5-19 ity of tablet 00:00: Medical Branch orphenadrin 2020-0 Yes Univer s e 100 mg SR 5-19 ity of tablet 00:00: Medical Branch oxyCODONE 2020-0 Yes Univers myristate 4-27 ity of (XTAMPZA 00:00: [place] [facility]) 13.5 [facility]0 Yes Univers myristate 4-27 ity of (XTAMPZA 00:00: [place] ER) 13.5 mg 00 [facility] 2020-0 Yes Univers myristate 4-27 ity of (XTAMPZA 00:00: [place] ER) 13.5 mg 00 [facility] 2020-0 Yes Univers myristate 4-27 ity of (XTAMPZA 00:00: [place] ER) 13.5 mg 00 [facility] 2020-0 Yes Univers myristate 4-27 ity of (XTAMPZA 00:00: [place] ER) 13.5 mg 00 [facility] FLU[facility] 2020-0 Yes Univers 20 mg 3-04 ity of capsule 00:00: Medical Branch FLUoxetine 2020-0 Yes Univers 20 mg 3-04 ity of capsule 00:00: Medical Branch FLUoxetine 2020-0 Yes Univers 20 mg 3-04 ity of capsule 00:00: [place] 00 Medical Branch FLUoxetine 2020-0 Yes Univers 20 mg 3-04 ity of capsule 00:00: [place] 00 Medical Branch FLUoxetine 2020-0 Yes Univers 20 mg 3-04 ity of capsule 00:00: [place] 00 Medical Branch oxyCODONE 2020-0 Yes Univers myristate 2-11 ity of (XTAMPZA 00:00: [place] ER) 9 mg 00 Medical CSpT Branch oxyCODONE 0 Yes Univers myristate 2-11 ity of (XTAMPZA 00:00: [place] ER) 9 mg 00 Medical CSpT Branch oxyCODONE 0 Yes Univers myristate 2-11 ity of (XTAMPZA 00:00: [place] ER) 9 mg 00 Medical CSpT Branch oxyCODONE 0 Yes Univers myristate 2-11 ity of (XTAMPZA 00:00: [place] ER) 9 mg 00 Medical CSpT Branch oxyCODONE 0 Yes Univers myristate 2-11 ity of (XTAMPZA 00:00: [place] ER) 9 mg 00 [facility] nap[facility]en 2020-0 Yes [id number] 500mg Take 1 Univers 500 mg 6-16 9109 tablet by ity of tablet 00:00: mouth [place] 00 every 8 Medical (eight) Branch hours as needed for Pain (scale 4-6). naproxen 2020-0 Yes [id number] 500mg Take 1 Univers 500 mg 6-16 9109 tablet by ity of tablet 00:00: mouth [place] 00 every 8 Medical (eight) Branch hours as needed for Pain (scale 4-6). naproxen 2020-0 Yes [id number] 500mg Take 1 Univers 500 mg 6-16 9109 tablet by ity of tablet 00:00: mouth [place] 00 every 8 Medical (eight) Branch hours as needed for Pain (scale 4-6). naproxen 2020-0 Yes [id number] 500mg Take 1 Univers 500 mg 6-16 9109 tablet by ity of tablet 00:00: mouth [place] 00 every 8 Medical (eight) Branch hours as needed for Pain (scale 4-6). naproxen 2020-0 Yes [id number] 500mg Take 1 Univers 500 mg 6-16 9109 tablet by ity of tablet 00:00: mouth [place] 00 every 8 Medical (eight) Branch hours as needed for Pain (scale 4-6). diazePAM 2018-03 Yes [id number] 5mg Take 1 Uni vers (VALIUM) 5 2-23 tablet by ity of mg tablet 00:00: mouth 3 (three) Medical times Branch daily. diazePAM 2018-03 Yes [id number] 5mg Take 1 Uni vers (VALIUM) 5 2-23 tablet by ity of mg tablet 00:00: mouth 3 (three) Medical times Branch daily. diazePAM 2018-03 Yes [id number] 5mg Take 1 Uni vers (VALIUM) 5 2-23 tablet by ity of mg tablet 00:00: mouth 3 (three) Medical times Branch daily. diazePAM 2018-03 Yes [id number] 5mg Take 1 Uni vers (VALIUM) 5 2-23 tablet by ity of mg tablet 00:00: mouth 3 (three) Medical times Branch daily. diazePAM 2018-03 Yes [id number] 5mg Take 1 Uni vers (VALIUM) 5 2-23 tablet by ity of mg tablet 00:00: mouth 3 (three) Medical times Branch daily. cyclobenzap Yes [id number] 5mg Take 1 Univers rine 5 mg 6-08 07 tablet by ity o f tablet 00:00: mouth 3 (three) Medical times Branch daily. cyclobenzap Yes [id number] 5mg Take 1 Univers rine 5 mg 6-08 07 tablet by ity o f tablet 00:00: mouth 3 (three) Medical times Branch daily. cyclobenzap Yes [id number] 5mg Take 1 Univers rine 5 mg 6-08 07 tablet by ity o f tablet 00:00: mouth 3 (three) Medical times Branch daily. cyclobenzap Yes [id number] 5mg Take 1 Univers rine 5 mg 6-08 07 tablet by ity o f tablet 00:00: mouth 3 (three) Medical times Branch daily. cyclobenzap Yes [id number] 5mg Take 1 Univers rine 5 mg [...] 50-325-40 00 Medical mg tablet Branch butalbital- 0 Yes TK 1 T PO U nivers acetaminoph 3-30 TWICE A ity o f en-caff 00:00: DAY PRF [place]CCANN [place] 50-325-40 00 Medical mg tablet Branch butalbital- 0 Yes TK 1 T PO U nivers acetaminoph 3-30 TWICE A ity o f en-caff 00:00: DAY PRF [place] 50-325-40 00 Medical mg tablet Branch butalbital- 0 Yes TK 1 T PO U nivers acetaminoph 3-30 TWICE A ity o f en-caff 00:00: DAY PRF [place]CCANN [place] 50-325-40 00 Medical mg tablet Branch LYRICA 150 2018-0 Yes Univers mg capsule 3-28 ity of 00:00: [place] 00 Medical Branch LYRICA 150 2018-0 Yes Univers mg capsule 3-28 ity of 00:00: [place] [facility] LYRICA 150 2018-0 Yes Univers mg capsule 3-28 ity of 00:00: [place] [facility] LYRICA 150 2018-0 Yes Univers mg capsule 3-28 ity of 00:00: [place] Medical [facility] LYRICA 150 2018-0 Yes Univers [...] blood 2021-06-30 18:36:00 138 mm[Hg] Univer sity [facility] pressure [facility] Diastolic blood 2021-06-30 18:36:00 96 mm[Hg] Unive rsity [facility] Heart rate 2021-06-30 18:17:00 95 /min [facility] Body height 2021-06-30 18:17:00 190.5 cm [facility] Body weight 2021-06-30 18:17:00 105.688 kg [facility] BMI 2021-06-30 18:17:00 29.12 kg/m2 [facility] Oxygen saturation 2021-06-30 18:17:00 100 /min [facility] in Arterial blood [facility] Br anch by Pulse oximetry Procedures Procedure Date / Time Performed Performing Clinician [facility] e REFERRAL- 2021-10-09 05:01:00 Doctor Unassigned, No [facility] REQUEST/RESPONSE Name [facility] Encounters Start End Encounter Admission Attending Care Care Encounter Source Date/Time Date/Time Type Type Clinicians Facility Department ID 2021-06-12 [id number] Univers 08:42:07 JENNIFER ity [facility] 2021-10-09 2021-10-09 Orders Doctor MOOENY [id number] Univers 00:00:00 00:00:00 Only Unassigned, LEYLA [id number] ity of [place] [facility] [id number] [place] as [phone] [address] 2021-09-26 2021-09-26 Outpatient AMBREEN_CESILIA FOSTER [id number] [place] 04:24:00 04:24:00 HANA [id number] [facility] 2021-08-20 2021-08-20 Outpatient FOG_A_Provi AOSM AOSM [id number] Leah 00:00:00 00:00:00 ish [id number] [facility] 2021-07-21 2021-07-21 Outpatient Eligio JAMISON [facility] [id number] Univers 14:15:00 14:15:00 [facility] 2021-07-21 2021-07-21 Outpatient Eligio JAMISON [facility] [id number] Univers 14:15:00 14:15:00 [facility] 2021-07-03 2021-07-03 Patient Doctor [facility] [id number] Univers 00:00:00 00:00:00 Secure Msg Unassigned, HEALTH [id number] ity of [place] [facility] [id number] Marty as FITZ?BLEA [phone] Ri padmini AGOSTO [address] [place] [address] OFFICE [facility] 2021-07-02 2021-07-02 Outpatient Eligio SCHWARTZ [facility] [id number] Univers 19:00:00 19:00:00 MARJANIA gianna [facility] 2021-07-02 2021-07-02 [email or web address] [id number] Univers 00:00:00 00:00:00 Jennifer SPECIALTY [id number] ity of [place] [id number] [place] [phone] Ri padmini TAO [address] [place] [address] 2021-07-02 2021-07-02 Mora Jamison [facility] [id number] Univers 00:00:00 00:00:00 [facility] HEALTH [id number] it y of [place] [id number] [place] as FITZ?BLEA [phone] Ri padmini AGOSTO [address] [place] [address] OFFICE [facility] 2021-06-30 2021-06-30 Outpatient Eligio BURRELL [facility] [id number] Univers 14:26:57 23:59:00 JENNIFER katz [facility] 2021-06-30 2021-06-30 Office [email or web address] [id number] Univers 13:30:00 13:45:00 Visit Scar ParasitX HEALTH [id number] it y of [place] [id number] Marty as FITZ?BLEA [phone] Ri padmini AGOSTO [address] [place] [address] 2021-06-30 2021-06-30 Outpatient R YAQUELIN [facility] [id number] Univers 13:30:00 13:30:00 SCAR ity of [facility] 2021-06-30 2021-06-30 Telephone [email or web address] [id number] Univers 00:00:00 00:00:00 [employer] [id number] it y of [place] [id number] Marty as FITZ?BLEA [phone] Ri padmini AGOSTO [address] [place] [address] 2021-06-24 2021-06-24 Telephone [email or web address] [id number] Univers 00:00:00 00:00:00 Jennifer L SPECIALTY [id number] ity of [place] [id number] [place] [phone] Me padmini TAO [address] [place] [address] 2021-06-18 2021-06-18 Telephone [email or web address] [id number] Univers 00:00:00 00:00:00 [facility] HEALTH [id number] it y of [place] [id number] Marty as FITZ?BLEA [phone] Ri padmini AGOSTO [address] [place] [address] 2021-06-18 2021-06-18 Patient [email or web address] [id number] Univers 00:00:00 00:00:00 Secure Msg Jennifer L SPECIALTY [id number] ity of [place] [id number] [place] [id number] Ri padmini TAO [address] [place] [address] 2021-06-16 2021-06-16 Outpatient R [email or web address] SOR [id number] Univers 08:25:00 14:05:00 JENNIFER ity of [facility] 2021-06-16 2021-06-16 [facility] [id number] Univers 08:25:00 14:05:00 Encounter Jennifer STEEN [id number] ity of [place] [id number] [place] SUR[place]ICAL [id number] [facility] 071 [place] 2021-06-16 2021-06-16 Surgery [email or web address] [id number] Univers 12:10:00 13:10:00 Jennifer STEEN [id number] i ty of [place] [id number] [place] [id number] [facility] 020 Branch 2021-06-16 2021-06-16 Telephone [email or web address]] 1.2.840.114 [id number] Univers 00:00:00 00:00:00 Jennifer Milian HEALTH 350.1.13.10 it [facility] 4.2.7.2.686 Marty as FITZ?BLEA [phone] Ri padmini AGOSTO [address] MEDICAL OFFICE [facility] 2021-06-13 2021-06-13 Laboratory Only, Adc Test [facility] 1.2.840. 114 [id number] Univers 09:45:00 10:00:00 Only Jennifer Burrell 350.1.13.10 ity of [place]2.7.2.[place] [id number] [facility] [address] 2021-06-13 2021-06-13 Outpatient [facility] [id number] Univers 09:45:00 09:45:00 JENNIFER [facility] 2021-06-11 2021-06-11 Outpatient [facility] [id number] Univers 13:00:00 14:02:56 SCAR [facility] 2021-06-11 2021-06-11 [email or web address] 1.2.840.114 [id number] Univers 13:00:00 14:02:56 Visit Scar [facility] 350.1.13.10 it y [facility] 4.2.7.2.686 Marty as FITZ?BLEA [phone] Ri padmini AGOSTO [address] [place] [address] MEDICAL OFFICE [facility] 2021-06-11 2021-06-11 Outpatient R YAQUELIN [facility] [id number] Univers 13:00:00 14:02:56 SCAR gianna [facility] 2021-06-11 2021-06-11 Prep For [email or web address] 1.2.840.114 [id number] Univers 00:00:00 00:00:00 Surgery Jennifer Milian HEALTH 350.1.13.10 it y of [place] 4.2.7.2.686 Marty as FITZ?BLEA [phone] Ri padmini AGOSTO [address] [place] [address] OFFICE [facility] 2021-06-10 2021-06-10 Telephone [email or web address] 1.2.840.114 [id number] Univers 00:00:00 00:00:00 Jennifer Milian HEALTH 350.1.13.10 it y of [place] 4.2.7.2.686 Marty as FITZ?BLEA [phone] Ri padmini AGOSTO [address] [place] [address] OFFICE [facility] 2021-06-10 2021-06-10 Telephone [email or web address] 1.2.840.114 [id number] Univers 00:00:00 00:00:00 Jennifer Milian HEALTH 350.1.13.10 it y of [place] 4.2.7.2.686 Marty as FITZ?BLEA [phone] Ri padmini AGOSTO [address] [place] [address] OFFICE [facility] 2021-02-13 2021-02-13 Outpatient [facility] [id number] Univers 11:00:00 11:30:28 JENNIFERRADHA katz [facility] 2021-02-13 2021-02-13 Office [email or web address] 1.2.726.223 [id number] Univers 10:51:39 11:30:28 Visit Jennifer Milian [facility] 350.1.13.10 it y of [place] 4.2.7.2.686 Marty as FITZ?BLEA [phone] Ri padmini AGOSTO [address] [place] [address] OFFICE [facility] 2020-12-01 2020-12-01 Emergency [email or web address] 1.2.816.001 [id number] Univers 19:06:00 21:32:00 Julianne S [place] 350.1.13.10 i ty of [place] 4.2.7.2.686 [facility] [phone] [address] 2020-12-01 2020-12-01 Emergency Indy MILLER [facility] ERT [id number] Univers 19:06:00 19:06:00 JULIANNE ity [facility] 2020-07-29 2020-07-30 Emergency Chayo Rivas [facility] 1.2.840.114 [id number] 22:02:00 01:32:00 Yessenia Steen 350.1.13.10 [place] 4.2.7.2.686 [place] [id number] [facility] 2020-07-29 2020-07-30 Emergency MaeganChayo [facility] 1.2.840.114 [id number] Univers 22:02:00 01:32:00 Yessenia Steen 350.1.13.10 i ty of [place] 4.2.7.2.686 [facility] [id number] [address] 2020-07-29 2020-07-29 Emergency X MAEGAN, K [facility] ERT [id number] Univers 22:02:00 22:02:00 ity [facility] 2020-07-25 2020-07-25 Emergency [email or web address] 1.2.840.114 [id number] 20:26:00 23:14:00 Zena Steen 350.1.13.10 [place] 4.2.7.2.686 [place] [id number] [facility] 2020-07-25 2020-07-25 Emergency [email or web address] 1.2.840.114 [id number] Univers 20:26:00 23:14:00 Zena Steen 350.1.13.10 ity [facility] 4.2.7.2.686 [facility] [id number] [address] 2020-07-25 2020-07-25 Emergency X MARK [facility] ERT [id number] Univers 20:26:00 20:26:00 [facility] 2020-07-21 2020-07-22 Emergency Lubna [facility] 1.2.122.292 [id number] 23:32:00 02:30:00 Osman Steen 350.1.13.10 [place] 4.2.7.2.686 [place] [id number] [facility] 2020-07-21 2020-07-22 Emergency [facility] 1.2.105.131 [id number] Univers 23:32:00 02:30:00 Osman [place] 350.1.13.10 ity of [place] 4.2.7.2.686 [facility] [id number] [address] 2020-07-21 2020-07-21 Emergency [facility] [id number] Univers 23:32:00 23:32:00 OSMAN [facility] 2020-07-17 2020-07-18 Emergency [facility] 1.2.001.124 [id number] 22:52:00 00:59:00 Julianne [place] 350.1.13.10 [place] [address] [place] [address] [id number] [facility] 2020-07-17 2020-07-18 Emergency [email or web address] 1.2.865.458 [id number] Univers 22:52:00 00:59:00 Julianne [place] 350.1.13.10 i ty of [place] 4.2.7.2.[address] [place] [phone] 2020-07-17 2020-07-17 Emergency [facility] [id number] Univers 22:52:00 22:52:00 JULIANNE [facility] 2020-07-02 2020-07-02 [facility] 1.2.012.174 [id number] 19:35:00 22:12:00 Lisandrojose j [place] 350.1.13.10 [place] 4.2.7.2.686 [place] [phone] [facility] 2020-07-02 2020-07-02 Emergency [email or web address] 1.2.448.504 [id number] Univers 19:35:00 22:12:00 Lisandro [place] 350.1.13.10 i ty of [place] 4.2.7.2.686 [facility] [id number] [address] 2020-07-02 2020-07-02 Emergency X [facility] ERT [id number] Univers 19:23:00 19:23:00 ity [facility] 2020-06-10 2020-06-10 Emergency [facility], [facility] 1.2.449.841 [id number] 01:29:00 03:55:00 Johnsonvalentín S [place] 350.1.13.10 [place] 4.2.7.2.686 [place] [id number] [facility] 2020-06-10 2020-06-10 Emergency [facility], [facility] 1.2.991.491 [id number] Univers 01:29:00 03:55:00 Chevymarissavalentín S [place] 350.1.13.10 ity [facility] 4.2.7.2.686 [facility] [phone] [address] 2020-06-10 2020-06-10 Emergency X [facility] ERT [id number] Univers 01:19:00 01:19:00 ity [facility] 2020-05-08 2020-05-08 Emergency Peng, [facility] 1.2.840.114 [id number] 20:57:00 21:46:00 Maged B [place] 350.1.13.10 [place] 4.2.7.2.686 [place] [phone] [facility] 2020-05-08 2020-05-08 Emergency [place], [facility] 1.2.840.114 [id number] Univers 20:57:00 21:46:00 Maged B [place] 350.1.13.10 i ty of [place] 4.2.7.2.686 [facility] [phone] [address] 2020-05-08 2020-05-08 Emergency X FREDERICK, [facility] ERT [id number] Univers 20:50:00 20:50:00 MAGED ity [facility] 2020-04-16 2020 Emergency Maegan, K [facility] 1.2.840.114 [id number] Univers 21:21:00 01:05:00 Yessenia [place] 350.1.13.10 i ty of [place] 4.2.7.2.686 [phone] [address] 2020-04-16 2020 Emergency Chayo Rivas [facility] 1.2.840.114 [id number] 21:21:00 01:05:00 Yessenia Steen 350.1.13.10 [place] 4.2.7.2.686 [place] [id number] [facility] 2020-04-16 2020-04-16 Emergency X Chayo RIVAS [facility] ERT [id number] Univers 21:21:00 21:21:00 ity [facility] 2020-03-09 2020-03-09 Emergency [facility] 1.2.843.255 [id number] Univers 20:23:00 22:51:00 Julianne Steen 350.1.13.10 i ty of [place] 4.2.7.2.686 [facility] [id number] [address] 2020-03-09 2020-03-09 Emergency [facility] 1.2.526.839 [id number] 20:23:00 22:51:00 Julianne Steen 350.1.13.10 [place] 4.2.7.2.686 [place] [id number] [facility] 2020-03-09 2020-03-09 Emergency X [facility] ERT [id number] Univers 18:38:00 18:38:00 JULIANNE ity [facility] 2020-03-09 2020-03-09 Orders Doctor MOONEY 1.2.840.114 [id number] Univers 00:00:00 00:00:00 Only Unassigned, LEYLA 350.1.13.10 ity of [place] [facility] 4.2.7.2.686 Marty [phone] [address] 2020-03-09 2020-03-09 Orders Doctor MOONEY 1.2.840.114 [id number] 00:00:00 00:00:00 Only Unassigned, LEYLA 350.1.13.10 [facility] 4.2.7.2.686 [id number] [id number] 2020-02-14 2020-02-15 Emergency [facility] 1.2.742.412 [id number] Univers 23:22:00 00:54:00 Osman Steen 350.1.13.10 ity of [place] 4.2.7.2.686 [facility] [phone] [address] 2020-02-14 2020-02-15 Emergency [facility] 1.2.870.382 [id number] 23:22:00 00:54:00 Osman Steen 350.1.13.10 [place] 4.2.7.2.686 [place] [id number] [facility] 2020-02-14 2020-02-14 Emergency X [facility] ERT [id number] Univers 23:10:00 23:10:00 OSMAN ity [facility] 2020-01-31 2020-01-31 Outpatient HUTTON_L MMG [facility] [id number] [place] 02:19:00 02:19:00 [facility] Medical [facility] 2020-01-28 2020-01-28 Emergency Maegan, K [facility] 1.2.840.114 [id number] Univers 17:47:00 21:50:00 Yessenia Steen 350.1.13.10 i ty of [place] 4.2.7.[address] [place] [phone] 2020-01-28 2020-01-28 Emergency Maegan, K [facility] 1.2.840.114 [id number] 17:47:00 21:50:00 Yessenia Steen 350.1.13.10 [place] 4.2.7.2.686 [place] [id number] [facility] 2020-01-28 2020-01-28 Emergency X [facility] ERT [id number] Univers 17:23:00 17:23:00 ity of [facility] 2020-01-22 2020-01-22 Emergency [facility] 1.2.698.957 [id number] Univers 19:22:00 22:47:00 Amaris Steen 350.1.13.10 ity of [place] 4.2.7.2.686 [facility] [id number] [address] 2020-01-22 2020-01-22 Emergency [email or web address] 1.2.122.785 [id number] 19:22:00 22:47:00 Amaris Steen 350.1.13.10 [place] 4.2.7.2.686 [place] [id number] [facility] 2020-01-22 2020-01-22 Emergency X CHRISTIANO [facility] ERT [id number] Univers 19:08:00 19:08:00 AMARIS [facility] 2020-01-20 2020-01-21 Emergency [facility] 1.2.245.839 [id number] Univers 23:26:00 02:01:00 Jj [place] 350.1.13.10 i ty of [place] 4.2.7.2.686 [facility] [id number] [address] 2020-01-20 2020-01-21 Emergency [email or web address] 1.2.690.307 [id number] 23:26:00 02:01:00 Jj Steen 350.1.13.10 [place] 4.2.7.2.686 [place] [id number] [facility] 2020-01-20 2020-01-20 Emergency [email or web address] ERT [id number] Univers 23:26:00 23:26:00 JJ [facility] 2019-12-30 2019-12-30 Emergency Maegan [facility] 1.2.840.114 [id number] Univers 11:45:00 14:25:00 Yessenia Steen 350.1.13.10 i ty of [place] 4.2.7.2.[address] [place] [id number] 2019-12-30 2019-12-30 Emergency Chayo Rivas [facility] 1.2.840.114 [id number] 11:45:00 14:25:00 Yessenia Steen 350.1.13.10 [place] [address] [place] [address] [id number] [facility] 2019-12-30 2019-12-30 Emergency X Chayo RIVAS [facility] ERT [id number] Univers 11:45:00 11:45:00 ittristan [facility] 2019-12-22 2019-12-22 Emergency [facility] 1.2.017.224 [id number] Univers 13:48:00 16:20:00 Jj [place] 350.1.13.10 i ty of [place] 4.2.7.2.686 [facility] [id number] [address] 2019-12-22 2019-12-22 Emergency Moran, [facility] 1.2.669.642 [id number] 13:48:00 16:20:00 Jj [place] 350.1.13.10 [place] 4.2.7.2.686 [place] [id number] [facility] 2019-12-22 2019-12-22 Emergency X [facility] ERT [id number] Univers 13:43:00 13:43:00 ity [facility] 2019-12-22 2019-12-22 Orders Doctor MOONEY 1.2.840.114 [id number] Univers 00:00:00 00:00:00 Only Unassigned, LEYLA 350.1.13.10 ity of [place] [facility] 4.2.7.2.686 [facility] [id number] [address] 2019-12-22 2019-12-22 Orders Doctor MOONEY 1.2.840.114 [id number] 00:00:00 00:00:00 Only Unassigned, LEYLA 350.1.13.10 [place] [facility] 4.2.7.2.686 [id number] [id number] 2019-11-29 2019-11-29 Emergency [email or web address] 1.2.477.997 [id number] Univers 15:09:00 17:41:00 Julianne Steen 350.1.13.10 i ty of [place] 4.2.7.2.686 [facility] [id number] [address] 2019-11-29 2019-11-29 Emergency [email or web address] 1.2.407.421 [id number] 15:09:00 17:41:00 Julianne S [place] 350.1.13.10 [place] 4.2.7.2.686 [place] [id number] [facility] 2019-11-29 2019-11-29 Emergency [email or web address] ERT [id number] Univers 15:09:00 15:09:00 JULIANNE ity of [facility] 2019-11-12 2019-11-12 Emergency Centeno, [facility] 1.2.840.114 [id number] Univers 20:27:00 23:35:00 Kwaku [place] 350.1.13.10 i ty of [place] 4.2.7.2.686 [facility] [id number] [address] 2019-11-12 2019-11-12 Emergency Centeno, [facility] 1.2.840.114 [id number] 20:27:00 23:35:00 Kwaku Steen 350.1.13.10 [place] 4.2.7.2.686 [place] [id number] [facility] 2019-11-12 2019-11-12 Emergency X JACOBO, [facility] ERT [id number] Univers 20:27:00 20:27:00 KWAKU gautamtristan [facility] 2019-10-20 2019-10-21 Emergency [email or web address] 1.2.840.114 [id number] Univers 21:49:00 00:48:00 Zena Steen 350.1.13.10 ity of [place] 4.2.7.2.686 [facility] [id number] [address] 2019-10-20 2019-10-21 Emergency [email or web address] 1.2.840.114 [id number] 21:49:00 00:48:00 Zena Steen 350.1.13.10 [place] 4.2.7.2.686 [place] [id number] [facility] 2019-10-20 2019-10-20 Emergency [email or web address] ERT [id number] Univers 21:49:00 21:49:00 ZENA [facility] 2019-10-20 2019-10-20 Orders Doctor MOONEY 1.2.840.114 [id number] Univers 00:00:00 00:00:00 Only UnassignedLEYLA 350.1.13.10 ity of [facility] 4.2.7.2.686 [facility] [id number] [address] 2019-10-20 2019-10-20 Orders Doctor MOONEY 1.2.840.114 [id number] 00:00:00 00:00:00 Only Unassigned, LEYLA 350.1.13.10 [facility] 4.2.7.2.686 [id number] [id number] 2019-08-29 2019-08-29 Emergency Maria Eugenia, [facility] 1.2.840.114 [id number] [facility] 18:05:24 19:48:00 Qi Steen 350.1.13.10 ity of [place] 4.2.7.2.686 [facility] [id number] [address] 2019-08-29 2019-08-29 Emergency Maria Eugenia, [facility] 1.2.840.114 [id number] 18:05:24 19:48:00 Shakeelo Noel Steen 350.1.13.10 [place] 4.2.7.2.686 [place] [id number] [id number] 2019-08-11 2019-08-11 Outpatient HUTTON_L MMG [facility] [id number] [place] 09:48:00 09:48:00 [facility] 2019-04-20 2019-04-20 Emergency [facility] 1.2.840.114 [id number] [facility] 21:28:16 22:19:00 Alley Steen 350.1.13.10 ity of [place] 4.2.7.2.686 [facility] [id number] [address] 2019-04-20 2019-04-20 Emergency [facility], [facility] 1.2.840.114 [id number] 21:28:16 22:19:00 Alley Brantley [place] 350.1.13.10 [place] 4.2.7.2.686 [place] [id number] [id number] Results This patient has no known results.
[2022-01-01] MEDS ORDERED: ONDANSETRON 4 MG/2 ML VIAL ONE (09:42)
[2022-01-01] MEDS ORDERED: MORPHINE 4 MG/ML SYR ONE (09:42)
[2022-01-01] MEDS ORDERED: NA CHLORIDE 0.9% 1,000 ML ONE (09:42)
[2022-01-01] MEDS ORDERED: HYDROMORPHONE HCL 1 MG/ML INJ ONE ×2 (09:55→11:02)
[2022-01-01 09:59] LABS: Absolute Lymphocytes (CBC) 1.6 K/uL (0.7-4.9); Hematocrit 35.5 % (39.6-49.0); Lymphocytes % 20.6 % (15.3-44.8); MCV 85.8 fL (80-100); MPV 7.9 fL (7.6-11.3); RBC Red Blood Cell Count 4.14 M/uL (4.33-5.43)
[2022-01-01 10:22] LABS: ALT/SGPT 61 U/L (12-78); AST/SGOT 72 U/L (15-37); Albumin 3.2 g/dL (3.4-5.0); Alkaline Phosphatase 70 U/L (45-117); BUN Blood Urea Nitrogen 11 mg/dL (7-18); Bicarbonate 30 mmol/L (21-32); Bilirubin Total 0.2 mg/dL (0.2-1.0); Glomerular Filtration Rate 109 ml/min (=/>90); Glucose Level 103 mg/dL (74-106); Lipase 75 U/L (73-393); Potassium 3.8 mmol/L (3.5-5.1); Protein, Total 6.4 g/dL (6.4-8.2); Sodium Level 139 mmol/L (136-145)
[2022-01-01 10:23] LABS: Bilirubin Direct < 0.1 mg/dL (0-0.2)
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
[2022-01-01 11:54] VITALS: TEMP 97.3; O2SAT 98
[2022-01-01 11:55] VITALS: BP 138/74
== END 2022-01-01 11:42 | disposition home or self-care (01) ==
LOC: ER 08:59
DX: S22.22XA Fracture of body of sternum, initial encounter for closed fracture (principal); S16.1XXA Strain of muscle, fascia and tendon at neck level, initial encounter; S20.221A Contusion of right back wall of thorax, initial encounter; S20.222A Contusion of left back wall of thorax, initial encounter; S20.219A Contusion of unspecified front wall of thorax, initial encounter; V49.9XXA Car occupant (driver) (passenger) injured in unspecified traffic accident, initial encounter; I10 Essential (primary) hypertension; Z88.5 Allergy status to narcotic agent; Z88.8 Allergy status to other drugs, medicaments and biological substances
CPT/HCPCS: 96361; 85025; 80048; 36415; 86900; 86850; 82565; 86901; 80076; 83690; 70450; 72125; 71260; 74177; 71045; 96375; 96374; 99284; Q9967; J1170 ×2; J7030; J2405

== ENCOUNTER 2022-01-02 21:47 | Emergency (ER) | payer OTHER ==
--- OUTSIDE RECORDS SUMMARY | 2022-01-02 21:52 | XMS REPORT | Continuity of Care Document ---
:1975 Author Organization [facility] t Address [address] [place] [address] [address]. [address] [place] [address] Care Team Providers Name Role Phone Stalin Combs Primary Care Physician JENNIFER BURRELL Attending Clinician Unavailable FOG_A_Provider Attending Clinician Unavailable Doctor Unassigned, [place] Attending Clinician Unavailable AMBREEN_FARHANA Attending Clinician Unavailable SCAR JAMISON Attending Clinician [...] Clinician Unavailable Lisandro Jim DO Attending Clinician Willard GALLEGOP, Maged Dawn Attending Clinician MAGED LAMAR Attending Clinician Unavailable CHENCHO_Maicol Attending Clinician Unavailable Rohan QIU, Amaris Champion Attending Clinician AMARIS ALVARADO Attending Clinician Unavailable Jj Moran MD Attending Clinician JJ MORAN Attending Clinician Unavailable Centeno PROCEDURE WRITER, Kwaku Attending Clinician KWAKU CENTENO Attending Clinician Unavailable Ibikunearline PROCEDURE WRITER, Qi F Attending Clinician Chateja PROCEDURE WRITER, Alley Brantley Attending Clinician JENNIFER BURRELL Admitting Clinician Unavailable FOG_A_Provider Admitting Clinician Unavailable AMBREEN_FARHANA Admitting Clinician Unavailable Jennifer Burrell MD Admitting Clinician LARON Admitting Clinician Unavailable Payers Payer Name Policy Type Policy Number Effective Date Expiration Date S alisson [facility] [id number] 2020 00:00:00 [facility] [id number] [facility] () [facility] [id number] 2011 [facility] 00:00:00 REGION Problems Condition Condition Condition [...] encounter encounter ally from request for surgery [id number] Allergies, Adverse Reactions, Alerts Allergy Allergy Status [...] INGREDI 11-13 ity of 00:00: [place] 00 [facility] Social History Social Habit Start Date Stop Date Quantity Comments Source History of tobacco Cigarette Smoker University of use [facility] Exposure to 2021-06-22 2021-07-02 Not sure University SARS-CoV-2 (event) 00:00:00 18:40:00 [facility] Alcohol intake 2021-06-30 2021-06-30 Current University of 00:00:00 00:00:00 non-drinker of [facility] alcohol [place] (finding) Cigarettes smoked 2017-02-23 2017-02-23 Univers ity of current (pack per 00:00:00 00:00:00 [facility] ) - Reported Branch Cigarette 2017-02-23 2017-02-23 University of pack-years 00:00:00 00:00:00 [facility] Tobacco use and 2017-02-23 2017-02-23 Smokeless Universit y of exposure 00:00:00 00:00:00 tobacco non-user [facility] Sex Assigned [birth year] Universit y of 00:00:00 00:00:00 [facility] Smoking Status Start Date Stop Date Source Smokes tobacco daily 2017-02-23 00:00:00 Univers ity of [facility] Medications Ordered Filled Start Stop Current Ordering [...] THE MORNING AND EVENING triamcinolo Yes triamcinol [facility] ne 06-18 one ity of acetonide 02:05: acetonide Marty as 0.1 % 00 0.1 % Medical ointment topical Branch ointment APPLY A THIN LAYER TO THE AFFECTED AREA(S) BY TOPICAL ROUTE 2 TIMES PER DAY metoprolol Yes 100mg Take 100 Un kevon succinate 4-04 mg by ity of XL 100 mg 14:22: mouth [place] 24 hr 24 daily. Medical tablet Branch [...] by mouth ity of tablet 14:22: daily. [place] [address] Medical Branch amLODIPine 2021-0 Yes 10mg Take [...] by ity of capsule 14:22: mouth 4 [place] 24 (four) Medical times Branch daily. Takes 2 capsules in morning and 2 capsules in evening. metoprolol 2021-0 Yes 100mg Take 100 Un kevon succinate 4-04 mg by ity of XL 100 mg 14:22: mouth [place] 24 hr 24 daily. Medical tablet Branch valsartan 0 Yes 40mg Take 40 mg Un kevon 40 mg 4-04 by mouth ity of tablet 14:22: daily. [place] [address] Medical Branch amLODIPine 2021-0 Yes 10mg Take 10 mg U nivers 10 mg 4-04 by mouth ity of tablet 14:22: daily. [place] [address] Medical Branch DEXLANSOPRA 0 Yes Take by [...] by mouth ity of tablet 14:22: daily. [place] [address] Medical Branch amLODIPine 0 Yes 10mg Take 10 mg U nivers 10 mg 4-04 by mouth ity of tablet 14:22: daily. [place] [address] Medical Branch DEXLANSOPRA Yes Take by Uni [...] by ity of capsule 14:22: mouth 4 [place] 24 (four) Medical times Branch daily. Takes 2 capsules in morning and 2 capsules in evening. metoprolol 2021-0 Yes 100mg Take 100 Un kevon succinate 4-04 mg by ity of XL 100 mg 14:22: mouth [place] 24 hr 24 daily. Medical tablet Branch valsartan 0 Yes 40mg Take 40 mg Un kevon 40 mg 4-04 by mouth ity of tablet 14:22: daily. [place] [address] Medical Branch amLODIPine 0 Yes 10mg Take 10 mg U nivers 10 mg 4-04 by mouth ity of tablet 14:22: daily. [place] [address] Medical Branch DEXLANSOPRA 2022-0 Yes Take by [...] 0.05 % 2-04 ity of cream 00:00: [place] 00 Medical Branch triamcinolo 2021-0 Yes Univer s ne 0.025 % 2-04 ity of cream 00:00: [place] 00 Medical Branch adalimumab 2-0 Yes Univers (HUMIRA,CF, 2-04 ity of PEN) 40 00:00: [place] mg/0.4 mL 00 Medical injection Branch clobetasoL 2021-0 Yes Univers 0.05 % 2-04 ity of cream 00:00: [place] Medical Branch triamcinolo 2021-0 Yes Univer s ne 0.025 % 2-04 ity of cream 00:00: [place] 00 Medical Branch amitriptyli 2020- Yes Univer s ne 25 mg 2-07 ity of tablet 00:00: [place] 00 Medical Branch amitriptyli 2020-1 Yes Univer s ne 25 mg 2-07 ity of tablet 00:00: [place] 00 Medical Branch amitriptyli 2020-1 Yes Univer s ne 25 mg 2-07 ity of tablet 00:00: [place] 00 Medical Branch amitriptyli 2020-1 Yes Univer s ne 25 mg 2-07 ity of tablet 00:00: [place] 00 Medical Branch amitriptyli 2020- Yes Univer s ne 25 mg 2-07 ity of tablet 00:00: [place] 00 Medical Branch levoFLOXaci 2020- Yes [id number] 750mg Take 1 Univers n 2- 9108 tablet by ity of (LEVAQUIN) 00:00: mouth [place] 750 mg 00 every 24 Medical tablet (twenty-fo Branch ur) hours. levoFLOXaci 2020-03 Yes [id number] 750mg Take 1 Univers n 2-02 9108 tablet by ity of (LEVAQUIN) 00:00: mouth [place] 750 mg 00 every 24 Medical tablet (twenty-fo Branch ur) hours. levoFLOXaci 2020-03 Yes [id number] 750mg Take 1 Univers n 2-02 9108 tablet by ity of (LEVAQUIN) 00:00: mouth [place] 750 mg 00 every 24 Medical tablet (twenty-fo Branch ur) hours. levoFLOXaci 2020-03 Yes [id number] 750mg Take 1 Univers n 2-02 9108 tablet by ity of (LEVAQUIN) 00:00: mouth [place] 750 mg 00 every 24 Medical tablet (twenty-fo Branch ur) hours. levoFLOXaci 2020-03 Yes [id number] 750mg Take 1 Univers n 2- 9108 [...] tablet 00 Medical Branch proMETHazin 2020-0 Yes [id number] 25mg Insert 1 Univers e 25 mg 9-19 Suppositor ity of suppository 00:00[place] rectum Medical every 4 Branch (four) hours as needed for Nausea and Vomiting (N/V). proMETHazin 2020-0 Yes [id number] 25mg Insert 1 Univers e 25 mg 9-19 Suppositor ity of suppository 00:00: [place] rect[place] Medical every 4 Branch (four) hours as needed for Nausea and Vomiting (N/V). proMETHazin Yes [id number] 25mg Insert 1 Univers e 25 mg 9-19 Suppositor ity of suppository 00:00: [place] into [place] rectum Medical every 4 Branch (four) hours as needed for Nausea and Vomiting (N/V). proMETHazin 0 Yes [id number] 25mg Insert 1 Univers e 25 mg 9-19 Suppositor ity of suppository 00:00[facility] every 4 Branch (four) hours as needed for Nausea and Vomiting (N/V). proMETHazin Yes [id number] 25mg Insert 1 Univers e 25 mg 9-19 Suppositor ity of suppository 00:00: [facility] Medical every 4 Branch (four) hours as needed for Nausea and Vomiting (N/V). hydroCHLORO Yes Univer s thiazide 25 6-28 ity of mg tablet 00:00: [address] methocarbam 0 Yes Univer s oL 500 mg 6-28 ity of tablet 00:00: [address] hydroCHLORO 0 Yes Univer s thiazide 25 6-28 ity of mg tablet 00:00: [place] [facility] methocarbam 0 Yes Univer s oL 500 mg 6-28 ity of tablet 00:00: [place] [facility] hydroCHLORO 2020-0 Yes Univer s thiazide 25 6-28 ity of mg tablet 00:00: [place] [facility] methocarbam 0 Yes Univer s oL 500 mg 6-28 ity of tablet 00:00: [place] [facility] hydroCHLORO 2020-0 Yes Univer s thiazide 25 6-28 ity of mg tablet 00:00: [place] [facility] methocarbam 2020-0 Yes Univer s oL 500 mg 6-28 ity of tablet 00:00: [address] hydroCHLORO 2020-0 Yes Univer s thiazide 25 6-28 ity of mg tablet 00:00: [address] methocarbam 2020-0 Yes Univer s oL 500 mg 6-28 ity of tablet 00:00: [address] gabapentin 2020-0 Yes Univers 300 mg [...] 00:00: [place] ER) 13.5 mg 00 [facility] oxy[facility] 2020-0 Yes Univers myristate 4-27 ity of (XTAMPZA 00:00: [place] ER) 13.5 mg 00 [facility] oxy[facility]OD[facility] 2020-0 Yes Univers myristate 4-27 ity of (XTAMPZA 00:00: [place] ER) 13.5 mg 00 [facility] oxyCODONE 2020-0 Yes Univers myristate 4-27 ity of (XTAMPZA 00:00: [place] ER) 13.5 mg 00 [facility] oxyCODONE 2020-0 Yes Univers myristate 4-27 ity of (XTAMPZA 00:00: [place] ER) 13.5 mg 00 [facility] FLUoxetine 2020-0 Yes Univers 20 [...] 00:00: [place] ER) 9 mg 00 [facility] naproxen 2020-0 Yes [id number] 500mg Take 1 Univers 500 mg 6-16 9109 tablet by ity of tablet 00:00: mouth [place] 00 every 8 Medical (eight) Branch hours as needed for Pain (scale 4-6). naproxen 2020-0 Yes [id number] 500mg Take 1 Univers 500 mg 6-16 9109 tablet by ity of tablet 00:00: mouth [place] 00 every 8 Medical (eight) Branch hours as needed for Pain (scale 4-6). naproxen 2020-0 Yes [id number] 500mg Take 1 Univers 500 mg 6-16 9109 tablet by ity of tablet 00:00: mouth [place] 00 every 8 Medical (eight) Branch hours as needed for Pain (scale 4-6). naproxen 2020-0 Yes [id number] 500mg Take 1 Univers 500 mg 6-16 9109 tablet by ity of tablet 00:00: mouth [place] 00 every 8 Medical (eight) Branch hours as needed for Pain (scale 4-6). naproxen 2020-0 Yes [id number] 500mg Take 1 Univers 500 mg 6-16 9109 tablet by ity of tablet 00:00: mouth [place] 00 every 8 Medical (eight) Branch hours as needed for Pain (scale 4-6). diazePAM 2018-03 Yes [id number] 5mg Take 1 Uni vers (VALIUM) 5 2-23 tablet by ity of mg tablet 00:00: mouth 3 (three) Medical times Branch daily. diazePAM 2018-03 Yes [id number] 5mg Take 1 Uni vers (VALIUM) 5 2-23 tablet by ity of mg tablet 00:00: mouth 3 (three) Medical times Branch daily. diazePAM 2018-03 Yes [id number] 5mg Take 1 Uni vers (VALIUM) 5 2-23 tablet by ity of mg tablet 00:00: mouth 3 (three) Medical times Branch daily. diazePAM 2018-03 Yes [id number] 5mg Take 1 Uni vers (VALIUM) 5 2-23 tablet by ity of mg tablet 00:00: mouth 3 (three) Medical times Branch daily. diazePAM 2018-03 Yes [id number] 5mg Take 1 Uni vers (VALIUM) 5 2-23 tablet by ity of mg tablet 00:00: mouth 3 (three) Medical times Branch daily. cyclobenzap Yes [id number] 5mg Take 1 Univers rine 5 mg 6-08 07 tablet by ity o f tablet 00:00: mouth 3 (three) Medical times Branch daily. cyclobenzap Yes [id number] 5mg Take 1 Univers rine 5 mg 6-08 07 tablet by ity o f tablet 00:00: mouth 3 (three) Medical times Branch daily. cyclobenzap Yes [id number] 5mg Take 1 Univers rine 5 mg 6-08 07 tablet by ity o f tablet 00:00: mouth 3 (three) Medical times Branch daily. cyclobenzap Yes [id number] 5mg Take 1 Univers rine 5 mg 6-08 07 tablet by ity o f tablet 00:00: mouth 3 (three) Medical times Branch daily. cyclobenzap Yes [id number] 5mg Take 1 Univers rine 5 mg [...] Univers mg capsule 3-28 ity of 00:00: [place] 00 Medical Branch LYRICA 150 2018-0 Yes Univers mg capsule 3-28 ity of 00:00: [place] Medical [facility] LYRICA 150 2018-0 Yes Univers mg capsule 3-28 ity of 00:00: [place] Medical [facility] LYRICA 150 2018-0 Yes Univers mg capsule 3-28 ity of 00:00: [place] Medical Branch LYRICA 150 2018-0 Yes Univers [...] blood 2021-06-30 18:36:00 138 mm[Hg] Univer sity [facility] pressure [facility] Diastolic blood 2021-06-30 18:36:00 96 mm[Hg[facility] 2021-06-30 18:17:00 95 /min [facility] Body height 2021-06-30 18:17:00 190.5 cm [facility] Body weight 2021-06-30 18:17:00 105.688 kg [facility] BMI 2021-06-30 18:17:00 29.12 kg/m2 [facility] Oxygen saturation 2021-06-30 18:17:00 100 /min [facility] in Arterial blood Medical Br anch by Pulse oximetry Procedures Procedure Date / Time Performed Performing Clinician [facility] e REFERRAL- 2021-10-09 05:01:00 Doctor Unassigned, No [facility] REQUEST/RESPONSE Name [facility] Branch Encounters Start End Encounter Admission Attending Care Care Encounter Source Date/Time Date/Time Type Type Clinicians Facility Department ID 2021-06-12 Outpatient Eligio BURRELL [facility] [id number] Univers 08:42:07 JENNIFER ity [facility] 2022-01-02 2022-01-02 Outpatient FOG_A_Provi AOSM AOSM [id number] Leah 00:00:00 00:00:00 ish [id number] [facility] 2021-10-09 2021-10-09 Orders Doctor MOONEY 1.2.840.114 [id number] Univers 00:00:00 00:00:00 Only Unassigned, LEYLA 350.1.13.10 ity of [place] [facility] 4.2.7.2.686 Marty as [phone] [place] [address] Branch 2021-09-26 2021-09-26 Outpatient NANDINIREEN_CESILIA FOSTER MADELMI [id number] [place] 04:24:00 04:24:00 HANA 0715 [facility] 2021-08-20 2021-08-20 Outpatient FOG_A_Provi AOSM AOSM [id number] Leah 00:00:00 00:00:00 ish [id number] Orthop e dic Sports Medicin e 2021-07-21 2021-07-21 Outpatient Eligio JAMISON [facility] [id number] Univers 14:15:00 14:15:00 [facility] 2021-07-21 2021-07-21 [facility] [id number] Univers 14:15:00 14:15:00 [facility] 2021-07-03 2021-07-03 Patient Doctor [facility] 1.2.840.114 [id number] Univers 00:00:00 00:00:00 Secure Msg Unassigned, HEALTH 350.1.13.10 ity of [place] ENIO 4.2.7.2.686 Marty as FITZ?BLEA [id number] Sc gailstephanie AGOSTO [address] [place] [address] MEDICAL OFFICE [facility] 2021-07-02 2021-07-02 Outpatient R EFREN [facility] [id number] Univers 19:00:00 19:00:00 [facility]-07[facility]02 2021-07-02 [facility] [id number] Univers 00:00:00 00:00:00 Jennifer L SPECIALTY 350.1.13.10 ity of [place]2.686 [place] [phone] Sc dicstephanie TAO [address] [place] [address] 2021-07-02 2021-07-02 [facility] 1.2.840.114 [id number] Univers 00:00:00 00:00:00 Scar S HEALTH 350.1.13.10 it y of [place] 4.2.7.2.686 Marty as FITZ?BLEA [id number] Sc padmini AGOSTO [address] [place] [address] MEDICAL OFFICE BUILDING 2021-06-30 2021-06-30 Outpatient [facility] [id number] Univers 14:26:57 23:59:00 JENNIFER ity of [facility] 2021-06-30 2021-06-30 Office [facility] 1.2.840.114 [id number] Univers 13:30:00 13:45:00 Visit [employer] HEALTH 350.1.13.10 it y of [place] 4.2.7.2.686 [place] as FITZ?BLEA [id number] Me padmini AGOSTO [address] [place] [address] OFFICE [facility] 2021-06-30 2021-06-30 Outpatient [facility] [id number] Univers 13:30:00 13:30:00 SCAR ity [facility] 2021-06-30 2021-06-30 Telephone [facility] [id number] Univers 00:00:00 00:00:00 [employer] HEALTH 350.1.13.10 it y of [place] 4.2.7.2.686 Marty as FITZ?BLEA [id number] Sc padmini AGOSTO [address] [place] [address] OFFICE [facility] 2021-06-24 2021-06-24 Telephone [facility] 1.2.840.114 [id number] Univers 00:00:00 00:00:00 Jennifer L SPECIALTY 350.1.13.10 ity [place] 4[place]2.7.2.686 [place] [phone] Sc padmini TAO [address] [place] [address] 2021-06-18 2021-06-18 Telephone [facility] [id number] Univers 00:00:00 00:00:00 Scar S HEALTH 350.1.13.10 it y of [place] 4.2.7.2.686 [place] as FITZ?BLEA [id number] Sc padmini AGOSTO [address] [place] [address] OFFICE [facility] 2021-06-18 2021-06-18 Patient [facility] [id number] Univers 00:00:00 00:00:00 Secure Msg Jenniefr L SPECIALTY 350.1.13.10 ity of [place] 4[place]2.7.2.686 [place] [phone] Sc padmini TAO [address] [place] [address] 2021-06-16 2021-06-16 Out[facility] SOR [id number] Univers 08:25:00 14:05:00 JENNIFER gianna [facility] 2021-06-16 2021-06-16 Hospital Ashanti [facility] 1.2.840.114 [id number] Univers 08:25:00 14:05:00 Encounter Jennifer L ENIO 350.1.13.10 ity of [facility] 4.2.7.2.686 [place]ICAL [id number] [facility] 071 [place] 2021-06-16 2021-06-16 Surgery [facility] [id number] Univers 12:10:00 13:10:00 Jennifer STEEN 350.1.13.10 i ty of [place] 4.2.7.2.686 [place]ICAL [id number] [facility] 020 [place] 2021-06-16 2021-06-16 Telephone [facility] 1.2.840.114 [id number] Univers 00:00:00 00:00:00 Jennifer Maicol [facility] 350.1.13.10 [facility] 4.2.7.2.686 [place] as FITZ?BLEA [id number] Sc padmini AGOSTO [address] [place] [address] MEDICAL OFFICE BUILDING 2021-06-13 2021-06-13 Laboratory Only, Adc Test [facility] 1.2.840. 114 [id number] Univers 09:45:00 10:00:00 Only Jennifer Burrell 350.1.13.10 ity of [place] 4.2.7.2.[place] [id number] [address] 2021-06-13 2021-06-13 Outpatient R ASHANTI [facility] [id number] Univers 09:45:00 09:45:00 JENNIFER katz [facility] 2021-06-11 2021-06-11 Outpatient R YAQUELIN [facility] [id number] Univers 13:00:00 14:02:56 SCAR katz [facility] 2021-06-11 2021-06-11 Office [facility] 1.2.840.114 [id number] Univers 13:00:00 14:02:56 Visit Scar AUGUSTE 350.1.13.10 it y of [place] 4.2.7.2.686 Marty as FITZ?BLEA [phone] Sc padmini AGOSTO [address] [place] MEDICAL OFFICE [facility] 2021-06-11 2021-06-11 Outpatient R YAQUELIN [facility] [id number] Univers 13:00:00 14:02:56 SCAR katz [facility] 2021-06-11 2021-06-11 Prep For [facility] 1.2.840.114 [id number] Univers 00:00:00 00:00:00 Surgery Jennifer Milian HEALTH 350.1.13.10 it y of [place] 4.2.7.2.686 Marty as FITZ?BLEA [phone] Sc padmini AGOSTO 198 [facility] OFFICE [facility] 2021-06-10 2021-06-10 Telephone [facility] 1.2.840.114 [id number] Univers 00:00:00 00:00:00 Jennifer Milian HEALTH 350.1.13.10 it y of [place] 4.2.7.2.686 Marty as FITZ?BLEA [id number] Sc padmini AGOSTO 198 [facility] OFFICE [facility] 2021-06-10 2021-06-10 Telephone [facility] 1.2.840.114 [id number] Univers 00:00:00 00:00:00 Jennifer Milian HEALTH 350.1.13.10 it y of [place] 4.2.7.2.686 Marty as FITZ?BLEA [id number] Sc padmini AGOSTO [address] [place] [address] OFFICE [facility] 2021-02-13 2021-02-13 [address] [facility] [id number] Univers 11:00:00 11:30:28 JENNIFER katz [facility] 2021-02-13 2021-02-13 Office [facility] [id number] Univers 10:51:39 11:30:28 Visit Jennifer Milian JEDI MIND 350.1.13.10 it y of [place] 4.2.7.2.686 Marty as FITZ?BLEA [phone] Sc padmini AGOSTO [address] Branch MEDICAL OFFICE BUILDING 2020-12-01 2020-12-01 Emergency Bonnie [facility] 1.2.129.246 [id number] Univers 19:06:00 21:32:00 Julianne Steen 350.1.13.10 i ty of [place] 4.2.7.2.686 [facility] [id number] [address] 2020-12-01 2020-12-01 Emergency X BONNIE [facility] ERT [id number] Univers 19:06:00 19:06:00 JULIANNE ity [facility] 2020-07-29 2020-07-30 Emergency Chayo Rivas [facility] 1.2.840.114 [id number] 22:02:00 01:32:00 Yessenia Steen 350.1.13.10 [place] 4.2.7.2.686 Cable [id number] [facility] 2020-07-29 2020-07-30 Emergency Chayo Rivas [facility] 1.2.840.114 [id number] Univers 22:02:00 01:32:00 Yessenia Steen 350.1.13.10 i ty of [place] 4.2.7.2.686 [facility] [id number] [address] 2020-07-29 2020-07-29 Emergency X Chayo RIVAS [facility] ERT [id number] Univers 22:02:00 22:02:00 ity [facility] 2020-07-25 2020-07-25 Oliver Flores [facility] 1.2.840.114 [id number] 20:26:00 23:14:00 Zena Ste[place] 350.1.13.10 [place] 4.2.7.2.686 [place] [id number] [facility] 2020-07-25 2020-07-25 Emergency [facility] 1.2.840.114 [id number] Univers 20:26:00 23:14:00 Zena Steen 350.1.13.10 ity of [place] 4.2.7.2.686 [facility] [id number] [address] 2020-07-25 2020-07-25 Emergency X MARK [facility] ERT [id number] Univers 20:26:00 20:26:00 [facility] 2020-07-21 2020-07-22 Emergency [facility] [id number] 23:32:00 02:30:00 Osman Orantes [place] 350.1.13.10 [place] 4.2.7.2.686 [place] [id number] 2020-07-21 2020-07-22 [facility] 1.2.122.516 [id number] [facility] 23:32:00 02:30:00 Osman Orantes [place] 350.1.13.10 ity of [place] 4.2.7.2.686 [facility] [id number] [address] 2020-07-21 2020-07-21 Emergency [facility] [id number] Univers 23:32:00 23:32:00 OSMAN [facility] 2020-07-17 2020-07-18 [facility] 1.2.147.637 [id number] 22:52:00 00:59:00 Julianne S [place] 350.1.13.10 [place] 4.2.7.2.686 [place] [id number] [facility] 2020-07-17 2020-07-18 [facility] [id number] Univers 22:52:00 00:59:00 Julianne Orantes [place] 350.1.13.10 i ty of [place] 4.2.7.2.686 [facility] [id number] [address] 2020-07-17 2020-07-17 Emergency Indy [facility] ERT [id number] Univers 22:52:00 22:52:00 JULIANNE [facility] 2020-07-02 2020-07-02 Emergency [facility] 1.2.098.543 [id number] 19:35:00 22:12:00 Lisandrojose j [place] 350.1.13.10 [place] 4.2.7.2.686 [place] [id number] [facility] 2020-07-02 2020-07-02 Emergency Jim, [facility] 1.2.605.558 [id number] Univers 19:35:00 22:12:00 Lisandro Steen 350.1.13.10 i ty of [place] 4.2.7.2.686 [facility] [id number] [address] 2020-07-02 2020-07-02 Emergency X [facility] ERT [id number] Univers 19:23:00 19:23:00 ity [facility] 2020-06-10 2020-06-10 Emergency [facility], [facility] [id number] 01:29:00 03:55:00 Osman [place] 350.1.13.10 [place] [address] [place] [address] [id number] [facility] 2020-06-10 2020-06-10 Emergency [facility] [id number] Univers 01:29:00 03:55:00 Osman [place] 350.1.13.10 ity of [place] 4.2.7.[address] [place] [id number] 2020-06-10 2020-06-10 Emergency X [facility] [facility] ERT [id number] Univers 01:19:00 01:19[facility]00 [facility] 2020-05-08 Emergency Willard, [facility] 1.2.840.114 [id number] Univers 20:57:00 21:46:00 Maged B Wadsworth [id number] i ty of [place] 4.2.7.[address] [place] [id number] 2020-05-08 2020-05-08 Emergency Willard, [facility] 1.2.840.114 [id number] 20:57:00 21:46:00 Maged B Wadsworth [id number] [place] [address].2.7.2.[address] [place] [address] [id number] [facility] 2020-05-08 2020-05-08 Emergency X WILLARD, [facility] ERT [id number] Univers 20:50:00 20:50:00 MAGED ity [facility] 2020-04-16 2020 Emergency Chayo Rivas [facility] 1.2.840.114 [id number] Univers 21:21:00 01:05:00 Yesesnia Steen 350.1.13.10 i ty of [place] 4.2.7.2.686 [facility] [id number] [address] 2020-04-16 2020 Emergency Chayo Rivas [facility] 1.2.840.114 [id number] 21:21:00 01:05:00 Yessenia Steen [id number] [place] 4.2.7.2.686 Cable [phone] [facility] 2020-04-16 2020-04-16 Emergency X Chayo RIVAS [facility] ERT [id number] Univers 21:21:00 21:21:00 ity of [facility] 2020-03-09 2020-03-09 [facility] [id number] Univers 20:23:00 22:51:00 Julianne S Enio 350.1.13.10 i ty of [place] 4.2.7.2.686 [facility] Cable [phone] [address] 2020-03-09 2020-03-09 [facility] [id number] 20:23:00 22:51:00 Julianne Steen [id number] [place] 4.2.7.2.686 Cable [phone] [facility] 2020-03-09 2020-03-09 [facility] [id number] Univers 18:38:00 18:38:00 JULIANNE ity [facility] 2020-03-09 2020-03-09 Orders Doctor MOONEY 1.2.840.114 [id number] Univers 00:00:00 00:00:00 Only Unassigned, LEYLA 350.1.13.10 ity of [place] [facility] 4.2.7.2.686 Marty [phone] [address] 2020-03-09 2020-03-09 Orders Doctor MOONEY 1.2.840.114 [id number] 00:00:00 00:00:00 Only Unassigned, LEYLA 350.1.13.10 [place] 4.2.7.2.686 [id number] [id number] 2020-02-14 2020-02-15 Emergency [facility] 1.2.218.093 [id number] Univers 23:22:00 00:54:00 Osman Steen 350.1.13.10 ity [facility] 4.2.7.2.686 [facility] [id number] [address] 2020-02-14 2020-02-15 Emergency [facility] 1.2.563.283 [id number] 23:22:00 00:54:00 Osman Steen 350.1.13.10 [place] 4.2.7.2.686 Cable [phone] [facility] 2020-02-14 2020-02-14 Emergency X [facility] ERT [id number] Univers 23:10:00 23:10:00 [place] [facility] 2020-01-31 2020-01-31 Outpatient HUTTON_L [facility] G [id number] [place] 02:19:00 02:19:00 [facility] 2020-01-28 2020-01-28 Emergency Chayo Rivas [facility] 1.2.840.114 [id number] Univers 17:47:00 21:50:00 Yesseniaisma [place] 350.1.13.10 i ty of [place] 4.2.7.2.686 [facility] [id number] [address] 2020-01-28 2020-01-28 Emergency Chayo Rivas [facility] 1.2.840.114 [id number] 17:47:00 21:50:00 Yessenia Wadsworth 350.1.13.10 [place] 4.2.7.2.686 Cable [phone] [facility] 2020-01-28 2020-01-28 Emergency X [facility] ERT [id number] Univers 17:23:00 17:23:00 ity [facility] 2020-01-22 2020-01-22 Emergency [facility] 1.2.213.485 [id number] Univers 19:22:00 22:47:00 Amaris G Wadsworth 350.1.13.10 ity of [place] 4.2.7.2.686 [facility] [id number] [address] 2020-01-22 2020-01-22 Emergency [facility] 1.2.782.323 [id number] 19:22:00 22:47:00 Amaris Steen 350.1.13.10 [place] 4.2.7.2.686 Cable [id number] [facility] 2020-01-22 2020-01-[address] [facility] ERT [id number] Univers 19:08:00 19:08:00 AMARIS katz [facility] 2020-01-20 2020-01-21 [facility] [id number] Univers 23:26:00 02:01:00 Jj [place] 350.1.13.10 i ty of [place] 4.2.7.2.686 [facility] [id number] [address] 2020-01-20 2020-01-21 Emergency [facility] [id number] 23:26:00 02:01:00 Jj Steen 350.1.13.10 [place] [address]7.[address] [place] [address] [id number] [facility] 2020-01-20 2020-01-20 Emergency X [facility] ERT [id number] Univers 23:26:00 23:26:00 JJ katz [facility] 2019-12-30 2019-12-30 [facility] 1.2.840.114 [id number] Univers 11:45:00 14:25:00 Yessenia Wadsworth 350.1.13.10 i ty of [place] 4.2.7.2.[address] [place] [phone] 2019-12-30 2019-12-30 [facility] 1.2.840.114 [id number] 11:45:00 14:25:00 Yessenia Wadsworth 350.1.13.10 [place] 4.2.7.2.686 Cable [id number] 082019-12-30 2019-12-30 Emergency X Chayo RIVAS [facility] ERT [id number] Univers 11:45:00 11:45:00 ity of [facility] 2019-12-22 2019-12-22 Emergency Mroan, [facility] 1.2.965.999 [id number] Univers 13:48:00 16:20:00 Jj Wadsworth 350.1.13.10 i ty of [place] 4.2.7.2.686 [facility] [id number] [address] 2019-12-22 2019-12-22 Emergency [facility] 1.2.900.294 [id number] 13:48:00 16:20:00 Jj Wadsworth 350.1.13.10 [place] 4.2.7.2.686 Cable [phone] [facility] 2019-12-22 2019-12-22 Emergency X [facility] ERT [id number] Univers 13:43:00 13:43:00 ity of [facility] 2019-12-22 2019-12-22 Orders Doctor MOONEY 1.2.840.114 [id number] Univers 00:00:00 00:00:00 Only Unassigned, LEYLA 350.1.13.10 ity of [place] [facility] 4.2.7.2.686 Marty [phone] [address] 2019-12-22 2019-12-22 Orders Doctor JESICA 1.2.840.114 [id number] 00:00:00 00:00:00 Only Unassigned, LEYLA 350.1.13.10 [place] [facility] 4.2.7.2.686 [id number] 2019-11-29 2019-11-29 Emergency [facility] [id number] [id number] Univers 15:09:00 17:41:00 Julianne S Wadsworth 350.1.13.10 i ty of [place] 4.2.7.2.686 [facility] [id number] [address] 2019-11-29 2019-11-29 Emergency [facility] 1.2.084.523 [id number] 15:09:00 17:41:00 Julianne S Wadsworth 350.1.13.10 [place] 4.2.7.2.686 Cable [phone] [facility] 2019-11-29 2019-11-29 Emergency X MILLER, [facility] ERT [id number] Univers 15:09:00 15:09:00 JULIANNE ittristan [facility] 2019-11-12 2019-11-12 Emergency Centeno, [facility] 1.2.840.114 [id number] Univers 20:27:00 23:35:00 Kwaku Steen 350.1.13.10 i ty of [place] 4.2.7.2.686 [facility] [id number] [address] 2019-11-12 2019-11-12 Emergency Centeno, [facility] 1.2.840.114 [id number] 20:27:00 23:35:00 Kwaku Steen 350.1.13.10 [place] 4.2.7.2.686 Cable [id number] [facility] 2019-11-12 2019-11-12 Emergency X JACOBO, [facility] ERT [id number] Univers 20:27:00 20:27:00 KWAKU katz [facility] 2019-10-20 2019-10-21 Emergency Mark, [facility] 1.2.840.114 [id number] Univers 21:49:00 00:48:00 Zena Steen 350.1.13.10 ity [facility] 4.2.7.2.686 [facility] [id number] [address] 2019-10-20 2019-10-21 Emergency Mark, [facility] 1.2.840.114 [id number] 21:49:00 00:48:00 Zena Steen 350.1.13.10 [place] 4.2.7.2.686 Cable [id number] [facility] 2019-10-20 2019-10-20 Emergency [facility] [id number] Univers 21:49:00 21:49:00 ZENA katz [facility] 2019-10-20 2019-10-20 Orders Doctor MOONEY 1.2.840.114 [id number] Univers 00:00:00 00:00:00 Only Unassigned, LEYLA 350.1.13.10 ity of [facility] 4.2.7.2.686 Marty as [phone] [facility] [address] 2019-10-20 2019-10-20 Orders Doctor JESICA 1.2.840.114 [id number] 00:00:00 00:00:00 Only Unassigned, LEYLA 350.1.13.10 [place] [facility] 4.2.7.2.686 [id number] 2019-08-29 2019-08-29 [facility] 1.2.840.114 [id number] [facility] 18:05:24 19:48:00 Foltatoo F Wadsworth 350.1.13.10 ity of [place] 4.2.7.2.686 [facility] [id number] [address] 2019-08-29 2019-08-29 [facility] 1.2.840.114 [id number] 18:05:24 19:48:00 Shakeelo Noel Steen 350.1.13.10 [place] 4.2.7.2.686 Cable [id number] [id number] 2019-08-11 2019-08-11 Outpatient HUTTON_L MMG MMG [id number] [place] 09:48:00 09:48:00 [facility] 2019-04-20 2019-04-20 [facility] 1.2.840.114 [id number] Univers 21:28:16 22:19:00 Alley Karon Wad[place] 350.1.13.10 ity of [place] 4.2.7.2.686 [facility] [phone] [address] 2019-04-20 2019-04-20 [facility] 1.2.840.114 [id number] 21:28:16 22:19:00 Alley Karon Wadsworth 350.1.13.10 [place] 4.2.7.2.686 Cable [phone] [id number] Results This patient has no known results.
[2022-01-02] MEDS ORDERED: HYDROMORPHONE HCL 1 MG/ML INJ ONE (22:54)
[2022-01-02] MEDS ORDERED: ONDANSETRON 4 MG (ODT) TAB ONE (22:54)
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
[2022-01-02 23:44] VITALS: TEMP 98.6
[2022-01-02 23:46] VITALS: BP 161/104; O2SAT 100
== END 2022-01-02 23:15 | disposition home or self-care (01) ==
LOC: ER 21:47
DX: S22.20XA Unspecified fracture of sternum, initial encounter for closed fracture (principal); V43.52XA Car driver injured in collision with other type car in traffic accident, initial encounter; Y93.89 Activity, other specified; Y92.488 Other paved roadways as the place of occurrence of the external cause; Z88.6 Allergy status to analgesic agent; I10 Essential (primary) hypertension; K21.9 Gastro-esophageal reflux disease without esophagitis; G43.909 Migraine, unspecified, not intractable, without status migrainosus; F17.210 Nicotine dependence, cigarettes, uncomplicated
CPT/HCPCS: 96372; 99284; Q0162; J1170

== ENCOUNTER 2022-01-05 20:24 | Emergency (ER) | payer OTHER ==
--- OUTSIDE RECORDS SUMMARY | 2022-01-05 20:29 | XMS REPORT | Continuity of Care Document ---
:1975 Author Organization [facility] t Address [address] [place] [address] [address] [place] [address] Care Team Providers Name Role Phone Stalin Combs Primary Care Physician JEREMY BURRELL Attending Clinician Unavailable LIEN ANAYA Attending Clinician Unavailable SADI BARNEY Attending Clinician Unavailable FOG_A_Provider Attending Clinician Unavailable Doctor Unassigned, [place] Attending Clinician Unavailable AMBREEN_FARHANA Attending Clinician Unavailable SCAR JAMISON Attending Clinician Unavailable TAYLOR SCHWARTZ Attending Clinician Unavailable Jeremy Burrell MD Attending Clinician Scar Merritt Attending Clinician Only, Adc Test Attending Clinician Unavailable Julianne Quintero Attending Clinician JULIANNE MILLER Attending Clinician Unavailable Chyao Esquivel Attending Clinician Chayo RIVAS Attending Clinician Unavailable Zena Flores DO Attending Clinician ZENA FLORES Attending Clinician Unavailable Yarima MD, [place] S Attending Clinician OSMAN JUNE S Attending Clinician Unavailable Lisandro Jim DO Attending Clinician Maged Stovall Attending Clinician MAGED LAMAR Attending Clinician Unavailable LARON Attending Clinician Unavailable Rohan QIU, Amaris Champion Attending Clinician AMARIS ALVARADO Attending Clinician Unavailable Jj Moran MD Attending Clinician JJ MORAN Attending Clinician Unavailable Cordell GALLEGOP, Kwaku Attending Clinician KWAKU CENTENO Attending Clinician Unavailable Maria Eugenia HERNÁNDEZ, Qi Cohen Attending Clinician Teodoro HERNÁNDEZ, Alley Brantley Attending Clinician YUMIKO WATTS Attending Clinician Unavailable LEAH VALDEZ Attending Clinician Unavailable GURDEEP RICH Attending Clinician Unavailable ELIZABETH CARLOS Attending Clinician Unavailable JONATHAN MICHAUD Attending Clinician Unavailable DONG NGUYEN Attending Clinician Unavailable KENZIE RODAS Attending Clinician Unavailable SCAR FOLEY Attending Clinician Unavailable RYDER GARCIA Attending Clinician Unavailable OSMAN JUNE Attending Clinician Unavailable RADHA ORR Attending Clinician Unavailable RON BEGUM Attending Clinician Unavailable JEREMY BURRELL Admitting Clinician Unavailable FOG_A_Provider Admitting Clinician Unavailable FERMIN Admitting Clinician Unavailable Jeremy Burrell MD Admitting Clinician LARON Admitting Clinician Unavailable Payers Payer Name Policy Type Policy Number Effective Date Expiration Date Lamberto vinson [facility] [id number] 2020 00:00:00 [facility] [id number] [facility] [id number] 2011 [facility] 00:00:00 REGION Problems Condition Condition Condition [...] encounter encounter ally from request for surgery [id number] Allergies, Adverse Reactions, Alerts Allergy Allergy Status [...] ity of 00:00: [place] 00 [facility] Social History Social Habit Start Date Stop Date Quantity Comments Source History of tobacco Cigarette Smoker University of use [facility] Exposure to 2021-06-22 2021-07-02 Not sure University SARS-CoV-2 (event) 00:00:00 18:40:00 [facility] Alcohol intake 2021-06-30 2021-06-30 Current University of 00:00:00 00:00:00 non-drinker of [facility] alcohol Branch (finding) Cigarettes smoked 2017-02-23 2017-02-23 Univers ity of current (pack per 00:00:00 00:00:00 [place] ) - Reported Branch Cigarette 2017-02-23 2017-02-23 University of pack-years 00:00:00 00:00:00 [facility] Tobacco use and 2017-02-23 2017-02-23 Smokeless Universit y of exposure 00:00:00 00:00:00 tobacco non-user [facility] Sex Ass[birth year] Universit y of 00:00:00 00:00:00 [facility] Smoking Status Start Date Stop Date Source Smokes tobacco daily 2017-02-23 00:00:00 Univers ity of [facility] Medications Ordered Filled Start Stop Current Ordering Indication Dosage Frequency Signature Comments Components Source Medication Medication Date Date Medication? Clinician (SIG) Name Name acetaminoph Yes Tylenol Uni vers en 4-06 ity [...] DAY IN THE MORNING AND EVENING triamcinolo 0 Yes triamcinol Univers ne 4-06 one ity [...] DAY IN THE MORNING AND EVENING triamcinolo 0 Yes triamcinol Univers ne 4-06 one ity of acetonide 02:05: acetonide Marty as 0.1 % 00 0.1 % Medical ointment topical Branch ointment APPLY A THIN LAYER TO THE AFFECTED AREA(S) BY TOPICAL ROUTE 2 TIMES PER DAY metoprolol 0 Yes 100mg Take 100 Un kevon succinate 4-04 mg by ity of XL 100 mg 14:22: mouth [place] 24 hr 24 daily. Medical tablet Branch valsartan 0 Yes 40mg Take 40 mg Un kveon 40 mg 4-04 by mouth ity of tablet 14:22: daily. [place] [address] Medical Branch amLODIPine 2021-0 Yes 10mg Take 10 mg U nivers 10 mg 4-04 by mouth ity of tablet 14:22: daily. [place] [address] Medical Branch DEXLANSOPRA 0 Yes Take by [...] by ity of capsule 14:22: mouth 4 [place] 24 (four) Medical times Branch daily. Takes 2 capsules in morning and 2 capsules in evening. metoprolol 0 Yes 100mg Take 100 Un kevon succinate 4-04 mg by ity of XL 100 mg 14:22: mouth [place] 24 hr 24 daily. Medical tablet Branch valsartan 0 Yes 40mg Take 40 mg Un kevon 40 mg 4-04 by mouth ity of tablet 14:22: daily. [place] [address] Medical Branch amLODIPine 0 Yes 10mg Take 10 mg U nivers 10 mg 4-04 by mouth ity of tablet 14:22: daily. [place] [address] Medical Branch DEXLANSOPRA 0 Yes Take by [...] by ity of capsule 14:22: mouth 4 [place] 24 (four) Medical times Branch daily. Takes 2 capsules in morning and 2 capsules in evening. metoprolol 2021-0 Yes 100mg Take 100 Un kevon succinate 4-04 mg by ity of XL 100 mg 14:22: mouth [place] 24 hr 24 daily. Medical tablet Branch valsartan 0 Yes 40mg Take 40 mg Un kevon 40 mg 4-04 by mouth ity of tablet 14:22: daily. [place] [address] Medical Branch amLODIPine 0 Yes 10mg Take 10 mg U nivers 10 mg 4-04 by mouth ity of tablet 14:22: daily. [place] [address] Medical Branch DEXLANSOPRA 0 Yes Take by [...] by ity of capsule 14:22: mouth 4 [place] 24 (four) Medical times Branch daily. Takes 2 capsules in morning and 2 capsules in evening. metoprolol 0 Yes 100mg Take 100 Un kevon succinate 4-04 mg by ity of XL 100 mg 14:22: mouth [place] 24 hr 24 daily. Medical tablet Branch valsartan 0 Yes 40mg Take 40 mg Un kevon 40 mg 4-04 by mouth ity of tablet 14:22: daily. [place] [address] Medical Branch amLODIPine 0 Yes 10mg Take 10 mg U nivers 10 mg 4-04 by mouth ity of tablet 14:22: daily. [place] [address] Medical Branch DEXLANSOPRA 0 Yes Take by [...] by ity of capsule 14:22: mouth 4 [place] 24 (four) Medical times Branch daily. Takes 2 capsules in morning and 2 capsules in evening. metoprolol Yes 100mg Take 100 Un kevon succinate 4-04 mg by ity of XL 100 mg 14:22: mouth [place] 24 hr 24 daily. Medical tablet Branch valsartan Yes 40mg Take 40 mg Un kevon 40 mg 4-04 by mouth ity of tablet 14:22: daily. [place] [address] Medical Branch amLODIPine Yes 10mg Take 10 mg U nivers 10 mg 4-04 by mouth ity of tablet 14:22: daily. [place] [address] Medical Branch DEXLANSOPRA Yes Take by Uni [...] by ity of capsule 14:22: mouth 4 [place] 24 (four) Medical times Branch daily. Takes [...] 3-09 ity of cream 00:00: Medical Branch adalimumab Yes Univers (DUNIAIRA,CF, 2-04 ity of PEN) 40 00:00: [place] [...] of cream 00:00: [place] 00 Medical Branch amitriptyli 2020-1 Yes Univer s ne 25 mg 2-07 ity of tablet 00:00: 00 Medical Branch amitriptyli 2020-1 Yes Univer s ne 25 mg 2-07 ity of tablet 00:00: [place] 00 Medical Branch amitriptyli 2020-03 Yes Univer s ne 25 mg 2-07 ity of tablet 00:00: [place] [facility] amitriptyli 2020-03 Yes Univer s ne 25 mg 2-07 ity of tablet 00:00: [place] [facility] amitriptyli 2020-03 Yes Univer s ne 25 mg 2-07 ity of tablet 00:00: [place] [facility] levoFLOXaci 2020-03 Yes [id number] 750mg Take 1 Univers n 2-02 9108 tablet by ity of (LEVAQUIN) 00:00: mouth [place] 750 mg 00 every 24 Medical tablet (twenty-fo Branch ur) hours. levoFLOXaci 2020-03 Yes [id number] 750mg Take 1 Univers n 2-02 9108 tablet by ity of (LEVAQUIN) 00:00: mouth [place] 750 mg 00 every 24 Medical tablet (twenty-fo Branch ur) hours. levoFLOXaci 2020-03 Yes [id number] 750mg Take 1 Univers n 2-02 9108 tablet by ity of (LEVAQUIN) 00:00: mouth [place] 750 mg 00 every 24 Medical tablet (twenty-fo Branch ur) hours. levoFLOXaci 2020-03 Yes [id number] 750mg Take 1 Univers n 2-02 9108 tablet by ity of (LEVAQUIN) 00:00: mouth [place] 750 mg 00 every 24 Medical tablet (twenty-fo Branch ur) hours. levoFLOXaci 2020-03 Yes [id number] 750mg Take 1 Univers n 2-02 9108 tablet by ity of (LEVAQUIN) 00:00: mouth [place] 750 mg 00 every 24 Medical tablet (twenty-fo Branch ur) hours. ondansetron Yes Univer s [...] [place] ing tablet 00 Medical Branch ondansetron 2021-0 Yes Univer s 4 mg 9-25 ity of disintegrat 00:00: [place] ing tablet 00 Medical Branch proMETHazin 0 Yes [id number] 25mg Insert 1 Univers e 25 mg 9-19 Suppos[place]y of suppository 00:00[place] rectum Medical every 4 Branch (four) hours as needed for Nausea and Vomiting (N/V). proMETHazin 0 Yes [id number] 25mg Insert 1 Univers e 25 mg 9-19 Suppositor [place]y of suppository 00:00: [place] 00 rectum Medical every 4 Branch (four) hours as needed for Nausea and Vomiting (N/V). proMETHazin Yes [id number] 25mg Insert 1 Univers e 25 mg 9-19 Suppositor ity of suppository 00:00: [place] 00 rectum Medical every 4 Branch (four) hours as needed for Nausea and Vomiting (N/V). proMETHazin Yes [id number] 25mg Insert 1 Univers e 25 mg 9-19 Suppositor ity of suppository 00:00: [place] 00 rectum Medical every 4 Branch (four) hours as needed for Nausea and Vomiting (N/V). proMETHazin Yes [id number] 25mg Insert 1 Univers e 25 mg 9-19 Suppositor ity of suppository 00:00: [place] 00 rectum Medical every 4 Branch (four) hours as needed for Nausea and Vomiting (N/V). hydroCHLORO 2020-0 Yes Univer s thiazide 25 6-28 ity of mg tablet 00:00: [facility] Branch methocarbam 0 Yes Univer s oL 500 mg 6-28 ity of tablet 00:00: [place] [facility] hydroCHLORO 2020-0 Yes Univer s thiazide 25 6-28 ity of mg tablet 00:00: [facility] Branch methocarbam 2020-0 Yes Univer s oL 500 mg 6-28 ity of tablet 00:00: Medical Branch hydroCHLORO 2020-0 Yes Univer s thiazide 25 6-28 ity of mg tablet 00:00: [facility] Branch methocarbam 2020-0 Yes Univer s oL 500 mg 6-28 ity of tablet 00:00: [place] [facility] hydroCHLORO 202-0 Yes Univer s thiazide 25 6-28 ity of mg tablet 00:00: [place] [facility] methocarbam 2020-0 Yes Univer s oL 500 mg 6-28 ity of tablet 00:00: [place] [facility] hydroCHLORO 2020-0 Yes Univer s thiazide 25 6-28 ity of mg tablet 00:00: [place] [facility] methocarbam 2020-0 Yes Univer s oL 500 mg 6-28 ity of tablet 00:00: [place] [facility] gabapentin 1-0 Yes Univers 300 mg 5-26 ity of capsule 00:00: [place] [facility] gabapentin 1-0 Yes Univers 300 mg 5-26 ity of capsule 00:00: [place] [facility] gabapentin 1-0 Yes Univers 300 mg 5-26 ity of capsule 00:00: [place] [facility] gabapentin 1-0 Yes Univers 300 mg 5-26 ity of capsule 00:00: [place] [facility] gabapentin 1-0 Yes Univers 300 mg 5-26 ity of capsule 00:00: [place] [facility] orphenadrin 2020-0 Yes Univer s e 100 mg SR 5-19 ity of tablet 00:00: [place] [facility] orphenadrin 2020-0 Yes Univer s e 100 mg SR 5-19 ity of tablet 00:00: [place] [facility] orphenadrin 2020-0 Yes Univer s e 100 mg SR 5-19 ity of tablet 00:00: [place] [facility] orphenadrin 2020-0 Yes Univer s e 100 mg SR 5-19 ity of tablet 00:00: [place] [facility] orphenadrin 2020-0 Yes Univer s e 100 mg SR 5-19 ity of tablet 00:00: [place] [facility] oxyCODONE 2020-0 Yes Univers myristate 4-27 ity of (XTAMPZA 00:00: [place] ER) 13.5 mg 00 [facility] 2020-0 Yes Univers myristate 4-27 ity of (XTAMPZA 00:00: [place] ER) 13.5 mg 00 [facility] oxy[facility] 2020-0 Yes Univers myristate 4-27 ity of (XTAMPZA 00:00: [place] ER) 13.5 mg 00 Medical [facility] Branch oxyCODONE 0 Yes Univers myristate 4-27 ity of (XTAMPZA 00:00: [place] ER) 13.5 mg 00 Medical CSpT Branch oxyCODONE 0 Yes Univers myristate 4-27 ity of (XTAMPZA 00:00: [place] ER) 13.5 mg 00 [facility] FLUox[facility] 0 Yes Univers 20 mg 3-04 ity of capsule 00:00: [place] 00 Medical Branch FLUoxetine 2020-0 Yes Univers 20 mg 3-04 ity of capsule 00:00: [place] 00 Medical Branch FLUoxetine 0 Yes Univers 20 mg 3-04 ity of capsule 00:00: [place] 00 Medical Branch FLUoxetine 0 Yes Univers 20 mg 3-04 ity of capsule 00:00: Medical Branch FLUoxetine 0 Yes Univers 20 mg 3-04 ity of capsule 00:00: Medical Branch oxyCODONE 2020-0 Yes Univers myristate 2-11 ity of (XTAMPZA 00:00: [place] ER) 9 mg 00 Medical [facility] Branch oxyCODONE Yes Univers myristate 2-11 ity of (XTAMPZA 00:00: [place] ER) 9 mg 00 Medical [facility]T Branch oxyCODONE Yes Univers myristate 2-11 ity of (XTAMPZA 00:00: [place] ER) 9 mg 00 Medical CSpT Branch oxyCODONE 0 Yes Univers myristate 2-11 ity of (XTAMPZA 00:00: [place] ER) 9 mg 00 Medical [facility] Branch oxyCODONE Yes Univers myristate 2-11 ity of (XTAMPZA 00:00: [place] ER) 9 mg 00 [facility] naproxen 2019-0 Yes [id number] 500mg Take 1 Univers 500 mg 6-16 9109 tablet by ity of tablet 00:00: mouth [place] 00 every 8 Medical (eight) Branch hours as needed for Pain (scale 4-6). naproxen 2020-0 Yes [id number] 500mg Take 1 Univers 500 mg 6-16 9109 tablet by ity of tablet 00:00: mouth 00 every 8 Medical (eight) Branch hours as needed for Pain (scale 4-6). naproxen 2019-0 Yes [id number] 500mg Take 1 Univers 500 mg 6-16 9109 tablet by ity of tablet 00:00: mouth [place] 00 every 8 Medical (eight) Branch hours as needed for Pain (scale 4-6). naproxen 2020-0 Yes [id number] 500mg Take 1 Univers 500 mg 6-16 9109 tablet by ity of tablet 00:00: mouth [place] 00 every 8 Medical (eight) Branch hours as needed for Pain (scale 4-6). naproxen 2020-0 Yes [id number] 500mg Take 1 Univers 500 mg 6-16 9109 tablet by ity of tablet 00:00: mouth [place] 00 every 8 Medical (eight) Branch hours as needed for Pain (scale 4-6). diazePAM 2018-03 Yes [id number] 5mg Take 1 Uni vers (VALIUM) 5 2-23 tablet by ity of mg tablet 00:00: mouth 3 (three) Medical times Branch daily. diazePAM 2018-03 Yes [id number] 5mg Take 1 Uni vers (VALIUM) 5 2-23 tablet by ity of mg tablet 00:00: mouth 3 (three) Medical times Branch daily. diazePAM 2018-03 Yes [id number] 5mg Take 1 Uni vers (VALIUM) 5 2-23 tablet by ity of mg tablet 00:00: mouth 3 (three) Medical times Branch daily. diazePAM 2018-03 Yes [id number] 5mg Take 1 Uni vers (VALIUM) 5 2-23 tablet by ity of mg tablet 00:00: mouth 3 (three) Medical times Branch daily. diazePAM 2018-03 Yes [id number] 5mg Take 1 Uni vers (VALIUM) 5 2-23 tablet by ity of mg tablet 00:00: mouth 3 (three) Medical times Branch daily. cyclobenzap Yes [id number] 5mg Take 1 Univers rine 5 mg 6-08 07 tablet by ity o f tablet 00:00: mouth 3 00 (three) Medical times Branch daily. cyclobenzap 2019- Yes [id number] 5mg Take 1 Univers rine 5 mg 6-08 07 tablet by ity o f tablet 00:00: mouth 3 (three) Medical times Branch daily. cyclobenzap Yes [id number] 5mg Take 1 Univers rine 5 mg 6-08 07 tablet by ity o f tablet 00:00: mouth 3 (three) Medical times Branch daily. cyclobenzap Yes [id number] 5mg Take 1 Univers rine 5 mg 6-08 07 tablet by ity o f tablet 00:00: mouth 3 (three) Medical times Branch daily. cyclobenzap Yes [id number] 5mg Take 1 Univers rine 5 mg 6-08 07 tablet by ity o f tablet 00:00: mouth 3 (three) Medical times Branch daily. butalbital- Yes TK 1 T PO U nivers acetaminoph 3-30 TWICE A ity o f en-caff 00:00: DAY PRF [place]CCANN [place] 50-325-40 00 Medical mg tablet Branch butinbital- Yes TK 1 T PO U nivers acetaminoph 3-30 TWICE A ity o f en-caff 00:00: DAY PRF [place] 50-325-40 00 Medical mg tablet [facility] TK 1 T PO U nivers acetaminoph 3-30 TWICE A ity o f en-caff 00:00: DAY PRF [place]CCANN [place] 50-325-40 00 Medical mg tablet Branch butinbital- Yes TK 1 T PO U nivers acetaminoph 3-30 TWICE A ity o f en-caff 00:00: DAY PRF [place]CCANN [place] 50-325-40 00 Medical mg tablet Branch butinbital- Yes TK 1 T PO U nivers acetaminoph 3-30 TWICE A ity o f en-caff 00:00: DAY PRF [place]CCANN [place] 50-325-40 00 Medical mg tablet Branch LYRICA 150 2018-0 Yes Univers mg capsule 3-28 ity of 00:00: [place] [facility] LYRICA 150 2018-0 Yes Univers mg capsule 3-28 ity of 00:00: Medical Branch LYRICA 150 2018-0 Yes Univers mg capsule 3-28 ity of 00:00: [place] [facility] LYRICA 150 2018-0 Yes Univers mg capsule 3-28 ity of 00:00: Medical Branch LYRICA 150 2018-0 Yes Univers mg capsule 3-28 ity of 00:00: Medical Branch HYDROcodone 2017-0 Yes Univer s -acetaminop 3-13 ity of hen 7.5-325 00:00: [place] mg per 00 Medical tablet Branch HYDROcodone 0 Yes Univer s -acetaminop 3-13 ity of hen 7.5-325 00:00: [place] mg per 00 Medical tablet Branch HYDROcodone 2017-0 Yes Univer s -acetaminop 3-13 ity of hen 7.5-325 00:00: [place] mg per 00 Medical tablet Branch HYDROcodone 2017-0 Yes Univer s -acetaminop 3-13 ity of hen 7.5-325 00:00: [place] mg per 00 Medical tablet Branch HYDROcodone 2017-0 Yes Univer s -acetaminop 3-13 ity of hen 7.5-325 00:00: [place] mg per 00 Medical tablet Branch Vital Signs Vital Name Observation Time Observation Value Comments Source Systolic blood 2021-06-30 18:36:00 138 mm[Hg] [facility] blood 2021-06-30 18:36:00 96 mm[Hg] Unive rsity [facility] Heart rate 2021-06-30 18:17:00 95 /min [facility] Body height 2021-06-30 18:17:00 190.5 cm [facility] Body weight 2021-06-30 18:17:00 105.688 kg [facility] BMI 2021-06-30 18:17:00 29.12 kg/m2 [facility] Oxygen saturation 2021-06-30 18:17:00 100 /min [facility] in Arterial blood Medical Br anch by Pulse oximetry Procedures Procedure Date / Time Performed Performing Clinician [facility] e REFERRAL- 2021-10-09 05:01:00 Doctor Unassigned, No [facility] REQUEST/RESPONSE Name Medical Branch Encounters Start End Encounter Admission Attending Care Care Encounter Source Date/Time Date/Time Type Type Clinicians Facility Department ID 2021-06-12 Outpatient Eligio BURRELL [facility] [id number] Univers 08:42:07 JEREMY katz [facility] 2010-05-25 Inpatient COLBY ANAYA [facility] [id number] [place] 12:59:00 LIEN -[id number] [facility] 2022-01-04 2022-01-05 Emergency ER CATANES, [facility] [id number] [place] 22:56:00 05:41:00 SADI -[id number] [facility] 2022-01-03 2022-01-03 Emergency ER CATANES, [facility] [id number] [place] 19:25:00 22:35:00 SADI -[id number] [facility] 2022-01-02 2022-01-02 Outpatient FOG_A_Provi AOSM AOSM [id number] Leah 00:00:00 00:00:00 ish [id number] [facility] 2021-10-09 2021-10-09 Orders Doctor JESICA [id number] Univers 00:00:00 00:00:00 Only Unassigned, LEYLA [id number] ity of [place] [facility] [id number] [place] as [id number] [address] 2021-09-26 2021-09-26 Outpatient AMBREEN_FAR [facility] [id number] [place] 04:24:00 04:24:00 WARREN 0715 [facility] 2021-08-20 2021-08-20 Outpatient FOG_A_Provi AOSM AOSM [id number] Leah 00:00:00 00:00:00 ish [id number] Orthop e dic Sports Medicin e 2021-07-21 2021-07-21 Outpatient Eligio JAMISON [facility] [id number] Univers 14:15:00 14:15:00 [facility] 2021-07-21 2021-07-21 Outpatient Eligio JAMISON [facility] [id number] Univers 14:15:00 14:15:00 [facility] 2021-07-03 2021-07-03 Patient Doctor [facility] [id number] Univers 00:00:00 00:00:00 Secure Msg Unassigned, HEALTH [id number] ity of [place] 4.2.7.2.686 Marty as FITZ?BLEA [phone] In padmini AGOSTO [address] [place] [address] OFFICE [facility] 2021-07-02 2021-07-02 Outpatient R MAMIEAAMIRBelkis [facility] [id number] Univers 19:00:00 19:00:00 MARJANSTANLEY ittristan [facility] 2021-07-02 2021-07-02 Refill Ashanti [facility] [id number] Univers 00:00:00 00:00:00 [facility] SPECIALTY [id number] ity of [place] [id number] [place] [phone] In padmini TAO [address] [place] [address] 2021-07-02 2021-07-02 [facility] [id number] Univers 00:00:00 00:00:00 [facility] [id number] it y of [place] [id number] [place] as FITZ?BLEA [id number] In padmini AGOSTO [address] [place] [address] OFFICE [facility] 2021-06-30 2021-06-30 Outpatient R ASHANTI [facility] [id number] Univers 14:26:57 23:59:00 JEREMY tristan [facility] 2021-06-30 2021-06-30 Office [facility] [id number] Univers 13:30:00 13:45:00 Visit [facility] [id number] it y of [place] 4.2.7.2.686 [place] as FITZ?BLEA [phone] In padmini AGOSTO [address] [place] [address] OFFICE [facility] 2021-06-30 2021-06-30 [facility] [id number] Univers 13:30:00 13:30:00 SCAR [facility] 2021-06-30 2021-06-30 Telephone [facility] [id number] Univers 00:00:00 00:00:00 [facility] [id number] it y of [place] 4.2.7.2.686 [place] as FITZ?BLEA [id number] In padmini AGOSTO [address] MEDICAL OFFICE [facility] 2021-06-24 2021-06-24 Telephone [facility] [id number] Univers 00:00:00 00:00:00 Jeremy L SPECIALTY [id number] [id number] [phone] In padmini TAO [address] [place] [address] 2021-06-18 2021-06-18 Telephone [facility] [id number] Univers 00:00:00 00:00:00 [facility] [id number] it y of [place] 4.2.7.2.686 [place] as FITZ?BLEA [phone] In padmini AGOSTO [address] [place] [address] OFFICE [facility] 2021-06-18 2021-06-18 Patient [facility] [id number] Univers 00:00:00 00:00:00 Secure Msg Jeremy L SPECIALTY [id number] it[place] [id number] [place] [phone] In padmini TAO [address] [place] [address] 2021-06-16 2021-06-16 [facility] [id number] Univers 08:25:00 14:05:00 JEREMY ity of [facility] 2021-06-16 2021-06-16 [facility] [id number] Univers 08:25:00 14:05:00 Encounter Jeremy STEEN [id number] ity of [facility] 4.2.7.2.686 [place] [id number] [facility] [address] 2021-06-16 2021-06-16 Surgery [facility] [id number] Univers 12:10:00 13:10:00 Jeremy STEEN [id number] i ty of [facility] 4.2.7.2.686 [place] [id number] [facility] [address] 2021-06-16 2021-06-16 Telephone [facility] [id number] Univers 00:00:00 00:00:00 Jeremy AUGUSTE [id number] it y of [place] 4.2.7.2.686 [place] as FITZ?BLEA [id number] In padmini AGOSTO [address] MEDICAL OFFICE [facility] 2021-06-13 2021-06-13 Laboratory Only, Adc Test [facility] 1.2.840. 114 [id number] Univers 09:45:00 10:00:00 Only Jeremy Burrell [id number] ity of [place] 4.2.7.2.686 [place] [id number] [address] 2021-06-13 2021-06-13 Outpatient R ASHANTI [facility] [id number] Univers 09:45:00 09:45:00 [facility] 2021-06-11 2021-06-11 Outpatient Eligio JAMISON [facility] [id number] 589 Univers 13:00:00 14:02:56 [facility] 2021-06-11 2021-06-11 [facility] 1..840.114 [id number] Univers 13:00:00 14:02:56 Visit Scar AUGUSTE 350.1.13.10 it y of [place] 4.2.7.2.686 Marty as FITZ?BLEA [phone] In padmini DUV[address] OFFICE [facility] 2021-06-11 2021-06-11 Outpatient Eligio JAMISON [facility] [id number] Univers 13:00:00 14:02:56 SCAR [facility] 2021-06-11 2021-06-11 Prep For Ashanti [facility] 1..840.114 923 [id number] Univers 00:00:00 00:00:00 Surgery Jeremy AUGUSTE 350.1.13.10 it y of [place] 4.2.7.2.686 Marty as FITZ?BLEA [phone] In padmini AGOSTO [address] MEDICAL OFFICE [facility] 2021-06-10 2021-06-10 Telephone Ashanti [facility] 1.2.840.114 [id number] Univers 00:00:00 00:00:00 Jeremy AUGUSTE 350.1.13.10 it y of [place] 4.2.7.2.686 Marty as FITZ?BLEA [phone] Me padmini AGOSTO [address] MEDICAL OFFICE [facility] 2021-06-10 2021-06-10 Telephone [facility] 1.2.840.114 [id number] Univers 00:00:00 00:00:00 Jeremy AUGUSTE 350.1.13.10 it y of [place] 4.2.7.2.686 Marty as FITZ?BLEA [phone] In padmini AGOSTO [address] MEDICAL OFFICE [facility] 2021-02-13 2021-02-13 Outpatient R [facility] [id number] Univers 11:00:00 11:30:28 JEREMY katz [facility] 2021-02-13 2021-02-13 Office [facility] 1.2.124.064 [id number] Univers 10:51:39 11:30:28 Visit Jeremy AUGUSTE 350.1.13.10 it [facility] 4.2.7.2.686 Marty as FITZ?BLEA [phone] In padmini AGOSTO [address] [place] [address] OFFICE [facility] 2020-12-01 2020-12-01 Emergency [facility] 1.2.012.317 [id number] Univers 19:06:00 21:32:00 Julianne S Candis 350.1.13.10 i ty of [place] [phone] [address] 2020-12-01 2020-12-01 Emergency [facility] [id number] Univers 19:06:00 19:06:00 JULIANNE ittristan [facility] 2020-07-29 2020-07-30 Emergency Maegan, K [facility] 1.2.840.114 [id number] Univers 22:02:00 01:32:00 Yessenia Candis 350.1.13.10 i ty of [place] 4.[place].7.2.[place] [id number] [address] 2020-07-29 2020-07-30 Emergency Maegan, K [facility] 1.2.840.114 [id number] 22:02:00 01:32:00 Yessenia Steen 350.1.13.10 [place] 4.2.7.2.686 [place] [phone] [employer] 2020-07-29 2020-07-29 Emergency X Chayo RIVAS [facility] ERT [id number] Univers 22:02:00 22:02:00 ity [facility] 2020-07-25 2020-07-25 Emergency [facility] 1.2.840.114 84 [id number] Univers 20:26:00 23:14:00 Zena Steen 350.1.13.10 ity of [place] 4.2.7.2.686 [facility] [phone] [address] 2020-07-25 2020-07-25 Emergency [facility] 1.2.840.114 84 [id number] 20:26:00 23:14:00 Zena Steen 350.1.13.10 [place] 4.2.7.2.686 [place] [phone] [employer] 2020-07-25 2020-07-25 Emergency [facility] [id number] Univers 20:26:00 20:26:00 ZENA [facility] 2020-07-21 2020-07-22 Emergency [facility] 1.2.530.624 [id number] 0424 Univers 23:32:00 02:30:00 Osman Steen 350.1.13.10 ity of [place] 4.2.7.2.686 [facility] [id number] [address] 2020-07-21 2020-07-22 Emergency [facility] 1.2.745.764 [id number] 0424 23:32:00 02:30:00 Osman Steen 350.1.13.10 [place] 4.2.7.2.686 [place] [id number] [employer] 2020-07-21 2020-07-21 Emergency X [facility] ERT [id number] Univers 23:32:00 23:32:00 OSMAN katz [facility] 2020-07-17 2020-07-18 Emergency [facility] 1.2.401.965 [id number] 8837 Univers 22:52:00 00:59:00 Julianne S Karnack 350.1.13.10 i ty of [place] 4.2.7.2.686 [facility] [id number] [address] 2020-07-17 2020-07-18 Emergency [facility] 1.2.241.714 [id number] 8837 22:52:00 00:59:00 Julianne S Karnack 350.1.13.10 [place] 4.2.7.2.6 [place] [id number] [employer] 2020-07-17 2020-07-17 Emergency [facility]RT [id number] Univers 22:52:00 22:52:00 [facility] 2020-07-02 2020-07-02 Emergency [facility] 1.2.396.885 [id number] [id number] Univers 19:35:00 22:12:00 Lisandro Karnack 350.1.13.10 i ty of [place] 4.2.7.2.686 [facility] [phone] [address] 2020-07-02 2020-07-02 Emergency [facility] 1.2.025.534 [id number] 4438 19:35:00 22:12:00 Lisandro Karnack 350.1.13.10 [place] [address] [place] [address] [id number] [employer] 2020-07-02 2020-07-02 Emergency X [facility] ERT [id number] Univers 19:23:00 19:23:00 ity [facility] 2020-06-10 2020-06-10 [facility] 1.2.627.582 [id number] 1320 Univers 01:29:00 03:55:00 Osman Orantes Karnack 350.1.13.10 ity of [place] 4.2.7.2.6 [facility] [id number] [address] 2020-06-10 2020-06-10 [facility] 1.2.435.785 [id number] 1320 01:29:00 03:55:00 Osman Orantes Karnack 350.1.13.10 [place] 4.2.7.2.686 [place] [id number] [employer] 2020-06-10 2020-06-10 Emergency X [facility] ERT [id number] Univers 01:19:00 01:19:00 ity [facility] 2020-05-08 2020-05-08 Emergency [facility] 1.2.840.114 [id number] Univers 20:57:00 21:46:00 Maged B Karnack 350.1.13.10 i ty of [place] 4.2.7.2.686 [facility] [phone] [address] 2020-05-08 2020-05-08 Emergency [facility] 1.2.840.114 81 [id number] 20:57:00 21:46:00 Maged B Karnack 350.1.13.10 [place] 4.2.7.2.686 [place] [id number] [employer] 2020-05-08 2020-05-08 Emergency [facility] ERT [id number] Univers 20:50:00 20:50:00 [facility] 2020-04-16 2020 Emergency Chayo Rivas [facility] 1.2.840.114 81 [id number] Univers 21:21:00 01:05:00 Yessenia Karnack 350.1.13.10 i ty of [place] 4.2.7.2.686 [facility] [phone] [address] 2020-04-16 2020 Emergency Chayo Rivas [facility] 1.2.840.114 [id number] 21:21:00 01:05:00 Yessenia Karnack 350.1.13.10 [place] 4.2.7.2.686 [place] [id number] [employer] 2020-04-16 2020-04-16 Emergency X Chayo RIVAS [facility] ERT [id number] Univers 21:21:00 21:21:00 ity [facility] 2020-03-09 2020-03-09 [facility] 1.2.399.806 [id number] 0859 Univers 20:23:00 22:51:00 Julianne S Karnack 350.1.13.10 i ty of [place] 4.2.7.2.686 [facility] [id number] [address] 2020-03-09 2020-03-09 Emergency [facility] 1.2.241.622 [id number] 0859 20:23:00 22:51:00 Julianne S Karnack 350.1.13.10 [place] 4.2.7.2.686 [place] [id number] [employer] 2020-03-09 2020-03-[address] [facility] ERT [id number] Univers 18:38:00 18:38:00 JULIANNE ity [facility] 2020-03-09 2020-03-09 Orders Doctor JESICA 1.2.840.114 [id number] Univers 00:00:00 00:00:00 Only Unassigned, LEYLA 350.1.13.10 ity of [place] [facility] 4.2.7.2.686 Marty [phone] [address] 2020-03-09 2020-03-09 Orders Doctor JESICA 1.2.840.114 [id number] 00:00:00 00:00:00 Only Unassigned, LEYLA 350.1.13.10 [place] [facility] 4.2.7.2.[id number] [facility] 2020-02-14 2020-02-15 Emergency [facility] 1.2.247.259 [id number] 8539 Univers 23:22:00 00:54:00 Osman Orantes Karnack 350.1.13.10 ity of [place] 4.2.7.2.686 [facility] [phone] [address] 2020-02-14 2020-02-15 Emergency [facility] 1.2.303.695 [id number] 8539 23:22:00 00:54:00 Osman S Karnack 350.1.13.10 [place] 4.2.7.2.686 [place] [id number] [employer] 2020-02-14 2020-02-14 Emergency [facility] [id number] Univers 23:10:00 23:10:00 OSMAN ity [facility] 2020-01-31 2020-01-31 [id number] 0201 [place] 02:19:00 02:19:00 118 [facility] 2020-01-28 2020-01-28 Emergency Chayo Rivas [place] 1.2.840.114 79 [id number] Univers 17:47:00 21:50:00 Yessenia Steen 350.1.13.10 i ty of [place] 4.2.7.2.686 [facility] [phone] [address] 2020-01-28 2020-01-28 Emergency Chayo Rivas [place] 1.2.840.114 79 [id number] 17:47:00 21:50:00 Yessenia Steen 350.1.13.10 [place] 4.2.7.2.686 [place] [id number] [employer] 2020-01-28 2020-01-28 Emergency X [facility] ERT [id number] Univers 17:23:00 17:23:00 ity [facility] 2020-01-22 2020-01-22 [facility] 1.2.276.779 [id number] [id number] Univers 19:22:00 22:47:00 Amaris Steen 350.1.13.10 ity of [place] 4.2.7.2.686 [facility] [id number] [address] 2020-01-22 2020-01-22 [facility] 1.2.449.650 [id number] 19:22:00 22:47:00 Amaris Steen 350.1.13.10 [place] 4.2.7.2.686 [place] [id number] [employer] 2020-01-22 2020-01-22 Emergency X [facility], [facility] ERT [id number] Univers 19:08:00 19:08:00 AMARIS ity [facility] 2020-01-20 2020-01-21 Emergency Moran, [facility] 1.2.749.747 [id number] 7546 Univers 23:26:00 02:01:00 Jj Steen 350.1.13.10 i ty of [place] 4.2.7.2.686 [facility] [phone] [address] 2020-01-20 2020-01-21 [facility] 1.2.607.469 [id number] 7546 23:26:00 02:01:00 Jj Steen 350.1.13.10 [place] 4.2.7.2.686 [place] [id number] [employer] 2020-01-20 2020-01-20 Emergency [facility]RT [id number] Univers 23:26:00 23:26:00 JJ ittristan [facility] 2019-12-30 2019-12-30 Emergency Chayo Rivas [facility] 1.2.840.114 [id number] Univers 11:45:00 14:25:00 Yessenia Steen 350.1.13.10 i ty of [place] 4.2.7.2.686 [facility] [phone] [address] 2019-12-30 2019-12-30 Emergency Maegan, K [facility] 1.2.840.114 [id number] 11:45:00 14:25:00 Yessenia Steen 350.1.13.10 [place] 4.2.7.2.686 [place] [id number] [employer] 2019-12-30 2019-12-30 Emergency X MAEGAN, K [facility] ERT [id number] Univers 11:45:00 11:45:00 ity [facility] 2019-12-22 2019-12-22 [facility] 1.2.340.583 [id number] [id number] Univers 13:48:00 16:20:00 Jj Steen 350.1.13.10 i ty of [place] 4.2.7.2.686 [facility] [phone] [address] 2019-12-22 2019-12-22 Emergency [facility] 1.2.280.070 [id number] [id number] 13:48:00 16:20:00 Jj Steen 350.1.13.10 [place] 4.2.7.2.686 [place] [id number] [employer] 2019-12-22 2019-12-22 Emergency X [facility] ERT [id number] Univers 13:43:00 13:43:00 ity [facility] 2019-12-22 2019-12-22 Orders Doctor JESICA 1.2.840.114 [id number] Univers 00:00:00 00:00:00 Only Unassigned, LEYLA 350.1.13.10 ity of [place] [facility] 4.2.7.2.686 Marty as [phone] [address] 2019-12-22 2019-12-22 Orders Doctor JESICA 1.2.840.114 [id number] 00:00:00 00:00:00 Only Unassigned, LEYLA 350.1.13.10 [place] [facility] 4.2.7.2.[id number] [facility] 2019-11-29 2019-11-29 Emergency [facility] 1.2.625.434 [id number] Univers 15:09:00 17:41:00 Julianne S Karnack 350.1.13.10 i ty of [place] 4.2.7.2.686 [facility] [place] [id number] [address] 2019-11-29 2019-11-29 Emergency [facility] 1.2.592.009 [id number] 15:09:00 17:41:00 Julianne S Karnack 350.1.13.10 [place] 4.2.7.2.686 [place] [id number] [employer] 2019-11-29 2019-11-29 Emergency X MILLER, [facility] ERT [id number] Univers 15:09:00 15:09:00 JULIANNE ity [facility] 2019-11-12 2019-11-12 Emergency [facility], [facility] 1.2.840.114 [id number] Univers 20:27:00 23:35:00 Kwaku Karnack 350.1.13.10 i ty of [place] 4.2.7.2.686 [facility] [place] [phone] [address] 2019-11-12 2019-11-12 Emergency [facility], [facility] 1.2.840.114 [id number] 20:27:00 23:35:00 Kwaku Karnack 350.1.13.10 [place] 4.2.7.2.686 [place] [id number] [employer] 2019-11-12 2019-11-12 Emergency X CENTENO, [facility] ERT [id number] Univers 20:27:00 20:27:00 KWAKU ittristan [facility] 2019-10-20 2019-10-21 Emergency [facility] 1.2.840.114 [id number] Univers 21:49:00 00:48:00 Zena Steen 350.1.13.10 ity of [place] 4.2.7.2.686 [facility] [id number] [address] 2019-10-20 2019-10-21 Emergency [facility] 1.2.840.114 [id number] 21:49:00 00:48:00 Zena Steen 350.1.13.10 [place] 4.2.7.2.686 [place] [id number] [employer] 2019-10-20 2019-10-20 Emergency [facility] ERT [id number] Univers 21:49:00 21:49:00 ZENA katz [facility] 2019-10-20 2019-10-20 Orders Doctor MOONEY 1.2.840.114 [id number] [facility] 00:00:00 00:00:00 Only Unassigned, LEYLA 350.1.13.10 ity of [place] [facility] 4.2.7.2.686 Marty [id number] [address] 2019-10-20 2019-10-20 Orders Doctor JESICA 1.2.840.114 [id number] 00:00:00 00:00:00 Only Unassigned, LEYLA 350.1.13.10 [place] [facility] 4.2.7.2.[id number] [facility] 2019-08-29 2019-08-29 Emergency [facility] 1.2.840.114 [id number] Univers 18:05:24 19:48:00 Qi Steen 350.1.13.10 ity of [place] 4.2.7.2.686 [facility] [id number] [address] 2019-08-29 2019-08-29 [facility] 1.2.840.114 [id number] 18:05:24 19:48:00 Qi Steen 350.1.13.10 [place] 4.2.7.2.686 [place] [id number] 2019-08-11 2019-08-11 Outpatient CHENCHO_Maicol [facility] [id number] [place] 09:48:00 09:48:00 [facility] 2019-04-20 2019-04-20 Emergency Chaoman, [facility] 1.2.840.114 [id number] Univers 21:28:16 22:19:00 Alley Steen 350.1.13.10 ity of [place] 4.2.7.2.686 [facility] [phone] [facility] [address] 2019-04-20 2019-04-20 Emergency Chaoman, [facility] 1.2.840.114 [id number] 21:28:16 22:19:00 Alley Steen 350.1.13.10 [place] 4.2.7.2.686 [place] [id number] 084 2016-12-06 2016-12-06 Emergency ER FRAME, [facility] [id number] [place] 07:35:00 10:30:00 YUMIKO -[id number] [facility] 2016-02-09 2016-02-09 Emergency ER SAEMI, [facility] [id number] [place] 17:17:00 22:36:00 LEAH -[id number] [facility] 2016-01-08 2016-01-08 Emergency ER UGORJI, [facility] [id number] [place] 21:19:00 22:36:00 GURDEEP -[id number] [facility] 2015-12-22 2015-12-22 Emergency ER BA, ELIZABETH [facility] [id number] [place] 22:11:00 23:07:00 -[id number] [facility] 2015-07-20 2015-07-20 Emergency ER MICHAUD, [facility] [id number] [place] 22:15:00 23:15:00 JONATHAN [id number] [facility] 2015-06-14 2015-06-14 Emergency ER UGORJI, [facility] [id number] [place] 11:50:00 14:25:00 GURDEEP -[id number] [facility] 2015-03-13 2015-03-13 Emergency ER UGORJI, [facility] [id number] [place] 17:31:00 18:40:00 CLEMENT -[id number] [facility] 2014-04-13 2014-04-14 Emergency ER BA, ELIZABETH [facility] [id number] [place] 20:30:00 00:10:00 -[id number] [facility] 2014-03-10 2014-03-10 Emergency ER BA, ELIZABETH [facility] [id number] [place] 03:56:00 07:10:00 -[id number] [facility] 2014-02-08 2014-02-08 Emergency ER AKAHARA, [facility] [id number] [place] 08:25:00 13:40:00 OBIDIHITESH -[id number] [facility] 2014-02-03 2014-02-03 Emergency EL BA, [facility]IZABETH [facility] [id number] [place] 20:19:00 20:52:00 -[id number] [facility] 2014-01-11 2014-01-12 Emergency ER ADRIANNA, [facility] [id number] [place] 23:32:00 00:41:00 KENZIE -[id number] [facility] 2013-11-13 2013-11-13 Emergency ER ADAMSVILLE, [facility] [id number] [place] 01:32:00 02:12:00 SCAR -[id number] [facility] 2013-09-20 2013-09-20 Emergency ER ADRIANNA, [facility] [id number] [place] 19:30:00 20:23:00 KENZIE -[id number] [facility] 2013-08-21 2013-08-21 Emergency ER GARCIA, [facility] [id number] [place] 20:59:00 21:46:00 WASMARGARITA -[id number] [facility] 2013-07-23 2013-07-23 Emergency ER GARCIA, [facility] [id number] [place] 01:09:00 02:17:00 WAS -[id number] [facility] 2013-06-25 2013-06-25 Emergency ER YARIMA, [facility] [id number] [place] 12:46:00 13:35:00 OSMAN -[id number] [facility] 2013-06-14 2013-06-14 Emergency ER ADRIANNA, [facility] [id number] [place] 22:40:00 23:59:00 KENZIE -[id number] [facility] 2013-06-04 2013-06-05 Emergency ER BA, ELIZABETH [facility] [id number] [place] 22:21:00 00:52:00 -[id number] [facility] 2013-05-16 2013-05-17 Emergency ER UGORJI, [facility] [id number] [place] 22:13:00 00:49:00 GURDEEP -[id number] [facility] 2013-03-25 2013-03-26 Emergency ER FOLEY, [facility] [id number] [place] 23:36:00 03:47:00 SCAR -[id number] [facility] 2013-03-22 2013-03-22 Emergency ER ADRIANNA, [facility] [id number] [place] 20:51:00 21:00:00 KENZIE -[id number] [facility] 2013-03-06 2013-03-07 Emergency ER UGORJI, [facility] [id number] [place] 23:27:00 03:02:00 CLEMENT -[id number] [facility] 2013-02-18 2013-02-18 Emergency ER UGORJI, [facility] [id number] [place] 00:57:00 01:21:00 CLEMENT -[id number] [facility] 2012-11-13 2012-11-14 Emergency ER GARCIA, [facility] [id number] [place] 22:31:00 00:11:00 WASMARGARITA -[id number] [facility] 2012-10-18 2012-10-18 Emergency ER GARCIA, [facility] [id number] [place] 00:16:00 01:14:00 WASIM -[id number] [facility] 2012-10-15 2012-10-16 Emergency ER FOLEY, [facility] [id number] [place] 22:38:00 00:42:00 SCAR -[id number] [facility] 2012-10-07 2012-10-07 Emergency ER GARCIA, [facility] [id number] [place] 00:13:00 01:12:00 WASIM -[id number] [facility] 2012-05-15 2012-05-16 Emergency ER MORENARIMS, [facility] [id number] [place] 22:38:00 00:46:00 OSMAN -[id number] [facility] 2012-04-23 2012-04-24 Emergency ER SUMMER, [facility] [id number] [place] 22:14:00 00:21:00 GURDEEP -[id number] [facility] 2011-11-21 2011-11-22 Emergency ER GARCIA, [facility] [id number] [place] 23:01:00 01:36:00 WASIM -[id number] [facility] 2011-03-07 2011-03-07 Emergency ER OTININ, [facility] [id number] [place] 16:37:00 18:29:00 RADHA -[id number] [facility] 2009-11-17 2009-11-18 Emergency ER GARCIA, [facility] [id number] [place] 21:51:00 00:40:00 WASIM -[id number] [facility] 2007-03-20 2007-03-20 Emergency ER [facility] D000 [id number] [place] 01:13:00 02:14:00 OMAR, -[id number] [facility] Results This patient has no known results.
[2022-01-05] MEDS ORDERED: HYDROCODONE/APAP 10/325 TAB ONE (21:27)
[2022-01-05] MEDS ORDERED: HYDROMORPHONE HCL 2 MG/ML inj ONE (22:54)
[2022-01-05] MEDS ORDERED: DIAZEPAM 5 MG TABLET ONE (22:54)
[2022-01-05] MEDS ORDERED: PROMETHAZINE INJ 25 MG/ML AMP ONE (22:54)
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
--- NOTE | 2022-01-05 23:01 | EDPHYS ---
Physician Documentation [facility] Name: Lino Samuel Age: 46 yrs Sex: Male : 1975 Arrival Date: 01/05/2022 Time: 20:27 Bed 2 Private MD: MELISSA Physician Clarence Amos HPI: 01/05 22:52 This 46 yrs old Male presents to ER via Ambulatory with complaints of Neck iram Pain, <24hrs Old, Shoulder Pain, Arm Pain. 22:52 The patient or guardian complains of decreased range of motion, pain. The symptoms are iram located on the base of the skull. Onset: The symptoms/episode began/occurred 2 day(s) ago. Context: The problem was sustained on a street or driveway. Associated signs and symptoms: The patient has no apparent associated signs or symptoms. The pain radiates to the left trapezius and right trapezius. Modifying factors: The symptoms are alleviated by remaining still, the symptoms are aggravated by movement, pressure. Severity of symptoms: At their worst the symptoms were mild, moderate, in the emergency department the symptoms are unchanged. The patient has experienced similar episodes in the past, multiple times. Historical: - Allergies: 21:19 Imitrex; as6 21:19 Toradol; as6 21:19 tramadol; as6 - PMHx: 21:19 Gastric Reflux; Hypertension; Migraines; as6 - PSHx: 21:19 Vasectomy; Cholecystectomy; elbow; neck; as6 - Immunization history:: Client reports having NOT received the Covid vaccine. - Social history:: Smoking status: Patient reports the use of cigarette tobacco products, smokes one-half pack cigarettes per day. - Family history:: not pertinent. ROS: 22:52 Constitutional: Negative for fever, chills, and weight loss, Eyes: Negative for injury, iram pain, redness, and discharge, ENT: Negative for injury, pain, and discharge, Cardiovascular: Negative for chest pain, palpitations, and edema, Respiratory: Negative for shortness of breath, cough, wheezing, and pleuritic chest pain, Abdomen/GI: Negative for abdominal pain, nausea, vomiting, diarrhea, and constipation, Back: Negative for injury and pain, : Negative for injury, bleeding, discharge, and swelling, MS/Extremity: Negative for injury and deformity, Skin: Negative for injury, rash, and discoloration, Neuro: Negative for headache, weakness, numbness, tingling, and seizure, Psych: Negative for depression, anxiety, suicide ideation, homicidal ideation, and hallucinations, Allergy/Immunology: Negative for hives, rash, and allergies, Endocrine: Negative for neck swelling, polydipsia, polyuria, polyphagia, and marked weight changes, Hematologic/Lymphatic: Negative for swollen nodes, abnormal bleeding, and unusual bruising. 22:52 Neck: Positive for pain with movement, pain at rest. Exam: 22:52 Constitutional: This is a well developed, well nourished patient who is awake, alert, iram and in no acute distress. Head/Face: Normocephalic, atraumatic. Eyes: Pupils equal round and reactive to light, extra-ocular motions intact. Lids and lashes normal. Conjunctiva and sclera are non-icteric and not injected. Cornea within normal limits. Periorbital areas with no swelling, redness, or edema. ENT: Nares patent. No nasal discharge, no septal abnormalities noted. Tympanic membranes are normal and external auditory canals are clear. Oropharynx with no redness, swelling, or masses, exudates, or evidence of obstruction, uvula midline. Mucous membranes moist. Chest/axilla: Normal chest wall appearance and motion. Nontender with no deformity. No lesions are appreciated. Cardiovascular: Regular rate and rhythm with a normal S1 and S2. No gallops, murmurs, or rubs. Normal PMI, no JVD. No pulse deficits. Respiratory: Lungs have equal breath sounds bilaterally, clear to auscultation and percussion. No rales, rhonchi or wheezes noted. No increased work of breathing, no retractions or nasal flaring. Abdomen/GI: Soft, non-tender, with normal bowel sounds. No distension or tympany. No guarding or rebound. No evidence of tenderness throughout. Back: No spinal tenderness. No costovertebral tenderness. Full range of motion. Male : Normal genitalia with no discharge or lesions. Skin: Warm, dry with normal turgor. Normal color with no rashes, no lesions, and no evidence of cellulitis. MS/ Extremity: Pulses equal, no cyanosis. Neurovascular intact. Full, normal range of motion. Neuro: Awake and alert, GCS 15, oriented to person, place, time, and situation. Cranial nerves II-XII grossly intact. Motor strength 5/5 in all extremities. Sensory grossly intact. Cerebellar exam normal. Normal gait. Psych: Awake, alert, with orientation to person, place and time. Behavior, mood, and affect are within normal limits. 22:52 Neck: External neck: no acute changes, Thyroid: appears normal, no acute changes, Trachea: is midline with no obvious abnormalities, no acute changes, ROM/movement: is normal, no acute changes, limited range of motion, that is mild, Meningeal signs: are not present, Kernig's sign is negative, Brudzinski's sign is negative, nuchal rigidity, is not appreciated, Lymph nodes: no appreciated lymphadenopathy. Vital Signs: 21:14 BP 146 / 92; Pulse 86; Resp 18 S; Temp 98.7(O); Pulse Ox 100% on R/A; Weight 103.87 kg as6 (R); Height 6 ft. 4 in. (193.04 cm) (R); Pain 9/10; 23:11 BP 139 / 77; Pulse 80; Resp 16; Pulse Ox 99% on R/A; Pain 5/10; kl 21:14 Body Mass Index 27.87 (103.87 kg, 193.04 cm) as6 MDM: 22:24 Patient medically screened. iram 22:57 Differential diagnosis: Cervical Disc Herniation cervical strain, Degenerative Disc iram Disease fracture, Neck Contusion Spondylolisthesis Spondylosis torticollis. Data reviewed: vital signs, nurses notes, radiologic studies, CT scan. Data interpreted: equipment monitor phototypesetting: not applicable for this patient encounter. rate is 86 beats/min, rhythm is regular, Pulse oximetry: on room air is 100 %. Test interpretation: by ED physician or midlevel provider:. 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 Administered Medications: 21:28 Drug: [place] (HYDROcodone-acetaminophen) 10 mg-325 mg 1 tabs Route: PO; as6 22:26 Follow up: Response: No change in condition kl 22:58 Drug: Dilaudid (HYDROmorphone) 2 mg Route: IM; Site: right vastus lateralis; kl 23:11 Follow up: Response: No adverse reaction; Marked relief of symptoms kl 22:58 CANCELLED (Physician Discretion): Valium (diazepam) 10 mg IVP once kl 22:58 Drug: Phenergan (promethazine) 25 mg Route: IM; Site: right vastus lateralis; kl 23:10 Follow up: Response: No adverse reaction; Marked relief of symptoms kl 22:59 Drug: Valium (diazepam) 10 mg Route: PO; kl 23:10 Follow up: Response: No adverse reaction; Marked relief of symptoms kl Disposition Summary: 01/05/22 23:00 Discharge Ordered Location: Home iram Problem: new iram Symptoms: have improved iram Condition: Stable iram Diagnosis - Strain of muscle, fascia and tendon at neck level, subsequent encounter iram - Radiculopathy, cervical region iram Followup: iram - With: Private Physician - When: 2 - 3 days - Reason: Recheck today's complaints, Continuance of care, Re-evaluation by your physician Followup: iram - With: Sayra Yu MD - When: 2 - 3 days - Reason: Recheck today's complaints, Continuance of care, Re-evaluation by your physician Followup: iram - With: Fabián Sneed DO - When: 2 - 3 days - Reason: Recheck today's complaints, Re-evaluation by your physician Discharge Instructions: - Discharge Summary Sheet iram - Cervical Radiculopathy iram - Cervical Radiculopathy, [id number] iram - Radicular Pain iram Forms: - Medication Reconciliation Form iram - Thank You Letter iram - Antibiotic Education iram - Prescription Opioid Use iram Prescriptions: - Valium 5 mg Oral Tablet - take 1 tablet by ORAL route every 8 hours As needed; 20 tablet; Refills: 0, iram Product Selection Permitted - Diclofenac Sodium 75 mg Oral tablet,delayed release (DR/EC) - take 1 tablet by ORAL route 2 times per day; 20 tablet; Refills: 0, Product iram Selection Permitted - Medrol (Pro) 4 mg Oral Tablets, Dose Pack - take 1 tablet by ORAL route as directed - follow package instructions; 1 iram packet; Refills: 0, Product Selection Permitted - Tylenol-Codeine #3 300 mg-30 mg Oral - take 2 tablet by ORAL route every 6 hours; 20 tablet; Refills: 0, Product iram Selection Permitted Signatures: Rahel Sanchez RN RN kl Anderson, Corey, MD MD cha Slawson, Ashby, RN RN as6 Corrections: (The following items were deleted from the chart) 22:58 22:52 Valium (diazepam) 10 mg IVP once ordered. iram [place]
[2022-01-06 00:21] VITALS: TEMP 98.7
[2022-01-06 00:22] VITALS: BP 139/77; O2SAT 99
== END 2022-01-05 23:12 | disposition home or self-care (01) ==
LOC: ER 20:24
DX: S16.1XXD Strain of muscle, fascia and tendon at neck level, subsequent encounter (principal); M54.12 Radiculopathy, cervical region; F17.210 Nicotine dependence, cigarettes, uncomplicated; Z88.5 Allergy status to narcotic agent; Z88.6 Allergy status to analgesic agent
CPT/HCPCS: 96372; 99283; J2550; J1170

== ENCOUNTER 2022-03-06 18:45 | Emergency (ER) | payer OTHER ==
--- OUTSIDE RECORDS SUMMARY | 2022-03-06 18:51 | XMS REPORT | Continuity of Care Document ---
:1975 Author Organization [facility] t Address [address] [place] [address] [address] [place] [address] Care Team Providers Name Role Phone NEDRA MCGARRY Primary Care Physician Unavailable JEREMY BURRELL Attending Clinician Unavailable LIEN ANAYA Attending Clinician Unavailable Cesar Lawrence Attending Clinician Unavailable FOG_A_Provider Attending Clinician Unavailable Mynor Fair Attending Clinician Unknown, Attending Attending Clinician Unavailable MYNOR LINDA Attending Clinician Unavailable Doctor Unassigned, [place] Attending Clinician Unavailable JJ MORAN Attending Clinician Unavailable Jj Moran MD Attending Clinician LAKISHA CASTANEDA Attending Clinician Unavailable SADI BARNEY Attending Clinician Unavailable AMBREEN_FARHANA Attending Clinician Unavailable SCAR JAMISON Attending Clinician Unavailable TAYLOR SCHWARTZ Attending Clinician Unavailable Jeremy Burrell MD Attending Clinician Scar Merritt Attending Clinician Only, Adc Test Attending Clinician Unavailable Julianne Quintero S Attending Clinician JULIANNE MILLER Attending Clinician Unavailable Chayo Esquivel Attending Clinician Chayo RIVAS Attending Clinician Unavailable Zena Flores DO Attending Clinician ZENA FLORES Attending Clinician Unavailable Osman Calvo MD Attending Clinician OSMAN CALVO Attending Clinician Unavailable Lisandro Jim DO Attending Clinician Maged Stovall Attending Clinician MAGED LAMAR Attending Clinician Unavailable LARON Attending Clinician Unavailable Amaris Alvarado NP Attending Clinician AMARIS ALVARADO Attending Clinician Unavailable Kwaku Hammer Attending Clinician KWAKU CENTENO Attending Clinician Unavailable Qi Hernandez Attending Clinician Alley Wheat Attending Clinician YUMIKO WATTS Attending Clinician Unavailable LEAH VALDEZ Attending Clinician Unavailable GURDEEP RICH Attending Clinician Unavailable ELIZABETH CARLOS Attending Clinician Unavailable JONATHAN MICHAUD Attending Clinician Unavailable DONG NGUYEN Attending Clinician Unavailable KENZIE RODAS Attending Clinician Unavailable SCAR FOLEY Attending Clinician Unavailable RYDER GARCIA Attending Clinician Unavailable OSMAN CALVO Attending Clinician Unavailable RADHA ORR Attending Clinician Unavailable RON BEGUM Attending Clinician Unavailable JEREMY BURRELL Admitting Clinician Unavailable Cesar Lawrence Admitting Clinician Unavailable FOG_A_Provider Admitting Clinician Unavailable AMBREEN_FARHANA Admitting Clinician Unavailable Ashanti DICK, Jeremy Milian Admitting Clinician OSMAN CALVO Admitting Clinician Unavailable LARON Admitting Clinician Unavailable Payers Payer Name Policy Type Policy Number Effective Date Expiration Date Lamberto vinson [facility] [id number] 2020 00:00:00 [facility] [id number] HUMANA () [facility] [id number] 2011 [facility] 00:00:00 REGION Problems Condition Condition Condition Status Onset Resolution Last Treating Co mments Source Name Details Category Date Date Treatment Clinician Date Cervical Cervical Problem Active 2021-03 Azale a radiculopa Radiculopa 2 Or thope thy thy 00:00: dic 00 [facility] Thoracic Thoracic Problem Active 2021-03 Azale a back pain Back Pain 04-15 Orth ope 00:00: dic 00 [facility] Closed Closed Disease Active Overview: Univer s displaced displaced 06-12 Formattin i ty of fracture fracture 00:00: g of this [place] as of base of of base of 00 note Me dical fifth fifth might be Branch metacarpal metacarpal different bone of bone of from the right right original. hand, hand, Added initial initial automatic encounter encounter ally from request for surgery [id number] Hypertensi Hypertensi Problem Active 2015-03 A zalea ve ve 0-04 Orthope disorder Disorder 00:00: dic 00 [facility] Cervical Cervical Problem Active 2015-03 Azale a spondylosi Spondylosi 0-04 Or thope s s 00:00: dic 00 Sports Medic[facility] e Paresthesi Paresthesi Problem Active 2015-03 A zalea a a 0-04 Orthope 00:00: dic 00 [facility] Medic[facility] e Allergies, Adverse Reactions, Alerts Allergy Allergy Status Severity Reaction(s) Onset Inactive Treating Comm ents Source Name Type Date Date Clinician TRAMADOL Allergy Active 2015-03 Leah to 0-04 Orthope substanc 00:00: dic e 00 [facility] TORADOL Allergy Active 2015-03 Leah to 0-04 Orthope substanc 00:00: dic e 00 [facility] Medic[facility] sumatrip DA Active SV HEART ATTACK HC A farrell SYMPTOMS,THR 08-12 Chari r OAT SWELLS 00:00: [place] 00 [facility] tramadol DA Active SV SEVERE COLD [facility] SWEATS 08-12 Clear 00:00: [place] 00 [facility] ketorola DA Active SV SEVERE [facility] c STOMACH PAIN 08-12 Chari r 00:00: [place] 00 [facility] Sumatrip Drug Active Anaphylaxis Chest Uni vers [...] ity of SUCCINAT 00:00: [place] E 00 [facility] KETOROLA DRUG Active High Other-Cmnt Univ ers C INGREDI 11-13 ity of TROMETHA 00:00: [place] MINE 00 [facility] TRAMADOL DRUG Active Other-Cmnt Univ ers INGREDI 11-13 ity of 00:00: [place] 00 [facility] Social History Social Habit Start Date Stop Date Quantity Comments Source History of tobacco Cigarette Smoker University of use [facility] Exposure to 2022-02-15 2022-02-25 Not sure University SARS-CoV-2 (event) 00:00:00 19:37:00 [facility] Alcohol intake 2021-06-30 2021-06-30 Current University of 00:00:00 00:00:00 non-drinker of [facility] alcohol Branch (finding) Cigarettes smoked 2017-02-23 2017-02-23 Univers ity of current (pack per 00:00:00 00:00:00 [facility] ) - Reported Branch Cigarette 2017-02-23 2017-02-23 University of pack-years 00:00:00 00:00:00 [facility] Tobacco use and 2017-02-23 2017-02-23 Smokeless Universit y of exposure 00:00:00 00:00:00 tobacco [facility] [birth year] Universit y of 00:00:00 00:00:00 [facility] Smoking Status Start Date Stop Date Source Smokes tobacco daily 2017-02-23 00:00:00 Univers ity of [facility] Medications Ordered Filled Start Stop Current Ordering Indication Dosage Frequency Signature Comments Components Source Medication Medication Date Date Medication? Clinician (SIG) Name Name proMETHazin 2021-03- No [id number] 25mg Univers e 2-15 12-15 ity of (PHENERGAN) 01:57: 02:00 [place] injection 00 :00 Medical 25 mg Branch proMETHazin 2021-03- No [id number] 25mg 25 mg, Univers e 2-15 12-15 Intramuscu ity of (PHENERGAN) 01:57: 02:00 lar, ONCE, [place] injection 00 :00 1 dose, On Medi chayito 25 mg [facility] Branch 02/25/22 at 2000, Routine proMETHazin 2021-03- Yes [id number] 25mg Take 1 Univers e 25 mg 2-14 12-20 tablet by ity of tablet 00:00: 05:59 mouth [place] 00 :00 every 6 Medical (six) Branch hours as needed for Nausea and Vomiting (N/V) for up to 5 days. lidocaine 5 2021-03 Yes Univer s % (700 1-17 ity of mg/patch) 00:00: [place] patch 00 [facility] hydrOXYzine 2021-03 Yes Univer s 25 mg 0-31 ity of capsule 00:00: [place] 00 [facility] FENTanyl PF 2021-03- No 75ug 75 mcg, Un kevon (SUBLIMAZE 0-26 10-26 Intramuscu it y of (PF)) 07:00: 07:07 lar, ONCE, [place] injection 00 :00 1 dose, On Medi chayito 75 mcg [facility] 01/07/22 at 0200, STAT dexamethaso 2021-03- No 10mg 10 mg, Uni vers ne sod phos 0-26 10-26 Intramuscu i ty of PF 02:15: 02:13 lar, ONCE, [place] injection 00 :00 1 dose, On Medi chayito 10 mg [facility] 01/06/22 at 2115, 1 mL diazePAM 2021-03- No 5mg 5 mg, Univers (VALIUM) 0-26 10-26 Oral, ity of tablet 5 mg 02:15: 02:12 [place], On Medical Tue Branch 01/06/22 at 2115, TUAN diazePAM 2021-03 Yes [id number] 5mg Take 1 Uni vers (VALIUM) 5 0-25 tablet by ity of mg tablet 00:00: mouth 3 [place] 00 (three) Medical times Branch daily as needed for Muscle Spasms. diazePAM 2021-03 Yes [id number] 5mg Take 1 Uni vers (VALIUM) 5 0-25 tablet by ity of mg tablet 00:00: mouth 3 [place] 00 (three) Medical times Branch daily as needed for Muscle Spasms. diazePAM 2021-03 Yes [id number] 5mg Take 1 Uni vers (VALIUM) 5 0-25 tablet by ity of mg tablet 00:00: mouth 3 [place] 00 (three) Medical times Branch daily as needed for Muscle Spasms. diazePAM 2021-03 Yes [id number] 5mg Take 1 Uni vers (VALIUM) 5 0-25 tablet by ity of mg tablet 00:00: mouth 3 [place] 00 (three) Medical times Branch daily as needed for Muscle Spasms. predniSONE 2021-03- Yes [id number] 40mg Take 2 Univers 20 mg 0-25 10-31 tablets by ity of tablet 00:00: 04:59 mouth in [place] 00 :00 the Medical morning Branch for 5 days. predniSONE 2021-03- Yes [id number] 40mg Take 2 Univers 20 mg 0-25 10-31 tablets by ity of tablet 00:00: 04:59 mouth in [place] 00 :00 the Medical morning Branch for 5 days. metoprolol 2021-03 Yes 50mg Take 50 mg U nivers tartrate 50 0-12 by mouth ity of mg tablet 00:00: in the [place] 00 morning Medical and 50 mg Branch in the evening. Take with meals. acetaminoph Yes Tylenol Uni vers en 06 [...] 4-06 one ity of acetonide 02:05: acetonide Amrty as 0.1 % 00 0.1 % Medical ointment topical Branch ointment APPLY A THIN LAYER TO THE AFFECTED AREA(S) BY TOPICAL ROUTE 2 TIMES PER DAY acetaminoph 0 Yes Tylenol Uni vers en -06 ity of (TYLENOL) 02:05: [place] 325 mg Cap 00 Medical Branch clotrimazol Yes clotrimazo Univers e 1 % -06 le 1 % ity of topical 02:05: [...] AND EVENING triamcinolo Yes triamcinol Univers ne - one ity of acetonide 02:05: acetonide [place] as 0.1 % 00 0.1 % Medical ointment topical Branch ointment APPLY A THIN LAYER TO THE AFFECTED AREA(S) BY TOPICAL ROUTE 2 TIMES PER DAY acetaminoph 0 Yes Tylenol Uni vers en -06 ity [...] AND EVENING triamcinolo Yes triamcinol Univers ne - one ity of acetonide 02:05: acetonide [place] as 0.1 % 00 0.1 % Medical ointment topical Branch ointment APPLY A THIN LAYER TO THE AFFECTED AREA(S) BY TOPICAL ROUTE 2 TIMES PER DAY acetaminoph 0 Yes Tylenol Uni vers en -06 ity [...] AND EVENING triamcinolo Yes triamcinol Univers ne - one ity of acetonide 02:05: acetonide [place] as 0.1 % 00 0.1 % Medical ointment topical Branch ointment APPLY A THIN LAYER TO THE AFFECTED AREA(S) BY TOPICAL ROUTE 2 TIMES PER DAY acetaminoph 0 Yes Tylenol Uni vers en -06 ity [...] acetaminoph 0 Yes Tylenol Uni vers en - ity of (TYLENOL) 02:05: [place] 325 mg Cap 00 Medical Branch clotrimazol Yes clotrimazo Univers e 1 % 06 le 1 % ity of topical 02:05: topical [place] cream 00 cream Medical APPLY TO Branch THE AFFECTED AND SURROUNDIN G AREAS OF SKIN BY TOPICAL ROUTE 2 TIMES PER DAY IN THE MORNING AND EVENING triamcinolo Yes triamcinol Univers ne - one ity of acetonide 02:05: acetonide Marty [...] AND EVENING triamcinolo Yes triamcinol Univers ne 06 one ity of acetonide 02:05: acetonide Marty [...] by mouth ity of tablet 14:22: daily. [place] 24 Medical Branch amLODIPine 0 Yes 10mg Take 10 mg U nivers 10 mg 4-04 by mouth ity of tablet 14:22: daily. [place] [address] Medical Branch DEXLANSOPRA 2021-0 Yes Take by [...] by ity of capsule 14:22: mouth 4 24 (four) Medical times Branch daily. Takes 2 capsules in morning and 2 capsules in evening. metoprolol 2021-0 Yes 100mg Take 100 Un kevon succinate 4-04 mg by ity of XL 100 mg 14:22: mouth [place] 24 hr 24 daily. Medical tablet Branch valsartan 0 Yes 40mg Take 40 mg Un kevon 40 mg 4-04 by mouth ity of tablet 14:22: daily. [place] [address] Medical Branch amLODIPine 0 Yes 10mg Take 10 mg U nivers 10 mg 4-04 by mouth ity of tablet 14:22: daily. [place] [address] Medical Branch DEXLANSOPRA 0 Yes Take by [...] hr 24 daily. Medical tablet Branch valsartan 2022-0 Yes 40mg Take 40 mg Un kevon 40 mg 4-04 by mouth ity of tablet 14:22: daily. [place] [address] Medical Branch amLODIPine 0 Yes 10mg Take 10 mg U nivers 10 mg 4-04 by mouth ity of tablet 14:22: daily. [place] [address] Medical Branch DEXLANSOPRA 0 Yes Take by [...] by mouth ity of tablet 14:22: daily. [place] [address] Medical Branch amLODIPine 0 Yes 10mg Take 10 mg U nivers 10 mg 4-04 by mouth ity of tablet 14:22: daily. [place] [address] Medical Branch DEXLANSOPRA Yes Take by Uni [...] by mouth ity of tablet 14:22: daily. [place] [address] Medical Branch amLODIPine 0 Yes 10mg Take 10 mg U nivers 10 mg 4-04 by mouth ity of tablet 14:22: daily. [place] [address] Medical Branch DEXLANSOPRA 0 Yes Take by [...] by mouth ity of tablet 14:22: daily. [place] [address] Medical Branch amLODIPine 0 Yes 10mg Take 10 mg U nivers 10 mg 4-04 by mouth ity of tablet 14:22: daily. [place] [address] Medical Branch DEXLANSOPRA Yes Take by Uni [...] by mouth ity of tablet 14:22: daily. [place] [address] Medical Branch amLODIPine 2021-0 Yes 10mg Take 10 mg U nivers 10 mg 4-04 by mouth ity of tablet 14:22: daily. [place] [address] Medical Branch DEXLANSOPRA 0 Yes Take by [...] by mouth ity of tablet 14:22: daily. [place] [address] Medical Branch amLODIPine 0 Yes 10mg Take 10 mg U nivers 10 mg 4-04 by mouth ity of tablet 14:22: daily. [place] [address] Medical Branch DEXLANSOPRA 0 Yes Take by [...] evening. metoprolol Yes 100mg Take 100 Un kveon succinate 4-04 mg by ity of XL 100 mg 14:22: mouth [place] 24 hr 24 daily. Medical tablet Branch valsartan Yes 40mg Take 40 mg Un kevon 40 mg 4-04 by mouth ity of tablet 14:22: daily. [place] [address] Medical Branch amLODIPine Yes 10mg Take 10 mg U nivers 10 mg 4-04 by mouth ity of tablet 14:22: daily. [place] [address] Medical Branch DEXLANSOPRA Yes Take by Uni vers ZOLE 4-04 mouth. ity of (DEXILANT 14:22: [place] ORAL) 24 Medical Branch oxyCODONE-a Yes 1{tbl} Take 1 Un kevon cetaminophe 4-04 tablet by ity of n 14:22: mouth [place] (PERCOCET) 24 every 6 Medica l 10-325 [...] ity of cream 00:00: Medical Branch triamcinolo 0 Yes Univer s ne 0.025 % 3-09 ity of cream 00:00: Medical Branch triamcinolo 0 Yes Univer s ne 0.025 % 3-09 ity of cream 00:00: Medical Branch triamcinolo 0 Yes Univer s ne 0.025 % 3-09 ity of cream 00:00: Medical Branch triamcinolo 0 Yes Univer s ne 0.025 % 3-09 [...] 00:00: [place] Medical Branch amitriptyli 2020-03 Yes Treyer s ne 25 mg 2-07 ity of tablet 00:00: [place] Medical Branch amitriptyli 2020-03 Yes Univer s ne 25 mg 2-07 ity of tablet 00:00: [place] Medical Branch amitriptyli 2020-03 Yes Univer s ne 25 mg 2-07 ity of tablet 00:00: [place] Medical Branch amitriptyli 2020-03 Yes Univer s ne 25 mg 2-07 ity of tablet 00:00: [place] Medical Branch amitriptyli 2020-03 Yes Treyer s ne 25 mg 2-07 ity of tablet 00:00: [place] Medical Branch amitriptyli 2020-03 Yes Gerald s ne 25 mg 2-07 ity of tablet 00:00: [place] Medical Branch amitriptyli 2020-03 Yes Gerald s ne 25 mg 2-07 ity of tablet 00:00: [place] Medical Branch amitriptyli 2020-03 Yes Gerald s ne 25 mg 2-07 ity of tablet 00:00: [place] Medical Branch amitriptyli 2020-03 Yes Gerald s ne 25 mg 2-07 ity of tablet 00:00: [place] Medical Branch levoFLOXaci 2020-03 Yes [id number] 750mg Take 1 Univers n 2-02 9108 tablet by ity of (LEVAQUIN) 00:00: mouth [place] 750 mg 00 every 24 Medical tablet (twenty-fo Branch ur) hours. levoFLOXaci 2020-03 Yes [id number] 750mg Take 1 Univers n 2-02 9108 tablet by ity of (LEVAQUIN) 00:00: mouth [place] 750 mg 00 every 24 Medical tablet (twenty-fo Branch ur) hours. levoFLOXaci 2020-03 Yes [id number] 750mg Take 1 Univers n 2-02 9108 tablet by ity of (LEVAQUIN) 00:00: mouth [place] 750 mg 00 every 24 Medical tablet (twenty-fo Branch ur) hours. levoFLOXaci 2020-03 Yes [id number] 750mg Take 1 Univers n 2-02 9108 tablet by ity of (LEVAQUIN) 00:00: mouth [place] 750 mg 00 every 24 Medical tablet (twenty-fo Branch ur) hours. levoFLOXaci 2020-03 Yes [id number] 750mg Take 1 Univers n 2-02 9108 tablet by ity of (LEVAQUIN) 00:00: mouth [place] 750 mg 00 every 24 Medical tablet (twenty-fo Branch ur) hours. levoFLOXaci 2020-03 Yes [id number] 750mg Take 1 Univers n 2-02 9108 tablet by ity of (LEVAQUIN) 00:00: mouth [place] 750 mg 00 every 24 Medical tablet (twenty-fo Branch ur) hours. levoFLOXaci 2020-03 Yes [id number] 750mg Take 1 Univers n 2-02 9108 tablet by ity of (LEVAQUIN) 00:00: mouth [place] 750 mg 00 every 24 Medical tablet (twenty-fo Branch ur) hours. levoFLOXaci 2020-03 Yes [id number] 750mg Take 1 Univers n 2-02 9108 tablet by ity of (LEVAQUIN) 00:00: mouth [place] 750 mg 00 every 24 Medical tablet (twenty-fo Branch ur) hours. levoFLOXaci 2020-03 Yes [id number] 750mg Take 1 Univers n 2-02 9108 tablet by ity of (LEVAQUIN) 00:00: mouth [place] 750 mg 00 every 24 Medical tablet (twenty-fo Branch ur) hours. ondansetron 2020-0 Yes Univer s 4 mg [...] ing tablet 00 Medical Branch proMETHazin Yes [id number] 25mg Insert 1 Univers e 25 mg 9-19 Suppositor ity of suppository 00:00: [place] rectum Medical every 4 Branch (four) hours as needed for Nausea and Vomiting (N/V). proMETHazin Yes [id number] 25mg Insert 1 Univers e 25 mg 9-19 Suppositor ity of suppository 00:00: [place] 00 rectum Medical every 4 Branch (four) hours as needed for Nausea and Vomiting (N/V). proMETHazin Yes [id number] 25mg Insert 1 Univers e 25 mg 9-19 Suppositor ity of suppository 00:00: [place] 00 rectum Medical every 4 Branch (four) hours as needed for Nausea and Vomiting (N/V). proMETHazin Yes [id number] 25mg Insert 1 Univers e 25 mg 9-19 Suppositor ity of suppository 00:00: [place] 00 rectum Medical every 4 Branch (four) hours as needed for Nausea and Vomiting (N/V). proMETHazin Yes [id number] 25mg Insert 1 Univers e 25 mg 9-19 Suppositor ity of suppository 00:00: [place] 00 rectum Medical every 4 Branch (four) hours as needed for Nausea and Vomiting (N/V). proMETHazin Yes [id number] 25mg Insert 1 Univers e 25 mg 9-19 Suppositor ity of suppository 00:00: [place] 00 rectum Medical every 4 Branch (four) hours as needed for Nausea and Vomiting (N/V). proMETHazin Yes [id number] 25mg Insert 1 Univers e 25 mg 9-19 Suppositor ity of suppository 00:00: [place] 00 rectum Medical every 4 Branch (four) hours as needed for Nausea and Vomiting (N/V). proMETHazin 0 Yes [id number] 25mg Insert 1 Univers e 25 mg 9-19 Suppositor ity of suppository 00:00: y into [place] 00 rectum Medical every 4 Branch (four) hours as needed for Nausea and Vomiting (N/V). proMETHazin 0 Yes [id number] 25mg Insert 1 Univers e 25 mg 9-19 Suppositor ity of suppository 00:00: y into [facility] [place] [facility] [place] 00 rectum Medical every 4 Branch (four) hours as needed for Nausea and Vomiting (N/V). hydroCHLORO 0 Yes Univer s thiazide 25 6-28 ity of mg tablet 00:00: [place] [facility] methocarbam 0 Yes Univer s oL 500 mg 6-28 ity of tablet 00:00: [address] Branch hydroCHLORO 2020-0 Yes Univer s thiazide 25 6-28 ity of mg tablet 00:00: [place] [facility] methocarbam 0 Yes Univer s oL 500 mg 6-28 ity of tablet 00:00: [address] Branch hydroCHLORO 2020-0 Yes Univer s thiazide 25 6-28 ity of mg tablet 00:00: [place] [facility] methocarbam 0 Yes Univer s oL 500 mg 6-28 ity of tablet 00:00: [address] Branch hydroCHLORO 2020-0 Yes Univer s thiazide 25 6-28 ity of mg tablet 00:00: [place] [facility] methocarbam 2020-0 Yes Univer s oL 500 mg 6-28 ity of tablet 00:00: [place] [facility] hydroCHLORO 2020-0 Yes Univer s thiazide 25 6-28 ity of mg tablet 00:00: [place] [facility] methocarbam 2020-0 Yes Univer s oL 500 mg 6-28 ity of tablet 00:00: [place] [facility] hydroCHLORO 2020-0 Yes Univer s thiazide 25 6-28 ity of mg tablet 00:00: [address] methocarbam 2020-0 Yes Univer s oL 500 mg 6-28 ity of tablet 00:00: [place] [facility] hydroCHLORO 2021-0 Yes Univer s thiazide 25 6-28 ity of mg tablet 00:00: [place] 00 Medical Branch methocarbam 2021-0 Yes Univer s oL 500 mg 6-28 ity of tablet 00:00: [place] [address] Medical Branch hydroCHLORO 2021-0 Yes Univer s thiazide 25 6-28 ity of mg tablet 00:00: [place] [address] Medical Branch methocarbam 2021-0 Yes Univer s oL 500 mg 6-28 ity of tablet 00:00: [place] [address] Medical Branch hydroCHLORO 2021-0 Yes Univer s thiazide 25 6-28 ity of mg tablet 00:00: [place] [address] Medical Branch methocarbam 2021-0 Yes Univer s oL 500 mg 6-28 ity of tablet 00:00: [place] [address] Medical Branch gabapentin 2021-0 Yes Univers 300 mg 5-26 ity of capsule 00:00: [place] [address] Medical Branch gabapentin 2021-0 Yes Univers 300 mg 5-26 ity of capsule 00:00: [place] [address] Medical Branch gabapentin 2021-0 Yes Univers 300 mg 5-26 ity of capsule 00:00: [place] [address] Medical Branch gabapentin 2021-0 Yes Univers 300 mg 5-26 ity of capsule 00:00: [place] [address] Medical Branch gabapentin 2021-0 Yes Univers 300 mg 5-26 ity of capsule 00:00: [place] [address] Medical Branch gabapentin 2021-0 Yes Univers 300 mg 5-26 ity of capsule 00:00: [place] [address] Medical Branch gabapentin 2021-0 Yes Univers 300 mg 5-26 ity of capsule 00:00: [place] [address] Medical Branch gabapentin 2021-0 Yes Univers 300 mg 5-26 ity of capsule 00:00: [place] [address] Medical Branch gabapentin 2021-0 Yes Univers 300 mg 5-26 ity of capsule 00:00: [place] [address] Medical Branch orphenadrin 2021-0 Yes Univer s e 100 mg SR 5-19 ity of tablet 00:00: [place] [address] Medical Branch orphenadrin 2021-0 Yes Univer s e 100 mg SR 5-19 ity of tablet 00:00: [place] [address] Medical Branch orphenadrin 2021-0 Yes Univer s e 100 mg SR 5-19 ity of tablet 00:00: [place] [address] Medical Branch orphenadrin 2021-0 Yes Univer s [...] 13.5 mg 00 Medical CSpT Branch oxyCODONE Yes Univers myristate 4-27 ity of (XTAMPZA 00:00: [place] ER) 13.5 mg 00 Medical CSpT Branch oxyCODONE Yes Univers myristate 4-27 ity of (XTAMPZA 00:00: [place] ER) 13.5 mg 00 Medical CSpT Branch oxyCODONE Yes Univers myristate 4-27 ity of (XTAMPZA 00:00: [place] ER) 13.5 mg 00 Medical CSpT Branch oxyCODONE Yes Univers myristate 4-27 ity of (XTAMPZA 00:00: [place] ER) 13.5 mg 00 Medical CSpT Branch oxyCODONE Yes Univers myristate 4-27 ity of (XTAMPZA 00:00: [place] ER) 13.5 mg 00 Medical CSpT Branch oxyCODONE Yes Univers myristate 4-27 ity of (XTAMPZA 00:00: [place] ER) 13.5 mg 00 Medical CSpT Branch oxyCODONE Yes Univers myristate 4-27 ity of (XTAMPZA 00:00: [place] ER) 13.5 mg 00 Medical CSpT Branch oxyCODONE Yes Univers myristate 4-27 ity of (XTAMPZA 00:00: [place] ER) 13.5 mg 00 Medical CSpT Branch FLUoxetine Yes Univers 20 mg 3-04 [...] 20 mg 3-04 ity of capsule 00:00: [place] [facility] Branch FLUoxetine 2020-0 Yes Univers 20 mg 3-04 ity of capsule 00:00: Medical Branch FLUoxetine 2020- Yes Univers 20 mg 3-04 ity of [...] 00 Medical CSpT Branch naproxen 2020-0 Yes [id number] 500mg Take 1 Univers 500 mg 6-16 9109 tablet by ity of tablet 00:00: mouth [place] 00 every 8 Medical (eight) Branch hours as needed for Pain (scale 4-6). naproxen 2020-0 Yes [id number] 500mg Take 1 Univers 500 mg 6-16 9109 tablet by ity of tablet 00:00: mouth [place] 00 every 8 Medical (eight) Branch hours as needed for Pain (scale 4-6). naproxen 2020-0 Yes [id number] 500mg Take 1 Univers 500 mg 6-16 9109 tablet by ity of tablet 00:00: mouth [place] 00 every 8 Medical (eight) Branch hours as needed for Pain (scale 4-6). naproxen 2020-0 Yes [id number] 500mg Take 1 Univers 500 mg 6-16 9109 tablet by ity of tablet 00:00: mouth [place] 00 every 8 Medical (eight) Branch hours as needed for Pain (scale 4-6). naproxen 2020-0 Yes [id number] 500mg Take 1 Univers 500 mg 6-16 9109 tablet by ity of tablet 00:00: mouth [place] 00 every 8 Medical (eight) Branch hours as needed for Pain (scale 4-6). naproxen 2020-0 Yes [id number] 500mg Take 1 Univers 500 mg 6-16 9109 tablet by ity of tablet 00:00: mouth [place] 00 every 8 Medical (eight) Branch hours as needed for Pain (scale 4-6). naproxen 2020-0 Yes [id number] 500mg Take 1 Univers 500 mg 6-16 9109 tablet by ity of tablet 00:00: mouth [place] 00 every 8 Medical (eight) Branch hours as needed for Pain (scale 4-6). naproxen 2020-0 Yes [id number] 500mg Take 1 Univers 500 mg 6-16 9109 tablet by ity of tablet 00:00: mouth [place] 00 every 8 Medical (eight) Branch hours as needed for Pain (scale 4-6). naproxen 2020-0 Yes [id number] 500mg Take 1 Univers 500 mg 6-16 9109 tablet by ity of tablet 00:00: mouth [place] 00 every 8 Medical (eight) Branch hours as needed for Pain (scale 4-6). diazePAM 2018-03 Yes [id number] 5mg Take 1 Uni vers (VALIUM) 5 2-23 tablet by ity of mg tablet 00:00: mouth 3 (three) Medical times Branch daily. diazePAM 2018-03 Yes [id number] 5mg Take 1 Uni vers (VALIUM) 5 2-23 tablet by ity of mg tablet 00:00: mouth 3 (three) Medical times Branch daily. diazePAM 2018-03 Yes [id number] 5mg Take 1 Uni vers (VALIUM) 5 2-23 tablet by ity of mg tablet 00:00: mouth 3 (three) Medical times Branch daily. diazePAM 2018-03 Yes [id number] 5mg Take 1 Uni vers (VALIUM) 5 2-23 tablet by ity of mg tablet 00:00: mouth 3 (three) Medical times Branch daily. diazePAM 2018-03 Yes [id number] 5mg Take 1 Uni vers (VALIUM) 5 2-23 tablet by ity of mg tablet 00:00: mouth 3 (three) Medical times Branch daily. diazePAM 2018-03- No [id number] 5mg Take 1 Un kevon (VALIUM) 5 2-23 10-25 tablet by ity of mg tablet 00:[place] ([place] Medical times Branch daily. cyclobenzap Yes [id number] 5mg Take 1 Univers rine 5 mg 6-08 07 tablet by ity o f tablet 00:00: mouth 3 (three) Medical times Branch daily. cyclobenzap Yes [id number] 5mg Take 1 Univers rine 5 mg 6-08 07 tablet by ity o f tablet 00:00: mouth 3 00 (three) Medical times Branch daily. cyclobenzap Yes [id number] 5mg Take 1 Univers rine 5 mg 6-08 07 tablet by ity o f tablet 00:00: mouth 3 (three) Medical times Branch daily. cyclobenzap Yes [id number] 5mg Take 1 Univers rine 5 mg 6-08 07 tablet by ity o f tablet 00:00: mouth 3 (three) Medical times Branch daily. cyclobenzap Yes [id number] 5mg Take 1 Univers rine 5 mg 6-08 07 tablet by ity o f tablet 00:00: mouth 3 00 (three) Medical times Branch daily. cyclobenzap Yes [id number] 5mg Take 1 Univers rine 5 mg 6-08 07 tablet by ity o f tablet 00:00: mouth 3 (three) Medical times Branch daily. cyclobenzap Yes [id number] 5mg Take 1 Univers rine 5 mg 6-08 07 tablet by ity o f tablet 00:00: mouth 3 (three) Medical times Branch daily. cyclobenzap Yes [id number] 5mg Take 1 Univers rine 5 mg 6-08 07 tablet by ity o f tablet 00:00: mouth 3 (three) Medical times Branch daily. cyclobenzap Yes [id number] 5mg Take 1 Univers rine 5 mg 6-08 07 tablet by ity o f tablet 00:00: mouth 3 (three) Medical times Branch daily. butalbital- 0 Yes TK 1 T PO U nivers acetaminoph 3-30 TWICE A ity o f en-caff 00:00: DAY PRF [place] 50-325-40 00 Medical mg tablet Branch butbit Yes TK 1 T PO U nivers acetaminoph 3-30 TWICE A ity o f en-caff 00:00: [place] PRF [place] 50-325-40 00 Medical mg tablet Branch butalbital- Yes TK 1 T PO U [...] Univers mg capsule 3-28 ity of 00:00: [place] [facility] LYRICA 150 2018-0 Yes Univers mg capsule 3-28 ity of 00:00: [place] [facility] LYRICA 150 2018-0 Yes Univers mg capsule 3-28 ity of 00:00: [place] [facility] LYRICA 150 2018-0 Yes Univers mg capsule 3-28 ity of 00:00: [place] [facility] LYRICA 150 2018-0 Yes Univers mg capsule 3-28 ity of 00:00: [place] [facility] LYRICA 150 2018-0 Yes Univers mg capsule 3-28 ity of 00:00: [place] [facility] LYRICA 150 2018-0 Yes Univers mg capsule 3-28 ity of 00:00: [place] 00 Medical Branch LYRICA 150 2018-0 Yes Univers mg capsule 3-28 ity of 00:00: [place] [facility] LYRICA 150 2018-0 Yes Univers mg capsule 3-28 ity of 00:00: [place] [facility] HYDROcodone 2018-0 Yes Univer s -acetaminop 3-13 ity of hen 7.5-325 00:00: [place] mg per 00 Medical tablet Branch HYDROcodone 2018-0 Yes Univer s -acetaminop 3-13 ity of hen 7.5-325 00:00: [place] mg per 00 Medical tablet Branch HYDROcodone 2018-0 Yes Univer s -acetaminop 3-13 ity of hen 7.5-325 00:00: [place] mg per 00 Medical tablet Branch HYDROcodone Yes Univer s -acetaminop 3-13 ity of hen 7.5-325 00:00: [place] mg per 00 Medical tablet Branch HYDROcodone Yes Univer s -acetaminop 3-13 ity of hen 7.5-325 00:00: [place] mg per 00 Medical tablet Branch HYDROcodone Yes Univer s -acetaminop 3-13 ity of hen 7.5-325 00:00: [place] mg per 00 Medical tablet Branch HYDROcodone Yes Univer s -acetaminop 3-13 ity of hen 7.5-325 00:00: [place] mg per 00 Medical tablet Branch HYDROcodone Yes Univer s -acetaminop 3-13 ity of hen 7.5-325 00:00: [place] mg per 00 Medical tablet Branch HYDROcodone Yes Univer s -acetaminop 3-13 ity of hen 7.5-325 00:00: [place] mg per 00 Medical tablet Branch promethazin promethazin No promethazi Leah e 25 mg e 25 mg ne 25 mg Ortho pe tablet TAKE tablet TAKE tablet dic 1 TABLET BY 1 TABLET BY TAKE 1 Sports MOUTH EVERY MOUTH EVERY TABLET BY Medicin 12 HOURS 12 HOURS MOUTH e NEEDED FOR NEEDED FOR EVERY 12 NAUSEA NAUSEA HOURS NEEDED FOR NAUSEA quetiapine quetiapine No quetiapine Leah 200 mg 200 mg 200 mg Orthope tablet TAKE tablet TAKE tablet dic 1 TABLET BY 1 TABLET BY TAKE 1 Sports MOUTH EVERY MOUTH EVERY TABLET BY Medicin EVENING AT EVENING AT MOUTH e 9 PM 9 PM EVERY EVENING AT 9 PM quetiapine quetiapine No quetiapine Leah 300 mg 300 mg 300 mg Orthope tablet tablet tablet dic Sports Medicin e trazodone trazodone No trazodone Leah 150 mg 150 mg 150 mg Orthope tablet tablet tablet dic Sports Medicin e trazodone trazodone No trazodone Leah 50 mg 50 mg 50 mg Orthope tablet tablet tablet dic Sports Medicin e triamcinolo triamcinolo No triamcinol Leah ne ne one Orthope acetonide acetonide acetonide dic 0.025 % 0.025 % 0.025 % Sports topical topical topical Medici n cream cream cream e Tylenol-Cod Tylenol-Cod No Tylenol-Co Leah eine #4 300 eine #4 300 deine #4 Orthope mg-60 mg mg-60 mg 300 mg-60 di c tablet RX tablet RX mg tablet Sports by other MD by other MD RX by Medicin other MD leiva valsartan valsartan No valsartan Leah 40 mg 40 mg 40 mg Orthope tablet RX tablet RX tablet RX dic by other MD by other MD by other Sports MD Medicin e acetaminoph acetaminoph No acetaminop Leah en 300 en 300 hen 300 Orthope mg-codeine mg-codeine mg-codeine dic 30 mg 30 mg 30 mg Sports tablet TAKE tablet TAKE tablet Medicin 1 TABLET BY 1 TABLET BY TAKE 1 e MOUTH THREE MOUTH THREE TABLET BY TIMES DAILY TIMES DAILY MOUTH NEEDED NEEDED THREE TIMES DAILY NEEDED amitriptyli amitriptyli No amitriptyl Leah ne 25 mg ne 25 mg ine 25 mg Or thope tablet TAKE tablet TAKE tablet dic 1 TABLET BY 1 TABLET BY TAKE 1 Sports MOUTH AT MOUTH AT TABLET BY Me dicin BEDTIME BEDTIME MOUTH AT e BEDTIME amitriptyli amitriptyli No amitriptyl Leah ne 50 mg ne 50 mg ine 50 mg Or thope tablet TAKE tablet TAKE tablet dic 1 TABLET BY 1 TABLET BY TAKE 1 Sports MOUTH EVERY MOUTH EVERY TABLET BY Medicin NIGHT AT NIGHT AT MOUTH e BEDTIME BEDTIME EVERY NIGHT AT BEDTIME amlodipine amlodipine No amlodipine Leah 10 mg 10 mg 10 mg Orth[facility] tablet TAKE tablet TAKE tablet dic 1 TABLET BY 1 TABLET BY TAKE 1 Sports MOUTH EVERY MOUTH EVERY TABLET BY Medicin DAY DAY MOUTH e EVERY DAY amlodipine amlodipine No amlodipine Leah 2.5 2.5 2.5 Orthope mg-atorvast mg-atorvast mg-atorvas dic atin 10 mg atin 10 mg tatin 10 Sports tablet RX tablet RX mg tablet Medicin by other MD by other MD RX by e other MD buprenorphi buprenorphi No buprenorph Leah ne 2 ne 2 ine 2 Orthope mg-naloxone mg-naloxone mg-naloxon dic 0.5 mg 0.5 mg e 0.5 mg Sports sublingual sublingual sublingual Medicin film film film e buprenorphi buprenorphi No buprenorph Leah ne 8 ne 8 ine 8 Orthope mg-naloxone mg-naloxone mg-naloxon dic 2 mg 2 mg e 2 mg Sports sublingual sublingual sublingual Medicin tablet tablet tablet e butalbital- butalbital- No butalbital Leah acetaminoph acetaminoph -acetamino Orthope en-caffeine en-caffeine phen-caffe dic 50 mg-300 50 mg-300 ine 50 Spo rts mg-40 mg mg-40 mg mg-300 Medic in capsule capsule mg-40 mg e TAKE 1 TAKE 1 capsule CAPSULE BY CAPSULE BY TAKE 1 MOUTH TWICE MOUTH TWICE CAPSULE BY DAILY DAILY MOUTH NEEDED FOR NEEDED FOR TWICE HEADACHE HEADACHE DAILY NEEDED FOR HEADACHE carbamazepi carbamazepi No carbamazep Leah ne 200 mg ne 200 mg ine 200 mg Orthope tablet tablet tablet dic Sports Medicin e carisoprodo carisoprodo No carisoprod Leah l 350 mg l 350 mg ol 350 mg Or thope tablet TAKE tablet TAKE tablet dic 1 TABLET BY 1 TABLET BY TAKE 1 Sports MOUTH TWICE MOUTH TWICE TABLET BY Medicin DAILY DAILY MOUTH e NEEDED FOR NEEDED FOR TWICE PAIN PAIN DAILY NEEDED FOR PAIN clobetasol clobetasol No clobetasol Leah 0.05 % 0.05 % 0.05 % Orthope scalp scalp scalp dic solution solution solution Spo rts APPLY APPLY APPLY Medicin TOPICALLY TOPICALLY TOPICALLY e TO THE TO THE TO THE SCALP TWICE SCALP TWICE SCALP DAILY DAILY TWICE DAILY clobetasol clobetasol No clobetasol Leah 0.05 % 0.05 % 0.05 % [facility] topical topical topical dic cream cream cream Sports Medicin e clonidine clonidine No clonidine Leah HCl 0.1 mg HCl 0.1 mg HCl 0.1 mg Orthope tablet tablet tablet dic Sports Medicin e cyclobenzap cyclobenzap No cyclobenza Leah rine 5 mg rine 5 mg samuel 5 mg [facility] tablet TAKE tablet TAKE tablet dic 1 BY MOUTH 1 BY MOUTH TAKE 1 BY Histogenics THREE TIMES THREE TIMES MOUTH Medicin DAILY DAILY THREE e NEEDED FOR NEEDED FOR TIMES MUSCLE MUSCLE DAILY SPASMS SPASMS NEEDED FOR MUSCLE SPASMS Dexilant 60 Dexilant 60 No Dexilant Leah mg capsule, mg capsule, 60 mg Orthope delayed delayed capsule, dic release RX release RX delayed Sports by other MD by other MD release RX Medicin by other e MD diazepam 2 diazepam 2 No diazepam 2 Leah mg tablet mg tablet mg tablet [facility]ope TAKE 1 TAKE 1 TAKE 1 dic TABLET BY TABLET BY TABLET BY Sports MOUTH TWICE MOUTH TWICE MOUTH Medicin DAILY DAILY TWICE e DAILY diazepam 5 diazepam 5 No diazepam 5 Leah mg tablet mg tablet mg tablet Orthope TAKE 1 TAKE 1 TAKE 1 dic TABLET BY TABLET BY TABLET BY Sports MOUTH THREE MOUTH THREE MOUTH Medicin TIMES DAILY TIMES DAILY THREE e NEEDED NEEDED TIMES FOR MUSCLE FOR MUSCLE DAILY SPASMS SPASMS NEEDED FOR MUSCLE SPASMS diclofenac diclofenac No diclofenac Leah sodium 75 sodium 75 sodium 75 [facility] mg mg mg dic tablet,gamal tablet,gamal tablet,del Sports yed release yed release ayed M edicin TAKE 1 TAKE 1 release e TABLET BY TABLET BY TAKE 1 MOUTH TWICE MOUTH TWICE TABLET BY DAILY DAILY MOUTH TWICE DAILY doxepin 50 doxepin 50 No doxepin 50 Leah mg capsule mg capsule mg capsule Orth[facility] TAKE 1 TAKE 1 TAKE 1 dic CAPSULE BY CAPSULE BY CAPSULE BY Sports MOUTH EVERY MOUTH EVERY MOUTH Medicin EVENING AT EVENING AT EVERY e 9 PM 9 PM EVENING AT 9 PM fluoxetine fluoxetine No fluoxetine Leah 20 mg 20 mg 20 mg Orth[facility] capsule capsule capsule dic TAKE 2 TAKE 2 TAKE 2 Sports CAPSULES BY CAPSULES BY CAPSULES Medicin MOUTH DAILY MOUTH DAILY BY MOUTH e DAILY gabapentin gabapentin No gabapentin Leah 300 mg 300 mg 300 mg [facility] capsule capsule capsule dic TAKE 1 TAKE 1 TAKE 1 Sports CAPSULE BY CAPSULE BY CAPSULE BY Medicin MOUTH THREE MOUTH THREE MOUTH e TIMES DAILY TIMES DAILY THREE TIMES DAILY gabapentin gabapentin No gabapentin Leah 600 mg 600 mg 600 mg Orthope tablet tablet tablet dic Sports Medicin e Humira(CF) Humira(CF) No Humira(CF) Leah Pen 40 Pen 40 Pen 40 [facility] mg/0.4 mL mg/0.4 mL mg/0.4 mL dic subcutaneou subcutaneou subcutaneo Sports s kit s kit us kit Medicin e Humira(CF) Humira(CF) No Humira(CF) Leah Pen Pen Pen [facility] Ps-Uv-Adol Ps-Uv-Adol Ps-Uv-Adol dic HS 80 HS 80 HS 80 Sports mg/0.8 mg/0.8 mg/0.8 Medicin mL(1)-40 mL(1)-40 mL(1)-40 e mg/0.4 mg/0.4 mg/0.4 mL(2)subcut mL(2)subcut mL(2)subcu kit kit t kit hydrochloro hydrochloro No hydrochlor Leah thiazide 25 thiazide 25 othiazide [facility] mg tablet mg tablet 25 mg dic TAKE 1 TAKE 1 tablet Sports TABLET BY TABLET BY TAKE 1 Med icin MOUTH EVERY MOUTH EVERY TABLET BY e DAY IN THE DAY IN THE MOUTH MORNING MORNING EVERY DAY IN THE MORNING hydroxyzine hydroxyzine No hydroxyzin Leah pamoate 25 pamoate 25 e pamoate [facility] mg capsule mg capsule 25 mg di c capsule Sports Medicin e levofloxaci levofloxaci No levofloxac Leah n 750 mg n 750 mg in 750 mg Or thope tablet TAKE tablet TAKE tablet dic 1 TABLET BY 1 TABLET BY TAKE 1 Sports MOUTH EVERY MOUTH EVERY TABLET BY Medicin 24 HOURS 24 HOURS MOUTH e EVERY 24 HOURS lidocaine 5 lidocaine 5 No lidocaine Leah % topical % topical 5 % Ortho pe patch patch topical dic patch Sports Medicin e methocarbam methocarbam No methocarba Leah ol 750 mg ol 750 mg mol 750 mg Orthope tablet tablet tablet dic Sports Medicin e methylpredn methylpredn No methylpred Leah isolone 4 isolone 4 nisolone 4 [facility] mg tablets mg tablets mg tablets dic in a dose in a dose in a dose Sports pack FOLLOW pack FOLLOW pack M edicin PACKAGE PACKAGE FOLLOW e DIRECTIONS DIRECTIONS PACKAGE DIRECTIONS metoprolol metoprolol No metoprolol Leah succinate succinate succinate [facility] ER 100 mg ER 100 mg ER 100 mg dic tablet,exte tablet,exte tablet,ext Sports nded nded ended Medicin release 24 release 24 release 24 e hr RX by hr RX by hr RX by other MD other MD other MD metoprolol metoprolol No metoprolol Leah tartrate 50 tartrate 50 tartrate [facility] mg tablet mg tablet 50 mg dic TAKE 1 TAKE 1 tablet Sports TABLET BY TABLET BY TAKE 1 Med icin MOUTH TWICE MOUTH TWICE TABLET BY e DAILY WITH DAILY WITH MOUTH FOOD FOOD TWICE DAILY WITH FOOD naloxone 4 naloxone 4 No naloxone 4 Leah mg/actuatio mg/actuatio mg/actuati Orthope n nasal n nasal on nasal dic spray spray spray Sports Medicin e naltrexone naltrexone No naltrexone Leah 50 mg 50 mg 50 mg Orthope tablet TAKE tablet TAKE tablet dic 1 TABLET BY 1 TABLET BY TAKE 1 Sports MOUTH EVERY MOUTH EVERY TABLET BY Medicin DAY AT 8AM DAY AT 8AM MOUTH e EVERY DAY AT 8AM ondansetron ondansetron No ondansetro Leah HCl 4 mg HCl 4 mg n HCl 4 mg O rthope tablet tablet tablet dic Sports Medicin e ondansetron ondansetron No ondansetro Leah HCl 8 mg HCl 8 mg n HCl 8 mg O rthope tablet TAKE tablet TAKE tablet dic 1 TABLET BY 1 TABLET BY TAKE 1 Sports MOUTH EVERY MOUTH EVERY TABLET BY Medicin DAY DAY MOUTH e NEEDED NEEDED EVERY DAY NEEDED oxycodone-a oxycodone-a No oxycodone- Leah cetaminophe cetaminophe acetaminop Orthope n 10 mg-325 n 10 mg-325 hen 10 dic mg tablet mg tablet mg-325 mg Sports TAKE 1 TAKE 1 tablet Medicin TABLET BY TABLET BY TAKE 1 e MOUTH EVERY MOUTH EVERY TABLET BY 6 HOURS 6 HOURS MOUTH NEEDED NEEDED EVERY 6 HOURS NEEDED phenobarbit phenobarbit No phenobarbi Leah al 30 mg al 30 mg flavia 30 mg Or thope tablet tablet tablet dic Sports Medicin e prednisone prednisone No prednisone Leah 20 mg 20 mg 20 mg [facility] tablet TAKE tablet TAKE tablet dic 2 TABLETS 2 TABLETS TAKE 2 Spo rts BY MOUTH IN BY MOUTH IN TABLETS BY Medicin THE MORNING THE MORNING MOUTH IN e FOR 5 DAYS FOR 5 DAYS THE MORNING FOR 5 DAYS promethazin promethazin No promethazi Leah e 12.5 mg e 12.5 mg ne 12.5 mg Orth[facility] tablet RX tablet RX tablet RX dic by other MD by other MD by other Sports MD Ovi leiva Vital Signs Vital Name Observation Time Observation Value Comments Source Systolic blood 2022-02-26 01:42:00 166 mm[Hg] Univer sity [facility] Diastolic blood 2022-02-26 01:42:00 95 mm[Hg] Unive [facility] Heart rate 2022-02-26 01:40:00 74 /min [facility] Body temperature 2022-02-26 01:40:00 36.67 Noemy Univ [facility] [place] [facility] Respiratory rate 2022-02-26 01:40:00 16 /min [facility] [place] [facility] Body height 2022-02-26 01:40:00 193 cm [facility] [place] [facility] Body weight 2022-02-26 01:40:00 113.853 kg [facility] [place] [facility] BMI 2022-02-26 01:40:00 30.55 kg/m2 [facility] [place] [facility] Oxygen saturation in 2022-02-26 01:40:00 98 /min University of Arterial blood by [place] [employer] Pulse oximetry Branch Systolic blood 2022-01-07 05:37:00 139 mm[Hg] Univer sity of pressure [place] [facility] Diastolic blood 2022-01-07 05:37:00 112 mm[Hg] Unive rsity of pressure [place] [facility] Heart rate 2022-01-07 05:37:00 99 /min [facility]i [facility] [place] [facility] Body temperature 2022-01-07 05:37:00 36.78 Noemy Univ [facility] [place] [facility] Respiratory rate 2022-01-07 05:37:00 20 /min [facility] [place] [facility] Body height 2022-01-07 05:37:00 193 cm [facility] [place] [facility] Body weight 2022-01-07 05:37:00 104.327 kg [facility] [place] [facility] BMI 2022-01-07 05:37:00 28.00 kg/m2 [facility] [place] [facility] Oxygen saturation in 2022-01-07 05:37:00 99 /min University of Arterial blood by [place] [employer] Pulse oximetry Branch Systolic blood 2022-01-07 02:29:58 148 mm[Hg] Univer sity of pressure [place] [facility] Diastolic blood 2022-01-07 02:29:58 94 mm[Hg] Unive rsity of pressure [place] [facility] Heart rate 2022-01-07 02:29:58 97 /min [facility] [place] [facility] Respiratory rate 2022-01-07 02:29:58 18 /min Univ [facility] [place] [facility] Oxygen saturation in 2022-01-07 02:29:58 98 /min University of Arterial blood by [employer] ch[employer]ito Pulse oximetry Branch Body temperature 2022-01-07 01:45:00 36.78 Noemy [facility] [place] [facility] Body height 2022-01-07 01:45:00 193 cm [facility] [place] [facility] Body weight 2022-01-07 01:45:00 103.874 kg [facility] [place] [facility] BMI 2022-01-07 01:45:00 27.87 kg/m2 Universi ty of [facility] Branch Systolic blood 2021-06-30 18:36:00 138 mm[Hg] Univer sity of pressure [place] [facility] Diastolic blood 2021-06-30 18:36:00 96 mm[Hg] Unive rsity of pressure [facility] Branch Heart rate 2021-06-30 18:17:00 95 /min [facility] [place] [facility] Body height 2021-06-30 18:17:00 190.5 cm [facility] [place] [facility] Body weight 2021-06-30 18:17:00 105.688 kg [facility] [place] [facility] BMI 2021-06-30 18:17:00 29.12 kg/m2 Universi ty [facility] Medical Branch Oxygen saturation in 2021-06-30 18:17:00 100 /min [facility] Arterial blood by [facility] Pulse oximetry Branch Procedures Procedure Date / Time Performed Performing Clinician Chetan cali ASSIGNMENT OF BENEFITS 2022-02-26 01:37:36 Doctor Unassigned, No [facility] Name Medical Branch XR, cervical spine 2022-02-12 00:00:00 Leah Or [facility]opedic Sports Medicine CAT SCAN OF NECK SPINE 2022-02-12 00:00:00 Azale a Orthopedic Sports Medicine XR, thoracic spine 2022-02-12 00:00:00 Leah [facility] CONSENT/REFUSAL FOR 2022-01-07 05:30:13 Doctor Unassigned, No [facility] [place] [facility] Name Medical Branch TREATMENT CONSENT/REFUSAL FOR 2022-01-07 01:37:12 [facility] Branch TREATMENT REFERRAL- 2021-10-09 05:01:00 Doctor Unassigned, No [facility] REQUEST/RESPONSE Name Medical Branch Encounters Start End Encounter Admission Attending Care Care Encounter Source Date/Time Date/Time Type Type Clinicians Facility Department ID 2021-06-12 Outpatient R BURRELL, [facility] SOR [id number] Univers 08:42:07 JEREMY [facility] 2010-05-25 Inpatient COLBY ANAYA [facility] [id number] [place] 12:59:00 LIEN [id number] [facility]ly [facility] 2022-03-04 2022-03-04 Outpatient TYRONE Cuellar SURG [id number] [facility] 05:32:00 05:32:00 Cesar [facility] [place] [facility] 2022-03-04 2022-03-04 Outpatient FOG_A_Provi AOSM AOSM [id number] Leah 00:00:00 00:00:00 ish [id number] Orthop e dic Sports Medicin e 2022-02-25 2022-02-25 Urgent Mynor Linda [facility] [id number] Univers 19:40:00 20:00:00 Care Unknown, Attending [facility] [id number] ity [facility] [id number] Marty as FITZ?BLEA [id number] Vt dical [address] MEDICAL OFFICE BUILDING 2022-02-25 2022-02-25 [facility] [id number] Univers 19:40:00 19:40:00 [facility] 2022-02-25 2022-02-25 Orders Doctor JESICA [id number] Univers 00:00:00 00:00:00 Only Unassigned, [place] [id number] ity of [facility] [id number] Marty as [phone] [address] 2022-02-18 2022-02-18 Outpatient MANE Lawrence LABO [id number] [facility] 16:30:00 16:30:00 Cesar 31 [facility] 2022-02-12 2022-02-12 Outpatient TYRONE Cuellar RADI [id number] [facility] 14:08:00 14:08:00 Cesar 03 [place] [facility] 2022-02-12 2022-02-12 Outpatient FOG_A_Provi AOSM AOSM [id number] Leah 00:00:00 00:00:00 ish [id number] Orthop e dic Sports Medicin e 2022-02-12 2022-02-[address] [facility] [place] - Ortho Leah 00:00:00 00:00:00 MD Melinda: Leonor Valle - Orthope [address] FOG_Ofc dic [facility] [place], [place] [id number] , Ph. [id number] 2022-01-07 2022-01-07 Emergency [facility] [id number] Univers 00:41:00 02:27:00 JJ [facility] 2022-01-07 2022-01-07 Emergency [facility] [id number] Univers 00:41:00 02:27:00 Jj STEEN [id number] i ty of [place] [id number] [facility] [id number] [address] 2022-01-06 2022-01-06 Emergency E LEONELLAKISHA MHBL MHBL [id number] MHBL 22:19:00 23:55:00 2022-01-06 2022-01-06 [facility] [id number] Univers 20:50:00 21:40:00 JJ tristan [facility] 2022-01-06 2022-01-06 Emergency [facility] [id number] Univers 20:50:00 21:40:00 Jj STEEN [id number] i ty of [place] [id number] [facility] [id number] [place] [id number] Branch 2022-01-04 2022-01-05 Emergency ER CATANES, [facility] [id number] [place] 22:56:00 05:41:00 SADI [id number] Formerly [facility] 2022-01-03 2022-01-03 Emergency ER CATANES, [facility] [id number] [place] 19:25:00 22:35:00 SADI [id number] Formerly [facility] 2022-01-02 2022-01-02 Outpatient FOG_A_Provi AOSM AOSM [id number] Leah 00:00:00 00:00:00 ish [id number] Orthop e dic Sports Medicin e 2021-10-09 2021-10-09 Orders Doctor JESICA [id number] Univers 00:00:00 00:00:00 Only Unassigned, LEYLA [id number] ity of [place] [facility] [id number] Marty as [id number] [address] 2021-09-26 2021-09-26 Outpatient AMBREEN_FAR ILHOP [facility] [id number] [place] 04:24:00 04:24:00 HANA [facility]15 [facility] 2021-08-20 2021-08-20 Outpatient FOG_A_Provi AOSM AOSM [id number] Leah 00:00:00 00:00:00 ish [id number] Orthop e dic Sports Medicin e 2021-07-21 2021-07-21 Outpatient Eligio JAMISON [facility] [id number] Univers 14:15:00 14:15:00 [facility] 2021-07-21 2021-07-21 Outpatient Eligio JAMISON [facility] [id number] Univers 14:15:00 14:15:00 [facility] 2021-07-03 2021-07-03 Patient Doctor [facility] [id number] Univers 00:00:00 00:00:00 Secure Msg Unassigned, HEALTH [id number] ity of [place] KIEL [id number] Marty as FITZ?BLEA [id number] Vt gailal [address] MEDICAL OFFICE BUILDING 2021-07-02 2021-07-02 Outpatient Eligio SCHWARTZ [facility] [id number] Univers 19:00:00 19:00:00 TAYLOR [facility] 2021-07-02 2021-07-02 [facility] [id number] Univers 00:00:00 00:00:00 Jeremy L SPECIALTY [id number] [id number] [id number] Vt padmini TAO 198 [facility] 2021-07-02 2021-07-02 Refill Yaquelin NHLEIGHTON [id number] Univers 00:00:00 00:00:00 Scar S HEALTH [id number] it y of [place] [id number] Marty as FITZ?BLEA [id number] Vt padmini AGOSTO [address] [place] [address] OFFICE [facility] 2021-06-30 2021-06-30 Outpatient R ASHANTI [facility] [id number] Univers 14:26:57 23:59:00 JEREMY [facility] 2021-06-30 2021-06-30 [facility] [id number] Univers 13:30:00 13:45:00 Visit [facility] HEALTH [id number] [id number] Marty as FITZ?BLEA [id number] Vt padmini AGOSTO [address] [place] [address] OFFICE [facility] 2021-06-30 2021-06-30 Outpatient R YAQUELIN [facility] [id number] Univers 13:30:00 13:30:00 SCAR ity [facility] 2021-06-30 2021-06-30 [facility] 1.2.674.991 [id number] Univers 00:00:00 00:00:00 Scar S HEALTH 350.1.13.10 it y of [place] 4.2.7.2.686 Marty as FITZ?BLEA [phone] Vt padmini AGOSTO [address] [place] [address] OFFICE [facility] 2021-06-24 2021-06-24 Telephone Ashanti [facility] 1.2.840.114 [id number] Univers 00:00:00 00:00:00 Jeremy L SPECIALTY 350.1.13.10 [place] [phone] Vt padmini TAO 198 [facility] 2021-06-18 2021-06-18 [facility]phone [facility] 1.2.200.472 [id number] Univers 00:00:00 00:00:00 Scar S HEALTH 350.1.13.10 it y of [place] 4.2.7.2.686 Marty as FITZ?BLEA [phone] Vt padmini AGOSTO [address] [place] MEDICAL OFFICE [facility] 2021-06-18 2021-06-18 Patient Ashanti [facility] 1.2.506.056 [id number] Univers 00:00:00 00:00:00 Secure Msg Jeremy L SPECIALTY 350.1.13.10 [place] [phone] Vt padmini TAO [address] [place] [address] 2021-06-16 2021-06-16 [facility] [id number] Univers 08:25:00 14:05:00 JEREMY ity of [facility] 2021-06-16 2021-06-16 Hospital [facility] 1.2.840.114 [id number] Univers 08:25:00 14:05:00 Encounter Jeremy STEEN 350.1.13.10 [facility] [place] [phone] [facility] [address] 2021-06-16 2021-06-16 Surgery Ashanti [facility] 1.2.789.607 [id number] [id number] Univers 12:10:00 13:10:00 Jeremy STEEN 350.1.13.10 i ty of [place] 4.2.7.[place] [phone] [facility] ical CENTER [address] 2021-06-16 2021-06-16 Telephone Ashanti [facility] 1.2.840.114 [id number] Univers 00:00:00 00:00:00 Jeremy Milian HEALTH 350.1.13.10 it y of [place] 4.2.7.2.686 Marty as FITZ?BLEA [phone] Vt padmini AGOSTO [address] [place] MEDICAL OFFICE [facility] 2021-06-13 2021-06-13 Laboratory Only, Adc Test [facility] 1.2.840. 114 [id number] Univers 09:45:00 10:00:00 Only Jeremy Burrell 350.1.13.10 ity [facility] [place] [id number] [address] 2021-06-13 2021-06-13 Outpatient R ASHANTI [facility] [id number] Univers 09:45:00 09:45:00 JEREMY katz [facility] 2021-06-11 2021-06-11 [facility] [id number] Univers 13:00:00 14:02:56 SCAR tristan [facility] 2021-06-11 2021-06-11 Office [facility] 1.2.840.114 [id number] Univers 13:00:00 14:02:56 Visit Scar Orantes [facility] 350.1.13.10 it y of [place] 4.2.7.2.686 Marty as FITZ?BLEA [phone] Vt padmini DUV[address] OFFICE [facility] 2021-06-11 2021-06-11 Outpatient Eligio JAMISON [facility] [id number] Univers 13:00:00 14:02:56 SCAR tristan [facility] 2021-06-11 2021-06-11 Prep For Ashanti [facility] 1.2.840.114 [id number] Univers 00:00:00 00:00:00 Surgery Jeremy AUGUSTE 350.1.13.10 it y of [place] 4.2.7.2.686 Marty as FITZ?BLEA [phone] Vt padmini AGOSTO [address] [place] [address] OFFICE [facility] 2021-06-10 2021-06-10 Telephone Ashanti [facility] 1.2.840.114 [id number] Univers 00:00:00 00:00:00 Jeremy AUGUSTE 350.1.13.10 it y of [place] 4.2.7.2.686 Marty as FITZ?BLEA [phone] Vt padmini AGOSTO [address] [place] [address] OFFICE [facility] 2021-06-10 2021-06-10 Telephone Ashanti [facility] 1.2.840.114 [id number] Univers 00:00:00 00:00:00 Jeremy Milian HEALTH 350.1.13.10 it y of [place] 4.2.7.2.686 Marty as FITZ?BLEA [phone] Me padmini AGOSTO [address] [place] MEDICAL OFFICE [facility] 2021-02-13 2021-02-13 Outpatient R ASHANTI [facility] [id number] Univers 11:00:00 11:30:28 JEREMY katz [facility] 2021-02-13 2021-02-13 Office [facility] 1.2.182.212 [id number] Univers 10:51:39 11:30:28 Visit Jeremy [facility] 350.1.13.10 it y of [place] 4.2.7.2.686 Marty as FITZ?BLEA [phone] Me padmini AGOSTO 198 [facility] OFFICE [facility] 2020-12-01 2020-12-01 Emergency [facility] 1.2.113.671 [id number] Univers 19:06:00 21:32:00 Julianneaymileth [place] 350.1.13.10 i ty of [place] 4.2.7.2.686 [facility] [phone] [address] 2020-12-01 2020-12-01 Emergency X BONNIE [facility] ERT [id number] Univers 19:06:00 19:06:00 JULIANNE [facility] 2020-07-29 2020-07-30 Emergency Maegan [facility] 1.2.840.114 [id number] 22:02:00 01:32:00 Yessenia Steen 350.1.13.10 [place] 4.2.7.2.686 Amite [phone] [facility] 2020-07-29 2020-07-30 Emergency Chayo Rivas [facility] 1.2.840.114 [id number] Univers 22:02:00 01:32:00 Yessenia Steen 350.1.13.10 i ty of [place] 4.2.7.2.686 [facility] [id number] [address] 2020-07-29 2020-07-29 Emergency X Chayo RIVAS [facility] ERT [id number] Univers 22:02:00 22:02:00 ittristan [facility] 2020-07-25 2020-07-25 Emergency Mark [facility] 1.2.840.114 [id number] 20:26:00 23:14:00 Zena [place] 350.1.13.10 [place] 4.2.7.2.686 Amite [id number] [facility] 2020-07-25 2020-07-25 Emergency [facility] 1.2.840.114 84 [id number] Univers 20:26:00 23:14:00 Zena [place] 350.1.13.10 ity of [place] 4.2.7.2.686 [facility] [id number] [address] 2020-07-25 2020-07-25 Emergency [facility] ERT [id number] Univers 20:26:00 20:26:00 ZENA [facility] 2020-07-21 2020-07-22 Emergency [facility] 1.2.825.183 [id number] 23:32:00 02:30:00 Osman Steen 350.1.13.[address] [place] [address] [place] [address] [id number] [facility] 2020-07-21 2020-07-22 Emergency [facility] 1.2.581.626 [id number] Univers 23:32:00 02:30:00 Osman Steen 350.1.13.10 ity [facility] 4.2.7.2.[address] [place] [phone] 2020-07-21 2020-07-21 Emergency X [facility] ERT [id number] Univers 23:32:00 23:32:00 OSMAN ittristan [facility] 2020-07-17 2020-07-18 Emergency [facility] 1.2.680.635 [id number] 22:52:00 00:59:00 Julianne [place] 350.1.13.10 [place] 4.2.7.2.686 Amite [phone] [facility] 2020-07-17 2020-07-18 Emergency [facility] 1.2.647.109 [id number] Univers 22:52:00 00:59:00 Julianne [place] 350.1.13.10 i ty of [place] 4.2.7.2.686 [facility] [id number] [address] 2020-07-17 2020-07-17 Emergency X MILLER, [facility] ERT [id number] Univers 22:52:00 22:52:00 JULIANNE ity of [facility] 2020-07-02 2020-07-02 [facility] 1.2.881.454 [id number] [id number] 19:35:00 22:12:00 Lisandro Steen 350.1.13.10 [place] 4.2.7.2.686 Amite [id number] [facility] 2020-07-02 2020-07-02 Emergency [facility] 1.2.451.671 [id number] [id number] Univers 19:35:00 22:12:00 Lisandro Steen 350.1.13.10 i ty of [place] 4.2.7.2.686 [facility] [id number] [address] 2020-07-02 2020-07-02 Emergency X [facility] ERT [id number] Univers 19:23:00 19:23:00 ity of [facility] 2020-06-10 2020-06-10 [facility] 1.2.659.579 [id number] 1320 01:29:00 03:55:00 Osman Steen 350.1.13.10 [place] 4.2.7.2.686 Amite [phone] [facility] 2020-06-10 2020-06-10 Emergency [facility] 1.2.184.430 [id number] 1320 Univers 01:29:00 03:55:00 Osman Steen 350.1.13.10 ity of [place] 4.2.7.2.686 [facility] [phone] [address] 2020-06-10 2020-06-10 Emergency X [facility] ERT [id number] Univers 01:19:00 01:19:00 ity [facility] 2020-05-08 2020-05-08 Emergency [facility] 1.2.840.114 [id number] 20:57:00 21:46:00 Maged B [place] 350.1.13.10 [place] 4.2.7.2.686 Amite [id number] [facility] 2020-05-08 2020-05-08 Emergency [facility] 1.2.840.114 [id number] Univers 20:57:00 21:46:00 Maged B [place] 350.1.13.10 i ty of [place] 4.2.7.2.686 [facility] [id number] [address] 2020-05-08 2020-05-08 Emergency [facility] ERT [id number] Univers 20:50:00 20:50:00 [facility] 2020-[facility]16 2020 Emergency Maegan, [facility] 1.2.840.114 [id number] 21:21:00 01:05:00 Yessenia [place] 350.1.13.10 [place] 4.2.7.2.686 Amite [id number] [facility] 2020-04-16 2020 Emergency Maegan [facility] 1.2.840.114 [id number] Univers 21:21:00 01:05:00 Yessenia [place] 350.1.13.10 i ty of [place] 4.2.7.2.[address] [place] [id number] 2020-04-16 2020-04-16 Emergency X MAEGAN, [facility] ERT [id number] Univers 21:21:00 21:21:00 ity [facility] 2020-03-09 2020-03-09 [facility] 1.2.125.936 [id number] 20:23:00 22:51:00 Julianne S [place] 350.1.13.10 [place] [address] [place] [address] [phone] [facility] 2020-03-09 2020-03-09 [facility] 1.2.454.019 [id number] 0859 Univers 20:23:00 22:51:00 Julianne S [place] 350.1.13.10 i ty of [place] 4.2.7.2.[address] [place] [id number] 2020-03-09 2020-03-09 Emergency [facility] [id number] Univers 18:38:00 18:38:00 JULIANNE ity [facility] 2020-03-09 2020-03-09 Orders Doctor JESICA 1.2.840.114 [id number] 00:00:00 00:00:00 Only Unassigned, LEYLA 350.1.13.10 [place] [facility] 4.2.7.2.686 [id number] 009 2020-03-09 2020-03-09 Orders Doctor JESICA 1.2.840.114 [id number] Univers 00:00:00 00:00:00 Only Unassigned, LEYLA 350.1.13.10 ity of [place] [facility] 4.2.7.2.686 [facility] [phone] [address] 2020-02-14 2020-02-15 Emergency [facility] 1.2.233.190 [id number] 23:22:00 00:54:00 Osman Steen 350.1.13.10 [place] 4.2.7.2.686 Amite [id number] [facility] 2020-02-14 2020-02-15 Emergency [facility] 1.2.364.371 [id number] 8539 [facility] 23:22:00 00:54:00 Chevymorenita Lamberto Candis 350.1.13.10 ity of [place] 4.2.7.2.686 [facility] [phone] [address] 2020-02-14 2020-02-15 Emergency X [facility] ERT [id number] Univers 23:22:00 00:54:00 OSMAN ity [facility] 2020-01-31 2020-01-31 Outpatient [facility] [id number] [place] 02:19:00 02:19:00 [facility] 2020-01-28 2020-01-28 Emergency Chayo Rivas [facility] 1.2.840.114 [id number] 17:47:00 21:50:00 Yessenia Steen 350.1.13.10 [place] 4.2.7.2.686 [place] [id number] [facility] 2020-01-28 2020-01-28 Emergency Maegan, K [facility] 1.2.840.114 [id number] Univers 17:47:00 21:50:00 Yessenia Steen 350.1.13.10 i ty of [place] 4.2.7.2.686 [facility] [id number] [address] 2020-01-28 2020-01-28 Emergency X [facility] ERT [id number] Univers 17:23:00 17:23:00 ity [facility] 2020-01-22 2020-01-22 Emergency [facility], [facility] 1.2.470.913 [id number] 19:22:00 22:47:00 Amaris Steen 350.1.13.10 [place] 4.2.7.2.686 [place]ite [phone] [facility] 2020-01-22 2020-01-22 Emergency [facility] 1.2.549.030 [id number] [id number] Univers 19:22:00 22:47:00 Amaris Steen 350.1.13.10 ity of [place] 4.2.7.2.686 [facility] [id number] [address] 2020-01-22 2020-01-22 Emergency X CHRISTIANO, [facility] ERT [id number] Univers 19:08:00 19:08:00 AMARIS [facility] 2020-01-20 2020-01-21 Emergency Moran, [facility] 1.2.529.985 [id number] 23:26:00 02:01:00 Jj Steen 350.1.13.[address] [place] [address] [place] [address] [id number] [facility] 2020-01-20 2020-01-21 Emergency Moran, [facility] 1.2.403.957 [id number] Univers 23:26:00 02:01:00 Jj Steen 350.1.13.10 i ty of [place] 4.2.7.2.[address] [place] [id number] 2020-01-20 2020-01-20 Emergency [facility]RT [id number] Univers 23:26:00 23:26:00 JJ katz [facility] 2019-12-30 2019-12-30 Emergency Chayo Rivas [facility] 1.2.840.114 [id number] 11:45:00 14:25:00 Yessenia Steen 350.1.13.10 [place] 4.2.7.2.686 [place] [id number] [facility] 2019-12-30 2019-12-30 Emergency Chayo Rivas [facility] 1.2.840.114 [id number] Univers 11:45:00 14:25:00 Yessenia Steen 350.1.13.10 i ty of [place] 4.2.7.2.686 [facility] [id number] [address] 2019-12-30 2019-12-30 Emergency X Chayo RIVAS [facility] ERT [id number] Univers 11:45:00 11:45:00 ity [facility] 2019-12-22 2019-12-22 Emergency Moran, [facility] 1.2.068.695 [id number] [id number] 13:48:00 16:20:00 Jj Steen 350.1.13.10 [place] 4.2.7.2.686 [place] [id number] [facility] 2019-12-22 2019-12-22 Emergency [facility] 1.2.560.719 [id number] [id number] Univers 13:48:00 16:20:00 Jj Steen 350.1.13.10 i ty of [place] 4.2.7.2.686 [facility] [id number] [address] 2019-12-22 2019-12-22 Emergency X [facility] ERT [id number] Univers 13:43:00 13:43:00 ity [facility] 2019-12-22 2019-12-22 Orders Doctor MOONEY 1.2.840.114 [id number] 00:00:00 00:00:00 Only Unassigned, LEYLA 350.1.13.10 [place] [facility] 4.2.7.2.686 [id number] 009 2019-12-22 2019-12-22 Orders Doctor MOONEY 1.2.840.114 [id number] Univers 00:00:00 00:00:00 Only Unassigned, LEYLA 350.1.13.10 ity of [place] [facility] 4.2.7.2.686 Marty [id number] [address] 2019-11-29 2019-11-29 Emergency [facility] 1.2.632.543 [id number] 15:09:00 17:41:00 Julianne Steen 350.1.13.10 [place] 4.2.7.2.686 Amite [id number] [facility] 2019-11-29 2019-11-29 Emergency [facility] 1.2.727.359 [id number] Univers 15:09:00 17:41:00 Julianne S [place] 350.1.13.10 i ty of [place] 4.2.7.2.686 [facility] [id number] [address] 2019-11-29 2019-11-29 Emergency [facility]RT [id number] Univers 15:09:00 15:09:00 [facility] 2019-11-12 2019-11-12 Emergency [facility] 1.2.840.114 [id number] 20:27:00 23:35:00 Kwaku [place] 350.1.13.10 [place] 4.2.7.2.686 [place] [id number] 2019-11-12 2019-11-12 Emergency [facility] 1.2.840.114 [id number] Univers 20:27:00 23:35:00 Kwaku [place] 350.1.13.10 i ty of [place] 4.2.7.2.686 [facility] [id number] [address] 2019-11-12 2019-11-12 Emergency X [facility] ERT [id number] Univers 20:27:00 20:27:00 KWAKU katz [facility] 2019-10-20 2019-10-21 Emergency [facility] 1.2.840.114 [id number] 21:49:00 00:48:00 Zena Steen 350.1.13.10 [place] 4.2.7.2.686 [place] [id number] 2019-10-20 2019-10-21 Emergency [facility] 1.2.840.114 [id number] [facility] 21:49:00 00:48:00 Zena Steen 350.1.13.10 ity of [place] 4.2.7.2.686 [facility] [id number] [address] 2019-10-20 2019-10-20 Emergency X MARK, [facility] ERT [id number] Univers 21:49:00 21:49:00 ZENA katz [facility] 2019-10-20 2019-10-20 Orders Doctor JESICA 1.2.840.114 [id number] 00:00:00 00:00:00 Only Unassigned, LEYLA 350.1.13.10 [place] [facility] 4.2.7.2.686 [id number] [facility] 2019-10-20 2019-10-20 Orders Doctor JESICA 1.2.840.114 [id number] [facility] 00:00:00 00:00:00 Only Unassigned, LEYLA 350.1.13.10 ity of [place] [facility] 4.2.7.2.686 [facility] [id number] [address] 2019-08-29 2019-08-29 Emergency [facility] 1.2.840.114 [id number] 18:05:24 19:48:00 Qi Steen 350.1.13.10 [place] 4.2.7.2.686 [place] [id number] [facility] 2019-08-29 2019-08-29 Emergency [facility] 1.2.840.114 [id number] [facility] 18:05:24 19:48:00 Qi Steen 350.1.13.10 ity of [place] 4.2.7.2.686 [facility] [id number] [address] 2019-08-11 2019-08-11 Outpatient FERMÍNTON_L [facility] [id number] [place] 09:48:00 09:48:[address] [place] [address] 2019-04-20 2019-04-20 Emergency [facility], [facility] 1.2.840.114 [id number] 21:28:16 22:19:00 Alley Steen 350.1.13.10 [place] 4.2.7.2.686 [place] [id number] 084 2019-04-20 2019-04-20 Emergency Teodoro, [facility] 1.2.840.114 [id number] Univers 21:28:16 22:19:00 Alley Steen 350.1.13.10 itChris 4.2.7.2.686 [facility] [id number] [facility] [address] 2016-12-06 2016-12-06 Emergency ER FRAME, [facility] [id number] [place] 07:35:00 10:30:00 YUMIKO -[id number] [facility] 2016-02-09 2016-02-09 Emergency ER SAEMI, [facility] [id number] [place] 17:17:00 22:36:00 LEAH -[id number] Formerly [facility] 2016-01-08 2016-01-08 Emergency ER UGORJI, [facility] [id number] [place] 21:19:00 22:36:00 CLESLOANE -[id number] Formerly [facility] 2015-12-22 2015-12-22 Emergency ER BA, ELIZABETH [facility] [id number] [place] 22:11:00 23:07:00 -[id number] Formerly [facility] 2015-07-20 2015-07-20 Emergency ER MICHAUD, [facility] [id number] [place] 22:15:00 23:15:00 JONATHAN -[id number] Formerly [facility] 2015-06-14 2015-06-14 Emergency ER UGORJI, [facility] [id number] [place] 11:50:00 14:25:00 CLESLOANE -[id number] Formerly [facility] 2015-03-13 2015-03-13 Emergency ER UGORJI, [facility] [id number] [place] 17:31:00 18:40:00 CLEMENT -[id number] Formerly [facility] 2014-04-13 2014-04-14 Emergency ER BA, ELIZABETH [facility] [id number] [place] 20:30:00 00:10:00 -[id number] Formerly [facility] 2014-03-10 2014-03-10 Emergency ER BA, ELIZABETH [facility] [id number] [place] 03:56:00 07:10:00 -[id number] Formerly [facility] 2014-02-08 2014-02-08 Emergency ER AKTHAOARA, [facility] [id number] [place] 08:25:00 13:40:00 OBIDIKE -[id number] Formerly [facility] 2014-02-03 2014-02-03 Emergency EL BA, ELIZABETH [facility] [id number] [place] 20:19:00 20:52:00 -[id number] Formerly [facility] 2014-01-11 2014-01-12 Emergency ER ADRIANNA, [facility] [id number] [place] 23:32:00 00:41:00 KENZIE -[id number] Formerly [facility] 2013-11-13 2013-11-13 Emergency ER FOLEY, [facility] [id number] [place] 01:32:00 02:12:00 SCAR -[id number] Formerly [facility] 2013-09-20 2013-09-20 Emergency ER ADRIANNA, [facility] [id number] [place] 19:30:00 20:23:00 KENZIE -[id number] Formerly [facility] 2013-08-21 2013-08-21 Emergency ER GARCIA, [facility] [id number] [place] 20:59:00 21:46:00 WASMARGARITA -[id number] Formerly [facility] 2013-07-23 2013-07-23 Emergency ER GARCIA, [facility] [id number] [place] 01:09:00 02:17:00 WASIM -[id number] Formerly [facility] 2013-06-25 2013-06-25 Emergency ER YARIMT, [facility] [id number] [place] 12:46:00 13:35:00 OSMAN -[id number] Formerly [facility] 2013-06-14 2013-06-14 Emergency ER ADRIANNA, [facility] [id number] [place] 22:40:00 23:59:00 KENZIE -[id number] Formerly [facility] 2013-06-04 2013-06-05 Emergency ER BA, ELIZABETH [facility] [id number] [place] 22:21:00 00:52:00 -[id number] Formerly [facility] 2013-05-16 2013-05-17 Emergency ER UGORJI, [facility] [id number] [place] 22:13:00 00:49:00 CLESLOANE -[id number] Formerly [facility] 2013-03-25 2013-03-26 Emergency ER FOLEY, [facility] [id number] [place] 23:36:00 03:47:00 SCAR -[id number] Formerly [facility] 2013-03-22 2013-03-22 Emergency ER ADRIANNA, [facility] [id number] [place] 20:51:00 21:00:00 KENZIE -[id number] Formerly [facility] 2013-03-06 2013-03-07 Emergency ER UGORKAITLYN, [facility] [id number] [place] 23:27:00 03:02:00 CLESLOANE -[id number] Formerly [facility] 2013-02-18 2013-02-18 Emergency ER UGORKAITLYN, [facility] [id number] [place] 00:57:00 01:21:00 CLEMENT -[id number] Formerly [facility] 2012-11-13 2012-11-14 Emergency ER GARCIA, [facility] [id number] [place] 22:31:00 00:11:00 WAS -[id number] Formerly [facility] 2012-10-18 2012-10-18 Emergency ER GARCIA, [facility] [id number] [place] 00:16:00 01:14:00 WASIM -[id number] Formerly [facility] 2012-10-15 2012-10-16 Emergency ER FOLEY, [facility] [id number] [place] 22:38:00 00:42:00 SCAR -[id number] Formerly [facility] 2012-10-07 2012-10-07 Emergency ER GARCIA, [facility] [id number] [place] 00:13:00 01:12:00 WAS -[id number] Formerly [facility] 2012-05-15 2012-05-16 Emergency ER YAMILETHRIMT, [facility] [id number] [place] 22:38:00 00:46:00 TIMOTHYLI -[id number] Formerly [facility] 2012-04-23 2012-04-24 Emergency ER UGORJI, [facility] [id number] [place] 22:14:00 00:21:00 CLEMENT -[id number] Formerly [facility] 2011-11-21 2011-11-22 Emergency ER GARCIA, [facility] [id number] [place] 23:01:00 01:36:00 WASIM -[id number] Formerly [facility] 2011-03-07 2011-03-07 Emergency ER OTINWA, [facility] [id number] [place] 16:37:00 18:29:00 RADHA -[id number] Formerly [facility] 2009-11-17 2009-11-18 Emergency ER GARCIA, [facility] [id number] [place] 21:51:00 00:40:00 WASIM -[id number] Formerly [facility] 2007-03-20 2007-03-20 Emergency ER [facility] [id number] [place] 01:13:00 02:14:00 OMAR, -[id number] [facility] Results Test Description Test Time Test Comments Results Result Comments Source ACUTE HEPATITIS PANEL 2022-02-18 16:32:00 Test Item Value Reference Range Interpretation Comme nts AB HEPATITIS A IGM (test code = HAVMAB) NONREACTIVE NONREACTIVE AG HEPATITIS B SURFACE (test code = HBSAG) NONREACTIVE NONREACTIVE AB HEPATITIS B CORE IGM (test code = HBCMAB) NONREACTIVE NONREACTI VE AB HEPATITIS C (test code = HCVAB) NONREACTIVE NONREACTIVE SIGNAL TO CUTOFF (test code = CUTOFF) 0.15 <0.80 ACUTE HEPATITIS [id number] 16:32:00 Test Item Value Reference Range Interpretation Comments AB HEPATITIS A IGM (test code = NONREACTIVE NONREACTIVE HAVMAB) AG HEPATITIS B SURFACE (test code NONREACTIVE NONREACTIVE = HBSAG) AB HEPATITIS B CORE IGM (test NONREACTIVE NONREACTIVE code = HBCMAB) AB HEPATITIS C (test code = NONREACTIVE NONREACTIVE HCVAB) SIGNAL TO CUTOFF (test code = 0.15 <0.80 N CUTOFF) COMPREHENSIVE METABOLIC [id number] 12:59:00 Test Item Value Reference Range Interpretation Comments SODIUM (test code = 140 mmol/L 136-145 N NA) POTASSIUM (test 4.4 mmol/L 3.5-5.1 N code = K) CHLORIDE (test code 103.0 mmol/L 98-107 N = CL) CARBON DIOXIDE 28.1 mmol/L 21-32 N (test code = CO2) GLUCOSE (test code 70 mg/dL 70-110 N = GLU) BLOOD UREA NITROGEN 13 mg/dL 7-18 N (test code = BUN) GLOMERULAR 103.9 >60 The Glomerular FILTRATION RATE Filtration R ate is a (test code = GFR) calculated parameterbased on serum Creatinin e, patient age and sex. GFR valuesless than 60 mL/min/1.73 squ are meters are delphine cative ofChronic Kidne y Disease. Values less than 15 mL/min/1.73squa re meters indicate Kidney failure. The calculation for GFR is based on the CK D-EPI (2020) calculat ion. This formulais race indifferent and is the recommended for smooth for GFRby the [facility] for Adults.The GFR will not calculate i f the sex is unknown or if thepatient's ag e is <18 years. CREATININE (test 0.92 mg/dL 0.55-1.30 N code = CREAT) TOTAL PROTEIN (test 7.1 g/dL 6.4-8.2 N code = PROT) ALBUMIN (test code 3.8 g/dL 3.4-5.0 N = ALB) GLOBULIN (test code 3.3 g/dL 2.2-4.2 N = GLOB) ALBUMIN/GLOBULIN 1.2 0.7-2.0 N RATIO (test code = A/G) CALCIUM (test code 8.8 mg/dL 8.2-10.1 N = CA) BILIRUBIN TOTAL 0.20 mg/dL 0.2-1.00 N (test code = BILT) SGOT/AST (test code 32.0 U/L 15-37 N = AST) SGPT/ALT (test code 45.0 U/L 12-78 N Please n ote new normal = ALT) range. ALKALINE 82 U/L 46-116 N PHOSPHATASE TOTAL (test code = ALKP) THROMBOPLASTIN TIME [id number] 12:36:00 Test Item Value Reference Range Interpretation Comments PTT ACTIVATED (test 31.3 secs 26.6-34.6 N Please n ote new code = APTT) normal range. IS PATIENT ON ANTICOAGULANTS ? NHas Lab been notified if Patient is on Heparin Drip? NOIf Yes, orderCBC, OCCULT BLOOD, PT every other day NPROTHROMBIN TIME 2022-02-18 12:36:00 Test Item Value Reference Range Interpretation Comments PROTHROMBIN TIME 10.4 secs 9.7-12.5 N Please note new normal PATIENT (test code = range. PTP) INTERNATIONAL NORMAL 0.94 <2.0 RECOMME NDED THERAPEUTIC RATIO (test code = RANGE FOR ORAL INR) ANTICOAGULANTTR EATMENT: CONDITION INRPr ophylaxis of venous throm bosis in 2.0 - 3.0 high- risk medical or surg ical patientsTreatme nt of venous thrombos is 2.0 - 3.0Prevention o f embolism 2.0 - 3.0Prevention o f recurrent embol ism, or 3.0 - 4.5 patie nts with mechanical pros thetic intravascular v greco IS PATIENT ON ANTICOAGULANTS ? NHas Lab been notified if Patient is on Heparin Drip? NOIf Yes, orderCBC, OCCULT BLOOD, PT every other day NCBC W/AUTO DIFF 2022-02-18 12:21:00 Test Item Value Reference Range Interpretation Comments WHITE BLOOD CELL (test code = WBC) 9.3 K/mm3 5.7-10.5 N RED BLOOD CELL (test code = RBC) 4.59 M/mm3 4.2-5.4 N HEMOGLOBIN (test code = HGB) 13.1 g/dL 12-16 N HEMATOCRIT (test code = HCT) 40.0 % 37-47 N MEAN CELL VOLUME (test code = MCV) 87 fL 80-98 N MEAN CELL HGB (test code = MCH) 28.5 pg 27-34 N MEAN CELL HGB CONCENTRATION (test 32.8 g/dL 30.8-34.1 N code = MCHC) RED CELL DISTRIBUTION WIDTH (test 14.2 % 11-16 N code = RDW) PLT (test code = PLT) 359 K/mm3 130-400 N MEAN PLATELET VOLUME (test code = 9.6 fL 8.9-12.1 N MPV) NEUTROPHIL % (test code = NT%) 66.9 % 45-70 N LYMPHOCYTE % (test code = LY%) 21.0 % 20-40 N MONOCYTE % (test code = MO%) 9.1 % 3-10 N EOSINOPHIL % (test code = EO%) 2.5 % 1-5 N BASOPHIL % (test code = BA%) 0.3 % 0.0-1.1 N NEUTROPHIL # (test code = NT#) 6.20 K/mm3 2.00-7.50 N LYMPHOCYTE # (test code = LY#) 1.94 K/mm3 1.50-4.00 N MONOCYTE # (test code = MO#) 0.84 K/mm3 0.2-0.8 H EOSINOPHIL # (test code = EO#) 0.23 K/mm3 0.04-0.4 N BASOPHIL # (test code = BA#) 0.03 K/mm3 0.02-0.10 N MANUAL DIFF REQUIRED (test code = NO MANUAL DIFF MDIFF) NUCLEATED RED BLOOD CELL (test 0 % 0-0 N code = NRBC) - XR C-SPINE [id number] 14:52:00 [facility] 1975 Sex: M Patient Name: AMILCAR SAMUEL Unit No: [id number] EXAMS: CPT CODE: [id number] XR C-SPINE 6+V 09667 IMAGES PROVIDED: 7 views cervical spine and 2 views of the thoracic spine FINDINGS: Cervical spine: C3-C4 and C5-C6 ACDF changes are present without evidence of hardware complication. No acute fracture. No pathologic motion with flexion/extension. Spinal stimulator device is present with lead tip terminating at C4. Laminectomy changes are visualized as well. Disc degeneration of the C4- C5 level is present.Soft tissues are unremarkable. Lung apices are clear. Thoracic spine: Alignment of the thoracic spine is within normal limits. No acute fracture. Mild scattered disc degeneration of the mid to lower thoracic spine is visualized. The visualized lungs are clear. Soft tissues are unremarkable. IMPRESSION: 1. Postoperative cervical spine without acute abnormality. 2. No acute findings of the thoracic spine. at 1452 Reported and sig rohan by: Charlie De La Cruz M.D. CC: Cesar Lawrence M.D. Technologist: RT Malina.(R) Transcribed D/ (235) [facility]: [facility] [address] [facility] Cesar Rowe MD : 1975 AGE: 46 SEX: M [place] [address] LOC: Y.RAD PHONE #: [phone] EXAM DATE: 02/12/2022 STATUS: DEP CLI FAX #: [phone] RAD#: D/C DT PAGE 1 Signed Report Patient Name: AMILCAR SAMUEL Unit No: [id number] EXAMS: CPT CODE:[id number] XR C-SPINE 6+V 61404 (Continued) Orig Print D/T: S: 02/15/2022 (1586) [facility] NAME: AMILCAR SAMUEL [address] [facility] PHYS: Cesar Rowe MD : 1975 AGE: 46 SEX: M [place] [address] LOC: Y.RAD PHONE #: [phone] EXAM DATE: 02/12/2022 STATUS: DEP CLI FAX #: [phone] RAD #: D/C DT PAGE 2 Signed Report- XR T-SPINE 2 [id number] 14:52:00 [facility] 1975 Sex: M Patient Name: AMILCAR SAMUEL Unit No: [id number] EXAMS: CPT CODE: [id number] XR T-SPINE 2 VIEWS 75117 IMAGES PROVIDED: 7 views cervical spine and 2 views of the thoracic spine FINDINGS: Cervical spine: C3-C4 and C5-C6 ACDF changes are present without evidence of hardware complication. No acute fracture.No pathologic motion with flexion/extension. Spinal stimulator device is present with lead tip terminating at C4. Laminectomy changes are visualized as well. Disc degeneration of the C4-C5 level is present. Soft tissues are unremarkable. Lung apices are clear. Thoracic spine: Alignment of the thoracic spine is within normal limits. No acute fracture. Mild scattered disc degeneration of the mid to lower thoracic spine is visualized. The visualized lungs are clear. Soft tissues are unremarkable. IMPRESSION: 1. Postoperative cervical spine without acute abnormality. 2. No acute findings of the thoracic spine. at 1452 Reported and signed by: Charlie De La Cruz M.D. CC: Cesar Lawrence M.D. Technologist: RT. Malina(R) Transcribed D/ (1452) t.CELINA.[facility] NAME: AMILCAR SAMUEL [address] [facility] [address] PHYS: Cesar Rowe MD : 1975 AGE: 46 SEX: M [place], [place] [address] LOC: Y.RAD PHONE #: [phone] EXAM DATE: 02/12/2022 STATUS: DEP CLI FAX #: [phone] RAD #: D/C DT PAGE 1 Signed Report Patient Name: AMILCAR SAMUEL Unit No: [id number] EXAMS: CPTCODE: [id number] XR T-SPINE 2 VIEWS 65855 (Continued) Orig Print D/T: S: 02/15/2022 (1456) [facility] NAME: AMILCAR SAMUEL [address] [facility] PHYS: Cesar Rowe MD : 1975 AGE: 46 SEX: M [place], [place] [address] LOC: Y.RAD PHONE #: [phone] EXAM DATE: 02/12/2022 STATUS: DEP CLI FAX #: [phone] RAD #: D/C DT PAGE 2 Signed Report- CT C-SPINE W/O [id number] 14:41:00 [facility] : 1975 Sex: M Patient Name: AMILCAR SAMUEL Unit No: [id number] EXAMS: CPT CODE: [id number] CT C-SPINE W/O CONT 06392 TECHNIQUE: Spiral CT images were obtained with axial images displayed of the cervical spine. [place] coronal reconstructions were also performed. COMPARISON: Concurrent radiographs FINDINGS: C3-C4ACDF is demonstrated without evidence of fusion. C5 C7 ACDF construct is also present with solid fusion at C5-C6. No definite C6-C7 fusion is visualized. Alignment: Straightening of cervical lordosis. Bone Lesion / Fracture: None present. Prevertebral / Paraspinal Soft Tissues: Unremarkable. C2/3: Nosignificant abnormality. C3/4: ACDF without evidence of interbody fusion. Moderate to severe bilateral foraminal stenosis is present without significant central canal stenosis. C4/5: A small disc bulge osteophyte complex is noted as well as right greater than left uncovertebral hypertrophy. There is mild left, moderate right foraminal stenosis. No definite central canal stenosis. Posterior stimulatory lead is in place terminating at the C4-C5 level. C5/6: Discectomy and interbody fusion. No definite foraminal or central canal stenosis. C6/7: Discectomy without definite interbody fusion. Mild leftforaminal stenosis is present. No significant right foraminal or central canal stenosis. C7/T1: No disc bulge or herniation. Mild uncovertebral hypertrophy is present. There is no definite foraminal orcentral canal stenosis. IMPRESSION: Postoperative cervical spine without definite interbody fusion at C3-C4 or C6-C7. at 1441 Reported and signed by: Charlie De La Cruz M.D. [facility] NAME: AMILCAR SAMUEL [address] [facility] PHYS: Cesar Rowe MD : 1975 AGE: 46 SEX: M [place] [address] LOC: Y.RAD PHONE #: [phone] EXAM DATE: 02/12/2022 STATUS: DEP CLI FAX #: [phone] RAD #: D/C DT PAGE 1 Signed Report (CONTINUED) Patient Name: AMILCAR SAMEUL Unit No: [id number] EXAMS: CPT CODE: [id number] CT C-SPINE W/O CONT 39091 (Continued) CC: Cesar Lawrence M.D. Technologist: RT El(R) CTDI: DLP: Trnscrpt: 02/15/2022 (1441) [facility] NAME: AMILCAR SAMUEL [address] [facility] PHYS: Cesar Rowe MD : 1975 AGE: 46 SEX: M [place] [address] LOC: Y.RAD PHONE #: [phone] EXAM DATE: 02/12 STATUS: DEP CLI FAX #: [phone] RAD #: D/C DT PAGE 2 Signed Report Patient Name: AMILCAR SAMUEL Unit No: [id number] EXAMS: CPT CODE: [id number] CT C-SPINE W/O CONT 54181 (Continued) Orig Print D/T: S: 02/15/2022 (1444) [facility] NAME: AMILCAR SAMUEL [address] [facility] PHYS: Cesar Rowe MD : 1975 AGE: 46 SEX: M [place], [place] [address] LOC: Y.RAD PHONE #: [phone] EXAM DATE: 02/12/2022 STATUS: LEILA LOPEZ FAX #: [phone] RAD #: D/C DT PAGE 3 Signed Report
[2022-03-06] MEDS ORDERED: FENTANYL CITR 100 MCG/2 ML ONE (19:21)
[2022-03-06] MEDS ORDERED: ONDANSETRON 4 MG (ODT) TAB ONE (19:24)
--- NOTE | 2022-03-06 19:34 | ER ---
Nurse's Notes [facility] Name: Lino Samuel Age: 46 yrs Sex: Male : 1975 Arrival Date: 03/06/2022 Time: 18:49 Bed 16 Private MD: Diagnosis: Surgical incision site pain with slight dehiscence Presentation: 03/06 19:00 Chief complaint: Patient states: nerve stimulator was removed on 03/04/2022 but pt kb3 continues to have chronic neck pain with no relief from Percocet 7.5. Coronavirus screen: Vaccine status: Patient reports being unvaccinated. Client denies travel out of the [place] in the last 14 days. Ebola Screen: Patient negative for fever greater than or equal to 101.5 degrees Fahrenheit, and additional compatible Ebola Virus Disease symptoms Patient denies exposure to infectious person. Patient denies travel to an Ebola-affected area in the 21 days before illness onset. Initial Sepsis Screen: Does the patient meet any 2 criteria? No. Patient's initial sepsis screen is negative. Does the patient have a suspected source of infection? No. Patient's initial sepsis screen is negative. Risk Assessment: Do you want to hurt yourself or someone else? Patient reports no desire to harm self or others. Onset of symptoms was March 06, 2022 at 07:00. 19:00 Method Of Arrival: Ambulatory 3 19:00 Acuity: ERICA 4 kb3 Triage Assessment: 19:04 General: Appears in no apparent distress. uncomfortable, Behavior is calm, cooperative. kb3 Pain: Complains of pain in back of neck Pain does not radiate. Pain currently is 9 out of 10 on a pain scale. Quality of pain is described as sharp. Historical: - Allergies: 19:04 Imitrex; kb3 19:04 Toradol; kb3 19:04 tramadol; kb3 - Home Meds: 19:04 amlodipine oral [Active]; Dexilant 30 mg Oral CpDB 1 cap once daily [Active]; kb3 Hydrochlorothiazide Oral [Active]; Metoprolol Tartrate Oral [Active]; Percocet 7.5-325 mg Oral tab 1 tab every 6 hours [Active]; Fioricet 50-325-40 mg Oral tab 1 tab every 4 hours [Active]; - PMHx: 19:04 Gastric Reflux; Hypertension; Migraines; Chronic pain; kb3 - PSHx: 19:04 Cholecystectomy; Elbow; neck; Vasectomy; Nerve stimulator removed; kb3 - Immunization history:: Adult Immunizations unknown, Client reports having NOT received the Covid vaccine. Last tetanus immunization: unknown. - Social history:: Smoking status: Patient reports the use of cigarette tobacco products, smokes one-half pack cigarettes per day. Screenin:01 [facility] ED Fall Risk Assessment (Adult) History of falling in the last 3 months, vc1 including since admission No falls in past 3 months (0 pts). Abuse screen: Denies threats or abuse. Nutritional screening: No deficits noted. Tuberculosis screening: No symptoms or risk factors identified. Assessment: 19:10 Neuro: Level of Consciousness is awake, alert, obeys commands, Oriented to person, vc1 place, time, situation, Appropriate for age. Vital Signs: 19:00 BP 162 / 96; Pulse 62; Resp 20; Temp 98.2; Pulse Ox 100% ; Weight 107.95 kg; Height 6 kb3 ft. 4 in. (193.04 cm); Pain 9/10; 19:00 Body Mass Index 28.97 (107.95 kg, 193.04 cm) kb3 ED Course: 18:49 Patient arrived in ED. as 18:54 Mildred Lopez FNP-C is [facility]. kb 18:54 Charles Jones DO is Attending Physician. kb 19:04 Triage completed. kb3 19:04 Arm band placed on right wrist. kb3 19:10 Sowmya García, RN is Primary Nurse. vc1 20:01 No provider procedures requiring assistance completed. Patient did not have IV access vc1 during this emergency room visit. Administered Medications: 19:40 Drug: fentaNYL (PF) 50 mcg Route: IM; Site: left vastus lateralis; vc1 19:40 Drug: Zofran (Ondansetron) 4 mg Route: PO; vc1 Medication: 20:03 VIS not applicable for this client. vc1 Outcome: 19:33 Discharge ordered by . kb 20:02 Discharged to home ambulatory. vc1 20:02 Condition: good 20:02 Discharge instructions given to patient, Instructed on discharge instructions, follow up and referral plans. Demonstrated understanding of instructions, follow-up care, pt states he will follow up with his pain management 20:03 Patient left the ED. vc1 Signatures: Mildred Lopez, THANHC BETTY-Francisca Bishop Vanessa RN RN vc1 Gracie Perry RN RN kb3
--- NOTE | 2022-03-06 19:34 | EDPHYS ---
Physician Documentation [facility] Name: Lino Samuel Age: 46 yrs Sex: Male : 1975 Arrival Date: 03/06/2022 Time: 18:49 Bed 16 Private MD: ED Physician Charles Jones HPI: 03/06 19:32 This 46 yrs old Male presents to ER via Ambulatory with complaints of Neck Pain, <24hrs kb Old. 19:32 Pt reports he had a spinal stimulator removed on 03/04/22. Reports pain to incision kb site that started yesterday. . Onset: The symptoms/episode began/occurred yesterday. Severity of symptoms: At their worst the symptoms were moderate in the emergency department the symptoms are unchanged. The patient has not experienced similar symptoms in the past. The patient has been recently seen by a physician:. Historical: - Allergies: 19:04 Imitrex; kb3 19:04 Toradol; kb3 19:04 tramadol; kb3 - Home Meds: 19:04 amlodipine oral [Active]; Dexilant 30 mg Oral CpDB 1 cap once daily [Active]; kb3 Hydrochlorothiazide Oral [Active]; Metoprolol Tartrate Oral [Active]; Percocet 7.5-325 mg Oral tab 1 tab every 6 hours [Active]; Fioricet 50-325-40 mg Oral tab 1 tab every 4 hours [Active]; - PMHx: 19:04 Gastric Reflux; Hypertension; Migraines; Chronic pain; kb3 - PSHx: 19:04 Cholecystectomy; Elbow; neck; Vasectomy; Nerve stimulator removed; kb3 - Immunization history:: Adult Immunizations unknown, Client reports having NOT received the Covid vaccine. Last tetanus immunization: unknown. - Social history:: Smoking status: Patient reports the use of cigarette tobacco products, smokes one-half pack cigarettes per day. ROS: 19:31 Constitutional: Negative for fever, chills, and weight loss. kb 19:31 Skin: Positive for pain to incision site . 19:31 All other systems are negative. Exam: 19:30 Constitutional: This is a well developed, well nourished patient who is awake, alert, kb and in no acute distress. Head/Face: Normocephalic, atraumatic. ENT: Moist Mucous membranes Neck: Trachea midline, no thyromegaly or masses palpated, and no cervical lymphadenopathy. Supple, full range of motion without nuchal rigidity, or vertebral point tenderness. No Meningismus. Cardiovascular: Regular rate and rhythm with a normal S1 and S2. No gallops, murmurs, or rubs. No pulse deficits. Respiratory: Respirations even and unlabored. No increased work of breathing. Talking in full sentences Abdomen/GI: Soft, non-tender. No distention MS/ Extremity: Pulses equal, no cyanosis. Neurovascular intact. Full, normal range of motion. Neuro: Awake and alert, GCS 15, oriented to person, place, time, and situation. Moves all extremities. Normal gait. Psych: Awake, alert, with orientation to person, place and time. Behavior, mood, and affect are within normal limits. 19:30 Skin: Wound recheck: surgical incision site level of C7 with slight dehiscence. No redness, swelling, or drainage. Surgical dressing intact. No tenderness around incision.. Vital Signs: 19:00 BP 162 / 96; Pulse 62; Resp 20; Temp 98.2; Pulse Ox 100% ; Weight 107.95 kg; Height 6 kb3 ft. 4 in. (193.04 cm); Pain 9/10; 19:00 Body Mass Index 28.97 (107.95 kg, 193.04 cm) kb3 MDM: 19:00 Patient medically screened. kb 19:30 Data reviewed: vital signs, nurses notes. Data interpreted: Pulse oximetry: on room air kb is 100 %. Interpretation: normal. Counseling: I had a detailed discussion with the patient and/or guardian regarding: the historical points, exam findings, and any diagnostic results supporting the discharge/admit diagnosis, the need for outpatient follow up, surgeon, to return to the emergency department if symptoms worsen or persist or if there are any questions or concerns that arise at home. Administered Medications: 19:40 Drug: fentaNYL (PF) 50 mcg Route: IM; Site: left vastus lateralis; vc1 19:40 Drug: Zofran (Ondansetron) 4 mg Route: PO; vc1 Disposition Summary: 03/06/22 19:33 Discharge Ordered Location: Home kb Condition: Stable kb Diagnosis - Surgical incision site pain with slight dehiscence kb Followup: kb - With: Emergency Department - When: As needed - Reason: Worsening of condition Followup: kb - With: Private Physician - When: 2 - 3 days - Reason: Recheck today's complaints, Continuance of care, Re-evaluation by your physician Discharge Instructions: - Discharge Summary Sheet kb - Pain Relief Before and After Surgery kb Forms: - Medication Reconciliation Form kb - Thank You Letter kb - Antibiotic Education kb - Prescription Opioid Use kb Addendum: 03/10/2022 14:14 Co-signature as Attending Physician, Charles Jones DO I was immediately available on-site m s3 in the Emergency Department for consultation in the care of the patient.. Signatures: Mildred Lopez, INTERNET SALES DIRECTOR-C INTERNET SALES DIRECTOR-Jetb Charles Jones DO DO ms3 Sowmya García, RN RN vc1 Gracie Perry, RN RN kb3
[2022-03-06 20:24] VITALS: BP 162/96; TEMP 98.2; O2SAT 100
== END 2022-03-06 20:03 | disposition home or self-care (01) ==
LOC: ER 18:45
DX: T81.31XA Disruption of external operation (surgical) wound, not elsewhere classified, initial encounter (principal); G89.18 Other acute postprocedural pain; F17.210 Nicotine dependence, cigarettes, uncomplicated; Z88.5 Allergy status to narcotic agent; Z88.8 Allergy status to other drugs, medicaments and biological substances
CPT/HCPCS: 96372; 99283; Q0162; J3010

== ENCOUNTER 2022-08-23 19:08 | Emergency (ER) | payer OTHER ==
--- OUTSIDE RECORDS SUMMARY | 2022-08-23 19:15 | XMS REPORT | Continuity of Care Document ---
:1975 Author Organization [facility] t Address [address] [facility] [address] [place] [address] Care Team Providers Name Role Phone MALGORZATA NEDRA Evans Primary Care Physician Unavailable JEREMY BURRELL Attending Clinician Unavailable LIEN ANAYA Attending Clinician Unavailable Bry Nielson Attending Clinician Unavailable YENNIFER Attending Clinician Unavailable FOG_A_Provider Attending Clinician Unavailable Cesar Lawrence Attending Clinician Unavailable Mynor Fair Attending Clinician Unknown, Attending Attending Clinician Unavailable MYNOR FREEDMAN Attending Clinician Unavailable Doctor Unassigned, [place] Attending Clinician Unavailable JJ MORAN Attending Clinician Unavailable Jj Moran MD Attending Clinician LAKISHA CASTANEDA Attending Clinician Unavailable SADI BARNEY Attending Clinician Unavailable AMBREEN_FARHANA Attending Clinician Unavailable SCAR JAMISON Attending Clinician Unavailable TAYLOR SCHWARTZ Attending Clinician Unavailable Jeremy Burrell MD Attending Clinician Scar Merritt Attending Clinician Only, Adc Test Attending Clinician Unavailable Julianne Quintero Attending Clinician JULIANNE NICOLE Attending Clinician Unavailable Chayo Esquivel Attending Clinician Chayo ISSA Attending Clinician Unavailable Zena Flores DO Attending Clinician ZENA FLORES Attending Clinician Unavailable Osman Calvo MD Attending Clinician OSMAN CALVO Attending Clinician Unavailable Lisandro Jim DO Attending Clinician Maged Stovall Attending Clinician MAGED LAMAR Attending Clinician Unavailable HUTJOVANNY_L Attending Clinician Unavailable Amaris Alvarado NP Attending Clinician AMARIS ALVARADO Attending Clinician Unavailable Kwaku Hammer Attending Clinician KWAKU LANDA Attending Clinician Unavailable Qi Hernandez Attending Clinician Alley Wheat Attending Clinician YUMIKO WATTS Attending Clinician Unavailable LEAH VALDEZ Attending Clinician Unavailable GURDEEP RICH Attending Clinician Unavailable BREANNA, ELIZABETH Attending Clinician Unavailable JONATHAN MICHAUD Attending Clinician Unavailable DONG NGUYEN Attending Clinician Unavailable KENZIE RODAS Attending Clinician Unavailable SCAR FOLEY Attending Clinician Unavailable RYDER GARCIA Attending Clinician Unavailable OSMAN CALVO Attending Clinician Unavailable RADHA ORR Attending Clinician Unavailable RON BEGUM Attending Clinician Unavailable JEREMY BURRELL Admitting Clinician Unavailable YENNIFER Admitting Clinician Unavailable SHANNA_A_Provider Admitting Clinician Unavailable Cesar Lawrence Admitting Clinician Unavailable FERMIN Admitting Clinician Unavailable Ashanti DICK, Jeremy Chau Admitting Clinician OSMAN CALVO Admitting Clinician Unavailable LARON Admitting Clinician Unavailable Payers Payer Name Policy Type Policy Number Effective Date Expiration Date Lamberto vinson [facility] [id number] 2020 00:00:00 [facility] [id number] HUMANA () HUMANA [id number] 2011 [facility] 00:00:00 REGION Problems Condition Condition Condition Status Onset Resolution Last Treating Co mments Source Name Details Category Date Date Treatment Clinician Date Chronic Chronic Problem Active 2021-03 Leah pain 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 00:00: dic 00 [facility] Medic[facility] 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:00: dic syndrome Syndrome 00 Sports Medicin e Mechanical Mechanical Problem Active 2021-03 A zalea complicati Complicati 2-21 Or thope on of on of 00:00: dic dorsal Dorsal 00 Sports column Column Medicin stimulator Stimulator e Postoperat Postoperat Problem Active 2021-03 A zalea mg pain mg Pain 2-13 Orthop e 00:00: dic 00 Sports Medicin e Cervical Cervical Problem Active 2021-03 Azale a radiculopa Radiculopa 2-01 Or thope thy thy 00:00: dic 00 Sports Medicin e Thoracic Thoracic Problem Active 2021-03 Azale a back pain Back Pain 2-01 Orth ope 00:00: dic 00 Sports Medicin e Closed Closed Disease Active Overview: Univer s displaced displaced 3-31 Formattin i ty of fracture fracture 00:00: g of this Marty as of base of of base of 00 note Me dical fifth fifth might be Branch metacarpal metacarpal different bone of bone of from the right right original. 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 0-04 Or thope s s 00:00: dic 00 Sports Medicin e Paresthesi Paresthesi Problem Active 2015-03 Naseem hu a 0-04 Orthope 00:00: dic 00 Sports Medicin e Allergies, Adverse Reactions, Alerts Allergy Allergy Status Severity Reaction(s) Onset Inactive Treating Comm ents Source Name Type Date Date Clinician sumatrip DA Active U Unknown [facility] farrell 4 00:00: 00 tramadol DA Active U Unknown [facility] 4 00:00: 00 ketorola DA Active U Unknown [facility] 4 00:00: 00 TRAMADOL Allergy Active 2015-03 Leah to 0-04 Orthope substanc 00:00: dic e 00 Sports Medicin e TORADOL Allergy Active 2015-03 Leah to 0-04 Orthope substanc 00:00: dic e 00 Sports Medicin e tramadol DA Active [facility] SWEATS 08-12 Clear 00:00: [place] 00 [facility] ketorola DA Active SV SE[facility]ERE [facility] c STOMACH PAIN 08-12 Chari r 00:00: [place] 00 [facility] sumatrip DA Active SV HEART ATTACK HC A farrell SYMPTOMS,THR 08-12 Chari r OAT SWELLS 00:00: [place] 00 [facility] Sumatrip Drug Active Anaphylaxis Chest Uni [...] ity of TROMETHA 00:00: [place] MINE 00 [facility] Branch TRAMADOL DRUG Active Other-Cmnt [facility] ers INGREDI 11-13 ity of 00:00: [place] 00 [facility] Imitrex Allergy Active Leah to Orthope substanc dic e Sports Medicin e Social History Social Habit Start Date Stop Date Quantity Comments Source History of tobacco Cigarette Smoker University of use [facility] Exposure to 2022-02-15 2022-02-25 Not sure University of SARS-CoV-2 (event) 00:00:00 19:37:00 [facility] Alcohol intake 2021-06-30 2021-06-30 Current University of 00:00:00 00:00:00 non-drinker of [facility] alcohol Mullens (finding) Cigarettes smoked 2017-02-23 2017-02-23 Univers ity of current (pack per 00:00:00 00:00:00 [facility] ) - Reported Branch Cigarette 2017-02-23 2017-02-23 University of pack-years 00:00:00 00:00:00 [facility] Tobacco use and 2017-02-23 2017-02-23 Smokeless Universit y of exposure 00:00:00 00:00:00 tobacco non-user [facility] Sex Ass[birth year] Universit y of 00:00:00 00:00:00 [facility] Smoking Status Start Date Stop Date Source Smokes tobacco daily 2017-02-23 00:00:00 Univers ity of [facility] Medications Ordered Filled Start Stop Current Ordering Indication Dosage Frequency Signature Comments Components Source Medication Medication Date Date Medication? Clinician (SIG) Name Name proMETHazin 2021-03- No [id number] 25mg Univers e 2-15 12-15 ity of (PHENERGAN) 01:57: 02:00 [place] injection 00 :00 Medical 25 mg Branch proMETHazin 2021-03- No [id number] 25mg 25 mg, Univers e 2-15 12-15 Intramuscu ity of (PHENERGAN) 01:57: 02:00 lar, ONCE, [place] injection 00 :00 1 dose, On Medi chayito 25 mg Wed Branch 02/25/22 at 2000, Routine proMETHazin 2021-03- No [id number] 25mg Take 1 Univers e 25 mg 2-14 12-20 tablet by ity of tablet 00:00: 05:59 mouth [place] 00 :00 every 6 Medical (six) Branch hours as needed for Nausea and Vomiting (N/V) for up to 5 days. lidocaine 5 2021-03 Yes Univer s % (700 1-17 ity of mg/patch) 00:00: [place] patch 00 Medical Branch hydrOXYzine 2021-03 Yes Univer s 25 mg 0-31 ity of capsule 00:00: [place] 00 [facility] Branch FENTanyl PF 2021-03- No 75ug 75 mcg, Un kevon (SUBLIMAZE 0-26 10-26 Intramuscu it y of (PF)) 07:00: 07:07 lar, ONCE, [place] injection 00 :00 1 dose, On Medi chayito 75 mcg [facility] Branch 01/07/22 at 0200, STAT dexamethaso 2021-03- No 10mg 10 mg, Uni vers ne sod phos 0-07 01- Intramuscu i ty of PF 02:15: 02:13 lar, ONCE, [place] injection 00 :00 1 dose, On Medi chayito 10 mg [facility] Branch 01/06/22 at 2115, 1 mL diazePAM 2021-03- No 5mg 5 mg, Univers (VALIUM) 0-07 01- Oral, ity of tablet 5 mg 02:15: 02:12 [place] dose, On Medical [facility] Branch 01/06/22 at 2115, TUAN diazePAM 2021-03 Yes [id number] 5mg Take 1 Uni vers (VALIUM) 5 0-25 tablet by ity of mg tablet 00:00: mouth 3 [place] 00 (three) Medical times Branch daily as needed for Muscle Spasms. diazePAM 2021-03 Yes [id number] 5mg Take 1 Uni vers (VALIUM) 5 0-25 tablet by ity of mg tablet 00:00: mouth 3 (three) Medical times Branch daily as needed for Muscle Spasms. diazePAM 2021-03 Yes [id number] 5mg Take 1 Uni vers (VALIUM) 5 0-25 tablet by ity of mg tablet 00:00: mouth 3 00 (three) Medical times Branch daily as needed for Muscle Spasms. diazePAM 2021-03 Yes [id number] 5mg Take 1 Uni vers (VALIUM) 5 0-25 tablet by ity of mg tablet 00:00: mouth 3 00 (three) Medical times Branch daily as needed for Muscle Spasms. predniSONE 2021-03- No [id number] 40mg Take 2 Univers 20 mg 0-25 10-31 tablets by ity of tablet 00:00: 04:59 mouth in [place] 00 :00 the Medical morning Branch for 5 days. predniSONE 2021-03- No [id number] 40mg Take 2 Univers 20 mg 0-25 10-31 tablets by ity of tablet 00:00: 04:59 mouth in [place] 00 :00 the Medical morning Branch for 5 days. metoprolol 2021-03 Yes 50mg Take 50 mg U nivers tartrate 50 0-12 by mouth ity of mg tablet 00:00: in the [place] 00 morning Medical and 50 mg Branch in the evening. Take with meals. acetaminoph Yes Tylenol Uni vers en 4-06 [...] DAY acetaminoph Yes Tylenol Uni vers en 4-06 [...] DAY acetaminoph Yes Tylenol Uni vers en - ity [...] DAY acetaminoph Yes Tylenol Uni vers en - ity [...] DAY acetaminoph Yes Tylenol Uni vers en 06-18 ity of (TYLENOL) 02:05: [place] 325 mg [...] by mouth ity of tablet 14:22: daily. [place] [address] Medical Branch amLODIPine 2021-0 Yes 10mg Take 10 mg U nivers 10 mg 4-04 by mouth ity of tablet 14:22: daily. [place] [address] Medical Branch DEXLANSOPRA 0 Yes Take by [...] by ity of capsule 14:22: mouth 4 [place] 24 (four) Medical times Branch daily. Takes 2 capsules in morning and 2 capsules in evening. metoprolol 0 Yes 100mg Take 100 Un kevon succinate 4-04 mg by ity of XL 100 mg 14:22: mouth [place] 24 hr 24 daily. Medical tablet Branch valsartan 0 Yes 40mg Take 40 mg Un kevon 40 mg 4-04 by mouth ity of tablet 14:22: daily. [place] [address] Medical Branch amLODIPine 0 Yes 10mg Take 10 mg U nivers 10 mg 4-04 by mouth ity of tablet 14:22: daily. [place] [address] Medical Branch DEXLANSOPRA 0 Yes Take by [...] by ity of capsule 14:22: mouth 4 [place] 24 (four) Medical times Branch daily. Takes 2 capsules in morning and 2 capsules in evening. metoprolol 2021-0 Yes 100mg Take 100 Un kevon succinate 4-04 mg by ity of XL 100 mg 14:22: mouth [place] 24 hr 24 daily. Medical tablet Branch valsartan Yes 40mg Take 40 mg Un kevon 40 mg 4-04 by mouth ity of tablet 14:22: daily. [place] [address] Medical Branch amLODIPine Yes 10mg Take 10 mg U nivers 10 mg 4-04 by mouth ity of tablet 14:22: daily. [place] [address] Medical Branch DEXLANSOPRA Yes Take by Uni [...] by mouth ity of tablet 14:22: daily. [place] [address] Medical Branch amLODIPine Yes 10mg Take 10 mg U nivers 10 mg 4-04 by mouth ity of tablet 14:22: daily. [place] [address] Medical Branch DEXLANSOPRA Yes Take by Uni [...] by ity of capsule 14:22: mouth 4 [place] 24 (four) Medical times Branch daily. Takes 2 capsules in morning and 2 capsules in evening. metoprolol 2021-0 Yes 100mg Take 100 Un kevon succinate 4-04 mg by ity of XL 100 mg 14:22: mouth [place] 24 hr 24 daily. Medical tablet Branch valsartan 0 Yes 40mg Take 40 mg Un kevon 40 mg 4-04 by mouth ity of tablet 14:22: daily. [place] [address] Medical Branch amLODIPine 0 Yes 10mg Take 10 mg U nivers 10 mg 4-04 by mouth ity of tablet 14:22: daily. [place] [address] Medical Branch DEXLANSOPRA 0 Yes Take by [...] by ity of capsule 14:22: mouth 4 [place] 24 (four) Medical times Branch daily. Takes 2 capsules in morning and 2 capsules in evening. metoprolol 0 Yes 100mg Take 100 Un kevon succinate 4-04 mg by ity of XL 100 mg 14:22: mouth [place] 24 hr 24 daily. Medical tablet Branch valsartan 0 Yes 40mg Take 40 mg Un kevon 40 mg 4-04 by mouth ity of tablet 14:22: daily. [place] Medical Branch amLODIPine 0 Yes 10mg Take 10 mg U nivers 10 mg 4-04 by mouth ity of tablet 14:22: daily. [place] [address] Medical Branch DEXLANSOPRA 0 Yes Take by Uni vers ZOLE 4-04 mouth. ity of (DEXILANT 14:22: [place] ORAL) 24 Medical Branch oxyCODONE-a 0 Yes 1{tbl} Take 1 Un kevon cetaminophe 4-04 tablet by ity of n 14:22: mouth [place] (PERCOCET) 24 every 6 Medica l 10-325 mg (six) Branch per tablet hours as needed for Pain. clindamycin 2-0 Yes 300mg Take 300 U nivers 300 mg 4-04 mg by ity of capsule 14:22: mouth 4 [place] 24 (four) Medical times Branch daily. Takes 2 capsules in morning and 2 capsules in evening. metoprolol 2-0 Yes 100mg Take 100 Un kevon succinate 4-04 mg by ity of XL 100 mg 14:22: mouth [place] 24 hr 24 daily. Medical tablet Branch valsartan 2021-0 Yes 40mg Take 40 mg Un kevon 40 mg 4-04 by mouth ity of tablet 14:22: daily. [place] [address] Medical Branch amLODIPine 2021-0 Yes 10mg Take 10 mg U nivers 10 mg 4-04 by mouth ity of tablet 14:22: daily. [place] [address] Medical Branch DEXLANSOPRA 2021-0 Yes Take by Uni vers ZOLE 4-04 mouth. ity of (DEXILANT 14:22: [place] ORAL) Medical Branch oxyCODONE-a 0 Yes 1{tbl} Take 1 Un kevon cetaminophe 4-04 tablet by ity of n 14:22: mouth [place] (PERCOCET) 24 every 6 Medica l 10-325 mg (six) Branch per tablet hours as needed for Pain. clindamycin 2021-0 Yes 300mg Take 300 U nivers 300 mg 4-04 mg by ity of capsule 14:22: mouth 4 [place] 24 (four) Medical times Branch daily. Takes 2 capsules in morning and 2 capsules in evening. metoprolol 2021-0 Yes 100mg Take 100 Un kevon succinate 4-04 mg by ity of XL 100 mg 14:22: mouth [place] 24 hr 24 daily. Medical tablet Branch valsartan 2021-0 Yes 40mg Take 40 mg Un kevon 40 mg 4-04 by mouth ity of tablet 14:22: daily. [place] [address] Medical Branch amLODIPine 2021-0 Yes 10mg Take 10 mg U nivers 10 mg 4-04 by mouth ity of tablet 14:22: daily. [place] [address] Medical Branch DEXLANSOPRA 0 Yes Take by [...] 0.025 % 3-09 ity of cream 00:00: [place] Medical Branch triamcinolo Yes Univer s ne 0.025 % 3-09 ity of cream 00:00: Medical Branch triamcinolo Yes Univer s ne 0.025 % 3-09 ity of cream 00:00: [place] Medical Branch triamcinolo Yes Univer s ne 0.025 % 3-09 ity of cream 00:00: Medical Branch triamcinolo Yes Univer s ne 0.025 % 3-09 ity of cream 00:00: Medical Branch triamcinolo Yes Univer s ne 0.025 % 3-09 ity of cream 00:00: Medical Branch triamcinolo 0 Yes Univer s ne 0.025 % 3-09 ity of cream 00:00: [place] Medical Branch adalimumab Yes Univers (TAI RUIZ, 2-04 ity of PEN) 40 00:00: [place] mg/0.4 mL 00 Medical injection Branch clobetasoL Yes Univers 0.05 % 2-04 ity of cream 00:00: Medical Branch triamcinolo [...] 0.05 % 2-04 ity of cream 00:00: [place] 00 Medical Branch triamcinolo 2-0 Yes Univer s ne 0.025 % 2-04 ity of cream 00:00: [place] 00 Medical Branch adalimumab 2-0 Yes Univers (HUMIRA,CF, 2-04 ity of PEN) 40 00:00: [place] mg/0.4 mL 00 Medical injection Branch clobetasoL 2-0 Yes Univers 0.05 % 2-04 ity of cream 00:00: [place] 00 Medical Branch triamcinolo 2-0 Yes Univer s ne 0.025 % 2-04 ity of cream 00:00: [place] 00 Medical Branch amitriptyli 2020-1 Yes Univer s ne 25 mg 2-07 ity of tablet 00:00: [place] 00 Medical Branch amitriptyli 2020-1 Yes Univer s ne 25 mg 2-07 ity of tablet 00:00: [place] 00 Medical Branch amitriptyli 2020-1 Yes Univer s ne 25 mg 2-07 ity of tablet 00:00: [place] 00 Medical Branch amitriptyli 2020-1 Yes Univer s ne 25 mg 2-07 ity of tablet 00:00: [place] 00 Medical Branch amitriptyli 2020-1 Yes Univer s ne 25 mg 2-07 ity of tablet 00:00: [place] Medical Branch amitriptyli 2020-1 Yes Univer s ne 25 mg 2-07 ity of tablet 00:00: [place] 00 Medical Branch amitriptyli 2020-1 Yes Univer s ne 25 mg 2-07 ity of tablet 00:00: [place] 00 Medical Branch amitriptyli 2020-03 Yes Univer s ne 25 mg 2-07 ity of tablet 00:00: [place] Medical Branch amitriptyli 2020-03 Yes Univer s ne 25 mg 2-07 ity of tablet 00:00: [place] Medical Branch levoFLOXaci 2020-03 Yes [id number] 750mg Take 1 Univers n 2-02 9108 tablet by ity of (LEVAQUIN) 00:00: mouth [place] 750 mg 00 every 24 Medical tablet (twenty-fo Branch ur) hours. levoFLOXaci 2020-03 Yes [id number] 750mg Take 1 Univers n 2-02 9108 tablet by ity of (LEVAQUIN) 00:00: mouth [place] 750 mg 00 every 24 Medical tablet (twenty-fo Branch ur) hours. levoFLOXaci 2020-03 Yes [id number] 750mg Take 1 Univers n 2-02 9108 tablet by ity of (LEVAQUIN) 00:00: mouth [place] 750 mg 00 every 24 Medical tablet (twenty-fo Branch ur) hours. levoFLOXaci 2020-03 Yes [id number] 750mg Take 1 Univers n 2-02 9108 tablet by ity of (LEVAQUIN) 00:00: mouth [place] 750 mg 00 every 24 Medical tablet (twenty-fo Branch ur) hours. levoFLOXaci 2020-03 Yes [id number] 750mg Take 1 Univers n 2-02 9108 tablet by ity of (LEVAQUIN) 00:00: mouth [place] 750 mg 00 every 24 Medical tablet (twenty-fo Branch ur) hours. levoFLOXaci 2020-03 Yes [id number] 750mg Take 1 Univers n 2-02 9108 tablet by ity of (LEVAQUIN) 00:00: mouth [place] 750 mg 00 every 24 Medical tablet (twenty-fo Branch ur) hours. levoFLOXaci 2020-03 Yes [id number] 750mg Take 1 Univers n 2-02 9108 tablet by ity of (LEVAQUIN) 00:00: mouth [place] 750 mg 00 every 24 Medical tablet (twenty-fo Branch ur) hours. levoFLOXaci 2020-03 Yes [id number] 750mg Take 1 Univers n 2-02 9108 tablet by ity of (LEVAQUIN) 00:00: mouth [place] 750 mg 00 every 24 Medical tablet (twenty-fo Branch ur) hours. levoFLOXaci 2020-03 Yes [id number] 750mg Take 1 Univers n 2-02 9108 [...] tablet 00 Medical Branch proMETHazin 0 Yes [id number] 25mg Insert 1 Univers e 25 mg 9-19 Suppositor ity of suppository 00:00: [place] rectum Medical every 4 Branch (four) hours as needed for Nausea and Vomiting (N/V). proMETHazin 0 Yes [id number] 25mg Insert 1 Univers e 25 mg 9-19 Suppositor ity of suppository 00:00: [place] rectum Medical every 4 Branch (four) hours as needed for Nausea and Vomiting (N/V). proMETHazin Yes [id number] 25mg Insert 1 Univers e 25 mg 9-19 Suppositor ity of suppository 00:00: [place] rectum Medical every 4 Branch (four) hours as needed for Nausea and Vomiting (N/V). proMETHazin Yes [id number] 25mg Insert 1 Univers e 25 mg 9-19 Suppositor ity of suppository 00:00: [place] 00 rectum Medical every 4 Branch (four) hours as needed for Nausea and Vomiting (N/V). proMETHazin Yes [id number] 25mg Insert 1 Univers e 25 mg 9-19 Suppositor ity of suppository 00:00: [place] 00 rectum Medical every 4 Branch (four) hours as needed for Nausea and Vomiting (N/V). proMETHazin Yes [id number] 25mg Insert 1 Univers e 25 mg 9-19 Suppositor ity of suppository 00:00: [place] rectum Medical every 4 Branch (four) hours as needed for Nausea and Vomiting (N/V). proMETHazin Yes [id number] 25mg Insert 1 Univers e 25 mg 9-19 Suppositor ity of suppository 00:00: [place] into [place] 00 rectum Medical every 4 Branch (four) hours as needed for Nausea and Vomiting (N/V). proMETHazin Yes [id number] 25mg Insert 1 Univers e 25 mg 9-19 Suppositor ity of suppository 00:00: y into [place] 00 rectum Medical every 4 Branch (four) hours as needed for Nausea and Vomiting (N/V). proMETHazin Yes [id number] 25mg Insert 1 Univers e 25 mg 9-19 Suppositor ity of suppository 00:00: [place] 00 rectum Medical every 4 Branch (four) hours as needed for Nausea and Vomiting (N/V). hydroCHLORO Yes Univer s thiazide 25 6-28 ity of mg tablet 00:00: [place] 00 Medical Branch methocarbam Yes Univer s oL 500 mg 6-28 ity of tablet 00:00: [place] 00 Medical Branch hydroCHLORO 2020-0 Yes Univer s thiazide 25 6-28 ity of mg tablet 00:00: [place] 00 Medical Branch methocarbam 2021-0 Yes Univer s oL 500 mg 6-28 ity of tablet 00:00: [place] 00 Medical Branch hydroCHLORO 2021-0 Yes Univer s thiazide 25 6-28 ity of mg tablet 00:00: [place] Medical Branch methocarbam 202-0 Yes Univer s oL 500 mg 6-28 ity of tablet 00:00: [place] [address] Medical Branch hydroCHLORO 2021-0 Yes Univer s thiazide 25 6-28 ity of mg tablet 00:00: [place] 00 Medical Branch methocarbam 202-0 Yes Univer s oL 500 mg 6-28 ity of tablet 00:00: [place] [address] Medical Branch hydroCHLORO 2021-0 Yes Univer s thiazide 25 6-28 ity of mg tablet 00:00: [place] [address] Medical Branch methocarbam 2020-0 Yes Univer s oL 500 mg 6-28 ity of tablet 00:00: [place] [address] Medical Branch hydroCHLORO 2021-0 Yes Univer s thiazide 25 6-28 ity of mg tablet 00:00: [place] [address] Medical Branch methocarbam 2020-0 Yes Univer s oL 500 mg 6-28 ity of tablet 00:00: [place] [address] Medical Branch hydroCHLORO 2021-0 Yes Univer s thiazide 25 6-28 ity of mg tablet 00:00: [place] [address] Medical Branch methocarbam 202-0 Yes Univer s oL 500 mg 6-28 ity of tablet 00:00: [place] [address] Medical Branch hydroCHLORO 2021-0 Yes Univer s thiazide 25 6-28 ity of mg tablet 00:00: [place] [address] Medical Branch methocarbam 2021-0 Yes Univer s oL 500 mg 6-28 ity of tablet 00:00: [place] [address] Medical Branch hydroCHLORO 2021-0 Yes Univer s thiazide 25 6-28 ity of mg tablet 00:00: [place] [address] Medical Branch methocarbam 2021-0 Yes Univer s oL 500 mg 6-28 ity of tablet 00:00: [place] [address] Medical Branch gabapentin 2021-0 Yes Univers 300 mg 5-26 ity of capsule 00:00: [place] [address] Medical Branch gabapentin 2021-0 Yes Univers 300 mg 5-26 ity of capsule 00:00: [place] [address] Medical Branch gabapentin 2021-0 Yes Univers 300 mg 5-26 ity of capsule 00:00: [place] 00 Medical Branch gabapentin 2021-0 Yes Univers 300 mg 5-26 ity of capsule 00:00: [place] 00 Medical Branch gabapentin 2021-0 Yes Univers 300 mg 5-26 ity of capsule 00:00: [place] 00 Medical Branch gabapentin 2021-0 Yes Univers 300 mg 5-26 ity of capsule 00:00: [place] Medical Branch gabapentin 2021-0 Yes Univers 300 mg 5-26 ity of capsule 00:00: [place] Medical Branch gabapentin 2021-0 Yes Univers 300 mg 5-26 ity of capsule 00:00: [place] Medical Branch gabapentin 2021-0 Yes Univers 300 mg 5-26 ity of capsule 00:00: [place] Medical Branch orphenadrin 2021-0 Yes Univer s e 100 mg SR 5-19 ity of tablet 00:00: [place] Medical Branch orphenadrin 2021-0 Yes Univer s e 100 mg SR 5-19 ity of tablet 00:00: [place] [facility] Branch orphenadrin 2021-0 Yes Univer s e 100 mg SR 5-19 ity of tablet 00:00: [place] Medical Branch orphenadrin 2021-0 Yes Univer s e 100 mg SR 5-19 ity of tablet 00:00: [place] [facility] Branch orphenadrin 2021-0 Yes Univer s e 100 mg SR 5-19 ity of tablet 00:00: [place] [facility] Branch orphenadrin 2021-0 Yes Univer s e 100 mg SR 5-19 ity of tablet 00:00: [place] [facility] Branch orphenadrin 2021-0 Yes Univer s e 100 mg SR 5-19 ity of tablet 00:00: [place] [facility] Branch orphenadrin 2021-0 Yes Univer s e 100 mg SR 5-19 ity of tablet 00:00: [place] [facility] Branch orphenadrin 2021-0 Yes Univer s e 100 mg SR 5-19 ity of tablet 00:00: [place] 00 Medical Branch oxyCODONE 1-0 Yes Univers myristate 4-27 ity of (XTAMPZA 00:00: [place] ER) 13.5 [facility]0 Yes Univers myristate 4-27 ity of (XTAMPZA 00:00: [place] ER) 13.5 mg 00 [facility] Yes Univers myristate 4-27 ity [...] 00:00: [place] ER) 13.5 mg 00 [facility] FLU[facility] Yes Univers 20 mg 3-04 [...] 20 mg 3-04 ity of capsule 00:00: [place] Medical Branch FLUoxetine 2020-0 Yes Univers 20 [...] 00 Medical CSpT Branch naproxen 2020-0 Yes [id number] 500mg Take 1 Univers 500 mg 6-16 9109 tablet by ity of tablet 00:00: mouth [place] 00 every 8 Medical (eight) Branch hours as needed for Pain (scale 4-6). naproxen 2020-0 Yes [id number] 500mg Take 1 Univers 500 mg 6-16 9109 tablet by ity of tablet 00:00: mouth [place] 00 every 8 Medical (eight) Branch hours as needed for Pain (scale 4-6). naproxen 2020-0 Yes [id number] 500mg Take 1 Univers 500 mg 6-16 9109 tablet by ity of tablet 00:00: mouth [place] 00 every 8 Medical (eight) Branch hours as needed for Pain (scale 4-6). naproxen 2020-0 Yes [id number] 500mg Take 1 Univers 500 mg 6-16 9109 tablet by ity of tablet 00:00: mouth [place] 00 every 8 Medical (eight) Branch hours as needed for Pain (scale 4-6). naproxen 2020-0 Yes [id number] 500mg Take 1 Univers 500 mg 6-16 9109 tablet by ity of tablet 00:00: mouth [place] 00 every 8 Medical (eight) Branch hours as needed for Pain (scale 4-6). naproxen 2020-0 Yes [id number] 500mg Take 1 Univers 500 mg 6-16 9109 tablet by ity of tablet 00:00: mouth [place] 00 every 8 Medical (eight) Branch hours as needed for Pain (scale 4-6). naproxen 2020-0 Yes [id number] 500mg Take 1 Univers 500 mg 6-16 9109 tablet by ity of tablet 00:00: mouth [place] 00 every 8 Medical (eight) Branch hours as needed for Pain (scale 4-6). naproxen 2020-0 Yes [id number] 500mg Take 1 Univers 500 mg 6-16 9109 tablet by ity of tablet 00:00: mouth [place] 00 every 8 Medical (eight) Branch hours as needed for Pain (scale 4-6). naproxen 2020-0 Yes [id number] 500mg Take 1 Univers 500 mg 6-16 9109 tablet by ity of tablet 00:00: mouth [place] 00 every 8 Medical (eight) Branch hours as needed for Pain (scale 4-6). diazePAM 2018- Yes [id number] 5mg Take 1 Uni vers (VALIUM) 5 2-23 tablet by ity of mg tablet 00:00: mouth 3 [place] 00 (three) Medical times Branch daily. diazePAM 2018- Yes [id number] 5mg Take 1 Uni vers (VALIUM) 5 2-23 tablet by ity of mg tablet 00:00: mouth 3 [place] 00 (three) Medical times Branch daily. diazePAM 2018- Yes [id number] 5mg Take 1 Uni vers (VALIUM) 5 2-23 tablet by ity of mg tablet 00:00: mouth 3 [place] 00 (three) Medical times Branch daily. diazePAM 2018- Yes [id number] 5mg Take 1 Uni vers (VALIUM) 5 2-23 tablet by ity of mg tablet 00:00: mouth 3 [place] 00 (three) Medical times Branch daily. diazePAM 2018- Yes [id number] 5mg Take 1 Uni vers (VALIUM) 5 2-23 tablet by ity of mg tablet 00:00: mouth 3 00 (three) Medical times Branch daily. diazePAM 2018-03- No [id number] 5mg Take 1 Un kevon (VALIUM) 5 2-23 10-25 tablet by ity of mg tablet 00:00: 00:[place] :[place] (three) Medical times Branch daily. cyclobenzap Yes [id number] 5mg Take 1 Univers rine 5 mg 6-08 07 tablet by ity o f tablet 00:00: mouth 3 00 (three) Medical times Branch daily. cyclobenzap Yes [id number] 5mg Take 1 Univers rine 5 mg 6-08 07 tablet by ity o f tablet 00:00: mouth 3 (three) Medical times Branch daily. cyclobenzap Yes [id number] 5mg Take 1 Univers rine 5 mg 6-08 07 tablet by ity o f tablet 00:00: mouth 3 00 (three) Medical times Branch daily. cyclobenzap Yes [id number] 5mg Take 1 Univers rine 5 mg 6-08 07 tablet by ity o f tablet 00:00: mouth 3 00 (three) Medical times Branch daily. cyclobenzap Yes [id number] 5mg Take 1 Univers rine 5 mg 6-08 07 tablet by ity o f tablet 00:00: mouth 3 00 (three) Medical times Branch daily. cyclobenzap Yes [id number] 5mg Take 1 Univers rine 5 mg 6-08 07 tablet by ity o f tablet 00:00: mouth 3 00 (three) Medical times Branch daily. cyclobenzap Yes [id number] 5mg Take 1 Univers rine 5 mg 6-08 07 tablet by ity o f tablet 00:00: mouth 3 00 (three) Medical times Branch daily. cyclobenzap Yes [id number] 5mg Take 1 Univers rine 5 mg 6-08 07 tablet by ity o f tablet 00:00: mouth 3 00 (three) Medical times Branch daily. cyclobenzap Yes [id number] 5mg Take 1 Univers rine 5 mg 6-08 07 tablet by ity o f tablet 00:00: mouth 3 00 (three) Medical times Branch daily. butalbital- 2018-0 Yes TK 1 T PO U nivers acetaminoph 3-30 TWICE A ity o f en-caff 00:00: DAY PRF [place] 50-325-40 00 Medical mg tablet Branch [facility]- Yes TK 1 T PO U nivers acetaminoph 3-30 TWICE A ity o f en-caff 00:00: DAY PRF [place] 50-325-40 00 Medical mg tablet Branch [facility]- Yes TK 1 T PO U nivers acetaminoph 3-30 TWICE A ity o f en-caff 00:00: DAY PRF [place]ANN [place] 50-325-40 00 Medical mg tablet Branch [facility]- Yes TK 1 T PO U nivers acetaminoph 3-30 TWICE A ity o f en-caff 00:00: DAY PRF [place]ANN [place] 50-325-40 00 Medical mg tablet Branch [facility]- Yes TK 1 T PO U nivers acetaminoph 3-30 TWICE A ity o f en-caff 00:00: DAY PRF [place]ANN [place] 50-325-40 00 Medical mg tablet Branch [facility]- Yes TK 1 T PO U nivers acetaminoph 3-30 TWICE A ity o f en-caff 00:00: DAY PRF [place]ANN [place] 50-325-40 00 Medical mg tablet Branch [facility]- Yes TK 1 T PO U nivers acetaminoph 3-30 TWICE A ity o f en-caff 00:00: DAY PRF [place]ANN [place] 50-325-40 00 Medical mg tablet Branch [facility]- Yes TK 1 T PO U nivers acetaminoph 3-30 TWICE A ity o f en-caff 00:00: DAY PRF [place]CCANN [place] 50-325-40 00 Medical mg tablet Branch [facility]- Yes TK 1 T PO U nivers [...] [place] mg per 00 Medical tablet Branch doxepin 50 doxepin 50 No doxepin 50 Leah mg capsule mg capsule mg capsule Orthope TAKE 1 TAKE 1 TAKE 1 dic CAPSULE BY CAPSULE BY CAPSULE BY Sports MOUTH EVERY MOUTH EVERY MOUTH Medicin EVENING AT EVENING AT EVERY e 9 PM 9 PM EVENING AT 9 PM duloxetine duloxetine No duloxetine Leah 20 mg 20 mg 20 mg Orthope capsule,del capsule,del capsule,de dic ayed ayed layed Sports release release release Medici n e fluoxetine fluoxetine No fluoxetine Leah 20 mg [...] MORNING MORNING EVERY DAY IN THE MORNING hydrocodone hydrocodone No hydrocodon Leah 10 10 e 10 Orthope mg-acetamin mg-acetamin mg-acetami dic ophen 325 ophen 325 nophen 325 Sports mg tablet mg tablet mg tablet Medicin TAKE 1 TAKE 1 TAKE 1 e TABLET BY TABLET BY TABLET BY MOUTH EVERY MOUTH EVERY MOUTH 4 TO 6 4 TO 6 EVERY 4 TO HOURS HOURS 6 HOURS hydroxyzine hydroxyzine No hydroxyzin Leah pamoate 25 [...] RX by other MD other MD other metoprolol metoprolol No metoprolol Leah tartrate 50 [...] MOUTH NEEDED NEEDED EVERY 6 HOURS NEEDED oxycodone-a oxycodone-a No oxycodone- Leah cetaminophe cetaminophe acetaminop Orthope n 7.5 n 7.5 hen 7.5 dic mg-325 mg mg-325 mg mg-325 mg Sports tablet tablet tablet Medicin e phenobarbit phenobarbit No phenobarbi Leah al 30 [...] MD by other Sports MD Medicin e promethazin promethazin No promethazi Leah e 25 mg e 25 mg ne 25 mg Ortho pe tablet TAKE tablet TAKE tablet dic 1 TABLET BY 1 TABLET BY TAKE 1 Sports MOUTH EVERY MOUTH EVERY TABLET BY Medicin 6 HOURS FOR 6 HOURS FOR MOUTH e UP TO 5 UP TO 5 EVERY 6 DAYS DAYS HOURS FOR NEEDED FOR NEEDED FOR UP TO 5 NAUSEA OR NAUSEA OR DAYS VOMITING VOMITING NEEDED FOR NAUSEA OR VOMITING quetiapine quetiapine No quetiapine Leah 200 mg [...] other MD by other MD RX by Ovi other e valsartan valsartan No valsartan Leah 40 mg [...] Sports MOUTH AT MOUTH AT TABLET BY dicin BEDTIME BEDTIME MOUTH AT e BEDTIME [...] MOUTH 1 BY MOUTH TAKE 1 BY Sports THREE TIMES THREE TIMES MOUTH Medicin DAILY [...] RX by other MD other MD other metoprolol metoprolol No metoprolol Leah tartrate 50 [...] EVERY DAY NEEDED oxycodone-a oxycodone-a No oxycodone- Elah cetaminophe cetaminophe acetaminop Orthope n 10 mg-325 [...] MD by other MD by other Sports Medicin e promethazin promethazin No promethazi Leah e 25 [...] tablet Sports by other MD by other RX by Ovi other MD evans valsartan valsartan No valsartan Leah 40 mg 40 mg 40 mg Orthope tablet RX tablet RX tablet RX dic by other MD by other MD by other Sports Medicying e acetaminoph acetaminoph No acetaminop Leah en [...] MOUTH 1 BY MOUTH TAKE 1 BY Sports THREE TIMES THREE TIMES MOUTH Medicin DAILY [...] TABLET BY DAILY DAILY MOUTH TWICE DAILY Vital Signs Vital Name Observation Time Observation Value Comments Source Systolic blood 2022-02-26 01:42:00 166 mm[Hg] Univer sity of pressure [place] [facility] Diastolic blood 2022-02-26 01:42:00 95 mm[Hg] Unive rsity of pressure [place] [facility] Heart rate 2022-02-26 01:40:00 74 /min [facility] [place] [facility] Body temperature 2022-02-26 01:40:00 36.67 Noemy [facility] ers[facility] of [place] [facility] Respiratory rate 2022-02-26 01:40:00 16 /min Univ [facility] [place] [facility] Body height 2022-02-26 01:40:00 193 cm [facility] [place] [facility] Body weight 2022-02-26 01:40:00 113.853 kg [facility] [place] [facility] BMI 2022-02-26 01:40:00 30.55 kg/m2 [facility] [place] [facility] Oxygen saturation in 2022-02-26 01:40:00 98 /min University of Arterial blood by [place] [employer] chayito Pulse oximetry Branch Systolic blood 2022-01-07 05:37:00 139 mm[Hg] Univer sity of [facility] Diastolic blood 2022-01-07 05:37:00 112 mm[Hg] Unive rsity of pressure [place] [facility] Heart rate 2022-01-07 05:37:00 99 /min [facility] [place] [facility] Body temperature 2022-01-07 05:37:00 36.78 Noemy Univ ers[facility] of [place] [facility] Respiratory rate 2022-01-07 05:37:00 20 /min Univ [facility] [place] [facility] Body height 2022-01-07 05:37:00 193 cm [facility] [place] [facility] Body weight 2022-01-07 05:37:00 104.327 kg [facility] [place] [facility] BMI 2022-01-07 05:37:00 28.00 kg/m2 [facility] [place] [facility] Oxygen saturation in 2022-01-07 05:37:00 99 /min University of Arterial blood by [place] [employer] chayito Pulse oximetry Branch Systolic blood 2022-01-07 02:29:58 148 mm[Hg] Univer sity of pressure [facility] Diastolic blood 2022-01-07 02:29:58 94 mm[Hg] Unive rsity of pressure [facility] Heart rate 2022-01-07 02:29:58 97 /min Universi ty of [facility] Respiratory rate 2022-01-07 02:29:58 18 /min Univ ersity of [facility] Oxygen saturation in 2022-01-07 02:29:58 98 /min University of Arterial blood by [place] [employer] chayito Pulse oximetry Branch Body temperature 2022-01-07 01:45:00 36.78 Noemy Univ ersity of [facility] Body height 2022-01-07 01:45:00 193 cm Universi ty of [facility] Body weight 2022-01-07 01:45:00 103.874 kg Universi ty of [facility] BMI 2022-01-07 01:45:00 27.87 kg/m2 Universi ty of [facility] Systolic blood 2021-06-30 18:36:00 138 mm[Hg] Univer sity of pressure [facility] Diastolic blood 2021-06-30 18:36:00 96 mm[Hg] Unive rsity of pressure [facility] Heart rate 2021-06-30 18:17:00 95 /min Universi ty of [facility] Body height 2021-06-30 18:17:00 190.5 cm [facility]i ty of [place] [facility] [place] Body weight 2021-06-30 18:17:00 105.688 kg Universi ty of [facility] BMI 2021-06-30 18:17:00 29.12 kg/m2 Universi ty of [facility] Oxygen saturation in 2021-06-30 18:17:00 100 /min University of Arterial blood by [place] [employer] chayito Pulse oximetry Branch Procedures Procedure Date / Time Performed Performing Clinician [facility] e ASSIGNMENT OF BENEFITS 2022-02-26 01:37:36 Doctor Unassigned, No [facility] XR, cervical spine 2022-02-12 00:00:00 Leah Or [facility]opedic Sports Medicine CAT SCAN OF NECK SPINE 2022-02-12 00:00:00 Azale a Orthopedic Sports Medicine XR, thoracic spine 2022-02-12 00:00:00 Leah [facility] Medicine CONSENT/REFUSAL FOR 2022-01-07 05:30:13 Doctor Unassigned, No [facility] [place] DIAGNOSIS AND Name Medical Branch TREATMENT CONSENT/REFUSAL FOR 2022-01-07 01:37:12 Doctor Unassigned, No [facility] [place] DIAGNOSIS AND Name Medical Branch TREATMENT REFERRAL- 2021-10-09 05:01:00 Doctor Unassigned, No [facility] [place] REQUEST/RESPONSE Name Medical Branch Plan of Care Planned Activity Planned Date Details Comments Source Diagnostic Test 2022-06-17 influenza virus A + B [place] Pending 00:00:00 and SARS CoV 2, QL, [facility], Outreach Progra m respiratory specimen [code = influenza virus A + B and SARS CoV 2, QL, NAY+probe, respiratory specimen] Encounters Start End Encounter Admission Attending Care Care Encounter Source Date/Time Date/Time Type Type Clinicians Facility Department ID 2021-06-12 [facility] [id number] Univers 08:42:07 JEREMY katz [facility] 2010-05-25 Inpatient ER JACLYN, [facility] [id number] [place] 12:59:00 [facility] -[id number] [facility] 2022-07-07 2022-07-07 Emergency [facility] [id number] [facility] 16:07:00 16:07:00 37 2022-07-07 2022-07-07 Emergency Emergency Guirges, [facility] [id number] [facility] 16:07:00 16:07:00 Bry 37 2022-06-17 2022-06-17 Outpatient JESSICA FOSTER [id number] [place] 00:00:00 00:00:00 K 0405 [facility] 2022-06-17 2022-06-17 Aris FOSTER [place] - [id number] [place] 00:00:00 00:00:00 Mercedes Torres DO: [id number] Caodaism Epis helicopter specialist [place] [address] HOP - MDDELMI chau [facility] [id number] Carlos johnston , Ph. Program 2022-03-18 2022-03-18 Outpatient FOG_A_Provi AOSM AOSM [id number] Leah 00:00:00 00:00:00 ish [id number] Orthop e dic Sports Medicin e 2022-03-10 2022-03-10 Outpatient FOG_A_Provi AOSM AOSM [id number] Leah 00:00:00 00:00:00 ish [id number] Orthop e dic Sports Medicin e 2022-03-04 2022-03-04 Outpatient KATHARINE Lawrence, HCATO SURG [id number] [facility] 05:32:00 05:32:00 Cesar Gates [place] [facility] 2022-03-04 2022-03-04 Outpatient FOG_A_Provi AOSM AOSM [id number] Leah 00:00:00 00:00:00 ish [id number] Orthop e dic Sports Medicin e 2022-03-04 2022-03-04 Cesar Naseem AOSM [place] - Ortho 221 Leah 00:00:00 00:00:00 MD Melinda: Leonor Valle - Orthope [address], [place], [place] [phone] , Ph. [phone] 2022-02-25 2022-02-25 Urgent Mynor Freedman [facility] [id number] Univers 19:40:00 20:00:00 Care Unknown, Attending HEALTH 350.1.13.10 ity [facility] 4.2.7.2.686 Marty as FITZ?BLEA [phone] Al dical [address] MEDICAL OFFICE BUILDING 2022-02-25 2022-02-25 Outpatient Eligio FREEDMAN [facility] [id number] Univers 19:40:00 19:40:00 MYNOR ity [facility] 2022-02-25 2022-02-25 Orders Doctor JESICA 1.2.840.114 [id number] Univers 00:00:00 00:00:00 Only Unassigned, LEYLA 350.1.13.10 ity of [place] [facility] 4.2.7.2.686 Marty as [id number] [address] 2022-02-18 2022-02-18 Outpatient MANE Lawrence [id number] [facility] 16:30:00 16:30:00 Cesar 31 [facility] 2022-02-12 2022-02-12 Outpatient TYRONE Cuellar RADI [id number] [facility] 14:08:00 14:08:00 Cesar 03 [place] [facility] 2022-02-12 2022-02-12 Outpatient FOG_A_Provi AOSM AOSM [id number] Leah 00:00:00 00:00:00 ish [id number] Orthop e dic Sports Medicin e 2022-02-12 2022-02-12 Cesar Naseem AOSM [place] - Ortho Leah 00:00:00 00:00:00 MD Melinda: Leonor Valle - Orthope [address] dic [facility], [place] [id number] , Ph. [phone] 2022-01-07 2022-01-07 Emergency [facility] [id number] Univers 00:41:00 02:27:00 JJ [facility] 2022-01-07 2022-01-07 Emergency [facility] [id number] Univers 00:41:00 02:27:00 Jj STEEN 350.1.13.10 i ty of [place] 4.2.7.2.686 [facility] [id number] [address] 2022-01-06 2022-01-06 Emergency E LAKISHA CASTANEDA BL BL 7500 BL 22:19:00 23:55:00 2022-01-06 2022-01-06 Emergency [facility] [id number] Univers 20:50:00 21:40:00 JJ [facility] 2022-01-06 2022-01-06 Emergency [facility] [id number] Univers 20:50:00 21:40:00 Jj STEEN 350.1.13.10 i ty of [place] 4.2.7.2.686 [facility] [id number] [place] [address] Branch 2022-01-04 2022-01-05 Emergency ER CATANES, [facility] [id number] [place] 22:56:00 05:41:00 SADI -[id number] [facility] 2022-01-03 2022-01-03 Emergency ER CATANES, [facility] [id number] [place] 19:25:00 22:35:00 SADI -[id number] [facility] 2022-01-02 2022-01-02 Outpatient FOG_A_Provi AOSM AOSM [id number] Leah 00:00:00 00:00:00 ish [id number] Orthop e dic Sports Medicin e 2021-10-09 2021-10-09 Orders Doctor JESICA 1.2.840.114 [id number] Univers 00:00:00 00:00:00 Only Unassigned, LEYLA 350.1.13.10 ity [place] [facility] 4.2.7.2.686 Marty as [phone] [facility] 009 Branch 2021-09-26 2021-09-26 Outpatient AMBREEN_FAR [facility] [id number] [place] 04:24:00 04:24:00 LADARIUSNaseem 0715 da [facility] 2021-08-20 2021-08-20 Outpatient FOG_A_Provi AOSM AOSM [id number] Leah 00:00:00 00:00:00 ish [id number] Orthop e dic Sports Medicin e 2021-07-21 2021-07-21 Outpatient Eligio JAMISON [facility] [id number] Univers 14:15:00 14:15:00 [facility] 2021-07-21 2021-07-21 Outpatient Eligio J[facility]ISON [facility] [id number] Univers 14:15:00 14:15:00 [facility] 2021-07-03 2021-07-03 Patient Doctor [facility] 1.2.840.114 [id number] Univers 00:00:00 00:00:00 Secure Msg Unassigned, HEALTH 350.1.13.10 ity [place] 4.2.7.2.686 Marty as FITZ?BLEA [id number] Me padmini AGOSTO [address] [facility] OFFICE [facility] 2021-07-02 2021-07-02 Outpatient R EFREN [facility] [id number] Univers 19:00:00 19:00:00 MARJANSTANLEY katz [facility] 2021-07-02 2021-07-02 Refdavion Ashanti [facility] [id number] Univers 00:00:00 00:00:00 [facility] 350.1.13.10 ity of [place]2.7.2.686 [place] [phone] Al padmini TAO [address] [place] [address] 2021-07-02 2021-07-02 Refdavion [facility] 1.2.840.114 [id number] Univers 00:00:00 00:00:00 [facility] HEALTH 350.1.13.10 it y of [place] 4.2.7.2.686 Marty as FITZ?BLEA [phone] Al padmini AGOSTO [address] [place] [address] [facility] 2021-06-30 2021-06-30 Outpatient R ASHANTI [facility] [id number] Univers 14:26:57 23:59:00 JEREMY katz [facility] 2021-06-30 2021-06-30 Office [facility] 1.2.840.114 [id number] Univers 13:30:00 13:45:00 Visit [facility] 350.1.13.10 it y of [place] 4.2.7.2.686 Marty as FITZ?BLEA [phone] Al padmini AGOSTO [address] [facility] OFFICE [facility] 2021-06-30 2021-06-30 Outpatient R YAQUELIN [facility] [id number] Univers 13:30:00 13:30:00 SCAR [facility] 2021-06-30 2021-06-30 Telephone [facility] [id number] Univers 00:00:00 00:00:00 [facility] HEALTH 350.1.13.10 it y of [place] 4.2.7.2.686 Marty as FITZ?BLEA [id number] Me padmini AGOSTO [address] [place] [address] [facility] 2021-06-24 2021-06-24 Telephone [facility] 1.2.840.114 [id number] Univers 00:00:00 00:00:00 Jeremy L SPECIALTY 350.1.13.10 ity of [place]2.7.2.686 [place] [phone] Al padmini TAO [address] [place] [address] 2021-06-18 2021-06-18 Telephone [facility] [id number] Univers 00:00:00 00:00:00 [facility] 350.1.13.10 [facility] 4.2.7.2.686 Marty as FITZ?BLEA [phone] Al padmini AGOSTO [address] [place] [address] [facility] 2021-06-18 2021-06-18 Patient [facility] [id number] Univers 00:00:00 00:00:00 Secure Msg Jeremy Chau SPECIALTY 350.1.13.10 ity of [place]2.7.2.686 [place] [id number] Al padmini TAO [address] [place] [address] 2021-06-16 2021-06-16 [facility]patient [facility] [id number] Univers 08:25:00 14:05:00 JEREMY ity of [facility] 2021-06-16 2021-06-16 [facility] 1.2.840.114 [id number] Univers 08:25:00 14:05:00 Encounter Jeremy STEEN 350.1.13.10 ity [facility] 4.2.7.2.686 [place]ICAL [id number] [facility] [address] [place] 2021-06-16 2021-06-16 Surgery [facility] [id number] Univers 12:10:00 13:10:00 Jeremy STEEN 350.1.13.10 i ty of [facility] 4.2.7.2.686 [place] [id number] [facility] 020 [place] 2021-06-16 2021-06-16 Telephone [facility] 1.2.840.114 [id number] Univers 00:00:00 00:00:00 Jeremy Chau [facility] 350.1.13.10 it y of [place] 4.2.7.2.686 Marty as FITZ?BLEA [id number] Al padmini AGOSTO [address] [place] MEDICAL OFFICE [facility] 2021-06-13 2021-06-13 Laboratory Only, Adc Test [facility] 1.2.840. 114 [id number] Univers 09:45:00 10:00:00 Only Ashanti Jeremygamal STEEN 350.1.13.10 ity of [place] 4.2.7.2.686 [place] [id number] [address] 2021-06-13 2021-06-13 Outpatient R ASHANTI [facility] [id number] Univers 09:45:00 09:45:00 JEREMY [facility] 2021-06-11 2021-06-11 Outpatient Eligio JAMISON [facility] [id number] Univers 13:00:00 14:02:56 [facility] 2021-06-11 2021-06-11 Office Yaquelin [facility] 1.2.840.114 [id number] Univers 13:00:00 14:02:56 Visit Scar [facility] 350.1.13.10 it y of [place] 4.2.7.2.686 Marty as FITZ?BLEA [phone] Al padmini AGOSTO [address] [place] [address] [facility] 2021-06-11 2021-06-11 Outpatient Eligio JAMISON [facility] [id number] Univers 13:00:00 14:02:56 [facility] 2021-06-11 2021-06-11 Prep For Ashanti [facility] 1.2.840.114 [id number] Univers 00:00:00 00:00:00 Surgery Jeremy AUGUSTE 350.1.13.10 it y [facility] 4.2.7.2.686 Marty as FITZ?BLEA [phone] Al padmini AGOSTO [address] [place] MEDICAL OFFICE [facility] 2021-06-10 2021-06-10 Telephone Ashanti [place] 1.2.840.114 [id number] Univers 00:00:00 00:00:00 Jeremy AUGUSTE 350.1.13.10 it y of [place] 4.2.7.2.686 Marty as FITZ?BLEA [phone] Al padmini AGOSTO [address] MEDICAL OFFICE BUILDING 2021-06-10 2021-06-10 Telephone Ashanti [facility] 1.2.840.114 [id number] Univers 00:00:00 00:00:00 Jeremy AUGUSTE 350.1.13.10 it y of [place] 4.2.7.2.686 Marty as FITZ?BLEA [phone] Al padmini AGOSTO [address] [place] [address] [facility] 2021-02-13 2021-02-13 Outpatient R ASHANTI [facility] [id number] Univers 11:00:00 11:30:28 JEREMY katz [facility] 2021-02-13 2021-02-13 Office [facility] [id number] Univers 10:51:39 11:30:28 Visit Jeremy AUGUSTE 350.1.13.10 it y [facility] 4.2.7.2.686 Marty as FITZ?BLEA [phone] Al padmini AGOSTO [address] [place] [address] [facility] 2020-12-01 2020-12-01 Emergency [facility] [id number] Univers 19:06:00 21:32:00 Julianne S Candis 350.1.13.10 i ty of [place].2.7.2.686 [place] [id number] [address] 2020-12-01 2020-12-01 Emergency X [facility] ERT [id number] Univers 19:06:00 19:06:00 JULIANNE katz [facility] 2020-07-29 2020-07-30 Emergency Chayo Issa [facility] 1.2.840.114 [id number] 22:02:00 01:32:00 Yessenia Candis [id number] [place] [id number] [place] [id number] [id number] 2020-07-29 2020-07-30 Emergency Chayo Issa [facility] [id number] Univers 22:02:00 01:32:00 Yessenia [place] [id number] i ty of [place] 4.2.7.2.686 [facility] [phone] [address] 2020-07-29 2020-07-29 Emergency X Chayo ISSA [facility] ERT [id number] Univers 22:02:00 22:02:00 ity [facility] 2020-07-25 2020-07-25 [facility] [id number] [id number] 20:26:00 23:14:00 Zena Gomez [place] [id number] [place] [id number] [place] [phone] [facility] 2020-07-25 2020-07-25 [facility] [facility] 1.2.840.114 [id number] Univers 20:26:00 23:14:00 Zena Steen 350.1.13.10 ity of [place] 4.2.7.2.686 [facility] [phone] [address] 2020-07-25 2020-07-25 Emergency [facility] [id number] Univers 20:26:00 20:26:00 [facility] 2020-07-21 2020-07-22 [facility] 1.2.451.339 [id number] 23:32:00 02:30:00 Chevymorenita Orantes [place] 350.1.13.10 [place] 4.2.7.2.686 [place] [phone] [facility] 2020-07-21 2020-07-22 [facility] 1.2.740.447 [id number] Univers 23:32:00 02:30:00 Osman [place] 350.1.13.10 ity of [place] 4.2.7.2.[address] [place] [phone] 2020-07-21 2020-07-21 Emergency X [facility] ERT [id number] Univers 23:32:00 23:32:00 OSMAN katz [facility] 2020-07-17 2020-07-18 Emergency [facility] 1.2.160.253 [id number] 22:52:00 00:59:00 Julianne S [place] 350.1.13.10 [place] 4.2.7.2.686 [place] [id number] 08 2020-07-17 2020-07-18 Emergency [facility] 1.2.619.416 [id number] Univers 22:52:00 00:59:00 Julianne S [place] 350.1.13.10 i ty of [place] 4.2.7.2.686 [facility] [id number] [address] 2020-07-17 2020-07-17 Emergency [facility] [id number] Univers 22:52:00 22:52:00 JULIANNE [facility] 2020-07-02 2020-07-02 [facility] 1.2.152.326 [id number] 19:35:00 22:12:00 Lisandro [place] 350.1.13.10 [place] [address] [place] [address] [phone] [facility] 2020-07-02 2020-07-02 [facility] 1.2.982.323 [id number] Univers 19:35:00 22:12:00 Lisandro [place] 350.1.13.10 i ty of [place] 4.2.7.2.[address] [place] [phone] 2020-07-02 2020-07-02 Emergency X [facility] ERT [id number] Univers 19:23:00 19:23:00 ity [facility] 2020-06-10 2020-06-10 [facility] 1.2.568.085 [id number] 01:29:00 03:55:00 Chevygloriali S [place] 350.1.13.10 [place] 4.2.7.2.686 [place] [id number] [facility] 2020-06-10 2020-06-10 [facility] 1.2.428.021 [id number] Univers 01:29:00 03:55:00 Wakili S [place] 350.1.13.10 ity of [place] 4.2.7.2.686 [facility] [id number] [address] 2020-06-10 2020-06-10 Emergency X [facility] ERT [id number] Univers 01:19:00 01:19:00 ity [facility] 2020-05-08 2020-05-08 Emergency [facility] 1.2.840.114 [id number] 20:57:00 21:46:00 Maged B [place] 350.1.13.10 [place] 4.2.7.2.686 [place] [phone] [facility] 2020-05-08 2020-05-08 Emergency [facility] 1.2.840.114 [id number] Univers 20:57:00 21:46:00 Maged B [place] 350.1.13.10 i ty of [place] 4.2.7.2.686 [facility] [id number] [address] 2020-05-08 2020-05-08 Emergency [facility] [id number] Univers 20:50:00 20:50:00 MAGED ity [facility] 2020-04-16 2020 Emergency Maegan [facility] 1.2.840.114 [id number] 21:21:00 01:05:00 Yessenia [place] 350.1.13.10 [place] 4.2.7.2.686 [place] [phone] [facility] 2020-04-16 2020 Emergency Chayo Issa [facility] 1.2.840.114 [id number] Univers 21:21:00 01:05:00 Yessenia [place] 350.1.13.10 i ty of [place] 4.2.7.2.686 [facility] [phone] [address] 2020-04-16 2020-04-16 Emergency X Chayo ISSA [facility] ERT [id number] Univers 21:21:00 21:21:00 ity [facility] 2020-03-09 2020-03-09 [facility] 1.2.232.537 [id number] 20:23:00 22:51:00 Julianne S [place] 350.1.13.10 [place] 4.2.7.2.686 [place] [id number] [facility] 2020-03-09 2020-03-09 Emergency [facility] 1.2.654.231 [id number] Univers 20:23:00 22:51:00 Julianne Orantes [place] 350.1.13.10 i ty of [place] 4.2.7.2.686 [facility] [phone] [address] 2020-03-09 2020-03-[address] [facility] ERT [id number] Univers 18:38:00 18:38:00 JULIANNE ity [facility] 2020-03-09 2020-03-09 Orders Doctor JESICA 1.2.840.114 [id number] 00:00:00 00:00:00 Only Unassigned, LEYLA 350.1.13.10 [place] [facility] 4.2.7.2.[facility] [phone] 009 2020-03-09 2020-03-09 Orders Doctor JESICA 1.2.840.114 [id number] Univers 00:00:00 00:00:00 Only Unassigned, LEYLA 350.1.13.10 ity of [place] [facility] 4.2.7.2.[address] [place] [phone] 2020-02-14 2020-02-15 [facility] 1.2.120.479 [id number] 23:22:00 00:54:00 Osman Orantes [place] 350.1.13.10 [place] 4.2.7.2.686 [place] [phone] [facility] 2020-02-14 2020-02-15 [facility] 1.2.421.035 [id number] Univers 23:22:00 00:54:00 Osman [place] 350.1.13.10 ity of [place] 4.2.7.2.[address] [place] [phone] 2020-02-14 2020-02-15 Emergency X [facility] ERT [id number] Univers 23:22:00 00:54:00 WAGLORIALI ity [facility] 2020-01-31 2020-01-31 Outpatient HUTTON_L [facility] G [id number] [place] 02:19:00 02:19:00 [facility] 2020-01-28 2020-01-28 Emergency Chayo Issa [facility] 1.2.840.114 [id number] 17:47:00 21:50:00 Yessenia Steen 350.1.13.10 [place] 4.2.7.2.686 [place] [phone] [facility] 2020-01-28 2020-01-28 Emergency Chayo Issa [facility] 1.2.840.114 [id number] Univers 17:47:00 21:50:00 Yessenia Steen 350.1.13.10 i ty of [place] 4.2.7.2.686 [facility] [phone] [address] 2020-01-28 2020-01-28 Emergency X [facility] ERT [id number] Univers 17:23:00 17:23:00 ity [facility] 2020-01-22 2020-01-22 Emergency [facility] 1.2.446.222 [id number] 19:22:00 22:47:00 Amaris Steen 350.1.13.10 [place] 4.2.7.2.686 [place] [phone] [facility] 2020-01-22 2020-01-22 Emergency [facility] 1.2.251.995 [id number] Univers 19:22:00 22:47:00 Amaris Steen 350.1.13.10 ity of [place] 4.2.7.2.686 [facility] [id number] [address] 2020-01-22 2020-01-22 Emergency X [facility] ERT [id number] Univers 19:08:00 19:08:00 AMARIS ity [facility] 2020-01-20 2020-01-21 [facility] 1.2.178.015 [id number] 23:26:00 02:01:00 Jj Steen 350.1.13.10 [place] 4.2.7.2.686 [place] [phone] [facility] 2020-01-20 2020-01-21 Emergency [facility] 1.2.424.419 [id number] Univers 23:26:00 02:01:00 Jj Steen 350.1.13.10 i ty of [place] 4.2.7.2.686 [facility] [phone] [address] 2020-01-20 2020-01-20 Emergency [facility] [id number] Univers 23:26:00 23:26:00 JJ ittristan [facility] 2019-12-30 2019-12-30 Emergency Chayo Issa [facility] 1.2.840.114 [id number] 11:45:00 14:25:00 Yessenia Steen 350.1.13.10 [place] 4.2.7.2.686 [place] [phone] [facility] 2019-12-30 2019-12-30 Emergency Maegan [facility] 1.2.840.114 [id number] Univers 11:45:00 14:25:00 Yessenia Steen 350.1.13.10 i ty of [place] 4.2.7.2.686 [facility] [phone] [address] 2019-12-30 2019-12-30 Emergency X Chayo ISSA [facility] ERT [id number] Univers 11:45:00 11:45:[facility] 2019-12-22 2019-12-22 Emergency [facility] 1.2.394.259 [id number] 13:48:00 16:20:00 Jjarmani [place] 350.1.13.10 [place] 4.2.7.2.686 [place] [phone] [facility] 2019-12-22 2019-12-22 Emergency [facility] 1.2.342.444 [id number] Univers 13:48:00 16:20:00 Jjarmani [place] 350.1.13.10 i ty of [place] 4.2.7.2.[address] [place] [id number] 2019-12-22 2019-12-22 Emergency X [facility] ERT [id number] Univers 13:43:00 13:43:00 ity [facility] 2019-12-22 2019-12-22 Orders Doctor JESICA 1.2.840.114 [id number] 00:00:00 00:00:00 Only Unassigned, LEYLA 350.1.13.10 [place] [facility] 4.2.7.2.686 [id number] [id number] 2019-12-22 2019-12-22 Orders Doctor JESICA 1.2.840.114 [id number] Univers 00:00:00 00:00:00 Only Unassigned, LEYLA 350.1.13.10 ity of [place] [facility] 4.2.7.2.686 Marty as [phone] [address] 2019-11-29 2019-11-29 Emergency Nicole, [facility] 1.2.537.293 [id number] 15:09:00 17:41:00 Julianne S [place] 350.1.13.10 [place] 4.2.7.2.686 [place] [id number] [facility] 2019-11-29 2019-11-29 Emergency Nicole, [facility] 1.2.518.349 [id number] Univers 15:09:00 17:41:00 Julianne S [place] 350.1.13.10 i ty of [place] 4.2.7.2.686 [facility] [id number] [address] 2019-11-29 2019-11-29 Emergency X BONNIE, [facility] ERT [id number] Univers 15:09:00 15:09:00 JULIANNE ity [facility] 2019-11-12 2019-11-12 Emergency Landa, [facility] 1.2.840.114 [id number] 20:27:00 23:35:00 Kwaku [place] 350.1.13.10 [place] 4.2.7.2.686 [place] [phone] 08 2019-11-12 2019-11-12 Emergency Landa, [facility] 1.2.840.114 [id number] Univers 20:27:00 23:35:00 Kwaku [place] 350.1.13.10 i ty of [place] 4.2.7.2.686 [facility] [id number] [address] 2019-11-12 2019-11-12 Emergency [facility] [id number] Univers 20:27:00 20:27:00 KWAKU katz [facility] 2019-10-20 2019-10-21 [facility] 1.2.840.114 [id number] 21:49:00 00:48:00 Zena Steen 350.1.13.10 [place] 4.2.7.2.686 [place] [id number] 084 2019-10-20 2019-10-21 [facility] 1.2.840.114 [id number] Univers 21:49:00 00:48:00 Zena Steen 350.1.13.10 ity [place] 4.2.7.2.[place] [id number] [address] 2019-10-20 2019-10-20 Emergency X [facility] ERT [id number] Univers 21:49:00 21:49:00 ZENA katz [facility] 2019-10-20 2019-10-20 Orders Doctor MOONEY 1.2.840.114 [id number] 00:00:00 00:00:00 Only Unassigned, LEYLA 350.1.13.10 [place] [facility] 4.2.7.2.686 [id number] 009 2019-10-20 2019-10-20 Orders Doctor MOONEY 1.2.840.114 [id number] [facility] 00:00:00 00:00:00 Only Unassigned, LEYLA 350.1.13.10 ity of [place] [facility] 4.2.7.2.686 Marty [phone] [address] 2019-08-29 2019-08-29 Emergency [facility] 1.2.840.114 [id number] 18:05:24 19:48:00 Qi Steen 350.1.13.10 [place] 4.2.7.2.686 [place] [phone] [facility] 2019-08-29 2019-08-29 Emergency [facility] 1.2.840.114 [id number] Univers 18:05:24 19:48:00 Qi Steen 350.1.13.10 ity of [place] 4.2.7.2.686 [facility] [phone] [facility] [address] 2019-08-11 2019-08-11 Outpatient FERMÍNTON_L MMG [facility] [id number] [place] 09:48:00 09:48:00 529 Medical [facility] 2019-04-20 2019-04-20 Emergency Chaoman, [facility] 1.2.840.114 [id number] 21:28:16 22:19:00 Alley Steen 350.1.13.10 [place] 4.2.7.2.686 [place] [id number] 084 2019-04-20 2019-04-20 Emergency Chaoman, [facility] 1.2.840.114 [id number] [facility] 21:28:16 22:19:00 Alley Karon [place] 350.1.13.10 ity of [place] 4.2.7.2.686 [facility] [phone] [facility] [address] 2016-12-06 2016-12-06 Emergency ER FRAME, [facility] [id number] [place] 07:35:00 10:30:00 YUMIKO -[id number] [facility] 2016-02-09 2016-02-09 Emergency ER SAEMI, [facility] [id number] [place] 17:17:00 22:36:00 LEAH -[id number] [facility] 2016-01-08 2016-01-08 Emergency ER UGORJI, [facility] [id number] [place] 21:19:00 22:36:00 GURDEEP -[id number] [facility] 2015-12-22 2015-12-22 Emergency ER BA, ELIZABETH [facility] [id number] [place] 22:11:00 23:07:00 -[id number] [facility] 2015-07-20 2015-07-20 Emergency ER MICHAUD, [facility] [id number] [place] 22:15:00 23:15:00 JONATHAN -[id number] [facility] 2015-06-14 2015-06-14 Emergency ER UGORJI, [facility] [id number] [place] 11:50:00 14:25:00 GURDEEP -[id number] [facility] 2015-03-13 2015-03-13 Emergency ER UGORJI, [facility] [id number] [place] 17:31:00 18:40:00 GURDEEP -[id number] [facility] 2014-04-13 2014-04-14 Emergency ER BA, ELIZABETH [facility] [id number] [place] 20:30:00 00:10:00 -[id number] [facility] 2014-03-10 2014-03-10 Emergency ER BA, ELIZABETH [facility] [id number] [place] 03:56:00 07:10:00 -[id number] [facility] 2014-02-08 2014-02-08 Emergency ER AKAHARA, [facility] [id number] [place] 08:25:00 13:40:00 DONG -[id number] [facility] 2014-02-03 2014-02-03 Emergency EL BA, ELIZABETH [facility] [id number] [place] 20:19:00 20:52:00 -[id number] [facility] 2014-01-11 2014-01-12 Emergency ER ADRIANNA, [facility] [id number] [place] 23:32:00 00:41:00 KENZIE -[id number] [facility] 2013-11-13 2013-11-13 Emergency ER SHEFFIELD, [facility] [id number] [place] 01:32:00 02:12:00 SCAR -[id number] [facility] 2013-09-20 2013-09-20 Emergency ER ADRIANNA, [facility] [id number] [place] 19:30:00 20:23:00 KENZIE -[id number] [facility] 2013-08-21 2013-08-21 Emergency ER GARCIA, [facility] [id number] [place] 20:59:00 21:46:00 WASMARGARITA -[id number] [facility] 2013-07-23 2013-07-23 Emergency ER GARCIA, [facility] [id number] [place] 01:09:00 02:17:00 WASMARGARITA -[id number] [facility] 2013-06-25 2013-06-25 Emergency ER YARIMA, [facility] [id number] [place] 12:46:00 13:35:00 OSMAN -[id number] [facility] 2013-06-14 2013-06-14 Emergency ER ADRIANNA, [facility] [id number] [place] 22:40:00 23:59:00 KENZIE -[id number] [facility] 2013-06-04 2013-06-05 Emergency ER BREANNA, ELIAZBETH [facility] [id number] [place] 22:21:00 00:52:00 -[id number] [facility] 2013-05-16 2013-05-17 Emergency ER UGORJI, [facility] [id number] [place] 22:13:00 00:49:00 CLEMENT -[id number] [facility] 2013-03-25 2013-03-26 Emergency ER FOLEY, [facility] [id number] [place] 23:36:00 03:47:00 SCAR -[id number] [facility] 2013-03-22 2013-03-22 Emergency ER ADRIANNA, [facility] [id number] [place] 20:51:00 21:00:00 KENZIE -[id number] [facility] 2013-03-06 2013-03-07 Emergency ER UGORJI, [facility] [id number] [place] 23:27:00 03:02:00 CLEMENT -[id number] [facility] 2013-02-18 2013-02-18 Emergency ER UGORJI, [facility] [id number] [place] 00:57:00 01:21:00 CLEMENT -[id number] [facility] 2012-11-13 2012-11-14 Emergency ER GARCIA, [facility] [id number] [place] 22:31:00 00:11:00 WASMARGARITA -[id number] [facility] 2012-10-18 2012-10-18 Emergency ER GARCIA, [facility] [id number] [place] 00:16:00 01:14:00 WASMARGARITA -[id number] [facility] 2012-10-15 2012-10-16 Emergency ER FOLEY, [facility] [id number] [place] 22:38:00 00:42:00 SCAR -[id number] [facility] 2012-10-07 2012-10-07 Emergency ER GARCIA, [facility] [id number] [place] 00:13:00 01:12:00 WASIM -[id number] [facility] 2012-05-15 2012-05-16 Emergency ER MORENARICA, [facility] [id number] [place] 22:38:00 00:46:00 OSMAN -[id number] [facility] 2012-04-23 2012-04-24 Emergency ER UGROSALIND, [facility] [id number] [place] 22:14:00 00:21:00 GURDEEP -[id number] [facility] 2011-11-21 2011-11-22 Emergency ER GARCIA, [facility] [id number] [place] 23:01:00 01:36:00 WASIM -[id number] [facility] 2011-03-07 2011-03-07 Emergency ER OTINNH, [facility] [id number] [place] 16:37:00 18:29:00 RADHA -[id number] [facility] 2009-11-17 2009-11-18 Emergency ER GARCIA, [facility] [id number] [place] 21:51:00 00:40:00 WASIM -[id number] [facility] 2007-03-20 2007-03-20 Emergency ER [facility] [id number] [place] 01:13:00 02:14:00 BENJAMÍNELL, -[id number] [facility] Results Test Description Test Time Test Comments Results Result Comments Source Drug Screen,Urine 2022-07-07 16:35:00 Test Item Value Reference Range Interpretation Comme nts PCP Phencyclidine Screen,Urine (test code = PCPU) Negative Nega tive Amphetamine Screen,Urine (test code = AMPU) Negative Negative Methadone Screen,Urine (test code = METHU) Negative Negative Opiate Screen,Urine (test code = UOPIS) Negative Negative Barbituates Screen,Urine (test code = BARBU) Positive Negative A Benzodiazepines Screen,Urine (test code = UBENZS) Positive Nega tive A Cocaine Screen,Urine (test code = UCOCS) Positive Negative A Cannabinoid Screen,Urine (test code = UTHCS) Negative Negative Propoxyphene Screen, Urine (test code = UPROP) Negative Negativ e Complete Blood Count Auto [id number] 16:35:00 Test Item Value Reference Range Interpretation Comments White Blood Count (test code = 9.2 x10 3/uL 4.4-10.5 N WBCT) Red Blood Count (test code = 4.76 x10 6/uL 4.10-5.70 N RBC) Hemoglobin (test code = HGBT) 13.3 g/dL 13.4-17.4 L Hematocrit (test code = HCTT) 40.4 % 38.7-52.0 N Mean Corpuscular Volume (test 84.90 fL 80.00-100.00 N code = MCV) Mean Corpuscular Hemoglobin 27.9 pg 27.0-32.5 N (test code = MCH) Mean Corpuscular HGB Conc (test 32.90 g/dL 32.00-37.50 N code = MCHC) RDW Coefficient of Variation 14.5 % 11.5-14.5 N (test code = RDWCV) Platelet Count (test code = 328 x10 3/uL 140.0-440.0 N PLTT) Mean Platelet Volume (test code 10.4 fL = MPV) Immature Granulocytes % (Auto) 0.4 % 0.0-5.0 N (test code = IMMGRAN%) Neutrophils % (Auto) (test code 61.6 % 36.0-70.0 N = NE%) Lymphocytes % (Auto) (test code 26.4 % 12.0-44.0 N = LY%) Monocytes % (Auto) (test code = 9.2 % 0.0-11.0 N MO%) Eosinophils % (Auto) (test code 2.0 % 0.0-7.0 N = EO%) Basophils % (Auto) (test code = 0.4 % 0.0-2.0 N BA%) Immature Granulocytes # (Auto) 0.04 x10 3/uL (test code = IMMGRAN#) Neutrophils # (Auto) (test code 5.7 x10 3/uL 1.6-7.4 N = NE#) Lymphocytes # (Auto) (test code 2.43 x10 3/uL 0.50-4.60 N = LY#) Monocytes # (Auto) (test code = 0.85 x10 3/uL 0.00-1.20 N MO#) Eosinophils # (Auto) (test code 0.18 x10 3/uL 0.00-0.74 N = EO#) Basophils # (Auto) (test code = 0.04 x10 3/uL 0.00-0.21 N BA#) nRBC Abs (test code = NRBCA) 0 nRBC Pct (test code = NRBCP) 0 % Comprehensive Metabolic [id number] 16:35:00 Test Item Value Reference Range Interpretation Comments SODIUM (test code = NA) 137.0 mmol/L 136.0-145.0 N Potassium,K (test code = 3.3 mmol/L 3.0-5.1 N K) Chloride (test code = 105 mmol/L 98-107 N CL) Carbon Dioxide (test 23 mmol/L 20-31 N code = CO2) Anion Gap (test code = 9 mmol/L 5-15 N GAP) Blood Urea Nitrogen 9 mg/dL 9-23 N (test code = BUN) Creatinine (test code = 0.82 mg/dL 0.55-1.02 N CREATT) Creatinine Clr Calc 152.06 Pharmacy (test code = mL/min CRCLPHA) Estimated Glomerular 109 See_Comment Reporte d eGFR is Filt Rate (test code = based on the EGFR.XX) CKD-EPI 2020 equation thatdo es not use a race coefficient. Additional information can be found at:[email or web address] cb_ egfr_summary_fl reinier 5.pdf (kidney.o rg) [Automated message] The system which generated this result transmit coral reference range : >=90 ml/min/1.73m2. The reference range was not used to interpret this result as normal/abnormal . BUN/Creatinine Ratio 11 ratio 10-20 N (test code = BCRATIO) Glucose (test code = 106 mg/dL 74-106 N GLU) Osmolality,Calculated 282.2 (test code = OSMOC) Calcium (test code = CA) 9.9 mg/dL 8.3-10.6 N Bilirubin,Total (test 0.5 mg/dL 0.2-1.1 N code = BILIT) Aspartate Amino 17 U/L 0-34 N Transferase (test code = AST) Alanine Aminotransferase 12 U/L 10-49 N (test code = ALT) Total Protein (test code 7.3 g/dL 5.7-8.2 N = TP) Albumin Level (test code 4.6 g/dL 3.2-4.8 N = ALB) Globulin (test code = 2.7 mg/dL 2.3-3.5 N GLOB) Albumin/Globulin Ratio 1.7 ratio 0.8-2.0 N (test code = AGRATIO) Alkaline Phosphatase 85 U/L 46-116 N (test code = ALP) Ethanol [id number] 16:35:00 Test Item Value Reference Range Interpretation Comments Ethanol (test code < 3 mg/dL The pharm acological = ETOH) response to blo od alcohol levels mayvary from individual to i ndividual. The fatal caleb ntrationhas been reported t o be >400mg/dL. UA, Urinalysis Rflx Cult/[id number] 16:35:00 Test Item Value Reference Range Interpretation Comments Color,Urine (test code = UCOL) Dark Yellow Yellow A Clarity,Urine (test code = Clear Clear UCLAR) Ph, Urine (test code = UPH) 6.0 5.0-9.0 N Specific [place],Urine (test 1.020 1.005-1.030 N code = USG) Blood,Urine (test code = UBLD) Negative mg/dL Negative Protein,Urine (test code = 100 mg/dL Negative A UPRO) Glucose,Urine (UA) (test code Negative mg/dL Negative = UGLU) Ketones,Urine (test code = Trace mg/dL Negative A UKET) Nitrate,Urine (test code = Negative Negative UNIT) Bilirubin,Urine (test code = Negative mg/dL Negative UBIL) Urobilinogen,Urine (test code 1.0 E.U./dL Normal = UURO) Leukocyte Esterase,Urine (test Negative mg/dL Negative code = ULEU) ADD ON TESTUF REFLEXUF REFLEXUrine [id number] 16:35:00 Test Item Value Reference Range Interpretation Comments RBC,Urine (test code = 0-2 /HPF 0-2 URBC.SHOE PACKER) WBC,Urine (test code = 0-5 /HPF 0-5 UWBC.SHOE PACKER) Bacteria,Urine (test code = None Seen /HPF None Seen UBACT.SHOE PACKER) Squamous Epithelial Cell,Urine 0-5 /HPF 0-5 (test code = USQEPI.SHOE PACKER) Hyaline Casts,Urine (test code 0-5 /HPF None Seen A = UHYALC.XX) Mucus,Urine (test code = UMUC) Few /HPF None Seen ADD ON TESTUF REFLEXUF REFLEXInfluenza virus A and B and SARS-CoV-2 (COVID-19) identified in Respiratory specimen by NAY with probe [id number] 13:34:44 Test Item Value Reference Range Interpretation Comments Flu A (test code = Flu A) negative Flu B (test code = Flu B) negative Covid 19 (test code = Covid 19) [facility] [id number] 16:32:00 Test Item Value Reference Range Interpretation Comments AB HEPATITIS A IGM (test code = NONREACTIVE NONREACTIVE HAVMAB) AG HEPATITIS B SURFACE (test code NONREACTIVE NONREACTIVE = HBSAG) AB HEPATITIS B CORE IGM (test NONREACTIVE NONREACTIVE code = HBCMAB) AB HEPATITIS C (test code = NONREACTIVE NONREACTIVE HCVAB) SIGNAL TO CUTOFF (test code = 0.15 <0.80 N CUTOFF) ACUTE HEPATITIS [id number] 16:32:00 Test Item Value Reference Range Interpretation Comments AB HEPATITIS A IGM (test code = NONREACTIVE NONREACTIVE HAVMAB) AG HEPATITIS B SURFACE (test code NONREACTIVE NONREACTIVE = HBSAG) AB HEPATITIS B CORE IGM (test NONREACTIVE NONREACTIVE code = HBCMAB) AB HEPATITIS C (test code = NONREACTIVE NONREACTIVE HCVAB) SIGNAL TO CUTOFF (test code = 0.15 <0.80 CUTOFF) COMPREHENSIVE METABOLIC [id number] 12:59:00 Test Item Value Reference Range Interpretation [...] the recommended for smooth for GFRby the atduke [facility] Ad[facility].The GFR will [...] N PHOSPHATASE TOTAL (test code = ALKP) PROTHROMBIN [id number] 12:36:00 Test Item Value Reference Range Interpretation [...] orderCBC, OCCULT BLOOD, PT every other day NTHROMBOPLASTIN TIME [id number] 12:36:00 Test Item Value Reference Range Interpretation [...] 0 % 0-0 N code = NRBC) CBC W Auto Differential panel - [id number] 11:00:00 Test Item Value Reference Range Interpretation Comments white blood cell (test code = 9.3 K/mm3 5.7-10.5 white blood cell) red blood cell (test code = red 4.59 M/mm3 4.2-5.4 blood cell) hemoglobin (test code = 13.1 g/dL 12-16 hemoglobin) hematocrit (test code = 40.0 % 37-47 hematocrit) mean cell volume (test code = mean 87 fL 80-98 cell volume) mean cell HGB (test code = mean 28.5 pg 27-34 cell HGB) mean cell HGB concentration (test 32.8 g/dL 30.8-34.1 code = mean cell HGB concentration) red cell distribution width (test 14.2 % 11-16 code = red cell distribution width) plt (test code = plt) 359 K/mm3 130-400 mean platelet volume (test code = 9.6 fL 8.9-12.1 mean platelet volume) neutrophil % (test code = 66.9 % 45-70 neutrophil %) lymphocyte % (test code = 21.0 % 20-40 lymphocyte %) monocyte % (test code = monocyte 9.1 % 3-10 %) eosinophil % (test code = 2.5 % 1-5 eosinophil %) basophil % (test code = basophil 0.3 % 0.0-1.1 %) neutrophil # (test code = 6.20 K/mm3 2.00-7.50 neutrophil #) lymphocyte # (test code = 1.94 K/mm3 1.50-4.00 lymphocyte #) monocyte # (test code = monocyte 0.84 K/mm3 0.2-0.8 H #) eosinophil # (test code = 0.23 K/mm3 0.04-0.4 eosinophil #) basophil # (test code = basophil 0.03 K/mm3 0.02-0.10 #) manual diff required (test code = no manual diff manual diff required) nucleated red blood cell (test 0 % 0-0 code = nucleated red blood cell) performing lab: (test code = performing lab:) [facility]02[facility]18 11:00:00 Test Item Value Reference Range Interpretation Comments prothrombin time patient (test code 10.4 secs 9.7-12.5 = prothrombin time patient) international normal ratio (test 0.94 <2.0 code = international normal ratio) performing lab: (test code = performing lab:) [facility] [id number] 11:00:00 Test Item Value Reference Range Interpretation Comments PTT activated (test code = PTT 31.3 secs 26.6-34.6 activated) performing lab: (test code = performing lab:) [facility]Com[facility] 2000 panel - Serum or [id number] 11:00:00 Test Item Value Reference Range Interpretation Comments sodium (test code = sodium) 140 mmol/L 136-145 potassium (test code = 4.4 mmol/L 3.5-5.1 potassium) chloride (test code = chloride) 103.0 mmol/L 98-107 carbon dioxide (test code = 28.1 mmol/L 21-32 carbon dioxide) glucose (test code = glucose) 70 mg/dL 70-110 blood urea nitrogen (test code = 13 mg/dL 7-18 blood urea nitrogen) glomerular filtration rate (test 103.9 >60 code = glomerular filtration rate) creatinine (test code = 0.92 mg/dL 0.55-1.30 creatinine) total protein (test code = total 7.1 g/dL 6.4-8.2 protein) albumin (test code = albumin) 3.8 g/dL 3.4-5.0 globulin (test code = globulin) 3.3 g/dL 2.2-4.2 albumin/globulin ratio (test 1.2 0.7-2.0 code = albumin/globulin ratio) calcium (test code = calcium) 8.8 mg/dL 8.2-10.1 bilirubin total (test code = 0.20 mg/dL 0.2-1.00 bilirubin total) SGOT/AST (test code = SGOT/AST) 32.0 U/L 15-37 SGPT/ALT (test code = SGPT/ALT) 45.0 U/L 12-78 alkaline phosphatase total (test 82 U/L 46-116 code = alkaline phosphatase total) performing lab: (test code = performing lab:) [facility] hepatitis [id number] 11:00:00 Test Item Value Reference Range Interpretation Comments Ab hepatitis A IgM (test code = nonreactive nonreactive Ab hepatitis A IgM) Ag hepatitis B surface (test code nonreactive nonreactive = Ag hepatitis B surface) Ab hepatitis B core IgM (test nonreactive nonreactive code = Ab hepatitis B core IgM) Ab hepatitis C (test code = Ab nonreactive nonreactive hepatitis C) signal to cutoff (test code = 0.15 <0.80 signal to cutoff) performing lab: (test code = performing lab:) [facility] CenterMethicillin resistant Staphylococcus aureus [Presence] in Specimen by Organism specific [id number] 11:00:00 Test Item Value Reference Range Interpretation Comments MRSA surveillance screen (test code see below = MRSA surveillance screen) performing lab: (test code = performing lab:) [facility] Centermssa PCR surveillance [id number] 11:00:00 Test Item Value Reference Range Interpretation Comments mssa PCR surveillance screen (test see below code = mssa PCR surveillance screen) performing lab: (test code = performing lab:) [facility]- XR C-SPINE [id number] 14:52:00 [facility] MARY : 1975 Sex: M Patient Name: AMILCAR SAMUEL Unit No: [id number] EXAMS: CPT CODE: [id number] XR C-SPINE 6+V 05491 IMAGES PROVIDED: 7 views cervical spine and [...] the thoracic spine. at 1452 Reported and viv d by: Charlie De La Cruz M.D. CC: Cesar Lawrence M.D. Technologist: RT. Malina(R) TranscribedD/ (3572) BrandiSLJ [facility] NAME: AMILCAR SAMUEL [address] [facility] PHYS: Cesar Rowe MD : 1975 AGE: 46 SEX: M [place], [place] [address] LOC: Y.RAD PHONE #: [phone] EXAM DATE: 02/12/2022 STATUS: DEP CLI FAX #: [phone] RAD #: D/C DT PAGE 1 Signed Report Patient Name: AMILCAR SAMUEL Unit No: [id number] EXAMS: CPT CODE: [id number] XR C-SPINE 6+V 94341 (Continued) Orig Print D/T: S: 02/15/2022 (9306) [facility] NAME: AMILCAR SAMUEL [address] PHYS: Cesar Rowe MD : 1975 AGE: 46 SEX: M [place], [place] [address] LOC: CHELITA PHONE #: [phone] EXAM DATE: 02/12/2022 STATUS: LEILA CLI FAX #: [phone] RAD #: D/C DT PAGE 2 Signed Report- XR T-SPINE 2 [id number] 14:52:00 [facility] : 1975 Sex: M Patient Name: AMILCAR SAMUEL Unit No: [id number] EXAMS: CPT CODE: [id number] XR T-SPINE 2 VIEWS 83880 IMAGES PROVIDED: 7 views cervical spine and [...] Lawrence M.D. Technologist: RT. Malina(R) Transcribed D/ (120) Tonny [facility] NAME: AMILCAR SAMUEL [address] [facility] PHYS: Cesar Rowe MD : 1975 AGE: 46 SEX: M [place], [place] [address] LOC: Y.RAD PHONE #: [phone] EXAM DATE: 02/12/2022 STATUS: DEP CLI FAX #: [phone] RAD #: D/C DT PAGE 1 Signed Report Patient Name: AMILCAR SAMUEL Unit No: [id number] EXAMS: CPTCODE: [id number] XR T-SPINE 2 VIEWS 95766 (Continued) Orig Print D/T: S: 02/15/2022 (214) [facility] NAME: AMILCAR SAMUEL [address] [facility] PHYS: Cesar Rowe MD : 1975 AGE: 46 SEX: M [place] [address] LOC: Y.RAD PHONE #: [phone] EXAMDATE: 02/12/2022 STATUS: DEP CLI FAX #: [phone] RAD #: D/C DT PAGE 2 Signed Report- CT C-SPINE W/O [id number] 14:41:00[facility] 1975 Sex: M Patient Name: AMILCAR SAMUEL Unit No: [id number] EXAMS: CPT CODE: [id number] CT C-SPINE W/O CONT [id number]: Spiral CT images were obtained with axial images displayed of the cervical spine. Sagittal and coronal reconstructions were also performed. COMPARISON: Concurrent radiographs FINDINGS: C3-C4ACDF is demonstrated without evidence of fusion. C5 C7 ACDF construct is also present with solid fusion at C5-C6. No definite C6-C7 fusion is visualized. Alignment: Straightening of cervical lordosis.Bone Lesion / Fracture: None present. Prevertebral / Paraspinal Soft Tissues: Unremarkable. C2/3: Nosignificant abnormality. C3/4: ACDF without evidence of interbody fusion. Moderate to severe bilateral foraminal stenosis is present without significant central canal stenosis. C4/5: A small disc bulgeosteophyte complex is noted as well as right greater than left uncovertebral hypertrophy. There is mild left, moderate right foraminal stenosis. No definite central canal stenosis. Posterior stimulatory lead is in place terminating at the C4-C5 level. C5/6: Discectomy and interbody fusion. No definiteforaminal or central canal stenosis. C6/7: Discectomy without definite interbody fusion. Mild left foraminal stenosis is present. No significant right foraminal or central canal stenosis. C7/T1: No disc bulge or herniation. Mild uncovertebral hypertrophy is present. There is no definite foraminal or central canal stenosis. IMPRESSION: Postoperative cervical spine without definite interbody fusion at C3-C4 or C6-C7. at 1441 Reported and signed by: Charlie De La Cruz M.D. [facility] NAME: AMILCAR SAMUEL MARY [address] [facility] PHYS: Cesar Rowe MD : 1975 AGE: 46 SEX: M [place], [place] [address] LOC: Y.RAD PHONE #: [phone] EXAM DATE: 02/12/2022 STATUS: DEP CLI FAX #: [phone] RAD #: D/C DT PAGE 1 Signed Report (CONTINUED) Patient Name: AMILCAR SAMUEL Unit No: [id number] EXAMS: CPT CODE: [id number] CT C-SPINE W/O CONT 06600 (Continued) CC: Cesar Lawrence M.D. Technologist: Kenzie Meredith,RT(R) CTDI: DLP: Trnscrpt: 02/15/2022 (1441) Tonny [facility] NAME: AMILCAR SAMUEL [address] [facility] PHYS: Cesar Rowe MD : 1975 AGE: 46SEX: M [place] [address] LOC: Y.RAD PHONE #: [phone] EXAM DATE: 02/12/2022 STATUS: DEP CLI FAX #: [phone] RAD #: D/C DT PAGE 2 Signed Report Patient Name: AMILCAR SAMUEL Unit No: [id number] EXAMS: CPT CODE: [id number] CT C-SPINE W/O CONT 90116 (Continued) Orig Print D/T: S: 02/15/2022 (1444) [facility] NAME: AMILCAR SAMUEL [address] [facility] PHYS: Cesar Rowe MD : 1975 AGE: 46 SEX: M [place] [address] LOC: Y.RAD PHONE #: [phone] EXAM DATE: 02/12/2022 STATUS: DEP CLI FAX #: [phone] RAD #: D/C DT PAGE 3 Signed Report Notes Date/Time Note Provider Source 2022-07-07 17:15:00-00:00 [facility] [address] [place] [address] Emergency Department Document Signed with Addenda Patient: Amilcar Samuel Medical Record#: [id number] : 1975 Acct:[id number] Age/Sex: 47 / M Admit/Reg Date: 07/07/22 Loc: [facility] Room: Report Number: [id number]: Bry Nielson DO ADDENDUM Consulted Psychiatric is flavia ked to Dr. Palumbo. Patient Deepali accepted the admission. Addendum Dictated By: JOSEF Warner Addendum Signed By: <Electro nically signed by PAC MD Sheila Warner> 07/07/222303 Addendum Cosigned By: DD/ TD/TT: 07/07/22 <Bry Nielson - Last Filed: 07/07/22 17:26> Psych HPI - General Chief Complaint: Psychiatric Symptoms Stated Complaint: Mental Health Primary Care Provider: Pcp-None,Md - Related Data Allergies Allergy/AdvReac Type Severity Reaction Status Da te / Time ketorolac [From Toradol] Allergy Unknown Verifie d 07/07/22 16:26 sumatriptan [From Imitrex] Allergy Unknown Verif ied 07/07/22 16:26 tramadol Allergy Unknown Verified 07/07/22 16:26 Results/Orders - Results and Orders Result diagrams: 07/07/22 16:35 07/07/22 16:35 Attending - SAMANTHA: Attending Note all aspects of: medical decision making <Sunny Sheikh - Last Filed: 07/07/22 17:36> Arrival - Arrival ED Triage Note: Pt c/o feeli ng depressed and +thoughts of SI, pt reports +drug/etoh use, denies any HI/AVH. Pt aaox3, NAD, vSS Psych HPI - General Nursing note reviewed: Yes Source: patient Mode of arrival: ambulatory Limitations: no limitations Primary Care Provider: Pcp-None,Md - History of Present Illness HPI Narrative: 47-year-old male presents vo [facility] with complain of suicidal thoughts. Reports having a positive plan, wants to OD and/or cut his wrist. Reports history anxiety and depression. Patient states has been depressed, recently his left him. Admitted recent ETOH consumption or illicit drug use. He reports previous suicidal attempts. Anxiety and depression. Awake, alert, oriented, ambulatory. Calm and cooperative. complaint: suicidal ideation Onset (ago): day(s) Duration: constant History of same: Yes Relieving factors: none Exacerbating factors: none Context: recent alcohol abuse, recent drug abuse Associated psychiatric sympt oms: depression, suicidal ideation, racing thoughts Associated symptoms: denies other symptoms Treatments prior to arrival: none If self harm: admits thoughts of self harm Review of Systems All Other Systems (except as marked in HPI): Rev iewed and Negative Family/Social History - Social History Living Situation: Private Home Smoking Status: Current everyday tobacco user-li ght smoker Do you drink alcohol: Yes Current or Hx of Recreational Drug use: Yes Physical Exam Triage Vital Signs: Temperature 37 C 07/07/22 16:29 Temperature Source Oral 07/07/22 16:29 Pulse Rate 92 H 07/07/22 16:29 Respiratory Rate 18 07/07/22 16:29 Blood Pressure 147/89 H 07/07/22 16:29 Blood Pressure Source Automatic Cuff 07/07/22 16 :29 Blood Pressure Mean 108 07/07/22 16:29 Blood Pressure Position Sitting 07/07/22 16:29 O2 Sat by Pulse Oximetry 98 07/07/22 16:29 Oxygen Delivery Method 07/07/22 16:29 Pain Intensity 0 07/07/22 16:29 General Appearance: NAD Head: Atraumatic Eyes: PERRL, EOMI Ears: Hearing grossly intact, Canals normal Nose: Normal, No nasal discharge Mouth/Throat: Mucosa moist, Uvula midline Neck: Supple Respiratory: No respiratory distress, Lungs chari r, No accessory muscle use Cardiovascular: R/R/R, No Murmurs, No S3/S4 gall ops, No Rubs Abdominal: Soft, Non-tender, Non-distended, Normal bowel sounds, No organomegaly, No guarding, No Rebound tenderness Back: No CVAT Extremity/Musculoskeletal: No edema Skin: Warm, Dry Psych: Calm, States SI Neuro: A O X 3, Nonfocal, Mo tor grossly normal, Gait normal, Cerebellar nl, CN 2-12 intact, No pronator drift Results/Orders - Results and Orders Result diagrams: 07/07/22 16:35 07/07/22 16:35 Lab Testing Results 07/07/22 16:35: WBC 9.2, RBC 4.76, Hgb 13.3 L, Hct 40.4, MCV 84.90, MCH 27.9, MCHC 32.90, RDW Coeff of Mora 14.5, Plt Count 328, MPV 10.4, Immature Gran % (Auto) 0.4, Neut % (Auto) 61.6, Lymph % (Auto) 26.4, [place] % (Auto) 9.2, Eos % (Auto) 2.0, Baso % (Auto) 0.4, Neut # (Auto) 5.7, Lymph # (Auto) 2.43, [place] # (Auto) 0.85, Eo s # (Auto) 0.18, Baso # (Auto) 0.04, Immature Gran # (Auto) 0.04, Absolute Nucleated RBC 0, Nucleated RBC % (auto) 0 07/07/22 16:35: Sodium 137.0 , Potassium 3.3, Chloride 105, Carbon Dioxide 23, Anion Gap 9, BUN 9, Creatinine 0.82, Estimated C reat Clear 152.06, Estimated GFR 109, BUN/Creatinine Ratio 11, Glucose 106, Calculated Osmolality 2 82.2, Calcium 9.9, Total Bilirubin 0.5, AST 17, ALT 12, Alkaline Phosphatase 85, Total Protei n 7.3, Albumin 4.6, Globulin 2.7, Albumin/Globulin Ratio 1.7, Ethyl Alcohol < 3 07/07/22 16:35: Urine Opiate s Screen Negative, Urine Methadone Screen Negative, Ur Propoxyphene S creen Negative, Ur Barbitura sterling Screen Positive A, Ur Phencyclidine Scrn Negative, Ur Amphetamines Screen Negative, U Benzodiaz epines Scrn Positive A, Urine Cocaine Screen Positive A, U Cannabinoids Screen Negative MDM/COURSE Vital Signs Temperature 37 C 07/07/22 16:29 Pulse Rate 92 H 07/07/22 16:29 Respiratory Rate 18 07/07/22 16:29 Blood Pressure 147/89 H 07/07/22 16:29 O2 Sat by Pulse Oximetry 98 07/07/22 16:29 Temperature 37 C 07/07/22 16:29 Pulse Rate 92 H 07/07/22 16:29 Respiratory Rate 18 07/07/22 16:29 Blood Pressure 147/89 H 07/07/22 16:29 O2 Sat by Pulse Oximetry 98 07/07/22 16:29 - [facility] Medical decision making narrative: 07/07/22 17:18 Differential diagnosis associated with patient's presentation includes Suicidal thoughts, depressio n, anxiety, ETOH/drug abuse, dehydration, electrolyte imbalance Escalation of care including admission/observation considered: The plan is to medically clear patient in the ED, patient w ill be referred to psych intake for further psych eval. Discussions of management with other providers: Psych intake Discussed with Radiology regarding test interpre tation: none Independent interpretation: none Additional patient history obtained from: HPI ob tained from patient Review of external non-ED record: none Diagnostic tests considered but not performed: n one Prescription medications considered but not give n: none Chronic conditions affecting care: Anxiety and d epression Social Determinants of healt h significantly affecting care: EtOH and drug abuse 07/07/22 17:35 Labs grossly normal, UDS pos itive for barbiturates, cocaine and benzos. Patient is medically cleared from ED standpoint. Awaiting for psych intake evaluation for final disposition. Discharge Plan - Discharge Clinical Impression: Suicidal thoughts, Depression, Drug abuse Disposition: Still in ED Condition: Good Instructions: Depression: Tips to Help Yourself, ED Drug Abuse Referrals: [facility] [Other] Pcp-Aldair,MD Kapil [Primary Care Provider] - Print Language: [place] Islander - Discharge Data Time Seen by Provider: 07/07/22 16:16 Dictated By: Sunny Sheikh NP Signed By: Sunny Sheikh NP 07/07/22 1829 Bry Nielson DO 07/07/22 1726 DD/ 1715 TD/TT: 07/07/22 1715 Bottom Buffer: BECKA cc: GUISOTerrance; PCPNO* Pcp-Md KAPIL Quinteros; Bry Nielson DO
[2022-08-23] MEDS ORDERED: METOCLOPRAMIDE 10 MG/2mL INJ ONE (19:33)
[2022-08-23] MEDS ORDERED: DIPHENHYDRAMINE 50 MG/ML VIAL ONE (19:34)
[2022-08-23] MEDS ORDERED: dexAMETHasone 10 MG/ML VIAL ONE (19:34)
[2022-08-23] MEDS ORDERED: NA CHLORIDE 0.9% 1,000 ML ONE (19:34)
[2022-08-23] MEDS ORDERED: CYCLOBENZAPRINE 10 MG TAB ONE (19:34)
--- NOTE | 2022-08-23 21:08 | EDPHYS ---
Physician Documentation [facility] Name: Lino Samuel Age: 47 yrs Sex: Male : 1975 Arrival Date: 08/23/2022 Time: 19:08 Bed 8 Private MD: ED Physician Hernandez Kim HPI: 08/23 19:22 This 47 yrs old Male presents to ER via Ambulatory with complaints of Neck bs3 Pain, <24hrs Old, Headache. 19:22 47-year-old male history of hypertension, migraines, chronic pain, cervical neck pain bs3 status post 2 surgeries pending additional surgery presents with 2 complaints he notes 3 days of neck pain right-sided without any associated numbness tingling or weakness rating toward his neck and a migraine similar to prior episodes he does report a history of allergy to Toradol no fevers or chills no chest pain shortness of breath or anything else bothering him he took his last Fioricet earlier today. Historical: - Allergies: 19:20 Imitrex; lg3 19:20 Toradol; lg3 19:20 tramadol; lg3 - Home Meds: 19:26 amlodipine oral [Active]; Dexilant 30 mg Oral CpDB 1 cap once daily [Active]; Fioricet rv 50-325-40 mg Oral tab 1 tab every 4 hours [Active]; Hydrochlorothiazide Oral [Active]; Metoprolol Tartrate Oral [Active]; Percocet 7.5-325 mg Oral tab 1 tab every 6 hours [Active]; - PMHx: 19:20 Chronic pain; Gastric Reflux; Migraines; Hypertension; lg3 - PSHx: 19:20 Cholecystectomy; Elbow; neck; Nerve stimulator removed; Vasectomy; lg3 - Immunization history:: Adult Immunizations up to date, Client reports having NOT received the Covid vaccine. - Social history:: Smoking status: Patient reports the use of cigarette tobacco products, smokes one pack cigarettes per day. Patient/guardian denies using alcohol, street drugs. ROS: 19:22 Constitutional: Negative for fever, chills bs3 19:22 All other systems are negative. Exam: 19:22 Constitutional: This is a well developed, well nourished patient who is awake, alert, bs3 and in no acute distress. Head/Face: Normocephalic, atraumatic. Eyes: Pupils equal round and reactive to light, extra-ocular motions intact. Lids and lashes normal. ENT: mmm, no posterior phyarngeal erythema Neck: paraspinal tenderness on the right Chest/axilla: Normal chest wall appearance and motion. Nontender with no deformity. No lesions are appreciated. Cardiovascular: Regular rate and rhythm with a normal S1 and S2. symmetric pulses in upper extremities Respiratory: Lungs have equal breath sounds bilaterally, clear to auscultation, no respiratory distress MS/ Extremity: Pulses equal, no cyanosis. Neurovascular intact. Full, normal range of motion. Neuro: Awake and alert, GCS 15, oriented to person, place, time, and situation. Cranial nerves II-XII grossly intact. Motor strength 5/5 in all extremities. Sensory grossly intact. Psych: Awake, alert, with orientation to person, place and time. Behavior, mood, and affect are within normal limits. Vital Signs: 19:17 BP 146 / 94; Pulse 77; Resp 17 S; Temp 97.6(TE); Pulse Ox 100% ; Weight 106.59 kg; lg3 Height 6 ft. 4 in. ; 20:58 BP 170 / 92; Pulse 50; Resp 16; Pulse Ox 100% on R/A; jb4 19:17 Body Mass Index 28.60 (106.59 kg, 193.04 cm) lg3 MDM: 19:13 Patient medically screened. bs3 19:22 Data reviewed: vital signs, nurses notes. ED course: Patient with acute on chronic pain bs3 he has a normal gait here he has no neurologic symptoms to indicate an acute cord compression he previously had a spinal stimulator which was removed because it was not working will treat pain will avoid narcotics given the lack of efficacy and increased risk of harm. 21:06 ED course: Patient notes headache resolved still with some neck pain. ED course: Given bs3 the chronicity of his neck pain we discussed that I could likely cannot fix this problem I have no neurologic deficits advised outpatient follow. Administered Medications: 19:34 Drug: NS 0.9% IV 1000 ml Route: IV; Rate: 1000 ml; Site: right antecubital; rv 19:34 Drug: Cyclobenzaprine PO 10 mg Route: PO; rv 19:34 Drug: Dexamethasone IVP 0.1 mg/kg Route: IVP; Site: right antecubital; rv 19:35 Drug: metoCLOPramide IVP 10 mg Route: IVP; Site: right antecubital; rv 19:35 Drug: diphenhydrAMINE IVP 25 mg Route: IVP; Site: right antecubital; rv Disposition Summary: 08/23/22 21:07 Discharge Ordered Location: Home bs3 Problem: an acute exacerbation bs3 Symptoms: have improved bs3 Condition: Stable bs3 Diagnosis - Strain of muscle, fascia and tendon at neck level, initial encounter bs3 - Other migraine, intractable, without status migrainosus bs3 Followup: bs3 - With: Private Physician - When: 2 - 3 days - Reason: Re-evaluation by your physician Discharge Instructions: - Discharge Summary Sheet bs3 - Migraine Headache bs3 - Cervical Strain and Sprain Rehab-SportsMed bs3 Forms: - Medication Reconciliation Form bs3 - Thank You Letter bs3 - Antibiotic Education bs3 - Prescription Opioid Use bs3 Prescriptions: - Cyclobenzaprine 10 mg Oral Tablet - take 1 tablet by ORAL route every 8 hours As needed; 12 tablet; Refills: 0, bs3 Product Selection Permitted Signatures: Sundar Paris, RN RN rv Letitia Cali RN RN lg3 Hernandez Kim MD MD bs3
--- NOTE | 2022-08-23 21:08 | ER ---
Nurse's Notes [facility] Name: Lino Samuel Age: 47 yrs Sex: Male : 1975 Arrival Date: 08/23/2022 Time: 19:08 Bed 8 Private MD: Diagnosis: Strain of muscle, fascia and tendon at neck level, initial encounter;Other migraine, intractable, without status migrainosus Presentation: 08/23 19:17 Chief complaint: Patient states: neck pain and migraine X3 days. Coronavirus screen: lg3 Client denies travel out of the [place] in the last 14 days. At this time, the client does not indicate any symptoms associated with coronavirus-19. Ebola Screen: No symptoms or risks identified at this time. Initial Sepsis Screen: Does the patient meet any 2 criteria? No. Patient's initial sepsis screen is negative. Does the patient have a suspected source of infection? No. Patient's initial sepsis screen is negative. Risk Assessment: Do you want to hurt yourself or someone else? Patient reports no desire to harm self or others. Onset of symptoms was August 20, 2022. 19:17 Method Of Arrival: Ambulatory lg3 19:17 Acuity: ERICA 4 lg3 Triage Assessment: 19:20 General: Appears in no apparent distress. uncomfortable, Behavior is calm, cooperative. lg3 Pain: Complains of pain in head and neck. EENT: No deficits noted. No signs and/or symptoms were reported regarding the EENT system. Neuro: No deficits noted. Shea Agitation-Sedation Scale (RASS): 0 - Alert and Calm Level of Consciousness is awake, alert, obeys commands, Oriented to person, place, time, situation. Cardiovascular: No deficits noted. Denies chest pain, shortness of breath, Capillary refill < 3 seconds Clubbing of nail beds is absent JVD is absent Patient's skin is warm and dry. Respiratory: No deficits noted. Reports Airway is patent Respiratory effort is even, unlabored, Respiratory pattern is regular, symmetrical. GI: No deficits noted. No signs and/or symptoms were reported involving the gastrointestinal system. : No deficits noted. No signs and/or symptoms were reported regarding the genitourinary system. Derm: No deficits noted. No signs and/or symptoms reported regarding the dermatologic system. Musculoskeletal: No deficits noted. Circulation, motion, and sensation intact. Range of motion: intact in all extremities. Historical: - Allergies: 19:20 Imitrex; lg3 19:20 Toradol; lg3 19:20 tramadol; lg3 - Home Meds: 19:26 amlodipine oral [Active]; Dexilant 30 mg Oral CpDB 1 cap once daily [Active]; Fioricet rv 50-325-40 mg Oral tab 1 tab every 4 hours [Active]; Hydrochlorothiazide Oral [Active]; Metoprolol Tartrate Oral [Active]; Percocet 7.5-325 mg Oral tab 1 tab every 6 hours [Active]; - PMHx: 19:20 Chronic pain; Gastric Reflux; Migraines; Hypertension; lg3 - PSHx: 19:20 Cholecystectomy; Elbow; neck; Nerve stimulator removed; Vasectomy; lg3 - Immunization history:: Adult Immunizations up to date, Client reports having NOT received the Covid vaccine. - Social history:: Smoking status: Patient reports the use of cigarette tobacco products, smokes one pack cigarettes per day. Patient/guardian denies using alcohol, street drugs. Screenin:26 [facility] ED Fall Risk Assessment (Adult) History of falling in the last 3 months, rv including since admission No falls in past 3 months (0 pts) Confusion or Disorientation No (0 pts) Intoxicated or Sedated No (0 pts) Impaired Gait No (0 pts) Mobility Assist Device Used No (0 pt) Altered Elimination No (0 pt) Score/Fall Risk Level 0 - 2 = Low Risk Oriented to surroundings, Maintained a safe environment, Educated pt \T\ family on fall prevention, incl call for assistance when getting out of bed, Assessed \T\ reinforced patient's understanding of fall precautions, Provided non-skid footwear, Hourly rounding (assess needs \T\ fall precautionary measures) done, Used ambulatory aids as needed (educated on \T\ assisted with), Used gait belt as appropriate. Abuse screen: Denies threats or abuse. Denies injuries from another. Nutritional screening: No deficits noted. Tuberculosis screening: No symptoms or risk factors identified. Assessment: 19:24 General: Appears uncomfortable, Behavior is calm, cooperative. Pain: Complains of pain rv in NECK AND HEAD. Neuro: Level of Consciousness is awake, alert, obeys commands, Oriented to person, place, time, situation, Reports headache. Cardiovascular: Capillary refill < 3 seconds. Respiratory: Airway is patent Respiratory effort is even, unlabored. GI: No signs and/or symptoms were reported involving the gastrointestinal system. : No signs and/or symptoms were reported regarding the genitourinary system. Derm: Skin is intact. 20:58 Reassessment: Patient appears in no apparent distress at this time. Patient and/or jb4 family updated on plan of care and expected duration. Pain level reassessed. Patient is alert, oriented x 3, equal unlabored respirations, skin warm/dry/pink. Vital Signs: 19:17 BP 146 / 94; Pulse 77; Resp 17 S; Temp 97.6(TE); Pulse Ox 100% ; Weight 106.59 kg; lg3 Height 6 ft. 4 in. ; 20:58 BP 170 / 92; Pulse 50; Resp 16; Pulse Ox 100% on R/A; jb4 19:17 Body Mass Index 28.60 (106.59 kg, 193.04 cm) lg3 ED Course: 19:11 Patient arrived in ED. es 19:13 Hernandez Kim MD is Attending Physician. bs3 19:13 Mild[facility] Lopez [facility]C [facility]. kb 19:15 Inserted saline lock: 20 gauge in right antecubital area, using aseptic technique. rv 19:20 Triage completed. lg3 19:20 Arm band placed on right wrist. lg3 19:22 Sundar Paris, LUIS F is Primary Nurse. rv 19:26 Patient has correct armband on for positive identification. Bed in low position. Call rv light in reach. Side rails up X 1. Client placed on continuous cardiac and pulse oximetry monitoring. NIBP monitoring applied. 19:27 No provider procedures requiring assistance completed. rv 21:30 IV discontinued, intact, bleeding controlled, No redness/swelling at site. Pressure jb4 dressing applied. Administered Medications: 19:34 Drug: NS 0.9% IV 1000 ml Route: IV; Rate: 1000 ml; Site: right antecubital; rv 19:34 Drug: Cyclobenzaprine PO 10 mg Route: PO; rv 19:34 Drug: Dexamethasone IVP 0.1 mg/kg Route: IVP; Site: right antecubital; rv 19:35 Drug: metoCLOPramide IVP 10 mg Route: IVP; Site: right antecubital; rv 19:35 Drug: diphenhydrAMINE IVP 25 mg Route: IVP; Site: right antecubital; rv Medication: 19:26 VIS not applicable for this client. rv Outcome: 21:07 Discharge ordered by . bs3 21:30 Discharged to home ambulatory. jb4 21:30 Condition: stable 21:30 Discharge instructions given to patient, Instructed on discharge instructions, follow up and referral plans. medication usage, Demonstrated understanding of instructions, follow-up care, medications, Prescriptions given X 1. 21:30 Patient left the ED. jb4 Signatures: Mildred Lopez, FITNESS FLOOR ATTENDANT-C FITNESS FLOOR ATTENDANT-Ckb Lainey Thurman James, RN RN jb4 Sundar Paris RN RN Letitia Wang, LUIS F RN lg3 Hernandez Kim MD MD bs3
[2022-08-23 21:39] VITALS: TEMP 97.6; O2SAT 100
[2022-08-23 21:40] VITALS: BP 170/92
== END 2022-08-23 21:30 | disposition home or self-care (01) ==
LOC: ER 19:08
DX: S16.1XXA Strain of muscle, fascia and tendon at neck level, initial encounter (principal); G43.819 Other migraine, intractable, without status migrainosus; F17.210 Nicotine dependence, cigarettes, uncomplicated; I10 Essential (primary) hypertension; Z88.5 Allergy status to narcotic agent; Z88.6 Allergy status to analgesic agent
CPT/HCPCS: 96375; 96374; 99284; J2765; J1200; J1100; J7030